=== PATIENT | male | born 1950 | race Caucasian/White ===

== ENCOUNTER 2020-08-02 11:56 | Inpatient (IN) | payer MEDICARE, OTHER ==
[2020-08-02] MEDS ORDERED: ACETAMINOPHEN TAB 500 MG TAB PO STA (11:59)
--- NOTE | 2020-08-02 12:19 | ED ---
General Adult HPI - General Chief complaint: Fever Stated complaint: Altered Mental Status Time Seen by Provider: 08/02/20 11:59 Source: patient, EMS, RN notes reviewed, old records reviewed Mode of arrival: EMS Limitations: no limitations - History of Present Illness Initial comments: 61-year-old male with multiple medical problems, currently residing at the longterm presenting with increased lethargy. Patient noted to have a fever of 103. He is unable to contribute at all to the history. He is tested twice weekly for coronavirus and there was no report of a positive test. He's had some increased work of breathing as well as hypoxia. There is a cough reported by EMS. - Related Data Home Medications Medication Instructions Recorded Confirmed Divalproex [Depakote] 500 mg PO QA 01/27/16 08/02/20 Divalproex [Depakote] 750 mg PO HS 01/27/16 08/02/20 Furosemide [Lasix] 40 mg PO DAILY@1400 01/27/16 08/02/20 Potassium Chloride [Klor-Con 10] 10 meq PO HS 01/27/16 08/02/20 Amiodarone [Cordarone] 200 mg PO DAILY 08/02/20 08/02/20 Cholecalciferol (Vitamin D3) 125 mcg PO DAILY 08/02/20 08/02/20 [Vitamin D3 (5000 Iu)] Cyanocobalamin [Vitamin B-12] 500 mcg PO DAILY 08/02/20 08/02/20 Furosemide [Lasix] 80 mg PO DAILY 08/02/20 08/02/20 Insulin Detemir (Levemir) [Levemir] 8 unit SQ DAILY 08/02/20 08/02/20 Levothyroxine Sodium [Synthroid] 100 mcg PO DAILY@0600 08/02/20 08/02/20 Liraglutide [Victoza 3-Ramírez] 1.8 mg SQ DAILY 08/02/20 08/02/20 Melatonin 5 mg PO HS 08/02/20 08/02/20 Multivitamins, Thera [Multivitamin 1 tab PO DAILY 08/02/20 08/02/20 (formulary)] Potassium Chloride [Klor-Con 20] 20 meq PO DAILY 08/02/20 08/02/20 Pravastatin Sodium [Pravachol] 40 mg PO HS 08/02/20 08/02/20 Rivaroxaban [Xarelto] 20 mg PO W/SUPPER 08/02/20 08/02/20 lisinopriL [Zestril] 2.5 mg PO DAILY 08/02/20 08/02/20 metFORMIN HCL [Glucophage] 1,000 mg PO BID 08/02/20 08/02/20 Allergies Allergy/AdvReac Type Severity Reaction Status Date / Time No Known Allergies Allergy Verified 08/02/20 13:36 Review of Systems ROS Statement: Those systems with pertinent positive or pertinent negative responses have been documented in the HPI. ROS Other: All systems not noted in ROS Statement are negative. Past Medical History Past Medical History: Atrial Fibrillation, Asthma, Diabetes Mellitus, Hyperlipidemia, Hypertension, Sleep Apnea/CPAP/BIPAP, Thyroid Disorder Additional Past Medical History / Comment(s): Diabetic oculopathy, obesity, leukopenia, gallstone, diarrhea, mentally disabled, gout, peripheral neuropothy, gait dysfunction- uses motorized scooter, degenerative joint disorder, supposed to wear cpap at home but is non compliant History of Any Multi-Drug Resistant Organisms: Unobtainable Past Surgical History: Cholecystectomy, Hernia Repair Additional Past Surgical History / Comment(s): L inguinal hernia repair, last co lonoscopy 2003 Past Anesthesia/Blood Transfusion Reactions: Unable to Obtain Past Psychological History: No Psychological Hx Reported Past Alcohol Use History: Unable to Obtain Past Drug Use History: Unable to Obtain - Past Family History Mother Family Medical History: Unable to Obtain Father Family Medical History: Diabetes Mellitus General Exam Limitations: no limitations General appearance: lethargic Head exam: Present: atraumatic, normocephalic ENT exam: Present: mucous membranes moist Neck exam: Present: normal inspection. Absent: tenderness, meningismus Respiratory exam: Present: respiratory distress, wheezes, rhonchi, decreased breath sounds Cardiovascular Exam: Present: regular rate, normal rhythm GI/Abdominal exam: Present: soft, distended. Absent: tenderness, guarding, rebound Extremities exam: Present: pedal edema (Chronic venous stasis, no warmth, no fluctuance no induration) Neurological exam: Absent: motor sensory deficit Skin exam: Present: warm, dry, intact. Absent: cyanosis, diaphoretic Course Vital Signs 08/02/20 12:00 Temperature 103.2 F H Pulse Rate 92 Respiratory 20 Rate Blood Pressure 192/95 O2 Sat by Pulse 97 Oximetry Medical Decision Making - Medical Decision Making 69-year-old male presenting with hypoxia, fever, increased lethargy. Patient unable to contribute to the history. Chest x-ray showing cardiomegaly, there is concern for CHF in addition to likely bilateral pneumonia. He has a leukocytosis of 13. His coronavirus is negative. Urinalysis negative. He has no abdominal pain or tenderness. I did discuss case with Dr. Hoffmann who will admit. Initially started on antibiotics. I did give some IV fluids for minimally elevated lactic acid although I suspect there is a component of CHF and did not want to overload this patient. Infectious disease will be placed on consult. - Lab Data Result diagrams: 08/02/20 12:42 08/02/20 13:45 Lab Results 08/02/20 08/02/20 08/02/20 Range/Units 12:42 12:42 12:42 WBC 13.0 H (3.8-10.6) k/uL RBC 5.04 (4.30-5.90) m/uL Hgb 13.9 (13.0-17.5) gm/dL Hct 45.5 (39.0-53.0) % MCV 90.3 (80.0-100.0) fL MCH 27.5 (25.0-35.0) pg MCHC 30.5 L (31.0-37.0) g/dL RDW 18.2 H (11.5-15.5) % Plt Count 233 (150-450) k/uL MPV 8.8 Neutrophils % 92 % Lymphocytes % 4 % Monocytes % 4 % Eosinophils % 0 % Basophils % 0 % Neutrophils # 11.9 H (1.3-7.7) k/uL Lymphocytes # 0.5 L (1.0-4.8) k/uL Monocytes # 0.5 (0-1.0) k/uL Eosinophils # 0.0 (0-0.7) k/uL Basophils # 0.0 (0-0.2) k/uL Hypochromasia Marked Poikilocytosis Slight Anisocytosis Slight Sodium (137-145) mmol/L Potassium (3.5-5.1) mmol/L Chloride (98-107) mmol/L Carbon Dioxide (22-30) mmol/L Anion Gap mmol/L BUN (9-20) mg/dL Creatinine (0.66-1.25) mg/dL Est GFR (CKD-EPI)AfAm (>60 ml/min/1.73 sqM) Est GFR (CKD-EPI)NonAf (>60 ml/min/1.73 sqM) Glucose (74-99) mg/dL Plasma Lactic Acid Zachariah 2.2 H* (0.7-2.0) mmol/L Calcium (8.4-10.2) mg/dL Total Bilirubin (0.2-1.3) mg/dL AST (17-59) U/L ALT (4-49) U/L Alkaline Phosphatase (38-126) U/L NT-Pro-B Natriuret Pep 1310 pg/mL Total Protein (6.3-8.2) g/dL Albumin (3.5-5.0) g/dL Urine Color Urine Appearance (Clear) Urine pH (5.0-8.0) Ur Specific Filley (1.001-1.035) Urine Protein (Negative) Urine Glucose (UA) (Negative) Urine Ketones (Negative) Urine Blood (Negative) Urine Nitrite (Negative) Urine Bilirubin (Negative) Urine Urobilinogen (<2.0) mg/dL Ur Leukocyte Esterase (Negative) Coronavirus (PCR) (Not Detectd) 08/02/20 08/02/20 08/02/20 Range/Units 12:58 13:38 13:45 WBC (3.8-10.6) k/uL RBC (4.30-5.90) m/uL Hgb (13.0-17.5) gm/dL Hct (39.0-53.0) % MCV (80.0-100.0) fL MCH (25.0-35.0) pg MCHC (31.0-37.0) g/dL RDW (11.5-15.5) % Plt Count (150-450) k/uL MPV Neutrophils % % Lymphocytes % % Monocytes % % Eosinophils % % Basophils % % Neutrophils # (1.3-7.7) k/uL Lymphocytes # (1.0-4.8) k/uL Monocytes # (0-1.0) k/uL Eosinophils # (0-0.7) k/uL Basophils # (0-0.2) k/uL Hypochromasia Poikilocytosis Anisocytosis Sodium 138 (137-145) mmol/L Potassium 5.3 H (3.5-5.1) mmol/L Chloride 94 L (98-107) mmol/L Carbon Dioxide 33 H (22-30) mmol/L Anion Gap 11 mmol/L BUN 16 (9-20) mg/dL Creatinine 0.99 (0.66-1.25) mg/dL Est GFR (CKD-EPI)AfAm >90 (>60 ml/min/1.73 sqM) Est GFR (CKD-EPI)NonAf 78 (>60 ml/min/1.73 sqM) Glucose 168 H (74-99) mg/dL Plasma Lactic Acid Zachariah (0.7-2.0) mmol/L Calcium 9.2 (8.4-10.2) mg/dL Total Bilirubin 1.7 H (0.2-1.3) mg/dL AST 75 H (17-59) U/L ALT 15 (4-49) U/L Alkaline Phosphatase 62 (38-126) U/L NT-Pro-B Natriuret Pep pg/mL Total Protein 7.8 (6.3-8.2) g/dL Albumin 4.2 (3.5-5.0) g/dL Urine Color Light Yellow Urine Appearance Clear (Clear) Urine pH 5.0 (5.0-8.0) Ur Specific Filley 1.008 (1.001-1.035) Urine Protein Negative (Negative) Urine Glucose (UA) Negative (Negative) Urine Ketones Negative (Negative) Urine Blood Negative (Negative) Urine Nitrite Negative (Negative) Urine Bilirubin Negative (Negative) Urine Urobilinogen <2.0 (<2.0) mg/dL Ur Leukocyte Esterase Negative (Negative) Coronavirus (PCR) Not Detected (Not Detectd) Disposition Clinical Impression: Pneumonia Disposition: ADMITTED IP TO THIS HOSP Condition: Stable Is patient prescribed a controlled substance at d/c from ED?: No Referrals: Gerardo Brand DO [Primary Care Provider] - 1-2 days Decision to Admit Reason: Admit from EC Decision Date: 08/02/20 Decision Time: 14:24
[2020-08-02] MEDS ORDERED: ACETAMINOPHEN IV (For NPO) 1,000 MG in EMPTY BAG 1 BAG IVPB ONE (13:00)
--- NOTE | 2020-08-02 13:15 | XR ---
EXAMINATION TYPE: XR chest 2V DATE OF EXAM: 08/02/2020 COMPARISON: Chest x-ray February 10, 2016 HISTORY: Cough. TECHNIQUE: Frontal and lateral views of the chest are obtained. FINDINGS: There is cardiomegaly with bilateral central increased opacities. No pleural effusion or p neumothorax. The osseous structures are intact. IMPRESSION: Suspected CHF exacerbation as there is cardiomegaly redemonstrated with suspected modera te central vascular congestion. Correlate clinically.
[2020-08-02 13:21] LABS: Anisocytosis Slight; Basophils % (A) 0 %; Eosinophils % (A) 0 %; HCT 45.5 % (39.0-53.0); HGB 13.9 gm/dL (13.0-17.5); Hypochromasia Marked; Lymphocytes # (A) 0.5 k/uL (1.0-4.8); Lymphocytes % (A) 4 %; MCH 27.5 pg (25.0-35.0); MCHC 30.5 g/dL (31.0-37.0); MCV 90.3 fL (80.0-100.0); Mean Platelet Volume 8.8; Monocytes # (A) 0.5 k/uL (0-1.0); Monocytes % (A) 4 %; Neutrophils # (A) 11.9 k/uL (1.3-7.7); Neutrophils % (A) 92 %; Platelet Count 233 k/uL (150-450); Poikilocytosis Slight; RBC 5.04 m/uL (4.30-5.90); RDW 18.2 % (11.5-15.5)
[2020-08-02] MEDS ORDERED: cefTRIAXone IN SWFI 1,000 MG/10 ML SYRINGE IVP STA (13:27)
[2020-08-02] MEDS ORDERED: AZITHROMYCIN 500 MG in SODIUM CHLORIDE 0.9% 250 ML IVPB STA (13:50)
[2020-08-02 13:55] LABS: Appearance,Urine Clear (Clear); Bilirubin,Urine Negative (Negative); Blood,Urine Negative (Negative); Color,Urine Light Yellow; Glucose,Urine (UA) Negative (Negative); Ketones,Urine Negative (Negative); Leukocyte Esterase,Urine Negative (Negative); Nitrite,Urine Negative (Negative); Protein,Urine Negative (Negative); Specific Gravity,Urine 1.008 (1.001-1.035); Urobilinogen,Urine <2.0 mg/dL (<2.0)
[2020-08-02 14:09] LABS: ALT 15 U/L (4-49); AST 75 U/L (17-59); African American GFR (CKD) >90 (>60 ml/min/1.73 sqM); Albumin 4.2 g/dL (3.5-5.0); Alkaline Phosphatase 62 U/L (38-126); Anion Gap 11 mmol/L; Blood Urea Nitrogen 16 mg/dL (9-20); Calcium 9.2 mg/dL (8.4-10.2); Carbon Dioxide 33 mmol/L (22-30); Chloride 94 mmol/L (98-107); Glucose 168 mg/dL (74-99); Non-African American GFR(CKD) 78 (>60 ml/min/1.73 sqM); Sodium 138 mmol/L (137-145); Total Bilirubin 1.7 mg/dL (0.2-1.3); Total Protein 7.8 g/dL (6.3-8.2)
[2020-08-02 14:11] LABS: Potassium 5.3 mmol/L (3.5-5.1)
[2020-08-02] MEDS ORDERED: NALOXONE 0.4 MG/ML 1 ML VIAL IV PRN (14:19)
[2020-08-02] MEDS ORDERED: CEFEPIME 2 GM in SODIUM CHLORIDE 0.9% 100 ML IVPB STA (14:19)
[2020-08-02] MEDS ORDERED: SODIUM CHLORIDE 0.9% 1,000 ML IV SCH (14:30)
[2020-08-02] MEDS: CEFEPIME 2 GM in SODIUM CHLORIDE 0.9% 100 ML IVPB SCH (16:13)
[2020-08-02 16:59] LABS: Glucose,Whole Blood 114 mg/dL (75-99)
--- NOTE | 2020-08-02 17:02 | P.HPIM ---
History of Present Illness H&P Date: 08/02/20 Chief Complaint: Fever History of presenting complaint: This is a 69-year-old patient was currently at resident of [facility]. Patient being followed by Dr. Brand. Staff and the ECF following the patient's sensorium to be decreased. Patient is normally alert and able to walk around. Patient had a COVID test 5 days ago on Wednesday that was negative. Patient has slightly increased respiratory rate in the conus bit of a cough. Patient denies any urinary symptoms. Some decrease in appetite. No chest pain. Chronic stable medical conditions include atrial fibrillation, asthma, diabetes, hypertension, hyperlipidemia, gallstones, peripheral neuropathy, gait, uses a motorized scooter, DJD, does not use a CPAP Review of systems: GEN.: Fever, tired EYES: None HEENT: None NECK: None RESPIRATORY: Some cough and slight shortness of breath CARDIOVASCULAR: None GASTROINTESTINAL: None GENITOURINARY: None MUSCULOSKELETAL: None LYMPHATICS: None HEMATOLOGICAL: None PSYCHIATRY: Able to answer very simple questions NEUROLOGICAL: None Past medical history to include: atrial fibrillation, asthma, diabetes, hypertension, hyperlipidemia, ulcerative sleep apnea does not use CPAP, cognitive impairment, gout, peripheral neuropathy gait dysfunction uses a motorized scooter Social history: Resident of [facility], no history of smoking or alcohol Family history: Patient cannot tell Physical examination: VITAL SIGNS: 103.2, 92, 20, 104/58, 93% on 6 L GENERAL: BMI 39.2, laying in bed, bit tired and lethargic. EYES: Pupils equal. Conjunctiva normal. HEENT: [External appearance of nose and ears normal, macroglossia, dry mucous membranes. NECK: JVD unable to assess; masses not palpable. HEART: First and second heart sounds are normal; minimal edema. LUNGS: Respiratory rate increased; decreased breath sounds. ABDOMEN: Soft, nontender, liver spleen not palpable, no masses palpable. PSYCH: [Patient 0 to answer simple questions. NEUROLOGICAL: Cranial nerves grossly intact; no facial asymmetry, power and sensation grossly intact. LYMPHATICS: No lymph nodes palpable in the axilla and neck INVESTIGATIONS, reviewed in the clinical context: WBC 13 hemoglobin 13.9 platelets 233, lactic acid 2.2 Of 5.3 BUN 16 creatinine 0.99 ProBNP 1310 UA negative Coronavirus [PCR]-not detected Chest x-ray film personally reviewed by [id number] infiltrate, some underpenetration Assessment and plan: -Patient presents to fever 103. Has some tachypnea and a cough. Check stat x- ray showing infiltrate. Has elevated white count. Suspect gram-negative organism/pneumonia. Patient be started on IV cefepime. Blood cultures are drawn Procalcitonin ordered -Acute delirium/metabolic encephalopathy from fever Follow clinically -Sepsis from pneumonia IV fluids, antibiotics -Persistent atrial fibrillation, rate controlled Continue with xarelto, amiodarone -Diabetes mellitus type 2 Follow Accu-Cheks -Essential hypertension Continue with Zestril -Hyperlipidemia Continue with Pravachol -Obesity BMI 39.2 Weight loss measures when patient was stable -Obstructive sleep apnea, patient does not use CPAP -Diabetic peripheral neuropathy -Patient has a legal guardian, we'll obtain more information Keep patient on IV fluids. IV cefepime. Home medications and resume. Follow Accu-Cheks. Hold off metformin for now. Given the complexity and severity of patient's condition expect the patient to be in the hospital at least for 2 overnights Past Medical History Past Medical History: Atrial Fibrillation, Asthma, Diabetes Mellitus, Hyperlipidemia, Hypertension, Sleep Apnea/CPAP/BIPAP, Thyroid Disorder Additional Past Medical History / Comment(s): Diabetic oculopathy, obesity, leukopenia, gallstone, diarrhea, mentally disabled, gout, peripheral neuropothy, gait dysfunction- uses motorized scooter, degenerative joint disorder, supposed to wear cpap at home but is non compliant History of Any Multi-Drug Resistant Organisms: Unobtainable Past Surgical History: Cholecystectomy, Hernia Repair Additional Past Surgical History / Comment(s): L inguinal hernia repair, last colonoscopy 2002 Past Anesthesia/Blood Transfusion Reactions: Unable to Obtain Past Psychological History: No Psychological Hx Reported Past Alcohol Use History: Unable to Obtain Past Drug Use History: Unable to Obtain - Past Family History Mother Family Medical History: Unable to Obtain Father Family Medical History: Diabetes Mellitus Medications and Allergies Home Medications Medication Instructions Recorded Confirmed Type Divalproex [Depakote] 500 mg PO QAM 01/27/16 08/02/20 History Divalproex [Depakote] 750 mg PO HS 01/27/16 08/02/20 History Furosemide [Lasix] 40 mg PO DAILY@1400 01/27/16 08/02/20 History Potassium Chloride [Klor-Con 10] 10 meq PO HS 01/27/16 08/02/20 History Amiodarone [Cordarone] 200 mg PO DAILY 08/02/20 08/02/20 History Cholecalciferol (Vitamin D3) 125 mcg PO DAILY 08/02/20 08/02/20 History [Vitamin D3 (5000 Iu)] Cyanocobalamin [Vitamin B-12] 500 mcg PO DAILY 08/02/20 08/02/20 History Furosemide [Lasix] 80 mg PO DAILY 08/02/20 08/02/20 History Insulin Detemir (Levemir) [Levemir] 8 unit SQ DAILY 08/02/20 08/02/20 History Levothyroxine Sodium [Synthroid] 100 mcg PO DAILY@0600 08/02/20 08/02/20 History Liraglutide [Victoza 3-Ramírez] 1.8 mg SQ DAILY 08/02/20 08/02/20 History Melatonin 5 mg PO HS 08/02/20 08/02/20 History Multivitamins, Thera [Multivitamin 1 tab PO DAILY 08/02/20 08/02/20 History (formulary)] Potassium Chloride [Klor-Con 20] 20 meq PO DAILY 08/02/20 08/02/20 History Pravastatin Sodium [Pravachol] 40 mg PO HS 08/02/20 08/02/20 History Rivaroxaban [Xarelto] 20 mg PO W/SUPPER 08/02/20 08/02/20 History lisinopriL [Zestril] 2.5 mg PO DAILY 08/02/20 08/02/20 History metFORMIN HCL [Glucophage] 1,000 mg PO BID 08/02/20 08/02/20 History Allergies Allergy/AdvReac Type Severity Reaction Status Date / Time No Known Allergies Allergy Verified 08/02/20 13:36 Physical Exam Vitals: Vital Signs Temp Pulse Resp BP Pulse Ox 08/02/20 14:27 101.3 F H 87 19 104/58 93 L 08/02/20 12:00 103.2 F H 92 20 192/95 97 Intake and Output 08/02/20 08/02/20 08/02/20 06:59 14:59 22:59 Other: Weight 113.398 kg Results CBC & Chem 7: 08/02/20 12:42 08/02/20 13:45 Labs: Abnormal Lab Results - Last 24 Hours (Table) 08/02/20 08/02/20 08/02/20 Range/Units 12:42 12:42 13:45 WBC 13.0 H (3.8-10.6) k/uL MCHC 30.5 L (31.0-37.0) g/dL RDW 18.2 H (11.5-15.5) % Neutrophils # 11.9 H (1.3-7.7) k/uL Lymphocytes # 0.5 L (1.0-4.8) k/uL Potassium 5.3 H (3.5-5.1) mmol/L Chloride 94 L (98-107) mmol/L Carbon Dioxide 33 H (22-30) mmol/L Glucose 168 H (74-99) mg/dL Plasma Lactic Acid Zachariah 2.2 H* (0.7-2.0) mmol/L Total Bilirubin 1.7 H (0.2-1.3) mg/dL AST 75 H (17-59) U/L
[2020-08-02] MEDS: INSULIN ASPART (NovoLOG) 100 UNIT/ML VIAL SQ SCH ×2 (17:08→21:05)
[2020-08-02] MEDS: SODIUM CHLORIDE 0.9% 1,000 ML IV SCH (17:26)
[2020-08-02] MEDS: RIVAROXABAN 20 MG TAB PO SCH (18:05)
[2020-08-02] MEDS ORDERED: VANCOMYCIN IV PER PHARMACY 1 EACH MISC MISCELLANE PRN (20:04)
[2020-08-02] MEDS ORDERED: SODIUM CHLORIDE 0.9% 1,000 ML IV ONE (20:07)
[2020-08-02 20:14] LABS: Glucose,Whole Blood 98 mg/dL (75-99)
[2020-08-02] MEDS: PRAVASTATIN SODIUM 40 MG TAB PO SCH (21:10)
[2020-08-02] MEDS: MELATONIN 5 MG TABLET PO SCH (21:10)
[2020-08-02] MEDS: DIVALPROEX 250 MG TABLET.DR PO SCH (21:10)
[2020-08-02] MEDS: VANCOMYCIN 1,750 MG in SODIUM CHLORIDE 0.9% 500 ML 500 ML IVPB SCH (21:10)
[2020-08-03] MEDS: CEFEPIME 2 GM in SODIUM CHLORIDE 0.9% 100 ML IVPB SCH ×3 (00:15→17:38)
[2020-08-03] MEDS: SODIUM CHLORIDE 0.9% 1,000 ML IV SCH ×3 (00:52→17:39)
--- NOTE | 2020-08-03 01:06 | P.EN ---
A team note Activated at 7:57 pm. Arrived on the scene shortly after. Reviewed the chart and discussed the case with RN. The patient was admitted to the hospital with sepsis secondary to pneumonia. Upon arrival to the floor, he was noted to be hypotensive with BP 62/28. Upon arrival at the scene, the patient's BP was 91/52, pulse 70, respiratory rate 19, temp 98.1, and SpO2 93% on nasal cannula 6 L. Patient reported having a cough though was slow to respond and did not relay any further complaints. General: Non-toxic, in no acute distress, appears stated age, morbidly obese HEENT: NC/AT, anicteric sclerae, moist conjunctiva, no lid-lag, PERRLA Cardiovascular: S1/S2 wnl, no murmurs, rubs, or gallops Lungs: Mild bibasilar rales, normal respiratory effort, no accessory muscle use Abdominal: Soft, non-tender, non-distended, no guarding, rebound, or rigidity Skin: Warm, dry Extremities: No bilateral lower extremity edema with chronic venous stasis changes Psychiatric: Somewhat lethargic, oriented to person and place, not oriented to time Neuro: Moving all extremities, no gross focal deficits noted Assessment/plan Severe sepsis secondary to pneumonia -Vancomycin stat dose ordered -Patient currently receiving cefepime -1 L of normal saline bolus ordered -Primary Team notified by RN -Continue to monitor lactate to resolution -Infectious disease consulted
[2020-08-03] MEDS: LEVOTHYROXINE 100 MCG TAB PO SCH (04:43)
--- NOTE | 2020-08-03 06:31 | CONS ---
CONSULTATION DATE OF SERVICE: 08/02/2020 REASON FOR CONSULTATION: Pneumonia. HISTORY OF PRESENT ILLNESS: The patient is a 69-year-old male who is a resident of a local correction. The patient was sent to [facility] ER for evaluation of increasing lethargy. The patient did have a fever of 103-104 at that facility. The patient also noticed to have a congested cough with increasing work of breathing and hypoxemia. Patient tested twice today for [place] and the patient did have a negative COVID-19 test. With these symptoms, the patient was evaluated by the ER physician. On arrival to the ER, the patient did have fever of 103 degrees Fahrenheit. The patient did not have significant tachycardia. He was hypoxic requiring supplemental oxygen. Did have an elevated white count of 13,000 with a left shift. Did have elevated lactic acid. Procalcitonin 0.66, creatinine was normal. AST was mildly elevated. Urine was negative. Noyola PCR was negative. Chest x-ray was mostly CHF pattern. The patient has been admitted to the hospital. Infectious Disease was consulted for further management of antibiotic therapy. The patient is not a very good historian so most of the information has been extracted from review of the chart, talking to the nursing staff. REVIEW OF SYSTEMS: Positive points have been mentioned in HPI. Complete review could not be obtained because of underlying mental status. PAST MEDICAL HISTORY: Atrial fibrillation, asthma, diabetes mellitus, hypertension, hyperlipidemia, sleep apnea, hypothyroidism. PAST SURGICAL HISTORY: Cholecystectomy, hernia repair. SOCIAL HISTORY: No history of smoking, drinking or drug use. He is a correction resident. FAMILY HISTORY: No pertinent findings noticed. ALLERGIES: No known drug allergies. MEDICATIONS: Currently include the patient is on Tylenol, amiodarone, cefepime, vitamin B12, Depakote, NovoLog, Synthroid, vancomycin pharmacy to dose, Theragran, Narcan Pravachol, Xarelto. PHYSICAL EXAMINATION: VITAL SIGNS: Blood pressure is 91/52, pulse of 70, temperature is 98.1, he is 93% on 6 L nasal cannula. GENERAL DESCRIPTION: Patient is an elderly male lying in bed in no distress. No tachypnea or accessory muscles of respiration use. HEENT: Examination shows slight pallor, no scleral icterus. Oral mucous membrane is dry. NECK: Trachea central, no thyromegaly. LUNGS: Unlabored breathing, decreased breath sounds at the bases. No wheeze or crackle. HEART: S1-S2, regular rate and rhythm. ABDOMEN: Soft, no tenderness. No guarding or rigidity. EXTREMITIES: No edema of the feet. SKIN: No rash or mass palpable. NEUROLOGICAL: Patient is awake, alert, oriented times one. Mood and affect normal. LABS: Hemoglobin 13.1, white count 13,000, BUN of 16, creatinine 0.99. Procalcitonin 0.66. N[place] PCR was negative. The chest x-ray report as mentioned above. DIAGNOSTIC IMPRESSION: Patient presented to the hospital with a fever, decreased level of consciousness, congested cough with evidence of pneumonia likely a nosocomial pathogen, in this patient who is a correction resident. No need to cover for resistant gram-positive or gram-negative. PLAN: 1. We will try to obtain sputum for Gram stain and culture. 2. Check urine for Legionella antigen. 3. Continue the patient on cefepime 2 g q.8h, vancomycin, Pharmacy to dose. 4. We will follow on clinical condition and culture to further adjust medication if needed. Thank you for this consultation. Will follow this patient along with you. MMODL / IJN: [id number] /
[2020-08-03 06:58] LABS: Glucose,Whole Blood 103 mg/dL (75-99)
[2020-08-03] MEDS: INSULIN ASPART (NovoLOG) 100 UNIT/ML VIAL SQ SCH ×4 (07:05→21:30)
[2020-08-03] MEDS: CYANOCOBALAMIN 500 MCG TAB PO SCH (08:18)
[2020-08-03] MEDS: DIVALPROEX 250 MG TABLET.DR PO SCH ×2 (08:18→21:30)
[2020-08-03] MEDS: MULTIVITAMINS, THERA 1 EACH TAB PO SCH (08:18)
[2020-08-03] MEDS: CHOLECALCIFEROL 25 MCG (1000 IU) TABLET PO SCH (08:18)
[2020-08-03] MEDS: AMIODARONE 200 MG TAB PO SCH (08:18)
[2020-08-03 11:31] LABS: Glucose,Whole Blood 197 mg/dL (75-99)
[2020-08-03] MEDS: VANCOMYCIN 1,750 MG in SODIUM CHLORIDE 0.9% 500 ML 500 ML IVPB SCH ×2 (12:33→21:31)
--- NOTE | 2020-08-03 15:30 | P.PN ---
Progress Note - Text Progress Note Date: 08/03/20 Chief Complaint: Fever History of presenting complaint: This is a 69-year-old patient was currently at [facility]. Patient being followed by Dr. Brand. Staff and the ECF following the patient's sensorium to be decreased. Patient is normally alert and able to walk around. Patient had a COVID test 5 days ago on Wednesday that was negative. Patient has slightly increased respiratory rate in the conus bit of a cough. Patient denies any urinary symptoms. Some decrease in appetite. No chest pain. Chronic stable medical conditions include atrial fibrillation, asthma, diabetes, hypertension, hyperlipidemia, gallstones, peripheral neuropathy, gait, uses a motorized scooter, DJD, does not use a CPAP Admitted with pneumonia, delirium, sepsis. Started on IV cefepime. Today: Sitting up in a chair. Feeling better. Currently getting better. Sensorium better. Currently getting better Review of systems: Was done for constitutional, cardiovascular, GI, pulmonary. relevant finding as above Active Medications Acetaminophen (Acetaminophen Tab 325 Mg Tab) 650 mg PO Q6HR PRN PRN Reason: Mild Pain or Fever > 100.5 Amiodarone HCl (Amiodarone 200 Mg Tab) 200 mg PO DAILY [facility] Last Admin: 08/03/20 08:18 Dose: 200 mg Documented by: Cholecalciferol (Cholecalciferol 25 Mcg (1000 Iu) Tablet) 125 mcg PO DAILY [facility] Last Admin: 08/03/20 08:18 Dose: 125 mcg Documented by: Cyanocobalamin (Cyanocobalamin 500 Mcg Tab) 500 mcg PO DAILY [facility] Last Admin: 08/03/20 08:18 Dose: 500 mcg Documented by: Divalproex Sodium (Divalproex 250 Mg Tablet.) 500 mg PO QAM [facility] Last Admin: 08/03/20 08:18 Dose: 500 mg Documented by: Divalproex Sodium (Divalproex 250 Mg Tablet.) 750 mg PO HS [facility] Last Admin: 08/02/20 21:10 Dose: 750 mg Documented by: Cefepime HCl 2 gm/ Sodium (Chloride) 100 mls @ 25 mls/hr IVPB Q8HR [facility] Last Admin: 08/03/20 08:16 Dose: 25 mls/hr Documented by: Sodium Chloride (Saline 0.9%) 1,000 mls @ 130 mls/hr IV .Q7H42M [facility] Last Admin: 08/03/20 13:18 Dose: Not Given Documented by: Vancomycin HCl 1,750 mg/ (Sodium Chloride) 500 mls @ 167 mls/hr IVPB Q12H [facility] Last Admin: 08/03/20 12:33 Dose: 167 mls/hr Documented by: Insulin Aspart (Insulin Aspart (Novolog) 100 Unit/Ml Vial) 0 unit SQ ACHS [facility]; Protocol Last Admin: 08/03/20 12:33 Dose: 3 unit Documented by: Levothyroxine Sodium (Levothyroxine 100 Mcg Tab) 100 mcg PO DAILY@0630 [facility] Last Admin: 08/03/20 04:43 Dose: 100 mcg Documented by: Melatonin (Melatonin 5 Mg Tablet) [address] [facility] Last Admin: 08/02/20 21:10 Dose: 5 mg Documented by: Multivitamins (Multivitamins, Thera 1 Each Tab) 1 each PO DAILY [facility] Last Admin: 08/03/20 08:18 Dose: 1 each Documented by: Naloxone HCl (Naloxone 0.4 Mg/Ml 1 Ml Vial) 0.2 mg IV Q2M PRN PRN Reason: Opioid Reversal Pravastatin Sodium (Pravastatin Sodium 40 Mg Tab) [address] [facility] Last Admin: 08/02/20 21:10 Dose: 40 mg Documented by: Rivaroxaban (Rivaroxaban 20 Mg Tab) 20 mg PO W/SUPPER [facility] Last Admin: 08/02/20 18:05 Dose: 20 mg Documented by: Past medical history to include: atrial fibrillation, asthma, diabetes, hypertension, hyperlipidemia, ulcerative sleep apnea does not use CPAP, cognitive impairment, gout, peripheral neuropathy gait dysfunction uses a motorized scooter Social history: Resident of [facility] on, no history of smoking or alcohol Family history: Patient cannot tell Physical examination: VITAL SIGNS: 97.7, 70, 17, 100/63, 95% on 5 L GENERAL: Sitting up in a chair, less tired, more awake EYES: Pupils equal. Conjunctiva normal. HEENT: External appearance of nose and ears normal, macroglossia, NECK: JVD unable to assess; masses not palpable. HEART: First and second heart sounds are normal; minimal edema. LUNGS: Respiratory rate increased; decreased breath sounds. ABDOMEN: Soft, nontender, liver spleen not palpable, no masses palpable. PSYCH: Patient is able to answer questions better today INVESTIGATIONS, reviewed in the clinical context: Pro-calcitonin 0.66 WBC 13 hemoglobin 13.9 platelets 233, lactic acid 2.2 Of 5.3 BUN 16 creatinine 0.99 ProBNP 1310 UA negative Coronavirus [PCR]-not detected Chest x-ray film personally reviewed by [id number] infiltrate, some und erpenetration Assessment and plan: -Patient presents to fever 103. Has some tachypnea and a cough. Chest x-ray showing infiltrate. Has elevated white count. Suspect gram-negative organism/pneumonia.-Started to improve Patient be started on IV cefepime. Blood cultures are drawn -Acute hypoxic respiratory failure from pneumonia Oxygen supplementation -Acute delirium/metabolic encephalopathy from fever-better Follow clinically -Sepsis from pneumonia-improving IV fluids, antibiotics -Persistent atrial fibrillation, rate controlled Continue with xarelto, amiodarone -Diabetes mellitus type 2 Follow Accu-Cheks -Essential hypertension Continue with Zestril -Hyperlipidemia Continue with Pravachol -Obesity BMI 39.2 Weight loss measures when patient was stable -Obstructive sleep apnea, patient does not use CPAP -Diabetic peripheral neuropathy -Patient has a legal guardian, we'll obtain more information Continue IV cefepime. Titrate down FiO2. Decrease IV fluids to 50 mL an hour. Discussed with the patient. Repeat labs.
[2020-08-03 16:28] LABS: Glucose,Whole Blood 112 mg/dL (75-99)
[2020-08-03] MEDS: RIVAROXABAN 20 MG TAB PO SCH (17:36)
[2020-08-03 21:07] LABS: Glucose,Whole Blood 172 mg/dL (75-99)
[2020-08-03] MEDS: PRAVASTATIN SODIUM 40 MG TAB PO SCH (21:30)
[2020-08-03] MEDS: MELATONIN 5 MG TABLET PO SCH (21:30)
--- NOTE | 2020-08-03 23:48 | PN ---
PROGRESS NOTE DATE OF SERVICE: 08/03/2020 REASON FOR FOLLOWUP: Pneumonia. INTERVAL HISTORY: The patient is currently afebrile. The patient is more awake and alert. He is breathing comfortably. Denies having any chest pain. Did have a cough, not bringing up sputum. No vomiting, diarrhea or any changes reported by nursing staff. PHYSICAL EXAMINATION: Blood pressure is 112/69, pulse of 67, temperature 98.3. He is 98% on 5 L nasal cannula. General description is an elderly male up in the chair in no distress. Respiratory system: Unlabored breathing, decreased breath sounds. No wheeze. Heart S1, S2. Regular rate and rhythm. ABDOMEN: Soft, no tenderness. LABS: No new labs have been obtained today. Urine for Legionella antigen she was negative blood culture so far showing group B Streptococcus . DIAGNOSTIC IMPRESSION AND PLAN: Patient admitted to the hospital with the however now with evidence of Streptococcus agalactiae bacteremia which could be due to skin and/or soft tissue infection. Did not have any evidence of cellulitis or wound infection components no almost pneumonia in this organism is sensitive. Antibiotic will be adjusted to cefazolin 2 grams q.8 hours. Discontinue vancomycin, cefepime and monitor clinical course closely. MMODL / IJN: [id number] /
[2020-08-04] MEDS: CEFEPIME 2 GM in SODIUM CHLORIDE 0.9% 100 ML IVPB SCH ×2 (01:17→07:49)
[2020-08-04] MEDS: LEVOTHYROXINE 100 MCG TAB PO SCH (04:57)
[2020-08-04 06:26] LABS: Glucose 117 mg/dL (74-99)
[2020-08-04 06:27] LABS: African American GFR (CKD) >90 (>60 ml/min/1.73 sqM); Anion Gap 6 mmol/L; Anisocytosis Slight; Basophils % (A) 0 %; Blood Urea Nitrogen 23 mg/dL (9-20); Calcium 8.5 mg/dL (8.4-10.2); Carbon Dioxide 32 mmol/L (22-30); Chloride 100 mmol/L (98-107); Eosinophils # (A) 0.1 k/uL (0-0.7); Eosinophils % (A) 0 %; HCT 42.2 % (39.0-53.0); HGB 11.7 gm/dL (13.0-17.5); Hypochromasia Marked; Lymphocytes # (A) 0.8 k/uL (1.0-4.8); Lymphocytes % (A) 5 %; MCHC 27.9 g/dL (31.0-37.0); MCV 93.4 fL (80.0-100.0); Mean Platelet Volume 8.9; Monocytes # (A) 0.9 k/uL (0-1.0); Monocytes % (A) 6 %; Neutrophils % (A) 87 %; Non-African American GFR(CKD) 82 (>60 ml/min/1.73 sqM); Platelet Count 221 k/uL (150-450); Poikilocytosis Slight; Potassium 4.7 mmol/L (3.5-5.1); RBC 4.52 m/uL (4.30-5.90); Sodium 138 mmol/L (137-145); WBC 14.8 k/uL (3.8-10.6)
[2020-08-04 07:08] LABS: Glucose,Whole Blood 131 mg/dL (75-99)
[2020-08-04] MEDS: INSULIN ASPART (NovoLOG) 100 UNIT/ML VIAL SQ SCH ×4 (07:49→21:03)
[2020-08-04] MEDS: MULTIVITAMINS, THERA 1 EACH TAB PO SCH (07:54)
[2020-08-04] MEDS: CYANOCOBALAMIN 500 MCG TAB PO SCH (07:55)
[2020-08-04] MEDS: AMIODARONE 200 MG TAB PO SCH (07:55)
[2020-08-04] MEDS: CHOLECALCIFEROL 25 MCG (1000 IU) TABLET PO SCH (07:55)
[2020-08-04] MEDS: DIVALPROEX 250 MG TABLET.DR PO SCH ×2 (07:57→21:12)
[2020-08-04] MEDS: VANCOMYCIN 1,750 MG in SODIUM CHLORIDE 0.9% 500 ML 500 ML IVPB SCH (09:34)
[2020-08-04 11:28] LABS: Glucose,Whole Blood 149 mg/dL (75-99)
[2020-08-04] MEDS: SODIUM CHLORIDE 0.9% 1,000 ML IV SCH (11:47)
--- NOTE | 2020-08-04 13:27 | XR ---
EXAMINATION TYPE: XR chest 2V DATE OF EXAM: 08/04/2020 COMPARISON: Chest x-ray 2 days ago HISTORY: Hypoxia. TECHNIQUE: Frontal and lateral views of the chest are obtained. FINDINGS: Exam suboptimal due to patient's large body habitus. Persisting cardiomegaly with increasi ng central opacities bilaterally. Small bilateral pleural effusions. The osseous structures are juan daniel neralized. Degenerative change bilateral glenohumeral joints. IMPRESSION: Suboptimal study. Correlate for worsening CHF exacerbation as there is persistent cardio megaly with increasing central alveolar and interstitial edema and new small bilateral pleural effusi ons thought present.
[2020-08-04] MEDS: FUROSEMIDE 10 MG/ML 4 ML VIAL IV SCH ×2 (13:30→17:28)
[2020-08-04 16:30] LABS: Glucose,Whole Blood 175 mg/dL (75-99)
[2020-08-04] MEDS: RIVAROXABAN 20 MG TAB PO SCH (17:28)
[2020-08-04] MEDS ORDERED: VANCOMYCIN TROUGH DUE 1 EACH MISC MISCELLANE ONE (20:00)
--- NOTE | 2020-08-04 20:10 | P.PN ---
Progress Note - Text Progress Note Date: 08/04/20 Chief Complaint: Fever History of presenting complaint: This is a 69-year-old patient was currently at [facility]. Patient being followed by Dr. Brand. Staff and the ECF following the patient's sensorium to be decreased. Patient is normally alert and able to walk around. Patient had a COVID test 5 days ago on Wednesday that was negative. Patient has slightly increased respiratory rate in the conus bit of a cough. Patient denies any urinary symptoms. Some decrease in appetite. No chest pain. Chronic stable medical conditions include atrial fibrillation, asthma, diabetes, hypertension, hyperlipidemia, gallstones, peripheral neuropathy, gait, uses a motorized scooter, DJD, does not use a CPAP Admitted with pneumonia, delirium, sepsis. Started on IV cefepime. Today: up in a chair. Requesting to go back to ECF.eating well. Review of systems: Was done for constitutional, cardiovascular, GI, pulmonary. relevant finding as above Active Medications Acetaminophen (Acetaminophen Tab 325 Mg Tab) 650 mg PO Q6HR PRN PRN Reason: Mild Pain or Fever > 100.5 Amiodarone HCl (Amiodarone 200 Mg Tab) 200 mg PO DAILY [facility] Last Admin: 08/04/20 07:55 Dose: 200 mg Documented by: Cholecalciferol (Cholecalciferol 25 Mcg (1000 Iu) Tablet) 125 mcg PO DAILY [facility] Last Admin: 08/04/20 07:55 Dose: 125 mcg Documented by: Cyanocobalamin (Cyanocobalamin 500 Mcg Tab) 500 mcg PO DAILY [facility] Last Admin: 08/04/20 07:55 Dose: 500 mcg Documented by: Divalproex Sodium (Divalproex 250 Mg Tablet.) 500 mg PO QAM [facility] Last Admin: 08/04/20 07:57 Dose: 500 mg Documented by: Divalproex Sodium (Divalproex 250 Mg Tablet.) 750 mg PO HS [facility] Last Admin: 08/03/20 21:30 Dose: 750 mg Documented by: Cefazolin Sodium 2 gm/ Sodium (Chloride) 50 mls @ 100 mls/hr IVPB Q8HR [facility] Last Admin: 08/04/20 16:04 Dose: 100 mls/hr Documented by: Insulin Aspart (Insulin Aspart (Novolog) 100 Unit/Ml Vial) 0 unit SQ [facility]; Protocol Last Admin: 08/04/20 17:28 Dose: 2 unit Documented by: Levothyroxine Sodium (Levothyroxine 100 Mcg Tab) 100 mcg PO DAILY@0630 [facility] Last Admin: 08/04/20 04:57 Dose: 100 mcg Documented by: Melatonin (Melatonin 5 Mg Tablet) 5 mg PO [facility] Last Admin: 08/03/20 21:30 Dose: 5 mg Documented by: Multivitamins (Multivitamins, Thera 1 Each Tab) 1 each PO DAILY [facility] Last Admin: 08/04/20 07:54 Dose: 1 each Documented by: Naloxone HCl (Naloxone 0.4 Mg/Ml 1 Ml Vial) 0.2 mg IV Q2M PRN PRN Reason: Opioid Reversal Pravastatin Sodium (Pravastatin Sodium 40 Mg Tab) 40 mg PO [facility] Last Admin: 08/03/20 21:30 Dose: 40 mg Documented by: Rivaroxaban (Rivaroxaban 20 Mg Tab) 20 mg PO W/SUPPER [facility] Last Admin: 08/04/20 17:28 Dose: 20 mg Documented by: Past medical history to include: atrial fibrillation, asthma, diabetes, hypertension, hyperlipidemia, ulcerative sleep apnea does not use CPAP, cognitive impairment, gout, peripheral neuropathy gait dysfunction uses a motorized scooter Social history: Resident of [facility], no history of smoking or alcohol Family history: Patient cannot tell Physical examination: VITAL SIGNS: 97.2, 77, 20, 122/74, 93% on 5 L GENERAL: Sitting up in a chair, awake EYES: Pupils equal. Conjunctiva normal. HEENT: External appearance of nose and ears normal, macroglossia, NECK: JVD unable to assess; masses not palpable. HEART: First and second heart sounds are normal; minimal edema. LUNGS: Respiratory rate increased; decreased breath sounds. basal crackles ABDOMEN: Soft, nontender, liver spleen not palpable, no masses palpable. PSYCH: Patient is able to answer questions better today INVESTIGATIONS, reviewed in the clinical context: August 04: Chest x-ray: Pulmonary edema Pro-calcitonin 0.66 WBC 13 hemoglobin 13.9 platelets 233, lactic acid 2.2 Of 5.3 BUN 16 creatinine 0.99 ProBNP 1310 UA negative Coronavirus [PCR]-not detected Chest x-ray film personally reviewed by [id number] infiltrate, some underpenetration Assessment and plan: -Patient presents to fever 103. Has some tachypnea and a cough. Chest x-ray showing infiltrate. Has elevated white count. Suspect gram-negative organism/pneumonia.-Started to improve on IV cefepime. Blood cultures are drawn -Acute hypoxic respiratory failure from pneumonia Oxygen supplementation -Acute pulmonary edema from IV fluids-new diagnosis today Check stat x-ray done today did show pulmonary edema. Stop IV fluids. IV Lasix. -Acute delirium/metabolic encephalopathy from fever-better Follow clinically -Sepsis from pneumonia-improving IV fluids, antibiotics -Persistent atrial fibrillation, rate controlled Continue with xarelto, amiodarone -Diabetes mellitus type 2 Follow Accu-Cheks -Essential hypertension Continue with Zestril -Hyperlipidemia Continue with Pravachol -Obesity BMI 39.2 Weight loss measures when patient was stable -Obstructive sleep apnea, patient does not use CPAP -Diabetic peripheral neuropathy -Patient has a legal guardian, we'll obtain more information Continue IV cefepime. DC IV fluids. IV Lasix 40 mg 2 doses. Repeat BMP in the morning.
[2020-08-04 20:58] LABS: Glucose,Whole Blood 129 mg/dL (75-99)
[2020-08-04] MEDS: MELATONIN 5 MG TABLET PO SCH (21:12)
[2020-08-04] MEDS: PRAVASTATIN SODIUM 40 MG TAB PO SCH (21:12)
[2020-08-05] MEDS: LEVOTHYROXINE 100 MCG TAB PO SCH (05:30)
--- NOTE | 2020-08-05 05:51 | PN ---
PROGRESS NOTE DATE OF SERVICE: 08/04/2020 REASON FOR FOLLOWUP: Streptococcus agalactiae bacteremia source possible pneumonia. INTERVAL HISTORY: Patient is currently afebrile. The patient is breathing comfortably. The patient denies having any chest pain, shortness of breath. Did have a cough, not bringing up any sputum. No abdominal pain or diarrhea. PHYSICAL EXAMINATION: Blood pressure 150/63 with a pulse of 77, temperature 97.8. He is 95% on 5 L nasal cannula. General description: The patient is an elderly male up in the in no distress. Respiratory system: Unlabored breathing, decreased breath sounds at bases. No wheeze. Heart S1, S2. Regular rate and rhythm. Abdomen soft, no tenderness. LABS: Hemoglobin is 11.7, white count 14.8, creatinine 0.96. Chest x-ray with concern for CHF. DIAGNOSTIC IMPRESSION AND PLAN: Patient admitted to the hospital with cough, fever, concerning for pneumonia. Blood culture with Streptococcus agalactiae. Repeat blood cultures have been ordered to document clearance of bacteremia. Continue cefazolin. Repeat CBC and CMP tomorrow. Continue supportive care. MMODL / IJN: [id number] /
[2020-08-05 06:20] LABS: African American GFR (CKD) >90 (>60 ml/min/1.73 sqM); Anion Gap 10 mmol/L; Blood Urea Nitrogen 25 mg/dL (9-20); Calcium 9.6 mg/dL (8.4-10.2); Carbon Dioxide 28 mmol/L (22-30); Chloride 98 mmol/L (98-107); Glucose 142 mg/dL (74-99); Non-African American GFR(CKD) 88 (>60 ml/min/1.73 sqM); Potassium 4.5 mmol/L (3.5-5.1); Sodium 136 mmol/L (137-145)
[2020-08-05 06:40] LABS: C Reactive Protein 24.4 mg/dL (<1.0)
[2020-08-05 06:58] LABS: Glucose,Whole Blood 145 mg/dL (75-99)
[2020-08-05] MEDS: INSULIN ASPART (NovoLOG) 100 UNIT/ML VIAL SQ SCH ×4 (07:18→21:46)
[2020-08-05] MEDS: DIVALPROEX 250 MG TABLET.DR PO SCH ×2 (07:26→21:46)
[2020-08-05] MEDS: CHOLECALCIFEROL 25 MCG (1000 IU) TABLET PO SCH (07:26)
[2020-08-05] MEDS: AMIODARONE 200 MG TAB PO SCH (07:27)
[2020-08-05] MEDS: CYANOCOBALAMIN 500 MCG TAB PO SCH (07:27)
[2020-08-05] MEDS: MULTIVITAMINS, THERA 1 EACH TAB PO SCH (07:27)
--- NOTE | 2020-08-05 07:55 | XR ---
EXAMINATION TYPE: XR chest 2V DATE OF EXAM: 08/05/2020 COMPARISON: Chest x-ray from yesterday and older studies HISTORY: Pulmonary edema, abnormal x-ray TECHNIQUE: Frontal and lateral views of the chest are obtained. FINDINGS: Exam suboptimal due to patient's large body habitus. Persistent cardiomegaly with central opacities bilaterally. Small bilateral pleural effusions. The osseous structures are demineralized. Degenerative change left glenohumeral joint. IMPRESSION: Suspect persistent CHF exacerbation as there is redemonstration of cardiomegaly with cent ral alveolar and interstitial edema and persistent small bilateral pleural effusions all thought pres ent.
[2020-08-05 11:48] LABS: Glucose,Whole Blood 133 mg/dL (75-99)
[2020-08-05] MEDS: FUROSEMIDE 10 MG/ML 4 ML VIAL IV SCH ×3 (12:21→23:25)
[2020-08-05] MEDS: RIVAROXABAN 20 MG TAB PO SCH (16:39)
[2020-08-05 17:00] LABS: Glucose,Whole Blood 134 mg/dL (75-99)
--- NOTE | 2020-08-05 17:00 | ECHOF ---
Referral Reason:bacteremia MEASUREMENTS -------- HEIGHT: 170.2 cm WEIGHT: 113.4 kg BP: 157/80 IVSd: 1.4 cm (0.6 - 1.1) LVIDd: 3.9 cm (3.9 - 5.3) LVPWd: 1.7 cm (0.6 - 1.1) EDV(Teich): 67 ml IVSs: 2.0 cm LVIDs: 2.5 cm LVPWs: 2.3 cm %IVS Thck: 46 % ESV(Teich): 22 ml EF(Teich): 67 % %FS: 37 % SV(Teich): 45 ml RVIDd: 3.6 cm (< 3.3) LALs A4C: 5.8 cm LAAs A4C: 16.6 cm LAESV A-L A4C: 41 ml LAESV MOD A4C: 38 ml LALs A2C: 6.3 cm LAAs A2C: 24.6 cm LAESV A-L A2C: 82 ml LAESV MOD A2C: 76 ml LAESV(A-L): 60 ml LAESV Index (A-L): 27.19 ml/m Ao Diam: 2.9 cm (2.0 - 3.7) LA Diam: 3.9 cm (2.7 - 3.8) AV Cusp: 2.5 cm (1.5 - 2.6) EPSS: 0.1 cm MV E Royce: 1.27 m/s MV DecT: 203 ms MV Dec [place]: 6.3 m/s MV A Royce: 1.08 m/s MV E/A Ratio: 1.18 MV PHT: 59 ms LVOT Vmax: 1.39 m/s LVOT maxP.71 mmHg AV Vmax: 1.69 m/s AV maxP.37 mmHg TR Vmax: 4.53 m/s TR maxP.19 mmHg RAP: 5.00 mmHg RVSP: 87.19 mmHg MV EF SLOPE: 44.38 mm/s (70 - 150) MV EXCURSION: 24.86 mm (> 18.000) FINDINGS -------- Sinus rhythm. This was a technically difficult study with suboptimal apical views. The left ventricular size is normal. There is moderate concentric left ventricular hypertrophy. O verall left ventricular systolic function is normal with, an EF between 55 - 60 %. The right ventricle is mildly enlarged. Normal LA size by volume 22+/-6 ml/m2. The right atrial size is normal. 5.0mg of Lumason was utilized for enhancement of images Interatrial and interventricular septum intact. There is no evidence of aortic regurgitation. There is no evidence of aortic stenosis. Mild mitral regurgitation is present. Moderate to severe tricuspid regurgitation present. There is severe pulmonary hypertension. The r ight ventricular systolic pressure, as measured by Doppler, is 87.19mmHg. There is no pulmonic regurgitation present. The aortic root size is normal. IVC Not well visulized. There is no pericardial effusion. CONCLUSIONS -------- 1. The left ventricular size is normal. 2. There is moderate concentric left ventricular hypertrophy. 3. Overall left ventricular systolic function is normal with, an EF between 55 - 60 %. 4. Mild mitral regurgitation is present. 5. Moderate to severe tricuspid regurgitation present. 6. There is severe pulmonary hypertension. 7. The right ventricular systolic pressure, as measured by Doppler, is 87.19mmHg. ANIMATION PRODUCER: Kelly Mendoza RDCS
--- NOTE | 2020-08-05 17:46 | P.PN ---
Progress Note - Text Progress Note Date: 08/05/20 Chief Complaint: Fever History of presenting complaint: This is a 69-year-old patient was currently at [facility] on. Patient being followed by Dr. Brand. Staff and the ECF following the patient's sensorium to be decreased. Patient is normally alert and able to walk around. Patient had a COVID test 5 days ago on Wednesday that was negative. Patient has slightly increased respiratory rate in the conus bit of a cough. Patient denies any urinary symptoms. Some decrease in appetite. No chest pain. Chronic stable medical conditions include atrial fibrillation, asthma, diabetes, hypertension, hyperlipidemia, gallstones, peripheral neuropathy, gait, uses a motorized scooter, DJD, does not use a CPAP Admitted with pneumonia, delirium, sepsis. Started on IV cefepime. Went into pulmonary edema. Started on IV Lasix. On hypoxic. Blood cultures positive for Streptococcus agalactiae group b Today: Up in a chair. Some shortness of breath. On nasal cannula 5 L. Edema present Review of systems: Was done for constitutional, cardiovascular, GI, pulmonary. relevant finding as above Active Medications Acetaminophen (Acetaminophen Tab 325 Mg Tab) 650 mg PO Q6HR PRN PRN Reason: Mild Pain or Fever > 100.5 Amiodarone HCl (Amiodarone 200 Mg Tab) 200 mg PO DAILY [facility] Last Admin: 08/05/20 07:27 Dose: 200 mg Documented by: Cholecalciferol (Cholecalciferol 25 Mcg (1000 Iu) Tablet) 125 mcg PO DAILY [facility] Last Admin: 08/05/20 07:26 Dose: 125 mcg Documented by: Cyanocobalamin (Cyanocobalamin 500 Mcg Tab) 500 mcg PO DAILY [facility] Last Admin: 08/05/20 07:27 Dose: 500 mcg Documented by: Divalproex Sodium (Divalproex 250 Mg Tablet.) 500 mg PO QAM [facility] Last Admin: 08/05/20 07:26 Dose: 500 mg Documented by: Divalproex Sodium (Divalproex 250 Mg Tablet.) 750 mg PO HS [facility] Last Admin: 08/04/20 21:12 Dose: 750 mg Documented by: Furosemide (Furosemide 10 Mg/Ml 4 Ml Vial) 40 mg IV Q8HR [facility] Last Admin: 08/05/20 16:38 Dose: 40 mg Documented by: Cefazolin Sodium 2 gm/ Sodium (Chloride) 50 mls @ 100 mls/hr IVPB Q8HR [facility] Last Admin: 08/05/20 16:38 Dose: 100 mls/hr Documented by: Insulin Aspart (Insulin Aspart (Novolog) 100 Unit/Ml Vial) 0 unit SQ ACHS [facility]; Protocol Last Admin: 08/05/20 17:12 Dose: Not Given Documented by: Levothyroxine Sodium (Levothyroxine 100 Mcg Tab) 100 mcg PO DAILY@0630 [facility] Last Admin: 08/05/20 05:30 Dose: 100 mcg Documented by: Melatonin (Melatonin 5 Mg Tablet) 5 mg PO [facility] Last Admin: 08/04/20 21:12 Dose: 5 mg Documented by: Multivitamins (Multivitamins, Thera 1 Each Tab) 1 each PO DAILY [facility] Last Admin: 08/05/20 07:27 Dose: 1 each Documented by: Naloxone HCl (Naloxone 0.4 Mg/Ml 1 Ml Vial) 0.2 mg IV Q2M PRN PRN Reason: Opioid Reversal Pravastatin Sodium (Pravastatin Sodium 40 Mg Tab) 40 mg PO [facility] Last Admin: 08/04/20 21:12 Dose: 40 mg Documented by: Rivaroxaban (Rivaroxaban 20 Mg Tab) 20 mg PO W/SUPPER [facility] Last Admin: 08/05/20 16:39 Dose: 20 mg Documented by: Past medical history to include: atrial fibrillation, asthma, diabetes, hypertension, hyperlipidemia, ulcerative sleep apnea does not use CPAP, cognitive impairment, gout, peripheral neuropathy gait dysfunction uses a motorized scooter Social history: Resident of [facility], no history of smoking or alcohol Family history: Patient cannot tell Physical examination: VITAL SIGNS: 98.1, 68, 18, 1 27 x 94, 90% on 5 L GENERAL: Sitting up in a chair, awake EYES: Pupils equal. Conjunctiva normal. HEENT: External appearance of nose and ears normal, macroglossia, NECK: JVD unable to assess; masses not palpable. HEART: First and second heart sounds are normal; edema present. LUNGS: Respiratory rate increased; decreased breath sounds. basal crackles ABDOMEN: Soft, nontender, liver spleen not palpable, no masses palpable. PSYCH: Patient is able to answer questions better today INVESTIGATIONS, reviewed in the clinical context: : Potassium 4.5 creatinine 0.89 procalcitonin 1.79 CRP 24.4 Blood cultures positive for Streptococcus agalactiae group B August 04: Chest x-ray: Pulmonary edema Pro-calcitonin 0.66 WBC 13 hemoglobin 13.9 platelets 233, lactic acid 2.2 Of 5.3 BUN 16 creatinine 0.99 ProBNP 1310 UA negative Coronavirus [PCR]-not detected Chest x-ray film personally reviewed by [id number] infiltrate, some underpenetration Assessment and plan: -Pneumonia. Blood cultures positive for Streptococcus agalactiae, group B on IV cefepime. Repeat blood cultures ordered today -Acute hypoxic respiratory failure from pneumonia and pulmonary edema Oxygen supplementation -Acute pulmonary edema from IV fluids-slow to respond Continue IV Lasix 40 mg every 8 -Acute delirium/metabolic encephalopathy from fever-better Follow clinically -Sepsis from and positive blood cultures IV cefepime -Persistent atrial fibrillation, rate controlled Continue with xarelto, amiodarone -Diabetes mellitus type 2 Follow Accu-Cheks -Essential hypertension Continue with Zestril -Hyperlipidemia Continue with Pravachol -Obesity BMI 39.2 Weight loss measures when patient was stable -Obstructive sleep apnea, patient does not use CPAP -Diabetic peripheral neuropathy -Patient has a legal guardian, we'll obtain more information Continue IV cefepime. DC IV fluids. Continue IV Lasix. Repeat labs. Discussed with the patient. Repeat blood cultures pending.
[2020-08-05 21:21] LABS: Glucose,Whole Blood 136 mg/dL (75-99)
[2020-08-05] MEDS: PRAVASTATIN SODIUM 40 MG TAB PO SCH (21:46)
[2020-08-05] MEDS: MELATONIN 5 MG TABLET PO SCH (21:46)
--- NOTE | 2020-08-06 04:26 | PN ---
PROGRESS NOTE DATE OF SERVICE: 08/05/2020. REASON FOR FOLLOWUP: Pneumonia and Enterococcus bacteremia. INTERVAL HISTORY: Patient is afebrile. The patient is breathing comfortably. Patient denies having any chest pain, shortness of breath. Did have a cough, not bringing up any sputum. No abdominal pain. No diarrhea. PHYSICAL EXAMINATION: Blood pressure 156/79 with a pulse of 80, temperature 98.1. He is 92% on 5 L nasal cannula. General description is an elderly male up in the chair in no distress. Respiratory system: Unlabored breathing, decreased breath sounds. No wheeze. HEART: S1, S2. Regular rate and rhythm. ABDOMEN: Soft. Extremities did have some swelling. No significant redness or open wound or drainage. LABS: BUN of 25, creatinine 0.81. 1.79. Blood culture so far negative. DIAGNOSTIC IMPRESSION AND PLAN: Patient with Streptococcus agalactiae bacteremia concerning for pneumonia. He did have an echocardiogram did not show any evidence of vegetation. Plan is to continue with cefazolin. Hopefully transition to oral antibiotic on discharge. Continue supportive care. MMODL / IJN: [id number] /
[2020-08-06] MEDS: LEVOTHYROXINE 100 MCG TAB PO SCH (05:32)
[2020-08-06 06:33] LABS: African American GFR (CKD) >90 (>60 ml/min/1.73 sqM); Anion Gap 6 mmol/L; Blood Urea Nitrogen 21 mg/dL (9-20); Calcium 9.2 mg/dL (8.4-10.2); Chloride 94 mmol/L (98-107); Glucose 102 mg/dL (74-99); Non-African American GFR(CKD) >90 (>60 ml/min/1.73 sqM); Sodium 140 mmol/L (137-145)
[2020-08-06 06:42] LABS: Potassium 4.2 mmol/L (3.5-5.1)
[2020-08-06 06:43] LABS: Carbon Dioxide 40 mmol/L (22-30)
[2020-08-06 07:05] LABS: Glucose,Whole Blood 120 mg/dL (75-99)
[2020-08-06] MEDS: INSULIN ASPART (NovoLOG) 100 UNIT/ML VIAL SQ SCH ×4 (07:25→21:57)
[2020-08-06] MEDS: MULTIVITAMINS, THERA 1 EACH TAB PO SCH (07:35)
[2020-08-06] MEDS: CHOLECALCIFEROL 25 MCG (1000 IU) TABLET PO SCH (07:35)
[2020-08-06] MEDS: AMIODARONE 200 MG TAB PO SCH (07:35)
[2020-08-06] MEDS: DIVALPROEX 250 MG TABLET.DR PO SCH ×2 (07:35→21:57)
[2020-08-06] MEDS: CYANOCOBALAMIN 500 MCG TAB PO SCH (07:36)
[2020-08-06] MEDS: FUROSEMIDE 10 MG/ML 4 ML VIAL IV SCH ×3 (07:37→23:10)
[2020-08-06 11:30] LABS: Glucose,Whole Blood 143 mg/dL (75-99)
--- NOTE | 2020-08-06 13:58 | PN ---
PROGRESS NOTE DATE OF SERVICE: 08/06/2020 REASON FOR FOLLOWUP: Pneumonia and strep bacteremia. INTERVAL HISTORY: The patient is currently afebrile. Patient is breathing comfortably. No chest pain or cough. No abdominal pain or diarrhea. PHYSICAL EXAMINATION: Blood pressure 140/60 with a pulse of 64, temperature 98.3. He is 93% on 6 L nasal cannula. General description is an elderly male up in the bed in no distress. RESPIRATORY SYSTEM: Unlabored breathing, decreased breath sounds in the bases. No wheeze. HEART: S1, S2. Regular rate and rhythm. ABDOMEN: Soft, no tenderness. LABS: Repeat blood culture so far negative. Creatinine 0.7. DIAGNOSTIC IMPRESSION AND PLAN: Patient admitted with concern for pneumonia and did have streptococcal bacteremia which usually concern for infection, however, with significant involvement was discussed further with admitting team. JORJE / JEANETH: [id number] /
[2020-08-06 16:41] LABS: Glucose,Whole Blood 198 mg/dL (75-99)
[2020-08-06] MEDS: RIVAROXABAN 20 MG TAB PO SCH (16:55)
--- NOTE | 2020-08-06 20:16 | P.PN ---
Progress Note - Text Progress Note Date: 08/06/20 Chief Complaint: Fever History of presenting complaint: This is a 69-year-old patient was currently at [facility] on. Patient being followed by Dr. Brand. Staff and the ECF following the patient's sensorium to be decreased. Patient is normally alert and able to walk around. Patient had a COVID test 5 days ago on Wednesday that was negative. Patient has slightly increased respiratory rate in the conus bit of a cough. Patient denies any urinary symptoms. Some decrease in appetite. No chest pain. Chronic stable medical conditions include atrial fibrillation, asthma, diabetes, hypertension, hyperlipidemia, gallstones, peripheral neuropathy, gait, uses a motorized scooter, DJD, does not use a CPAP Admitted with pneumonia, delirium, sepsis. Started on IV cefepime. Went into pulmonary edema. Started on IV Lasix. On hypoxic. Blood cultures positive for Streptococcus agalactiae group b Today: Oral intake good. Still requiring 5 L nasal cannula. On IV Lasix. On IV Ancef. Sitting up in a chair. Active Medications Acetaminophen (Acetaminophen Tab 325 Mg Tab) 650 mg PO Q6HR PRN PRN Reason: Mild Pain or Fever > 100.5 Amiodarone HCl (Amiodarone 200 Mg Tab) 200 mg PO DAILY [facility] Last Admin: 08/06/20 07:35 Dose: 200 mg Documented by: Cholecalciferol (Cholecalciferol 25 Mcg (1000 Iu) Tablet) 125 mcg PO DAILY [facility] Last Admin: 08/06/20 07:35 Dose: 125 mcg Documented by: Cyanocobalamin (Cyanocobalamin 500 Mcg Tab) 500 mcg PO DAILY [facility] Last Admin: 08/06/20 07:36 Dose: 500 mcg Documented by: Divalproex Sodium (Divalproex 250 Mg Tablet.) 500 mg PO QAM [facility] Last Admin: 08/06/20 07:35 Dose: 500 mg Documented by: Divalproex Sodium (Divalproex 250 Mg Tablet.) 750 mg PO HS [facility] Last Admin: 08/05/20 21:46 Dose: 750 mg Documented by: Furosemide (Furosemide 10 Mg/Ml 4 Ml Vial) 40 mg IV Q8HR [facility] Last Admin: 08/06/20 15:58 Dose: 40 mg Documented by: Cefazolin Sodium 2 gm/ Sodium (Chloride) 50 mls @ 100 mls/hr IVPB Q8HR [facility] Last Admin: 08/06/20 15:58 Dose: 100 mls/hr Documented by: Insulin Aspart (Insulin Aspart (Novolog) 100 Unit/Ml Vial) 0 unit SQ ACHS [facility]; Protocol Last Admin: 08/06/20 16:55 Dose: 3 unit Documented by: Levothyroxine Sodium (Levothyroxine 100 Mcg Tab) 100 mcg PO DAILY@0630 [facility] Last Admin: 08/06/20 05:32 Dose: 100 mcg Documented by: Melatonin (Melatonin 5 Mg Tablet) 5 mg PO [facility] Last Admin: 08/05/20 21:46 Dose: 5 mg Documented by: Multivitamins (Multivitamins, Thera 1 Each Tab) 1 each PO DAILY [facility] Last Admin: 08/06/20 07:35 Dose: 1 each Documented by: Naloxone HCl (Naloxone 0.4 Mg/Ml 1 Ml Vial) 0.2 mg IV Q2M PRN PRN Reason: Opioid Reversal Pravastatin Sodium (Pravastatin Sodium 40 Mg Tab) 40 mg PO [facility] Last Admin: 08/05/20 21:46 Dose: 40 mg Documented by: Rivaroxaban (Rivaroxaban 20 Mg Tab) 20 mg PO W/SUPPER [facility] Last Admin: 08/06/20 16:55 Dose: 20 mg Documented by: Past medical history to include: atrial fibrillation, asthma, diabetes, hypertension, hyperlipidemia, ulcerative sleep apnea does not use CPAP, cognitive impairment, gout, peripheral neuropathy gait dysfunction uses a motorized scooter Social history: Resident of [facility], no history of smoking or alcohol Family history: Patient cannot tell Physical examination: VITAL SIGNS: 98.4, 66, 18, 150/66, 92% on 6 L GENERAL: Sitting up in a chair, awake EYES: Pupils equal. Conjunctiva normal. HEENT: External appearance of nose and ears normal, macroglossia, NECK: JVD unable to assess; masses not palpable. HEART: First and second heart sounds are normal; edema present. LUNGS: Respiratory rate increased; decreased breath sounds. basal crackles ABDOMEN: Soft, nontender, liver spleen not palpable, no masses palpable. PSYCH: Patient is able to answer questions INVESTIGATIONS, reviewed in the clinical context: August 06: Potassium 4.2 creatinine 0.7 to 2-D echocardiogram: Moderate concentric LVH, EF 55-60%, moderate to severe tricuspid regurgitation, severe pulmonary hypertension : Potassium 4.5 creatinine 0.89 procalcitonin 1.79 CRP 24.4 Blood cultures positive for Streptococcus agalactiae group B August 04: Chest x-ray: Pulmonary edema Pro-calcitonin 0.66 WBC 13 hemoglobin 13.9 platelets 233, lactic acid 2.2 Of 5.3 BUN 16 creatinine 0.99 ProBNP 1310 UA negative Coronavirus [PCR]-not detected Chest x-ray film personally reviewed by [id number] infiltrate, some underpenetration Assessment and plan: -Pneumonia. Blood cultures positive for Streptococcus agalactiae, group B on IV cefepime-changed to IV Ancef. Repeat blood cultures pending. Discussed with Dr. Plummer from ID. She would like a ARABELLA to rule out endocarditis. -Acute hypoxic respiratory failure from pneumonia and pulmonary edema-slow to respond Oxygen 5-6 L nasal cannula -Acute congestive heart failure from diastolic dysfunction EF 55-60%-slow to respond Continue IV Lasix 40 mg every 8 -Moderate to severe tricuspid regurgitation Follow clinically -Severe secondary pulmonary hypertension Follow clinically -Acute delirium/metabolic encephalopathy from fever-better Follow clinically -Sepsis from and positive blood cultures IV cefepime-changed to IV Ancef -Persistent atrial fibrillation, rate controlled Continue with xarelto, amiodarone -Diabetes mellitus type 2 Follow Accu-Cheks -Essential hypertension Continue with Zestril -Hyperlipidemia Continue with Pravachol -Obesity BMI 39.2 Weight loss measures when patient was stable -Obstructive sleep apnea, patient does not use CPAP -Diabetic peripheral neuropathy -Patient has a public legal guardian, Will put in request for ARABELLA I cardiology. Discussed with the patient. Discussed with Dr. Plummer from ID.
[2020-08-06 21:01] LABS: Glucose,Whole Blood 133 mg/dL (75-99)
[2020-08-06] MEDS: PRAVASTATIN SODIUM 40 MG TAB PO SCH (21:56)
[2020-08-06] MEDS: MELATONIN 5 MG TABLET PO SCH (21:56)
[2020-08-07] MEDS: LEVOTHYROXINE 100 MCG TAB PO SCH ×2 (05:59→06:02)
[2020-08-07] MEDS: INSULIN ASPART (NovoLOG) 100 UNIT/ML VIAL SQ SCH ×4 (07:02→21:11)
[2020-08-07] MEDS: FUROSEMIDE 10 MG/ML 4 ML VIAL IV SCH ×2 (07:14→14:57)
[2020-08-07] MEDS: AMIODARONE 200 MG TAB PO SCH (07:15)
[2020-08-07] MEDS: CYANOCOBALAMIN 500 MCG TAB PO SCH (07:15)
[2020-08-07] MEDS: MULTIVITAMINS, THERA 1 EACH TAB PO SCH (07:15)
[2020-08-07] MEDS: CHOLECALCIFEROL 25 MCG (1000 IU) TABLET PO SCH (07:15)
[2020-08-07] MEDS: DIVALPROEX 250 MG TABLET.DR PO SCH ×2 (07:16→21:32)
[2020-08-07 07:19] LABS: Glucose,Whole Blood 109 mg/dL (75-99)
[2020-08-07 07:20] LABS: African American GFR (CKD) >90 (>60 ml/min/1.73 sqM); Blood Urea Nitrogen 23 mg/dL (9-20); Calcium 9.4 mg/dL (8.4-10.2); Chloride 91 mmol/L (98-107); Glucose 109 mg/dL (74-99); Non-African American GFR(CKD) >90 (>60 ml/min/1.73 sqM); Potassium 4.1 mmol/L (3.5-5.1); Sodium 140 mmol/L (137-145)
[2020-08-07 07:26] LABS: Anion Gap 6 mmol/L
[2020-08-07 07:39] LABS: Carbon Dioxide 43 mmol/L (22-30)
--- NOTE | 2020-08-07 11:18 | P.CNPUL ---
History of Present Illness Consult date: 08/07/20 Reason for consult: dyspnea, COPD, hypoxemia Chief complaint: Shortness of breath, elevated CO2 History of present illness: Patient was brought into the emergency department for evaluation of altered mental status patient is a resident of [facility], baseline status usually awake and alert moves around, covert and prison was negative, patient was brought in due to increasing shortness of breath ongoing cough and decreased appetite, prior medical history significant for atrial fibrillation asthma, diabetes mellitus, hypertension hypertensive cardiovascular disease per for neuropathy DJD uses motorized scooter, on arrival he was febrile with fever of 103 saturation was 93% on 6 L white cell count is elevated and lactic acid was 2.2, BNP was over 1300, PCR was negative, chest x-ray showed right sided infiltrate patient does have a history of sleep disorder breathing and sleep apnea cannot use his CPAP machine due to mental disability, patient has been treated with direct oral anticoagulant, amiodarone, IV cefazolin, continuation of his home medication, high-dose Lasix 40 mg subcu every 8 for lower extremity edema and heart failure, most recent labs reveal significant rise in CO2 up to 43 from baseline of 28, BUN/creatinine remains stable, other lab significant for elevated pro calcitonin 1.79 Review of Systems All systems: negative Past Medical History Past Medical History: Atrial Fibrillation, Asthma, Diabetes Mellitus, Hyperlipidemia, Hypertension, Sleep Apnea/CPAP/BIPAP, Thyroid Disorder Additional Past Medical History / Comment(s): Diabetic oculopathy, obesity, leukopenia, gallstone, diarrhea, mentally disabled, gout, peripheral neuropothy, gait dysfunction- uses motorized scooter, degenerative joint disorder, supposed to wear cpap at home but is non compliant History of Any Multi-Drug Resistant Organisms: Unobtainable Past Surgical History: Cholecystectomy, Hernia Repair Additional Past Surgical History / Comment(s): L inguinal hernia repair, last colonoscopy 2002 Past Anesthesia/Blood Transfusion Reactions: Unable to Obtain Past Psychological History: No Psychological Hx Reported Past Alcohol Use History: Unable to Obtain Past Drug Use History: Unable to Obtain - Past Family History Mother Family Medical History: Unable to Obtain Father Family Medical History: Diabetes Mellitus Medications and Allergies Home Medications Medication Instructions Recorded Confirmed Type Divalproex [Depakote] 500 mg PO QAM 01/27/16 08/02/20 History Divalproex [Depakote] 750 mg PO HS 01/27/16 08/02/20 History Furosemide [Lasix] 40 mg PO DAILY@1400 01/27/16 08/02/20 History Potassium Chloride [Klor-Con 10] 10 meq PO HS 01/27/16 08/02/20 History Amiodarone [Cordarone] 200 mg PO DAILY 08/02/20 08/02/20 History Cholecalciferol (Vitamin D3) 125 mcg PO DAILY 08/02/20 08/02/20 History [Vitamin D3 (5000 Iu)] Cyanocobalamin [Vitamin B-12] 500 mcg PO DAILY 08/02/20 08/02/20 History Furosemide [Lasix] 80 mg PO DAILY 08/02/20 08/02/20 History Insulin Detemir (Levemir) [Levemir] 8 unit SQ DAILY 08/02/20 08/02/20 History Levothyroxine Sodium [Synthroid] 100 mcg PO DAILY@0600 08/02/20 08/02/20 History Liraglutide [Victoza 3-Ramírez] 1.8 mg SQ DAILY 08/02/20 08/02/20 History Melatonin 5 mg PO HS 08/02/20 08/02/20 History Multivitamins, Thera [Multivitamin 1 tab PO DAILY 08/02/20 08/02/20 History (formulary)] Potassium Chloride [Klor-Con 20] 20 meq PO DAILY 08/02/20 08/02/20 History Pravastatin Sodium [Pravachol] 40 mg PO HS 08/02/20 08/02/20 History Rivaroxaban [Xarelto] 20 mg PO W/SUPPER 08/02/20 08/02/20 History lisinopriL [Zestril] 2.5 mg PO DAILY 08/02/20 08/02/20 History metFORMIN HCL [Glucophage] 1,000 mg PO BID 08/02/20 08/02/20 History Allergies Allergy/AdvReac Type Severity Reaction Status Date / Time No Known Allergies Allergy Verified 08/02/20 13:36 Physical Exam Vitals: Vital Signs Temp Pulse Resp BP Pulse Ox 08/07/20 07:55 98.3 F 68 18 150/73 95 08/07/20 02:00 98.4 F 65 16 147/66 92 L 08/06/20 19:19 98.5 F 67 18 150/74 97 08/06/20 14:00 98.4 F 66 18 150/66 92 L Intake and Output 08/06/20 08/07/20 08/07/20 22:59 06:59 14:59 Output Total 350 Balance -350 Output: Urine 350 Other: Voiding Method External Catheter - Constitutional General appearance: disheveled, mild distress - EENT Markedly Enlarged tongue protruding out of mouth Eyes: PERRLA Ears: bilateral: normal - Neck Neck: normal ROM Carotids: bilateral: upstroke normal - Respiratory Respiratory: bilateral: diminished - Cardiovascular Rhythm: irregularly irregular Heart sounds: normal: S1, S2 - Gastrointestinal General gastrointestinal: normal bowel sounds - Neurologic Neurologic: CNII-XII intact - Musculoskeletal Musculoskeletal: gait normal, generalized weakness, strength equal bilaterally - Psychiatric Psychiatric: A&O x's 3, appropriate affect, intact judgment & insight Results - Laboratory Findings CBC and BMP: 08/04/20 05:51 08/07/20 05:58 Abnormal lab findings: Abnormal Labs 08/02/20 08/02/20 08/02/20 12:42 12:42 13:45 WBC 13.0 H Hgb MCHC 30.5 L RDW 18.2 H Neutrophils # 11.9 H Lymphocytes # 0.5 L Sodium Potassium 5.3 H Chloride 94 L Carbon Dioxide 33 H BUN Glucose 168 H POC Glucose (mg/dL) Plasma Lactic Acid Zachariah 2.2 H* Total Bilirubin 1.7 H AST 75 H C-Reactive Protein Procalcitonin 08/02/20 08/02/20 08/02/20 13:45 16:57 18:02 WBC Hgb MCHC RDW Neutrophils # Lymphocytes # Sodium Potassium Chloride Carbon Dioxide BUN Glucose POC Glucose (mg/dL) 114 H Plasma Lactic Acid Zachariah 2.9 H* Total Bilirubin AST C-Reactive Protein Procalcitonin 0.66 H 08/03/20 08/03/20 08/03/20 06:58 11:30 16:27 WBC Hgb MCHC RDW Neutrophils # Lymphocytes # Sodium Potassium Chloride Carbon Dioxide BUN Glucose POC Glucose (mg/dL) 103 H 197 H 112 H Plasma Lactic Acid Zachariah Total Bilirubin AST C-Reactive Protein Procalcitonin 08/03/20 08/04/20 08/04/20 21:06 05:51 05:51 WBC 14.8 H Hgb 11.7 L MCHC 27.9 L RDW 18.0 H Neutrophils # 13.0 H Lymphocytes # 0.8 L Sodium Potassium Chloride Carbon Dioxide BUN Glucose POC Glucose (mg/dL) 172 H Plasma Lactic Acid Zachariah Total Bilirubin AST C-Reactive Protein Procalcitonin 2.92 H 08/04/20 08/04/20 08/04/20 05:51 07:06 11:27 WBC Hgb MCHC RDW Neutrophils # Lymphocytes # Sodium Potassium Chloride Carbon Dioxide 32 H BUN 23 H Glucose 117 H POC Glucose (mg/dL) 131 H 149 H Plasma Lactic Acid Zachariah Total Bilirubin AST C-Reactive Protein Procalcitonin 08/04/20 08/04/20 08/05/20 16:29 20:56 05:05 WBC Hgb MCHC RDW Neutrophils # Lymphocytes # Sodium 136 L Potassium Chloride Carbon Dioxide BUN 25 H Glucose 142 H POC Glucose (mg/dL) 175 H 129 H Plasma Lactic Acid Zachariah Total Bilirubin AST C-Reactive Protein 24.4 H Procalcitonin 08/05/20 08/05/20 08/05/20 05:05 06:56 11:46 WBC Hgb MCHC RDW Neutrophils # Lymphocytes # Sodium Potassium Chloride Carbon Dioxide BUN Glucose POC Glucose (mg/dL) 145 H 133 H Plasma Lactic Acid Zachariah Total Bilirubin AST C-Reactive Protein Procalcitonin 1.79 H 08/05/20 08/05/20 08/06/20 16:58 21:04 05:25 WBC Hgb MCHC RDW Neutrophils # Lymphocytes # Sodium Potassium Chloride 94 L Carbon Dioxide 40 H BUN 21 H Glucose 102 H POC Glucose (mg/dL) 134 H 136 H Plasma Lactic Acid Zachariah Total Bilirubin AST C-Reactive Protein Procalcitonin 08/06/20 08/06/20 08/06/20 06:52 11:26 16:37 WBC Hgb MCHC RDW Neutrophils # Lymphocytes # Sodium Potassium Chloride Carbon Dioxide BUN Glucose POC Glucose (mg/dL) 120 H 143 H 198 H Plasma Lactic Acid Zachariah Total Bilirubin AST C-Reactive Protein Procalcitonin 08/06/20 08/07/20 08/07/20 21:00 05:58 06:57 WBC Hgb MCHC RDW Neutrophils # Lymphocytes # Sodium Potassium Chloride 91 L Carbon Dioxide 43 H* BUN 23 H Glucose 109 H POC Glucose (mg/dL) 133 H 109 H Plasma Lactic Acid Zachariah Total Bilirubin AST C-Reactive Protein Procalcitonin - Diagnostic Findings Chest x-ray: report reviewed, image reviewed (Last chest x-ray suggestive of CHF-like finding along with interstitial edema and small bilateral pleural effusion and cardiomegaly performed on of this month) Additional studies: Blood culture positive for group B strep, 2 out of 2 bottles drawn on August 02 however repeat cultures on August 05 have been negative Assessment and Plan Assessment: Elevated CO2 due to metabolic alkalosis with diuretics some component of respiratory acidosis due to sleep disorder breathing and sleep apnea cannot be excluded, would recommend to lower down the Lasix every every 12 Gram-positive bacteremia source not clear repeat cultures are negative patient is being treated with IV was generation cephalosporin is status post echocardiogram, ID service has been following Sleep disorder breathing and sleep apnea, patient cannot use the CPAP machine Chronic atrial fibrillation Advanced mental disability Enlarged tongue Plan: Plan as above, will follow clinical course closely Time with Patient: Greater than 30
[2020-08-07 11:28] LABS: Glucose,Whole Blood 124 mg/dL (75-99)
--- NOTE | 2020-08-07 13:57 | P.CRDCN ---
History of Present Illness History of present illness: HISTORY OF PRESENTING ILLNESS This is a pleasant 69-year-old male past medical history significant for chronic persistent atrial fibrillation (on Xarelto), asthma, type 2 diabetes, hypertensi on, hyperlipidemia, shortness sleep apnea, hypothyroidism, mental disability. He does not follow in the office with one of the server security administrator. We have been asked to see in consultation for ARABELLA. Patient is from [facility]. He was brought to the emergency department on 08/02/2020 due to evaluation of increased lethargy, fevers, cough, increased shortness of breath, hypoxemia. Patient was studied previously test of her COVID-19 which was negative. Chest x- ray on admission revealed bilateral central increased opacities, right sided infiltrate and cardiomegaly. Patient was diagnosed with congestive heart failure and pneumonia. Patient was started on IV Lasix and IV cefepime. Blood cultures were taken which were positive for Streptococcus agalactiae, group B. Patient was started on IV Antibiotics. Currently on IV Ancef. Infectious disease and Pulmonary are following. Patient seen and examined at bedside, up in chair, eating lunch, no acute distress. Continues to have shortness of breath. Laboratory data reviewed on admission Pro BNP 1310, lactic 2.2, Covid-19 negative, K 5.3, procalcitonin elevated 0.66, UA negative. sodium 140, potassium 4.1, chloride 91, carbon dioxide 43, serum creatinine 0.82. Current home cardiac medications include Xarelto 20mg nightly, pravastatin 40 mg nightly, lisinopril 2.5 mg daily, potassium chloride 20 mEq daily, amiodarone 200 mg daily, Lasix 80 mg daily, Lasix 40 mg daily in the afternoon. Patient is currently rate controlled. Echocardiogram performed 08/05/20 left ventricular systolic function is normal with an EF between 55-60%, mild mitral regurgitation, moderate to severe tricuspid regurgitation, severe pulmonary hypertension, RVSP 87 mmHg REVIEW OF SYSTEMS At the time of my exam: CONSTITUTIONAL: + fever+ chills. CARDIOVASCULAR: +shortness of breath Denies chest pain orthopnea, PND or palpitations. RESPIRATORY: + cough. GASTROINTESTINAL: Denies abdominal pain, diarrhea, constipation, nausea or vomiting. MUSCULOSKELETAL: Denies myalgias. NEUROLOGIC: Denies numbness, tingling, headacbe or weakness. ENDOCRINE: Denies fatigue, weight change, polydipsia or polyurina. GENITOURINARY: Denies burning, hematuria or urgency with micturation. HEMATOLOGIC: Denies history of anemia or bleeding. PHYSICAL EXAMINATION Blood pressure 150/73heart rate 68 afebrile and maintaining oxygen saturation 95% on 6L nasal cannula CONSTITUTIONAL: No apparent distress. HEENT: Head is normocephalic. Pupils are equal, round. Sclerae anicteric. Mucous membranes of the mouth are moist. No JVD. No carotid bruit. CHEST EXAMINATION: Lungs are Diminished bilaterally . No chest wall tenderness is noted on palpation or with deep breathing. HEART EXAMINATION: Irregular rate and rhythm. S1, S2 heard. No gallops or rub. ABDOMEN: Soft, nontender. Positive bowel sounds. EXTREMITIES: 2+ peripheral pulses, no lower extremity edema and no calf tenderness. NEUROLOGIC EXAMINATION: Patient is awake, alert and oriented x3. ASSESSMENT Altered Mental Status Fever, Cough, Shortness of Breath Gram Positive Bacteremia - Streptococcus agalactiae, group B Pulmonary Hypertension Moderate to severe tricuspid regurgitation Chronic persistent atrial fibrillation (on Xarelto) Asthma Type 2 diabetes Hypertension Hyperlipidemia Obstructivesleep apnea Hypothyroidism PLAN We will perform ARABELLA tomorrow to rule out endocarditis with Dr. Ingram NPO after midnight Nurse Practitioner note has been reviewed, I agree with a documented findings and plan of care. Patient was seen and examined. Past Medical History Past Medical History: Atrial Fibrillation, Asthma, Diabetes Mellitus, Hyperlipidemia, Hypertension, Sleep Apnea/CPAP/BIPAP, Thyroid Disorder Additional Past Medical History / Comment(s): Diabetic oculopathy, obesity, leukopenia, gallstone, diarrhea, mentally disabled, gout, peripheral neuropothy, gait dysfunction- uses motorized scooter, degenerative joint disorder, supposed to wear cpap at home but is non compliant History of Any Multi-Drug Resistant Organisms: Unobtainable Past Surgical History: Cholecystectomy, Hernia Repair Additional Past Surgical History / Comment(s): L inguinal hernia repair, last colonoscopy 2002 Past Anesthesia/Blood Transfusion Reactions: Unable to Obtain Past Psychological History: No Psychological Hx Reported Past Alcohol Use History: Unable to Obtain Past Drug Use History: Unable to Obtain - Past Family History Mother Family Medical History: Unable to Obtain Father Family Medical History: Diabetes Mellitus Medications and Allergies Home Medications Medication Instructions Recorded Confirmed Type Divalproex [Depakote] 500 mg PO QAM 01/27/16 08/02/20 History Divalproex [Depakote] 750 mg PO HS 01/27/16 08/02/20 History Furosemide [Lasix] 40 mg PO DAILY@1400 01/27/16 08/02/20 History Potassium Chloride [Klor-Con 10] 10 meq PO HS 01/27/16 08/02/20 History Amiodarone [Cordarone] 200 mg PO DAILY 08/02/20 08/02/20 History Cholecalciferol (Vitamin D3) 125 mcg PO DAILY 08/02/20 08/02/20 History [Vitamin D3 (5000 Iu)] Cyanocobalamin [Vitamin B-12] 500 mcg PO DAILY 08/02/20 08/02/20 History Furosemide [Lasix] 80 mg PO DAILY 08/02/20 08/02/20 History Insulin Detemir (Levemir) [Levemir] 8 unit SQ DAILY 08/02/20 08/02/20 History Levothyroxine Sodium [Synthroid] 100 mcg PO DAILY@0600 08/02/20 08/02/20 History Liraglutide [Victoza 3-Ramírez] 1.8 mg SQ DAILY 08/02/20 08/02/20 History Melatonin 5 mg PO HS 08/02/20 08/02/20 History Multivitamins, Thera [Multivitamin 1 tab PO DAILY 08/02/20 08/02/20 History (formulary)] Potassium Chloride [Klor-Con 20] 20 meq PO DAILY 08/02/20 08/02/20 History Pravastatin Sodium [Pravachol] 40 mg PO HS 08/02/20 08/02/20 History Rivaroxaban [Xarelto] 20 mg PO W/SUPPER 08/02/20 08/02/20 History lisinopriL [Zestril] 2.5 mg PO DAILY 08/02/20 08/02/20 History metFORMIN HCL [Glucophage] 1,000 mg PO BID 08/02/20 08/02/20 History Allergies Allergy/AdvReac Type Severity Reaction Status Date / Time No Known Allergies Allergy Verified 08/02/20 13:36 Physical Exam Vitals: Vital Signs Temp Pulse Resp BP Pulse Ox 08/07/20 07:55 98.3 F 68 18 150/73 95 08/07/20 02:00 98.4 F 65 16 147/66 92 L 08/06/20 19:19 98.5 F 67 18 150/74 97 08/06/20 14:00 98.4 F 66 18 150/66 92 L Intake and Output 08/06/20 08/07/20 08/07/20 22:59 06:59 14:59 Output Total 350 Balance -350 Output: Urine 350 Other: Voiding Method External Catheter Results 08/04/20 05:51 08/07/20 05:58 Comprehensive Metabolic Panel 08/07/20 Range/Units 05:58 Sodium 140 (137-145) mmol/L Potassium 4.1 (3.5-5.1) mmol/L Chloride 91 L (98-107) mmol/L Carbon Dioxide 43 H* (22-30) mmol/L BUN 23 H (9-20) mg/dL Creatinine 0.82 (0.66-1.25) mg/dL Glucose 109 H (74-99) mg/dL Calcium 9.4 (8.4-10.2) mg/dL Current Medications Generic Name Dose Route Start Last Admin Trade Name Freq PRN Reason Stop Dose Admin Acetaminophen 650 mg 08/02/20 14:19 Acetaminophen Tab 325 Mg Tab PO Q6HR PRN Mild Pain or Fever > 100.5 Amiodarone HCl 200 mg 08/03/20 09:00 08/07/20 07:15 Amiodarone 200 Mg Tab PO 200 mg DAILY WALTER Administration Cholecalciferol 125 mcg 08/03/20 09:00 08/07/20 07:15 Cholecalciferol 25 Mcg (1000 Iu) Tablet PO 125 mcg DAILY WALTER Administration Cyanocobalamin 500 mcg 08/03/20 09:00 08/07/20 07:15 Cyanocobalamin 500 Mcg Tab PO 500 mcg DAILY WALTER Administration Divalproex Sodium 500 mg 08/03/20 09:00 08/07/20 07:16 Divalproex 250 Mg Tablet. PO 500 mg QAM WALTER Administration Divalproex Sodium 750 mg 08/02/20 21:00 08/06/20 21:57 Divalproex 250 Mg Tablet. PO 750 mg HS WALTER Administration Furosemide 40 mg 08/05/20 11:45 08/07/20 07:14 Furosemide 10 Mg/Ml 4 Ml Vial IV 40 mg Q8HR WALTER Administration Cefazolin Sodium 2 gm/ Sodium 50 mls @ 100 mls/hr 08/04/20 16:00 08/07/20 07:14 Chloride IVPB 100 mls/hr Q8HR WALTER Administration Insulin Aspart 0 unit 08/02/20 17:30 08/07/20 11:30 Insulin Aspart (Novolog) 100 Unit/Ml Vial SQ Not Given ACHS [facility] Protocol Levothyroxine Sodium 100 mcg 08/03/20 06:30 08/07/20 06:02 Levothyroxine 100 Mcg Tab PO Not Given DAILY@0630 WALTER Melatonin 5 mg 08/02/20 21:00 08/06/20 21:56 Melatonin 5 Mg Tablet PO 5 mg HS WALTER Administration Multivitamins 1 each 08/03/20 09:00 08/07/20 07:15 Multivitamins, Thera 1 Each Tab PO 1 each DAILY WALTER Administration Naloxone HCl 0.2 mg 08/02/20 14:19 Naloxone 0.4 Mg/Ml 1 Ml Vial IV Q2M PRN Opioid Reversal Pravastatin Sodium 40 mg 08/02/20 21:00 08/06/20 21:56 Pravastatin Sodium 40 Mg Tab PO 40 mg HS WALTER Administration Rivaroxaban 20 mg 08/02/20 17:30 08/06/20 16:55 Rivaroxaban 20 Mg Tab PO 20 mg W/SUPPER WALTER Administration Intake and Output 08/06/20 08/07/20 08/07/20 22:59 06:59 14:59 Output Total 350 Balance -350 Output: Urine 350 Other: Voiding Method External Catheter 08/04/20 05:51 08/07/20 05:58
[2020-08-07 16:50] LABS: Glucose,Whole Blood 201 mg/dL (75-99)
[2020-08-07] MEDS: RIVAROXABAN 20 MG TAB PO SCH (17:00)
--- NOTE | 2020-08-07 17:11 | PN ---
PROGRESS NOTE DATE OF SERVICE: 08/07/2020 REASON FOR FOLLOWUP: Streptococci agalactiae bacteremia. INTERVAL HISTORY: The patient is currently afebrile. Patient is breathing comfortably. Denies any chest pain. Did have a cough. Not bringing up any sputum. Has swelling in the leg, but no significant redness or drainage. PHYSICAL EXAMINATION: Blood pressure 111/57, pulse of 69, temperature 98.2. He is 95% on 5 L nasal cannula. General description: The patient is an elderly male up in the chair in no distress. Respiratory system: Unlabored breathing, decreased breath sounds in the base, with no wheeze. Heart S1, S2. Regular rate and rhythm. Abdomen soft, no tenderness. Legs are currently wrapped up. No obvious drainage on the dressing. LABS: BUN of 23, creatinine 0.82. Blood culture repeat has been negative so far. DIAGNOSTIC IMPRESSION AND PLAN: Patient with Streptococcus agalactiae bacteremia in this patient admitted to the hospital with concern for possible pneumonia, though Streptococcus agalactiae not a very for pneumonia. He did have swelling in the lower extremity. This did have a tricuspid regurgitation, but no evidence of any cellulitis. Waiting for the ARABELLA. Continue with cefazolin. If the ARABELLA negative, antibiotic will be transitioned to oral Keflex to finish course of therapy and continue supportive care. Discussed with Correspondence Section Supervisor. JORJE / STEPHANIEN: [id number] /
[2020-08-07 21:04] LABS: Glucose,Whole Blood 137 mg/dL (75-99)
[2020-08-07] MEDS: MELATONIN 5 MG TABLET PO SCH (21:31)
[2020-08-07] MEDS: PRAVASTATIN SODIUM 40 MG TAB PO SCH (21:31)
[2020-08-07] MEDS: ACETAMINOPHEN TAB 325 MG TAB PO PRN (21:32)
--- NOTE | 2020-08-07 22:28 | P.PN ---
Progress Note - Text Progress Note Date: 08/07/20 Chief Complaint: Fever History of presenting complaint: This is a 69-year-old patient was currently at [facility] on. Patient being followed by Dr. Brand. Staff and the [facility] following the patient's sensorium to be decreased. Patient is normally alert and able to walk around. Patient had a COVID test 5 days ago on Wednesday that was negative. Patient has slightly increased respiratory rate in the conus bit of a cough. Patient denies any urinary symptoms. Some decrease in appetite. No chest pain. Chronic stable medical conditions include atrial fibrillation, asthma, diabetes, hypertension, hyperlipidemia, gallstones, peripheral neuropathy, gait, uses a motorized scooter, DJD, does not use a CPAP Admitted with pneumonia, delirium, sepsis. Started on IV cefepime. Went into pulmonary edema. Started on IV Lasix. On hypoxic. Blood cultures positive for Streptococcus agalactiae group b Today: Continue sign IV Lasix. Some shortness of breath. Eating. Some cough. Edema present. Up in a chair Review of systems: Was done for constitutional, cardiovascular, GI, pulmonary. relevant finding as above Active Medications Acetaminophen (Acetaminophen Tab 325 Mg Tab) 650 mg PO Q6HR PRN PRN Reason: Mild Pain or Fever > 100.5 Last Admin: 08/07/20 21:32 Dose: 650 mg Documented by: Amiodarone HCl (Amiodarone 200 Mg Tab) 200 mg PO DAILY [facility] Last Admin: 08/07/20 07:15 Dose: 200 mg Documented by: Cholecalciferol (Cholecalciferol 25 Mcg (1000 Iu) Tablet) 125 mcg PO DAILY [facility] Last Admin: 08/07/20 07:15 Dose: 125 mcg Documented by: Cyanocobalamin (Cyanocobalamin 500 Mcg Tab) 500 mcg PO DAILY [facility] Last Admin: 08/07/20 07:15 Dose: 500 mcg Documented by: Divalproex Sodium (Divalproex 250 Mg Tablet.) 500 mg PO QAM [facility] Last Admin: 08/07/20 07:16 Dose: 500 mg Documented by: Divalproex Sodium (Divalproex 250 Mg Tablet.) 750 mg PO HS [facility] Last Admin: 08/07/20 21:32 Dose: 750 mg Documented by: Furosemide (Furosemide 10 Mg/Ml 4 Ml Vial) 40 mg IV Q8HR [facility] Last Admin: 08/07/20 14:57 Dose: 40 mg Documented by: Cefazolin Sodium 2 gm/ Sodium (Chloride) 50 mls @ 100 mls/hr IVPB Q8HR [facility] Last Admin: 08/07/20 15:05 Dose: 100 mls/hr Documented by: Insulin Aspart (Insulin Aspart (Novolog) 100 Unit/Ml Vial) 0 unit SQ ACHS [facility]; Protocol Last Admin: 08/07/20 21:11 Dose: Not Given Documented by: Levothyroxine Sodium (Levothyroxine 100 Mcg Tab) 100 mcg PO DAILY@0630 [facility] Last Admin: 08/07/20 06:02 Dose: Not Given Documented by: Melatonin (Melatonin 5 Mg Tablet) 5 mg PO [facility] Last Admin: 08/07/20 21:31 Dose: 5 mg Documented by: Multivitamins (Multivitamins, Thera 1 Each Tab) 1 each PO DAILY [facility] Last Admin: 08/07/20 07:15 Dose: 1 each Documented by: Naloxone HCl (Naloxone 0.4 Mg/Ml 1 Ml Vial) 0.2 mg IV Q2M PRN PRN Reason: Opioid Reversal Pravastatin Sodium (Pravastatin Sodium 40 Mg Tab) 40 mg PO [facility] Last Admin: 08/07/20 21:31 Dose: 40 mg Documented by: Rivaroxaban (Rivaroxaban 20 Mg Tab) 20 mg PO W/SUPPER [facility] Last Admin: 08/07/20 17:00 Dose: 20 mg Documented by: Past medical history to include: atrial fibrillation, asthma, diabetes, hypertension, hyperlipidemia, ulcerative sleep apnea does not use CPAP, cognitive impairment, gout, peripheral neuropathy gait dysfunction uses a motorized scooter Social history: Resident of [facility] on, no history of smoking or alcohol Family history: Patient cannot tell Physical examination: VITAL SIGNS: 98.2, 69, 17, 111/57, 95% on 5 L GENERAL: Sitting up in a chair, awake EYES: Pupils equal. Conjunctiva normal. HEENT: External appearance of nose and ears normal, macroglossia, NECK: JVD unable to assess; masses not palpable. HEART: First and second heart sounds are normal; edema present. LUNGS: Respiratory rate increased; decreased breath sounds. basal crackles ABDOMEN: Soft, nontender, liver spleen not palpable, no masses palpable. PSYCH: Patient is able to answer questions INVESTIGATIONS, reviewed in the clinical context: August 07: Potassium 4.1 creatinine 0.82 August 06: Potassium 4.2 creatinine 0.7 to 2-D echocardiogram: Moderate concentric LVH, EF 55-60%, moderate to severe tricuspid regurgitation, severe pulmonary hypertension : Potassium 4.5 creatinine 0.89 procalcitonin 1.79 CRP 24.4 Blood cultures positive for Streptococcus agalactiae group B August 04: Chest x-ray: Pulmonary edema Pro-calcitonin 0.66 WBC 13 hemoglobin 13.9 platelets 233, lactic acid 2.2 Of 5.3 BUN 16 creatinine 0.99 ProBNP 1310 UA negative Coronavirus [PCR]-not detected Chest x-ray film personally reviewed by [id number] infiltrate, some underpenetration Assessment and plan: -Pneumonia. Blood cultures positive for Streptococcus agalactiae, group B on IV cefepime-changed to IV Ancef. Repeat blood cultures pending. Discussed with Dr. Plummer from ID. pending ARABELLA -Acute hypoxic respiratory failure from pneumonia and pulmonary edema-slow to respond Oxygen 5- L nasal cannula -Acute congestive heart failure from diastolic dysfunction EF 55-60%-slow to respond Continue IV Lasix 40 mg every 8 -Moderate to severe tricuspid regurgitation Follow clinically -Severe secondary pulmonary hypertension Follow clinically -Acute delirium/metabolic encephalopathy from sepsis improved Follow clinically -Sepsis from and positive blood cultures IV cefepime-changed to IV Ancef -Persistent atrial fibrillation, rate controlled Continue with xarelto, amiodarone -Diabetes mellitus type 2 Follow Accu-Cheks -Essential hypertension Continue with Zestril -Hyperlipidemia Continue with Pravachol -Obesity BMI 39.2 Weight loss measures when patient was stable -Obstructive sleep apnea, patient does not use CPAP -Diabetic peripheral neuropathy -Patient has a public legal guardian, Continue current medication. Pending ARABELLA. Continue antibiotics. Repeat proBNP and procalcitonin the morning. Repeat checks x-ray
[2020-08-08] MEDS: FUROSEMIDE 10 MG/ML 4 ML VIAL IV SCH ×3 (00:28→20:13)
[2020-08-08] MEDS: LEVOTHYROXINE 100 MCG TAB PO SCH (05:19)
[2020-08-08 06:49] LABS: Glucose,Whole Blood 130 mg/dL (75-99)
[2020-08-08] MEDS: INSULIN ASPART (NovoLOG) 100 UNIT/ML VIAL SQ SCH ×4 (06:54→21:38)
--- NOTE | 2020-08-08 08:16 | XR ---
EXAMINATION TYPE: XR chest 2V DATE OF EXAM: 08/08/2020 COMPARISON: Chest x-ray 3 days ago and older studies. HISTORY: CHF and pneumonia. TECHNIQUE: Frontal and lateral views of the chest are obtained. FINDINGS: Exam remains suboptimal due to patient's large body habitus. Persistent cardiomegaly with central opacities bilaterally. Small bilateral pleural effusions redemonstrated seen best on lateral view. Degenerative change bilateral glenohumeral joints. IMPRESSION: Suspect persistent CHF exacerbation as there is redemonstration of cardiomegaly with cent ral alveolar edema and persistent small bilateral pleural effusions all thought present. Areas of und erlying acute infiltrate cannot be excluded. No significant change from most recent x-ray.
[2020-08-08] MEDS: CHOLECALCIFEROL 25 MCG (1000 IU) TABLET PO SCH (08:43)
[2020-08-08] MEDS: CYANOCOBALAMIN 500 MCG TAB PO SCH (08:43)
[2020-08-08] MEDS: MULTIVITAMINS, THERA 1 EACH TAB PO SCH (08:43)
[2020-08-08] MEDS: AMIODARONE 200 MG TAB PO SCH (08:44)
[2020-08-08] MEDS: DIVALPROEX 250 MG TABLET.DR PO SCH ×2 (08:44→20:13)
[2020-08-08 11:45] LABS: Glucose,Whole Blood 106 mg/dL (75-99)
[2020-08-08] MEDS ORDERED: fentaNYL (PF) 50 MCG/ML 2 ML AMP ONE (12:24)
[2020-08-08] MEDS ORDERED: BENZOCAINE SPRAY 1 CAN TOPICAL ONE (12:52)
[2020-08-08] MEDS ORDERED: fentaNYL (PF) 50 MCG/ML 2 ML AMP IV ONE (13:03)
[2020-08-08] MEDS ORDERED: MIDAZOLAM 2 MG/2 ML VIAL IV ONE (13:03)
[2020-08-08] MEDS ORDERED: NALOXONE 0.4 MG/ML 1 ML VIAL IV ONE (13:18)
--- NOTE | 2020-08-08 15:12 | P.PN ---
Subjective Progress Note Date: 08/08/20 Principal diagnosis: Altered mental status Acute on chronic hypoxic respiratory failure Elevated CO2 due to metabolic alkalosis with diuretics some component of respiratory acidosis due to sleep disorder breathing and sleep apnea cannot be excluded, would recommend to lower down the Lasix every every 12 Gram-positive bacteremia source not clear repeat cultures are negative patient is being treated with IV was generation cephalosporin is status post echocardiogram, ID service has been following Sleep disorder breathing and sleep apnea, patient cannot use the CPAP machine Chronic atrial fibrillation Advanced mental disability Enlarged tongue 08/08/2020, patient seen eval examined during the rounds labs reviewed medications reviewed care plan discussed, patient is more awake, ongoing cough is present denies any chest pain, sitting upright on the chair breathing K more comfortably has been on 6.5 L oxygen, labs are not done today, would recommend to reduce Lasix to 40 mg IV every 12 and repeat labs tomorrow, continue IV antibiotics with deep breathing exercise incentive spirometry repeat chest x-ray earlier today reviewed and compared with the prior x-ray continued to show CHF- like changes with cardiomegaly interstitial edema small pleural effusion bilateral infiltrate Patient was brought into the emergency department for evaluation of altered mental status patient is a resident of [facility], baseline status usually awake and alert moves around, covert and fdc was negative, patient was brought in due to increasing shortness of breath ongoing cough and decreased appetite, prior medical history significant for atrial fibrillation asthma, diabetes mellitus, hypertension hypertensive cardiovascular disease per for neuropathy DJD uses motorized scooter, on arrival he was febrile with fever of 103 saturation was 93% on 6 L white cell count is elevated and lactic acid was 2.2, BNP was over 1300, PCR was negative, chest x-ray showed right sided infiltrate patient does have a history of sleep disorder breathing and sleep apnea cannot use his CPAP machine due to mental disability, patient has been treated with direct oral anticoagulant, amiodarone, IV cefazolin, continuation of his home medication, high-dose Lasix 40 mg subcu every 8 for lower extremity edema and heart failure, most recent labs reveal significant rise in CO2 up to 43 from baseline of 28, BUN/creatinine remains stable, other lab significant for elevated pro calcitonin 1.79 Objective - Vital Signs Vital signs: Vital Signs Temp 97.8 F 08/08/20 14:37 Pulse 68 08/08/20 14:37 Resp 18 08/08/20 14:37 BP 130/74 08/08/20 14:37 Pulse Ox 93 L 08/08/20 14:37 Intake & Output 08/07/20 08/08/20 08/08/20 18:59 06:59 18:59 Intake Total 220 Output Total 1200 700 Balance -980 -700 Intake: Oral 220 Output: Urine 1200 700 Other: Voiding Method External Catheter External Catheter - Exam - Constitutional General appearance: disheveled, mild distress - EENT Markedly Enlarged tongue protruding out of mouth Eyes: PERRLA Ears: bilateral: normal - Neck Neck: normal ROM Carotids: bilateral: upstroke normal - Respiratory Respiratory: bilateral: diminished - Cardiovascular Rhythm: irregularly irregular Heart sounds: normal: S1, S2 - Gastrointestinal General gastrointestinal: normal bowel sounds - Neurologic Neurologic: CNII-XII intact - Musculoskeletal Musculoskeletal: gait normal, generalized weakness, strength equal bilaterally - Psychiatric Psychiatric: A&O x's 3, appropriate affect, intact judgment & insight - Labs CBC & Chem 7: 08/04/20 05:51 08/07/20 05:58 Labs: Abnormal Lab Results - Last 24 Hours (Table) 08/07/20 08/07/20 08/08/20 Range/Units 16:47 21:03 06:48 POC Glucose (mg/dL) 201 H 137 H 130 H (75-99) mg/dL 08/08/20 Range/Units 11:44 POC Glucose (mg/dL) 106 H (75-99) mg/dL Microbiology - Last 24 Hours (Table) 08/05/20 05:05 Blood Culture - Preliminary Blood No Growth after 72 hours Assessment and Plan Assessment: Altered mental status Acute on chronic hypoxic hypercapnic history failure Bilateral basal pneumonia Elevated CO2 due to metabolic alkalosis with diuretics some component of respiratory acidosis due to sleep disorder breathing and sleep apnea cannot be excluded, would recommend to lower down the Lasix every every 12 Gram-positive bacteremia source not clear repeat cultures are negative patient is being treated with IV was generation cephalosporin is status post echocardiogram, ID service has been following Sleep disorder breathing and sleep apnea, patient cannot use the CPAP machine Chronic atrial fibrillation Advanced mental disability Enlarged tongue Plan: Plan as above, will follow clinical course closely decrease Lasix to 40 mg every 12, monitor renal functions closely patient will benefit from more broad-spect rum gram-negative coverage like Zosyn or meropenem will discuss with ID and primary service Time with Patient: Greater than 30
[2020-08-08 15:20] VITALS: BMI 39.1
--- NOTE | 2020-08-08 16:20 | PN ---
PROGRESS NOTE DATE OF SERVICE: 08/08/2020 REASON FOR FOLLOWUP: Streptococcal bacteremia. INTERVAL HISTORY: The patient is currently afebrile. The patient is breathing comfortably, waiting for his ARABELLA. The patient denies having any chest pain. He did have a cough. No abdominal pain or diarrhea. He was asking when he can eat. PHYSICAL EXAMINATION: Blood pressure 130/74 with a pulse of 68. Temperature 97.8. He is 93% on 6 L nasal cannula. General description is an elderly male up in the chair in no distress. RESPIRATORY SYSTEM: Unlabored breathing with decreased breath sounds at the base. No wheeze. HEART: S1, S2. Regular rate and rhythm. ABDOMEN: Soft. No tenderness. Extremities are currently wrapped up. No obvious drainage on the dressing. LABS: Blood cultures so far negative. DIAGNOSTIC IMPRESSION AND PLAN: Patient with Streptococcus agalactiae bacteremia skin and soft tissue source. The patient does not have cellulitis or any open wound. Features of CHF and tricuspid valve. Awaiting a ARABELLA. Continue cefazolin and monitor clinical course closely. MMODL / IJN: [id number] /
--- NOTE | 2020-08-08 16:21 | P.PN ---
Progress Note - Text Progress Note Date: 08/08/20 Chief Complaint: Fever History of presenting complaint: This is a 69-year-old patient was currently at [facility] on. Patient being followed by Dr. Brand. Staff and the ECF following the patient's sensorium to be decreased. Patient is normally alert and able to walk around. Patient had a COVID test 5 days ago on Wednesday that was negative. Patient has slightly increased respiratory rate in the conus bit of a cough. Patient denies any urinary symptoms. Some decrease in appetite. No chest pain. Chronic stable medical conditions include atrial fibrillation, asthma, diabetes, hypertension, hyperlipidemia, gallstones, peripheral neuropathy, gait, uses a motorized scooter, DJD, does not use a CPAP Admitted with pneumonia, delirium, sepsis. Started on IV cefepime. Went into pulmonary edema. Started on IV Lasix. On hypoxic. Blood cultures positive for Streptococcus agalactiae group b. Also being treated for pneumonia. Today: Saw the patient this morning. Reclining in bed. Some shortness of breath. On IV Lasix. Scheduled this afternoon for ARABELLA. Nothing by mouth. Review of systems: Was done for constitutional, cardiovascular, GI, pulmonary. relevant finding as above Active Medications Acetaminophen (Acetaminophen Tab 325 Mg Tab) 650 mg PO Q6HR PRN PRN Reason: Mild Pain or Fever > 100.5 Last Admin: 08/07/20 21:32 Dose: 650 mg Documented by: Amiodarone HCl (Amiodarone 200 Mg Tab) 200 mg PO DAILY [facility] Last Admin: 08/08/20 08:44 Dose: 200 mg Documented by: Cholecalciferol (Cholecalciferol 25 Mcg (1000 Iu) Tablet) 125 mcg PO DAILY [facility] Last Admin: 08/08/20 08:43 Dose: Not Given Documented by: Cyanocobalamin (Cyanocobalamin 500 Mcg Tab) 500 mcg PO DAILY [facility] Last Admin: 08/08/20 08:43 Dose: Not Given Documented by: Divalproex Sodium (Divalproex 250 Mg Tablet.) 500 mg PO [facility] Last Admin: 08/08/20 08:44 Dose: 500 mg Documented by: Divalproex Sodium (Divalproex 250 Mg Tablet.) 750 mg PO [facility] Last Admin: 08/07/20 21:32 Dose: 750 mg Documented by: Furosemide (Furosemide 10 Mg/Ml 4 Ml Vial) 40 mg IV Q12HR [facility] Cefazolin Sodium 2 gm/ Sodium (Chloride) 50 mls @ 100 mls/hr IVPB Q8HR [facility] Last Admin: 08/08/20 08:44 Dose: 100 mls/hr Documented by: Insulin Aspart (Insulin Aspart (Novolog) 100 Unit/Ml Vial) 0 unit SQ ACHS [facility]; Protocol Last Admin: 08/08/20 11:49 Dose: Not Given Documented by: Levothyroxine Sodium (Levothyroxine 100 Mcg Tab) 100 mcg PO DAILY@0630 [facility] Last Admin: 08/08/20 05:19 Dose: 100 mcg Documented by: Melatonin (Melatonin 5 Mg Tablet) 5 mg PO [facility] Last Admin: 08/07/20 21:31 Dose: 5 mg Documented by: Multivitamins (Multivitamins, Thera 1 Each Tab) 1 each PO DAILY [facility] Last Admin: 08/08/20 08:43 Dose: Not Given Documented by: Naloxone HCl (Naloxone 0.4 Mg/Ml 1 Ml Vial) 0.2 mg IV Q2M PRN PRN Reason: Opioid Reversal Pravastatin Sodium (Pravastatin Sodium 40 Mg Tab) 40 mg PO [facility] Last Admin: 08/07/20 21:31 Dose: 40 mg Documented by: Rivaroxaban (Rivaroxaban 20 Mg Tab) 20 mg PO W/SUPPER [facility] Last Admin: 08/07/20 17:00 Dose: 20 mg Documented by: Past medical history to include: atrial fibrillation, asthma, diabetes, hypertension, hyperlipidemia, ulcerative sleep apnea does not use CPAP, cognitive impairment, gout, peripheral neuropathy gait dysfunction uses a motorized scooter Social history: Resident of [facility], no history of smoking or alcohol Family history: Patient cannot tell Physical examination: VITAL SIGNS: 97.9, 63, 17, 146/72, 99% on 5 L GENERAL: Reclining in bed, awake EYES: Pupils equal. Conjunctiva normal. HEENT: External appearance of nose and ears normal, macroglossia, NECK: JVD unable to assess; masses not palpable. HEART: First and second heart sounds are normal; edema present. LUNGS: Respiratory rate increased; decreased breath sounds. ABDOMEN: Soft, nontender, liver spleen not palpable, no masses palpable. PSYCH: Patient is able to answer questions INVESTIGATIONS, reviewed in the clinical context: Chest x-ray film personally reviewed by me-[August 08]: Showing infiltrates, decreased pulmonary edema August 07: Potassium 4.1 creatinine 0.82 August 06: Potassium 4.2 creatinine 0.7 to 2-D echocardiogram: Moderate concentric LVH, EF 55-60%, moderate to severe tricuspid regurgitation, severe pulmonary hypertension : Potassium 4.5 creatinine 0.89 procalcitonin 1.79 CRP 24.4 Blood cultures positive for Streptococcus agalactiae group B August 04: Chest x-ray: Pulmonary edema Pro-calcitonin 0.66 WBC 13 hemoglobin 13.9 platelets 233, lactic acid 2.2 Of 5.3 BUN 16 creatinine 0.99 ProBNP 1310 UA negative Coronavirus [PCR]-not detected Chest x-ray film personally reviewed by [id number] infiltrate, some underpenetration Assessment and plan: -Pneumonia. Blood cultures positive for Streptococcus agalactiae, group B from August 02 on IV cefepime-changed to IV Ancef. Repeat blood cultures negative. Pending ARABELLA today. -Acute hypoxic respiratory failure from pneumonia and pulmonary edema-slow to respond Oxygen 5- L nasal cannula-attempt to titrate down -Acute congestive heart failure from diastolic dysfunction EF 55-60%-slow to respond Continue IV Lasix 40 mg every 8 -Moderate to severe tricuspid regurgitation Follow clinically -Severe secondary pulmonary hypertension Follow clinically -Acute delirium/metabolic encephalopathy from sepsis improved Follow clinically -Sepsis from and positive blood cultures IV cefepime-changed to IV Ancef -Persistent atrial fibrillation, rate controlled Continue with xarelto, amiodarone -Diabetes mellitus type 2 Follow Accu-Cheks -Essential hypertension Continue with Zestril -Hyperlipidemia Continue with Pravachol -Obesity BMI 39.2 Weight loss measures when patient was stable -Obstructive sleep apnea, patient does not use CPAP -Diabetic peripheral neuropathy -Patient has a public legal guardian, Continue current antibiotics. Awaiting ARABELLA today. Other medications to continue. Follow closely
[2020-08-08 16:46] LABS: Glucose,Whole Blood 177 mg/dL (75-99)
[2020-08-08] MEDS: RIVAROXABAN 20 MG TAB PO SCH (17:23)
[2020-08-08] MEDS: PRAVASTATIN SODIUM 40 MG TAB PO SCH (20:13)
[2020-08-08] MEDS: MELATONIN 5 MG TABLET PO SCH (20:13)
[2020-08-08] MEDS: ACETAMINOPHEN TAB 325 MG TAB PO PRN (20:13)
[2020-08-08 21:18] LABS: Glucose,Whole Blood 169 mg/dL (75-99)
[2020-08-09] MEDS: LEVOTHYROXINE 100 MCG TAB PO SCH (04:48)
[2020-08-09 06:42] LABS: Glucose,Whole Blood 109 mg/dL (75-99)
[2020-08-09] MEDS: INSULIN ASPART (NovoLOG) 100 UNIT/ML VIAL SQ SCH ×4 (07:29→20:57)
--- NOTE | 2020-08-09 08:11 | P.TEE ---
Date of Procedure: 08/08/20 Description of Procedure(s): Date of procedure: 08/08/2020 Procedure performed: Transesophageal Echocardiogram with color flow doppler Moderate conscious sedation: Moderate conscious sedation was supplied with versed and fentanyl Complications: none Indications: Strep bacteremia History: Patient is a pleasant 69-year-old male with history of atrial fibrillation, asthma, type 2 diabetes mellitus, hypertension, hyperlipidemia, sleep apnea, hypothyroidism, mental disability and recent group B strep ba cteremia. Cardiology was consulted for ARABELLA to rule out endocarditis. Patient had transthoracic echo 08/05/2020 which showed normal ejection fraction 55-60%, mild mitral regurgitation, moderate to severe tricuspid regurgitation with severe pulmonary hypertension and RVSP of 87. PROCEDURE: After the risks, benefits and alternatives of the above mentioned procedure was explained in detail with the patient, informed consent was obtained. Patient was brought to the lab in a fasting state. Patient was sedated with Versed and Fentanyl. The throat was sprayed with Hurricane to anesthetize the throat. A lubricated Omni probe was then introduced into the esophagus and stomach and multiple views were obtained. 2D echo with color flow doppler was utilized. Patient did have desaturations and therefore only limited views were obtained however no evidence of endocarditis was seen with adequate views of the mitral and aortic valves. The tricuspid valve had limited views however no signs of vegetation. The pulmonic valve was not visualized secondary to limited images. Patient's saturations improved with bag mask and Narcan was given. The probe was then removed. Patient was transferred to the post procedure area in stable and satisfactory condition. FINDINGS: 1. The aortic valve is tricuspid and function normally. There is no aortic stenosis and trace aortic insufficiency. 2. The mitral valve appears be normal with mild mitral regurgitation. 3. Tricuspid valve appears to be normal without any vegetation. 4. Limited views of the intratrial septum however is aneurysmal. 5. Left ventricular size and function appear to be normal with LV EF 55%
[2020-08-09] MEDS: MULTIVITAMINS, THERA 1 EACH TAB PO SCH (09:35)
[2020-08-09] MEDS: AMIODARONE 200 MG TAB PO SCH (09:35)
[2020-08-09] MEDS: DIVALPROEX 250 MG TABLET.DR PO SCH ×2 (09:35→21:18)
[2020-08-09] MEDS: FUROSEMIDE 10 MG/ML 4 ML VIAL IV SCH ×2 (09:35→21:18)
[2020-08-09] MEDS: CHOLECALCIFEROL 25 MCG (1000 IU) TABLET PO SCH (09:35)
[2020-08-09] MEDS: CYANOCOBALAMIN 500 MCG TAB PO SCH (09:35)
--- NOTE | 2020-08-09 11:13 | P.PN ---
Subjective Progress Note Date: 08/09/20 Principal diagnosis: Altered mental status Acute on chronic hypoxic respiratory failure Elevated CO2 due to metabolic alkalosis with diuretics some component of respiratory acidosis due to sleep disorder breathing and sleep apnea cannot be excluded, would recommend to lower down the Lasix every every 12 Gram-positive bacteremia source not clear repeat cultures are negative patient is being treated with IV was generation cephalosporin is status post echocardiogram, ID service has been following Sleep disorder breathing and sleep apnea, patient cannot use the CPAP machine Chronic atrial fibrillation Advanced mental disability Enlarged tongue 08/09/2020, patient seen eval examined during the rounds labs reviewed medications reviewed care plan discussed, respiratory status remains stable denies any chest pain, patient remains on 7 L oxygen however, patient is status post ARABELLA this morning no endocarditis has been noted, last chest x-ray performed yesterday interstitial edema bilateral pleural effusion likely combination of pneumonia and CHF-like changes would recommend to broaden spectrum antibiotic to Zosyn keep patient on even are negative side, noted that patient is already on furosemide every 12 , labs pending 08/08/2020, patient seen eval examined during the rounds labs reviewed medications reviewed care plan discussed, patient is more awake, ongoing cough is present denies any chest pain, sitting upright on the chair breathing K more comfortably has been on 6.5 L oxygen, labs are not done today, would recommend to reduce Lasix to 40 mg IV every 12 and repeat labs tomorrow, continue IV antibiotics with deep breathing exercise incentive spirometry repeat chest x-ray earlier today reviewed and compared with the prior x-ray continued to show CHF- like changes with cardiomegaly interstitial edema small pleural effusion bilateral infiltrate Patient was brought into the emergency department for evaluation of altered mental status patient is a resident of [facility], baseline status usually awake and alert moves around, covert and mcfp was negative, patient was brought in due to increasing shortness of breath ongoing cough and decreased appetite, prior medical history significant for atrial fibrillation asthma, diabetes mellitus, hypertension hypertensive cardiovascular disease per for neuropathy DJD uses motorized scooter, on arrival he was febrile with fever of 103 saturation was 93% on 6 L white cell count is elevated and lactic acid was 2.2, BNP was over 1300, PCR was negative, chest x-ray showed right sided inf iltrate patient does have a history of sleep disorder breathing and sleep apnea cannot use his CPAP machine due to mental disability, patient has been treated with direct oral anticoagulant, amiodarone, IV cefazolin, continuation of his home medication, high-dose Lasix 40 mg subcu every 8 for lower extremity edema and heart failure, most recent labs reveal significant rise in CO2 up to 43 from baseline of 28, BUN/creatinine remains stable, other lab significant for elevated pro calcitonin 1.79 Objective - Vital Signs Vital signs: Vital Signs Temp 97.6 F 08/09/20 07:28 Pulse 60 08/09/20 07:50 Resp 18 08/09/20 07:50 BP 133/69 08/09/20 07:28 Pulse Ox 96 08/09/20 07:28 Intake & Output 08/08/20 08/09/20 08/09/20 18:59 06:59 18:59 Intake Total 440 Output Total 700 Balance -700 440 Weight 113.398 kg Intake: Oral 440 Output: Urine 700 Other: Voiding Method External Catheter External Catheter External Catheter - Exam - Constitutional General appearance: disheveled, mild distress - EENT Markedly Enlarged tongue protruding out of mouth Eyes: PERRLA Ears: bilateral: normal - Neck Neck: normal ROM Carotids: bilateral: upstroke normal - Respiratory Respiratory: bilateral: diminished - Cardiovascular Rhythm: irregularly irregular Heart sounds: normal: S1, S2 - Gastrointestinal General gastrointestinal: normal bowel sounds - Neurologic Neurologic: CNII-XII intact - Musculoskeletal Musculoskeletal: gait normal, generalized weakness, strength equal bilaterally - Psychiatric Psychiatric: A&O x's 3, appropriate affect, intact judgment & insight - Labs CBC & Chem 7: 08/04/20 05:51 08/07/20 05:58 Labs: Abnormal Lab Results - Last 24 Hours (Table) 08/08/20 08/08/20 08/08/20 Range/Units 11:44 16:44 21:17 POC Glucose (mg/dL) 106 H 177 H 169 H (75-99) mg/dL 08/09/20 Range/Units 06:41 POC Glucose (mg/dL) 109 H (75-99) mg/dL Microbiology - Last 24 Hours (Table) 08/05/20 05:05 Blood Culture - Preliminary Blood No Growth after 96 hours Assessment and Plan Assessment: Altered mental status Acute on chronic hypoxic hypercapnic history failure Bilateral basal pneumonia Elevated CO2 due to metabolic alkalosis with diuretics some component of respiratory acidosis due to sleep disorder breathing and sleep apnea cannot be excluded, would recommend to lower down the Lasix every every 12 Gram-positive bacteremia source not clear repeat cultures are negative patient is being treated with IV was generation cephalosporin is status post echocardiogram, ID service has been following Sleep disorder breathing and sleep apnea, patient cannot use the CPAP machine Chronic atrial fibrillation Advanced mental disability Enlarged tongue Plan: Plan as above, will follow clinical course closely decrease Lasix to 40 mg every 12, monitor renal functions closely patient will benefit from more broad- spectrum gram-negative coverage like Zosyn or meropenem will discuss with ID and primary service Time with Patient: Greater than 30
[2020-08-09 11:42] LABS: Glucose,Whole Blood 183 mg/dL (75-99)
[2020-08-09] MEDS: PIPERACILLIN-TAZOBACTAM 3.375 GM in SODIUM CHLORIDE 0.9% 100 ML IVPB SCH ×2 (12:13→21:18)
[2020-08-09 13:02] LABS: Anisocytosis Slight; HCT 42.6 % (39.0-53.0); HGB 12.3 gm/dL (13.0-17.5); Hypochromasia Marked; MCH 26.9 pg (25.0-35.0); MCHC 28.8 g/dL (31.0-37.0); MCV 93.2 fL (80.0-100.0); Mean Platelet Volume 7.8; Platelet Count 202 k/uL (150-450); RBC 4.57 m/uL (4.30-5.90); WBC 4.9 k/uL (3.8-10.6)
[2020-08-09 13:16] LABS: African American GFR (CKD) >90 (>60 ml/min/1.73 sqM); Blood Urea Nitrogen 28 mg/dL (9-20); Calcium 9.4 mg/dL (8.4-10.2); Chloride 83 mmol/L (98-107); Glucose 149 mg/dL (74-99); Non-African American GFR(CKD) >90 (>60 ml/min/1.73 sqM); Potassium 3.5 mmol/L (3.5-5.1); Sodium 140 mmol/L (137-145)
[2020-08-09 13:23] LABS: Anion Gap 3 mmol/L
[2020-08-09 13:37] LABS: Carbon Dioxide 54 mmol/L (22-30)
--- NOTE | 2020-08-09 15:43 | P.PN ---
Progress Note - Text Progress Note Date: 08/09/20 Chief Complaint: Fever History of presenting complaint: This is a 69-year-old patient was currently at [facility] on. Patient being followed by Dr. Brand. Staff and the ECF following the patient's sensorium to be decreased. Patient is normally alert and able to walk around. Patient had a COVID test 5 days ago on Wednesday that was negative. Patient has slightly increased respiratory rate in the conus bit of a cough. Patient denies any urinary symptoms. Some decrease in appetite. No chest pain. Chronic stable medical conditions include atrial fibrillation, asthma, diabetes, hypertension, hyperlipidemia, gallstones, peripheral neuropathy, gait, uses a motorized scooter, DJD, does not use a CPAP Admitted with pneumonia, delirium, sepsis. Started on IV cefepime. Went into pulmonary edema. Started on IV Lasix. On hypoxic. Blood cultures positive for Streptococcus agalactiae group b. Also being treated for pneumonia. ARABELLA-no obvious evidence of any vegetation. Today: Sitting up in a chair. Making good urine. On IV Lasix. Oral intake is fair. On 6 L nasal cannula. Mouth breathing Review of systems: Was done for constitutional, cardiovascular, GI, pulmonary. relevant finding as above Active Medications Acetaminophen (Acetaminophen Tab 325 Mg Tab) 650 mg PO Q6HR PRN PRN Reason: Mild Pain or Fever > 100.5 Last Admin: 08/08/20 20:13 Dose: 650 mg Documented by: Acetazolamide (Acetazolamide 250 Mg Tab) 250 mg PO BID [facility] Amiodarone HCl (Amiodarone 200 Mg Tab) 200 mg PO DAILY [facility] Last Admin: 08/09/20 09:35 Dose: 200 mg Documented by: Cholecalciferol (Cholecalciferol 25 Mcg (1000 Iu) Tablet) 125 mcg PO DAILY [facility] Last Admin: 08/09/20 09:35 Dose: 125 mcg Documented by: Cyanocobalamin (Cyanocobalamin 500 Mcg Tab) 500 mcg PO DAILY [facility] Last Admin: 08/09/20 09:35 Dose: 500 mcg Documented by: Divalproex Sodium (Divalproex 250 Mg Tablet.) 500 mg PO QAM [facility] Last Admin: 08/09/20 09:35 Dose: 500 mg Documented by: Divalproex Sodium (Divalproex 250 Mg Tablet.) 750 mg PO [facility] Last Admin: 08/08/20 20:13 Dose: 750 mg Documented by: Furosemide (Furosemide 10 Mg/Ml 4 Ml Vial) 40 mg IV Q12HR [facility] Last Admin: 08/09/20 09:35 Dose: 40 mg Documented by: Piperacillin Sod/Tazobactam (Sod 3.375 gm/ Sodium Chloride) 100 mls @ 25 mls/hr IVPB Q8H [facility] Last Admin: 08/09/20 12:13 Dose: 25 mls/hr Documented by: Insulin Aspart (Insulin Aspart (Novolog) 100 Unit/Ml Vial) 0 unit SQ [facility]; Protocol Last Admin: 08/09/20 12:13 Dose: 3 unit Documented by: Levothyroxine Sodium (Levothyroxine 100 Mcg Tab) 100 mcg PO DAILY@0630 [facility] Last Admin: 08/09/20 04:48 Dose: 100 mcg Documented by: Melatonin (Melatonin 5 Mg Tablet) 5 mg PO [facility] Last Admin: 08/08/20 20:13 Dose: 5 mg Documented by: Multivitamins (Multivitamins, Thera 1 Each Tab) 1 each PO DAILY [facility] Last Admin: 08/09/20 09:35 Dose: 1 each Documented by: Naloxone HCl (Naloxone 0.4 Mg/Ml 1 Ml Vial) 0.2 mg IV Q2M PRN PRN Reason: Opioid Reversal Pravastatin Sodium (Pravastatin Sodium 40 Mg Tab) 40 mg PO [facility] Last Admin: 08/08/20 20:13 Dose: 40 mg Documented by: Rivaroxaban (Rivaroxaban 20 Mg Tab) 20 mg PO W/SUPPER [facility] Last Admin: 08/08/20 17:23 Dose: 20 mg Documented by: Past medical history to include: atrial fibrillation, asthma, diabetes, hypertension, hyperlipidemia, ulcerative sleep apnea does not use CPAP, cognitive impairment, gout, peripheral neuropathy gait dysfunction uses a motorized scooter Social history: Resident of [facility] on, no history of smoking or alcohol Family history: Patient cannot tell Physical examination: VITAL SIGNS: 97.6, 60, 18, 133/69, 96% on 6 L GENERAL: Sitting up in a chair, awake EYES: Pupils equal. Conjunctiva normal. HEENT: External appearance of nose and ears normal, macroglossia, NECK: JVD unable to assess; masses not palpable. HEART: First and second heart sounds are normal; edema present. LUNGS: Respiratory rate increased; decreased breath sounds. Some basal crackles ABDOMEN: Soft, nontender, liver spleen not palpable, no masses palpable. PSYCH: Answering questions mood and affect normal INVESTIGATIONS, reviewed in the clinical context: August 09: WBC 4.9 hemoglobin 12.3 potassium 3.5, 54 creatinine 0.82 Chest x-ray film personally reviewed by me-[August 08]: Showing infiltrates, decreased pulmonary edema August 07: Potassium 4.1 creatinine 0.82 August 06: Potassium 4.2 creatinine 0.7 to 2-D echocardiogram: Moderate concentric LVH, EF 55-60%, moderate to severe tricuspid regurgitation, severe pulmonary hypertension : Potassium 4.5 creatinine 0.89 procalcitonin 1.79 CRP 24.4 Blood cultures positive for Streptococcus agalactiae group B August 04: Chest x-ray: Pulmonary edema Pro-calcitonin 0.66 WBC 13 hemoglobin 13.9 platelets 233, lactic acid 2.2 Of 5.3 BUN 16 creatinine 0.99 ProBNP 1310 UA negative Coronavirus [PCR]-not detected Chest x-ray film personally reviewed by [id number] infiltrate, some underpenetration Assessment and plan: -Pneumonia. Blood cultures positive for Streptococcus agalactiae, group B from August 02 on IV cefepime-changed to IV Ancef. Repeat blood cultures negative. ARABELLA-do not show any vegetation -Acute hypoxic respiratory failure from pneumonia and pulmonary edema-slow to respond Decrease FiO2 to 4 L -Acute congestive heart failure from diastolic dysfunction EF 55-60%-slow to respond Continue IV Lasix 40 mg every 12 hours -Acute metabolic alkalosis from diuresis Add Diamox 250 mg twice daily -Moderate to severe tricuspid regurgitation Follow clinically -Severe secondary pulmonary hypertension Follow clinically -Acute delirium/metabolic encephalopathy from sepsis improved Follow clinically -Sepsis from and positive blood cultures IV cefepime-changed to IV Ancef -Persistent atrial fibrillation, rate controlled Continue with xarelto, amiodarone -Diabetes mellitus type 2 Follow Accu-Cheks -Essential hypertension Continue with Zestril -Hyperlipidemia Continue with Pravachol -Obesity BMI 39.2 Weight loss measures when patient stable -Obstructive sleep apnea, patient does not use CPAP -Diabetic peripheral neuropathy -Patient has a public legal guardian, Continue IV Lasix. Chest x-rays in the morning. Diamox added. Repeat labs. Discussed with patient.
[2020-08-09 16:42] LABS: Glucose,Whole Blood 138 mg/dL (75-99)
[2020-08-09] MEDS: RIVAROXABAN 20 MG TAB PO SCH (17:30)
[2020-08-09] MEDS: acetaZOLAMIDE 250 MG TAB PO SCH ×2 (17:30→21:17)
--- NOTE | 2020-08-09 19:18 | PN ---
PROGRESS NOTE DATE OF SERVICE: 08/09/2020 REASON FOR FOLLOWUP: Bacteremia and concern for pneumonia. INTERVAL HISTORY: The patient is currently afebrile. The patient is breathing comfortably. The patient denies having any chest pain. He did have some cough. No abdominal pain or diarrhea. PHYSICAL EXAMINATION: Blood pressure 143/77, pulse of 54, temperature 99.2. He is 96% on 6 L nasal cannula. General description is an elderly male up in the bed in no distress. RESPIRATORY SYSTEM: Unlabored breathing with decreased intensity of breath sounds. No wheeze. HEART: S1, S2. Regular rate and rhythm. ABDOMEN: Soft. No tenderness. LABS: Chest x-ray shows bilateral effusion. CT was negative for endocarditis. DIAGNOSTIC IMPRESSION AND PLAN: Patient with Streptococcus agalactiae bacteremia. Source is possible cellulitis, question of pneumonia. Endocarditis has been ruled out. He was on adequate antibiotic therapy with cefazolin, switched over to Zosyn by Pulmonary. Clinically not behaving as pneumonia or any worsening pneumonia, with no evidence of any significant consolidation or effusion. Will discuss further with Pulmonary. Continue with supportive care. MMODL / IJN: [id number] /
[2020-08-09 20:42] LABS: Glucose,Whole Blood 97 mg/dL (75-99)
[2020-08-09] MEDS: MELATONIN 5 MG TABLET PO SCH (21:17)
[2020-08-09] MEDS: PRAVASTATIN SODIUM 40 MG TAB PO SCH (21:17)
[2020-08-10] MEDS: PIPERACILLIN-TAZOBACTAM 3.375 GM in SODIUM CHLORIDE 0.9% 100 ML IVPB SCH ×3 (04:15→19:26)
[2020-08-10] MEDS: LEVOTHYROXINE 100 MCG TAB PO SCH (05:38)
[2020-08-10 06:15] LABS: Potassium 3.7 mmol/L (3.5-5.1)
[2020-08-10 06:16] LABS: African American GFR (CKD) 75 (>60 ml/min/1.73 sqM); Blood Urea Nitrogen 22 mg/dL (9-20); Calcium 9.6 mg/dL (8.4-10.2); Chloride 84 mmol/L (98-107); Glucose 118 mg/dL (74-99); Non-African American GFR(CKD) 65 (>60 ml/min/1.73 sqM); Sodium 136 mmol/L (137-145)
[2020-08-10 06:22] LABS: Anion Gap 3 mmol/L
[2020-08-10 06:32] LABS: Carbon Dioxide 49 mmol/L (22-30)
[2020-08-10 07:39] LABS: Glucose,Whole Blood 115 mg/dL (75-99)
--- NOTE | 2020-08-10 08:05 | XR ---
EXAMINATION TYPE: XR chest 2V DATE OF EXAM: 08/10/2020 COMPARISON: Chest x-ray 08/08/2020 HISTORY: Congestive heart failure, pneumonia TECHNIQUE: Frontal and lateral views of the chest are obtained. FINDINGS: Findings are similar to prior exam. This prominence interstitium, central vascularity. No evident pneumothorax. Blunting the costophrenic angle suggests small effusions. Heart is enlarged. IMPRESSION: Findings suggest congestive heart failure.
[2020-08-10] MEDS: INSULIN ASPART (NovoLOG) 100 UNIT/ML VIAL SQ SCH ×4 (08:13→20:55)
[2020-08-10] MEDS: CHOLECALCIFEROL 25 MCG (1000 IU) TABLET PO SCH (09:06)
[2020-08-10] MEDS: FUROSEMIDE 10 MG/ML 4 ML VIAL IV SCH ×2 (09:06→20:55)
[2020-08-10] MEDS: acetaZOLAMIDE 250 MG TAB PO SCH ×2 (09:06→20:55)
[2020-08-10] MEDS: AMIODARONE 200 MG TAB PO SCH (09:06)
[2020-08-10] MEDS: CYANOCOBALAMIN 500 MCG TAB PO SCH (09:06)
[2020-08-10] MEDS: MULTIVITAMINS, THERA 1 EACH TAB PO SCH (09:06)
[2020-08-10] MEDS: DIVALPROEX 250 MG TABLET.DR PO SCH ×2 (09:07→20:55)
[2020-08-10 11:47] LABS: Glucose,Whole Blood 212 mg/dL (75-99)
[2020-08-10 16:44] LABS: Glucose,Whole Blood 113 mg/dL (75-99)
[2020-08-10] MEDS: RIVAROXABAN 20 MG TAB PO SCH (16:54)
--- NOTE | 2020-08-10 18:06 | PN ---
PROGRESS NOTE DATE OF SERVICE: 08/10/2020 REASON FOR FOLLOWUP: Staphylococcus agalactiae bacteremia and pneumonia. INTERVAL HISTORY: The patient is afebrile. The patient is currently breathing comfortably. He is hemodynamically stable. No vomiting or diarrhea. No change reported by the nursing staff. Patient is unable to provide a reliable history. PHYSICAL EXAMINATION: Blood pressure 131/67, pulse of 53, temperature 97.6. He is 95% on 4 L nasal cannula. General description is an elderly male lying in in no distress. Respiratory system: Unlabored breathing, decreased breath sounds at the bases. No wheeze. Heart: S1, S2. Regular rate and rhythm. Abdomen soft, no tenderness. LABS: BUN of 22, creatinine 1.16. DIAGNOSTIC IMPRESSION AND PLAN: Patient with Streptococcus agalactiae bacteremia concerning for pneumonia. CT was negative for any vegetation. The patient is currently covered with Zosyn, to continue. Will monitor clinical course closely. Continue supportive care. MMODL / IJN: [id number] /
[2020-08-10] MEDS: ACETAMINOPHEN TAB 325 MG TAB PO PRN (18:17)
[2020-08-10 20:33] LABS: Glucose,Whole Blood 122 mg/dL (75-99)
[2020-08-10] MEDS: PRAVASTATIN SODIUM 40 MG TAB PO SCH (20:55)
[2020-08-10] MEDS: MELATONIN 5 MG TABLET PO SCH (20:55)
[2020-08-11] MEDS: PIPERACILLIN-TAZOBACTAM 3.375 GM in SODIUM CHLORIDE 0.9% 100 ML IVPB SCH ×3 (03:00→19:10)
[2020-08-11] MEDS: LEVOTHYROXINE 100 MCG TAB PO SCH (05:31)
[2020-08-11] MEDS: INSULIN ASPART (NovoLOG) 100 UNIT/ML VIAL SQ SCH ×4 (07:20→20:50)
[2020-08-11 07:42] LABS: Glucose,Whole Blood 110 mg/dL (75-99)
[2020-08-11] MEDS: MULTIVITAMINS, THERA 1 EACH TAB PO SCH (08:13)
[2020-08-11] MEDS: FUROSEMIDE 10 MG/ML 4 ML VIAL IV SCH (08:13)
[2020-08-11] MEDS: CYANOCOBALAMIN 500 MCG TAB PO SCH (08:13)
[2020-08-11] MEDS: DIVALPROEX 250 MG TABLET.DR PO SCH ×2 (08:13→20:50)
[2020-08-11] MEDS: CHOLECALCIFEROL 25 MCG (1000 IU) TABLET PO SCH (08:13)
[2020-08-11] MEDS: AMIODARONE 200 MG TAB PO SCH (08:13)
[2020-08-11] MEDS: acetaZOLAMIDE 250 MG TAB PO SCH ×2 (08:17→20:50)
--- NOTE | 2020-08-11 09:35 | P.PN ---
Subjective Progress Note Date: 08/10/20 Principal diagnosis: Acute hypoxic respiratory failure/pneumonia Acute diastolic congestive heart failure Acute metabolic alkalosis from diuresis Sepsis/bacteremia 69-year-old patient was currently at [facility] on. Patient being followed by Dr. Brand. Staff and the ECF following the patient's sensorium to be decreased. Patient is normally alert and able to walk around. Patient had a COVID test 5 days ago on Wednesday that was negative. Patient has slightly increased respiratory rate and cough. Patient denies any urinary symptoms. Some decrease in appetite. No chest pain. Chronic stable medical conditions include atrial fibrillation, asthma, diabetes, hypertension, hyperlipidemia, gallstones, peripheral neuropathy, gait, uses a motorized scooter, DJD, does not use a CPAP Admitted with pneumonia, delirium, sepsis. Started on IV cefepime. Went into pulmonary edema. Started on IV Lasix. On hypoxic. Blood cultures positive for Streptococcus agalactiae group b. Also being treated for pneumonia. ARABELLA-no obv ious evidence of any vegetation. 08/10/2020 Patient is seen and evaluated in room at bedside; no complaints of chest pain, vomiting or diarrhea Vital signs are reviewed and reveal temperature of 97.6, pulse 53, blood pressure 131/67 and O2 saturation of 95% on 4 L Labs are reviewed, sodium 136, potassium 3.7, CO2 of 49, which is improved from 54 yesterday, BUN/creatinine slightly trended up at 22/1.26; pro-calcitonin of 0.38 Patient with Streptococcus agalactiae bacteremia possibly from pneumonia; echocardiogram is negative for any vegetations; patient remains on IV Zosyn; ID on board and recommending to continue with current antibiotics and continue to monitor clinically Objective - Vital Signs Vital signs: Vital Signs Temp 98.4 F 08/10/20 08:10 Pulse 59 L 08/10/20 08:10 Resp 18 08/10/20 08:10 BP 145/70 08/10/20 08:10 Pulse Ox 94 L 08/10/20 08:10 Intake & Output 08/09/20 08/10/20 08/10/20 18:59 06:59 18:59 Intake Total 220 Output Total 420 800 Balance -420 220 -800 Intake: Oral 220 Output: Urine 420 800 Other: Voiding Method External Catheter - Exam General appearance: Present: average body habitus, cooperative, no acute distress Neck: Present: normal ROM. Absent: lymphadenopathy, rigidity, thyromegaly Carotids: negative: bruit present Respiratory: bilateral: CTA, negative: rales, rhonchi, wheezing Rhythm: regular; Heart sounds: normal: S1, S2 General gastrointestinal: Present: normal bowel sounds, soft. Absent: distended, organomegaly, tenderness Genitourinary Comment(s): deferred Neurologic: Present: CNII-XII intact. Absent: focal deficits Musculoskeletal: Present: gait normal, strength equal bilaterally - Labs CBC & Chem 7: 08/09/20 12:29 08/10/20 05:27 Labs: Abnormal Lab Results - Last 24 Hours (Table) 08/09/20 08/09/20 08/10/20 Range/Units 12: 16:41 05:27 Sodium (137-145) mmol/L Chloride 83 L (98-107) mmol/L Carbon Dioxide 54 H* (22-30) mmol/L BUN 28 H (9-20) mg/dL Glucose 149 H (74-99) mg/dL POC Glucose (mg/dL) 138 H (75-99) mg/dL Procalcitonin 0.38 H (0.02-0.09) ng/mL 08/10/20 08/10/20 08/10/20 Range/Units 05:27 07:19 11:38 Sodium 136 L (137-145) mmol/L Chloride 84 L (98-107) mmol/L Carbon Dioxide 49 H* (22-30) mmol/L BUN 22 H (9-20) mg/dL Glucose 118 H (74-99) mg/dL POC Glucose (mg/dL) 115 H 212 H (75-99) mg/dL Procalcitonin (0.02-0.09) ng/mL Microbiology - Last 24 Hours (Table) 08/05/20 05:05 Blood Culture - Preliminary Blood No Growth after 120 hours Assessment and Plan Assessment: 1. Pneumonia with Streptococcus agalactiae bacteremia; IDs following and patient remains on IV Zosyn at 3.375 g every 8 hours; repeat blood cultures are negative to date; ARABELLA is negative for any vegetations 2. Acute hypoxic respiratory failure; multifactorial pneumonia and pulmonary edema - We will continue with O2 at 4 L per nasal cannula keeping SpO2 greater than 88-90% 3. Acute diastolic congestive heart failure; EF 55-60% Patient remains on IV Lasix 40 mg every 12 hours; we will continue to monitor strict NARENDRA's, daily weights, continue with low-salt and fluid restricted diet 4. Acute metabolic alkalosis from diuresis; patient remains on Diamox 250 mg twice daily 5. Acute delirium/metabolic encephalopathy from sepsis; resolved 6. Sepsis/bacteremia; repeat blood cultures are negative; patient remains on IV Zosyn per ID recommendations 7. Persistent atrial fibrillation, rate controlled and anticoagulated with xarelto, amiodarone 8. Diabetes mellitus type 2; monitor Accu-Cheks every before meals and at bedtime with sliding scale 9. Essential hypertension; stable on Zestril 10. Hyperlipidemia; continue with home statin therapy Pravachol DVT prophylaxis; SCDs/systemic anticoagulation CODE STATUS; full code
--- NOTE | 2020-08-11 10:06 | P.PN ---
Subjective Progress Note Date: 08/11/20 Principal diagnosis: Altered mental status Acute on chronic hypoxic respiratory failure Elevated CO2 due to metabolic alkalosis with diuretics some component of respiratory acidosis due to sleep disorder breathing and sleep apnea cannot be excluded, would recommend to lower down the Lasix every every 12 Gram-positive bacteremia source not clear repeat cultures are negative patient is being treated with IV was generation cephalosporin is status post echocardiogram, ID service has been following Sleep disorder breathing and sleep apnea, patient cannot use the CPAP machine Chronic atrial fibrillation Advanced mental disability Enlarged tongue 08/11/2020, patient seen eval examined during the rounds breathing comfortably on 4 L high flow oxygen, patient has been titrated down, cough congestion shortness breath, last chest x-ray performed yesterday revealed CHF-like changes, BUN/creatinine went up to 22 and 1.16, CO2 went up to 54 for now coming down to 49 08/09/2020, patient seen eval examined during the rounds labs reviewed medications reviewed care plan discussed, respiratory status remains stable denies any chest pain, patient remains on 7 L oxygen however, patient is status post ARABELLA this morning no endocarditis has been noted, last chest x-ray performed yesterday interstitial edema bilateral pleural effusion likely combination of pneumonia and CHF-like changes would recommend to broaden spectrum antibiotic to Zosyn keep patient on even are negative side, noted that patient is already on furosemide every 12 , labs pending 08/08/2020, patient seen eval examined during the rounds labs reviewed medications reviewed care plan discussed, patient is more awake, ongoing cough is present denies any chest pain, sitting upright on the chair breathing K more comfortably has been on 6.5 L oxygen, labs are not done today, would recommend to reduce Lasix to 40 mg IV every 12 and repeat labs tomorrow, continue IV antibiotics with deep breathing exercise incentive spirometry repeat chest x-ray earlier today reviewed and compared with the prior x-ray continued to show CHF- like changes with cardiomegaly interstitial edema small pleural effusion bilateral infiltrate Patient was brought into the emergency department for evaluation of altered mental status patient is a resident of [facility], baseline status usually awake and alert moves around, covert and usp was negative, patient was brought in due to increasing shortness of breath ongoing cough and decreased appetite, prior medical history significant for atrial fibrillation asthma, diabetes mellitus, hypertension hypertensive cardiovascular disease per for neuropathy DJD uses motorized scooter, on arrival he was febrile with fever of 103 saturation was 93% on 6 L white cell count is elevated and lactic acid was 2.2, BNP was over 1300, PCR was negative, chest x-ray showed right sided infiltrate patient does have a history of sleep disorder breathing and sleep apnea cannot use his CPAP machine due to mental disability, patient has been treated with direct oral anticoagulant, amiodarone, IV cefazolin, continuation of his home medication, high-dose Lasix 40 mg subcu every 8 for lower extremity edema and heart failure, most recent labs reveal significant rise in CO2 up to 43 from baseline of 28, BUN/creatinine remains stable, other lab significant for elevated pro calcitonin 1.79 Objective - Vital Signs Vital signs: Vital Signs Temp 98.2 F 08/11/20 07:38 Pulse 64 08/11/20 07:38 Resp 16 08/11/20 07:38 BP 130/66 08/11/20 07:38 Pulse Ox 92 L 08/11/20 07:38 Intake & Output 08/10/20 08/11/20 08/11/20 18:59 06:59 18:59 Intake Total 450 Output Total 1999 1250 Balance -1999 - Intake: Oral 450 Output: Urine 1999 1250 Other: Voiding Method External Catheter - Exam - Constitutional General appearance: disheveled, mild distress - EENT Markedly Enlarged tongue protruding out of mouth Eyes: PERRLA Ears: bilateral: normal - Neck Neck: normal ROM Carotids: bilateral: upstroke normal - Respiratory Respiratory: bilateral: diminished - Cardiovascular Rhythm: irregularly irregular Heart sounds: normal: S1, S2 - Gastrointestinal General gastrointestinal: normal bowel sounds - Neurologic Neurologic: CNII-XII intact - Musculoskeletal Musculoskeletal: gait normal, generalized weakness, strength equal bilaterally - Psychiatric Psychiatric: A&O x's 3, appropriate affect, intact judgment & insight - Labs CBC & Chem 7: 08/09/20 12:29 08/10/20 05:27 Labs: Abnormal Lab Results - Last 24 Hours (Table) 08/10/20 08/10/20 08/10/20 Range/Units 05:27 11:38 16:35 POC Glucose (mg/dL) 212 H 113 H (75-99) mg/dL Procalcitonin 0.38 H (0.02-0.09) ng/mL 08/10/20 08/11/20 Range/Units 20:32 07:39 POC Glucose (mg/dL) 122 H 110 H (75-99) mg/dL Procalcitonin (0.02-0.09) ng/mL Microbiology - Last 24 Hours (Table) 08/05/20 05:05 Blood Culture - Final Blood No Growth after 144 hours Assessment and Plan Assessment: Altered mental status Acute on chronic hypoxic hypercapnic history failure Bilateral basal pneumonia Elevated CO2 due to metabolic alkalosis with diuretics some component of respi ratory acidosis due to sleep disorder breathing and sleep apnea cannot be excluded, would recommend to lower down the Lasix every every 12 Gram-positive bacteremia source not clear repeat cultures are negative patient is being treated with IV was generation cephalosporin is status post echocardiogram, ID service has been following Sleep disorder breathing and sleep apnea, patient cannot use the CPAP machine Chronic atrial fibrillation Advanced mental disability Enlarged tongue Plan: Plan as above, will follow clinical course closely decrease Lasix to 40 mg every 12, continue Diamox,as his renal function continued to go up would recommend decreasing the Lasix to once dailymonitor renal functions closely patient will benefit from more broad-spectrum gram-negative coverage like Zosyn or meropenem will discuss with ID and primary service Time with Patient: Greater than 30
[2020-08-11 11:06] LABS: Glucose,Whole Blood 146 mg/dL (75-99)
[2020-08-11] MEDS: RIVAROXABAN 20 MG TAB PO SCH (17:05)
[2020-08-11 17:17] LABS: Glucose,Whole Blood 116 mg/dL (75-99)
--- NOTE | 2020-08-11 18:44 | PN ---
PROGRESS NOTE DATE OF SERVICE: 08/11/2020 REASON FOR FOLLOWUP: Bacteremia pneumonia. INTERVAL HISTORY: The patient is currently afebrile. The patient is breathing comfortably. The patient denies any chest pain. Occasional cough. No abdominal pain or diarrhea. PHYSICAL EXAMINATION: Blood pressure 120/60 with a pulse of 50. Temperature 97.7. He is 90% on 4 L nasal cannula. General description is an elderly male up in the bed in no distress. Respiratory system: Unlabored breathing, decreased breath sounds in the base, with no wheeze. Heart S1, S2. Regular rate. ABDOMEN: Soft. No tenderness. LABS: No new labs been obtained today. Blood culture repeat has been negative. DIAGNOSTIC IMPRESSION AND PLAN: Patient with Streptococcus enterococcus agalactiae bacteremia, the patient admitted to the hospital with possible pneumonia repeat blood culture has been negative. White count normalized on Zosyn. Transition to oral Augmentin on discharge. Continue supportive care. MMODL / IJN: [id number] /
[2020-08-11 20:18] LABS: Glucose,Whole Blood 168 mg/dL (75-99)
--- NOTE | 2020-08-11 20:34 | P.PN ---
Subjective Progress Note Date: 08/11/20 Principal diagnosis: Acute hypoxic respiratory failure/pneumonia Acute diastolic congestive heart failure Acute metabolic alkalosis from diuresis Sepsis/bacteremia 69-year-old patient was currently at [facility] on. Patient being followed by Dr. Brand. Staff and the ECF following the patient's sensorium to be decreased. Patient is normally alert and able to walk around. Patient had a COVID test 5 days ago on Wednesday that was negative. Patient has slightly increased respiratory rate and cough. Patient denies any urinary symptoms. Some decrease in appetite. No chest pain. Chronic stable medical conditions include atrial fibrillation, asthma, diabetes, hypertension, hyperlipidemia, gallstones, peripheral neuropathy, gait, uses a motorized scooter, DJD, does not use a CPAP Admitted with pneumonia, delirium, sepsis. Started on IV cefepime. Went into pulmonary edema. Started on IV Lasix. On hypoxic. Blood cultures positive for Streptococcus agalactiae group b. Also being treated for pneumonia. ARABELLA-no obv ious evidence of any vegetation. 08/10/2020 Patient is seen and evaluated in room at bedside; no complaints of chest pain, vomiting or diarrhea Vital signs are reviewed and reveal temperature of 97.6, pulse 53, blood pressure 131/67 and O2 saturation of 95% on 4 L Labs are reviewed, sodium 136, potassium 3.7, CO2 of 49, which is improved from 54 yesterday, BUN/creatinine slightly trended up at 22/1.26; pro-calcitonin of 0.38 Patient with Streptococcus agalactiae bacteremia possibly from pneumonia; echocardiogram is negative for any vegetations; patient remains on IV Zosyn; ID on board and recommending to continue with current antibiotics and continue to monitor clinically 08/11/2020 Patient is seen and evaluated in room at bedside; breathing comfortably on 4 L high flow oxygen, patient has been titrated down, cough congestion shortness breath Patient with Streptococcus agalactiae bacteremia and possible pneumonia; repeat blood cultures have been negative last chest x-ray performed yesterday revealed CHF-like changes, BUN/creatinine went up to 22 and 1.16, CO2 went up to 54 for now coming down to 49 Pulmonary on board and recommending to decrease Lasix to 40 mg daily due to worsening renal function and continue with current dose of Diamox IV antibiotics have been switched to IV Zosyn for broader coverage ID on board and recommending to switch to oral Augmentin once clinically stable and ready for discharge Objective - Vital Signs Vital signs: Vital Signs Temp 97.7 F 08/11/20 19:13 Pulse 59 L 08/11/20 19:13 Resp 18 08/11/20 19:13 BP 124/56 08/11/20 19:13 Pulse Ox 96 08/11/20 19:13 Intake & Output 08/11/20 08/11/20 08/12/20 06:59 18:59 06:59 Intake Total 450 460 Output Total 1250 1200 Balance -800 -740 Intake: Oral 450 460 Output: Urine 1250 1200 Other: Voiding Method External Catheter - Exam General appearance: Present: average body habitus, cooperative, no acute distress Neck: Present: normal ROM. Absent: lymphadenopathy, rigidity, thyromegaly Carotids: negative: bruit present Respiratory: bilateral: CTA, negative: rales, rhonchi, wheezing Rhythm: regular; Heart sounds: normal: S1, S2 General gastrointestinal: Present: normal bowel sounds, soft. Absent: distended, organomegaly, tenderness Genitourinary Comment(s): deferred Neurologic: Present: CNII-XII intact. Absent: focal deficits Musculoskeletal: Present: gait normal, strength equal bilaterally - Labs CBC & Chem 7: 08/09/20 12:29 08/10/20 05:27 Labs: Abnormal Lab Results - Last 24 Hours (Table) 08/10/20 08/11/20 08/11/20 Range/Units 20:32 07:39 11:03 POC Glucose (mg/dL) 122 H 110 H 146 H (75-99) mg/dL 08/11/20 08/11/20 Range/Units 16:59 20:17 POC Glucose (mg/dL) 116 H 168 H (75-99) mg/dL Microbiology - Last 24 Hours (Table) 08/05/20 05:05 Blood Culture - Final Blood No Growth after 144 hours Assessment and Plan Assessment: 1. Pneumonia with Streptococcus agalactiae bacteremia; IDs following and patient remains on IV Zosyn at 3.375 g every 8 hours; repeat blood cultures are negative to date; ARABELLA is negative for any vegetations 2. Acute hypoxic respiratory failure; multifactorial pneumonia and pulmonary edema - We will continue with O2 at 4 L per nasal cannula keeping SpO2 greater than 88-90% 3. Acute diastolic congestive heart failure; EF 55-60% Patient remains on IV Lasix 40 mg every 12 hours; we will continue to monitor strict NARENDRA's, daily weights, continue with low-salt and fluid restricted diet 4. Acute metabolic alkalosis from diuresis; patient remains on Diamox 250 mg twice daily 5. Acute delirium/metabolic encephalopathy from sepsis; resolved 6. Sepsis/bacteremia; repeat blood cultures are negative; patient remains on IV Zosyn per ID recommendations 7. Persistent atrial fibrillation, rate controlled and anticoagulated with xarelto, amiodarone 8. Diabetes mellitus type 2; monitor Accu-Cheks every before meals and at bedtime with sliding scale 9. Essential hypertension; stable on Zestril 10. Hyperlipidemia; continue with home statin therapy Pravachol DVT prophylaxis; SCDs/systemic anticoagulation CODE STATUS; full code
[2020-08-11] MEDS: MELATONIN 5 MG TABLET PO SCH (20:50)
[2020-08-11] MEDS: PRAVASTATIN SODIUM 40 MG TAB PO SCH (20:50)
[2020-08-12] MEDS: PIPERACILLIN-TAZOBACTAM 3.375 GM in SODIUM CHLORIDE 0.9% 100 ML IVPB SCH ×3 (03:00→21:01)
[2020-08-12] MEDS: LEVOTHYROXINE 100 MCG TAB PO SCH (05:49)
[2020-08-12 07:12] LABS: Glucose,Whole Blood 108 mg/dL (75-99)
[2020-08-12] MEDS: INSULIN ASPART (NovoLOG) 100 UNIT/ML VIAL SQ SCH ×4 (07:26→21:08)
[2020-08-12 09:22] LABS: Basophils # (A) 0.03 X 10*3/uL (0.00-0.10); Basophils % (A) 0.7 %; Eosinophils # (A) 0.18 X 10*3/uL (0.04-0.35); Eosinophils % (A) 4.1 %; HCT 38.2 % (39.6-50.0); HGB 10.9 g/dL (13.0-17.0); Lymphocytes # (A) 0.94 X 10*3/uL (0.90-5.00); Lymphocytes % (A) 21.3 %; MCH 27.4 pg (27.0-32.0); MCHC 28.5 g/dL (32.0-37.0); Mean Platelet Volume 10.7 fL (9.5-12.2); Monocytes # (A) 0.47 X 10*3/uL (0.20-1.00); Monocytes % (A) 10.6 %; Neutrophils # (A) 2.77 X 10*3/uL (1.80-7.70); Neutrophils % (A) 62.6 %; Platelet Count 188 X 10*3/uL (140-440); RBC 3.98 X 10*6/uL (4.40-5.60); RDW 18.8 % (11.5-14.5); WBC 4.42 X 10*3/uL (4.50-10.00)
[2020-08-12] MEDS: CYANOCOBALAMIN 500 MCG TAB PO SCH (09:32)
[2020-08-12] MEDS: MULTIVITAMINS, THERA 1 EACH TAB PO SCH (09:32)
[2020-08-12] MEDS: CHOLECALCIFEROL 25 MCG (1000 IU) TABLET PO SCH (09:32)
[2020-08-12] MEDS: AMIODARONE 200 MG TAB PO SCH (09:32)
[2020-08-12] MEDS: DIVALPROEX 250 MG TABLET.DR PO SCH ×2 (09:32→21:09)
[2020-08-12] MEDS: acetaZOLAMIDE 250 MG TAB PO SCH ×2 (09:33→21:09)
[2020-08-12] MEDS: FUROSEMIDE 10 MG/ML 2 ML VIAL IV SCH (09:33)
[2020-08-12] MEDS: ACETAMINOPHEN TAB 325 MG TAB PO PRN (09:44)
--- NOTE | 2020-08-12 09:52 | P.PN ---
Subjective Progress Note Date: 08/12/20 Principal diagnosis: Altered mental status Acute on chronic hypoxic respiratory failure Elevated CO2 due to metabolic alkalosis with diuretics some component of respiratory acidosis due to sleep disorder breathing and sleep apnea cannot be excluded, would recommend to lower down the Lasix every every 12 Gram-positive bacteremia source not clear repeat cultures are negative patient is being treated with IV was generation cephalosporin is status post echocardiogram, ID service has been following Sleep disorder breathing and sleep apnea, patient cannot use the CPAP machine Chronic atrial fibrillation Advanced mental disability Enlarged tongue 08/12/2020, patient seen eval examined during the rounds, labs reviewed medications reviewed, patient is afebrile, FiO2 is down to 4 L nasal cannula oxygen saturation 95%, hemodynamic status stable, denies any chest pain, shor tness of breath cough slightly better, 08/11/2020, patient seen eval examined during the rounds breathing comfortably on 4 L high flow oxygen, patient has been titrated down, cough congestion shortness breath, last chest x-ray performed yesterday revealed CHF-like changes, BUN/creatinine went up to 22 and 1.16, CO2 went up to 54 for now coming down to 49 08/09/2020, patient seen eval examined during the rounds labs reviewed medications reviewed care plan discussed, respiratory status remains stable denies any chest pain, patient remains on 7 L oxygen however, patient is status post ARABELLA this morning no endocarditis has been noted, last chest x-ray performed yesterday interstitial edema bilateral pleural effusion likely combination of pneumonia and CHF-like changes would recommend to broaden spectrum antibiotic to Zosyn keep patient on even are negative side, noted that patient is already on furosemide every 12 , labs pending 08/08/2020, patient seen eval examined during the rounds labs reviewed medications reviewed care plan discussed, patient is more awake, ongoing cough is present denies any chest pain, sitting upright on the chair breathing K more comfortably has been on 6.5 L oxygen, labs are not done today, would recommend to reduce Lasix to 40 mg IV every 12 and repeat labs tomorrow, continue IV antibiotics with deep breathing exercise incentive spirometry repeat chest x-ray earlier today reviewed and compared with the prior x-ray continued to show CHF- like changes with cardiomegaly interstitial edema small pleural effusion bilateral infiltrate Patient was brought into the emergency department for evaluation of altered mental status patient is a resident of [facility], baseline status usually awake and alert moves around, covert and mcfp was negative, patient was brought in due to increasing shortness of breath ongoing cough and decreased appetite, prior medical history significant for atrial fibrillation asthma, diabetes mellitus, hypertension hypertensive cardiovascular disease per for neuropathy DJD uses motorized scooter, on arrival he was febrile with fever of 103 saturation was 93% on 6 L white cell count is elevated and lactic acid was 2.2, BNP was over 1300, PCR was negative, chest x-ray showed right sided infiltrate patient does have a history of sleep disorder breathing and sleep apnea cannot use his CPAP machine due to mental disability, patient has been treated with direct oral anticoagulant, amiodarone, IV cefazolin, continuation of his home medication, high-dose Lasix 40 mg subcu every 8 for lower extremity edema and heart failure, most recent labs reveal significant rise in CO2 up to 43 from baseline of 28, BUN/creatinine remains stable, other lab significant for elevated pro calcitonin 1.79 Objective - Vital Signs Vital signs: Vital Signs Temp 98.5 F 08/12/20 07:36 Pulse 59 L 08/12/20 07:36 Resp 18 08/12/20 07:36 BP 124/55 08/12/20 07:36 Pulse Ox 95 08/12/20 07:36 Intake & Output 08/11/20 08/12/20 08/12/20 18:59 06:59 18:59 Intake Total 460 Output Total 1200 400 Balance -740 -400 Intake: Oral 460 Output: Urine 1200 400 Other: Voiding Method External Catheter - Exam - Constitutional General appearance: disheveled, mild distress - EENT Markedly Enlarged tongue protruding out of mouth Eyes: PERRLA Ears: bilateral: normal - Neck Neck: normal ROM Carotids: bilateral: upstroke normal - Respiratory Respiratory: bilateral: diminished - Cardiovascular Rhythm: irregularly irregular Heart sounds: normal: S1, S2 - Gastrointestinal General gastrointestinal: normal bowel sounds - Neurologic Neurologic: CNII-XII intact - Musculoskeletal Musculoskeletal: gait normal, generalized weakness, strength equal bilaterally - Psychiatric Psychiatric: A&O x's 3, appropriate affect, intact judgment & insight - Labs CBC & Chem 7: 08/12/20 05:56 08/10/20 05:27 Labs: Abnormal Lab Results - Last 24 Hours (Table) 08/11/20 08/11/20 08/11/20 Range/Units 11:03 16:59 20:17 WBC (4.50-10.00) X 10*3/uL RBC (4.40-5.60) X 10*6/uL Hgb (13.0-17.0) g/dL Hct (39.6-50.0) % MCHC (32.0-37.0) g/dL RDW (11.5-14.5) % POC Glucose (mg/dL) 146 H 116 H 168 H (75-99) mg/dL 08/12/20 08/12/20 Range/Units 05:56 06:57 WBC 4.42 L (4.50-10.00) X 10*3/uL RBC 3.98 L (4.40-5.60) X 10*6/uL Hgb 10.9 L (13.0-17.0) g/dL Hct 38.2 L (39.6-50.0) % MCHC 28.5 L (32.0-37.0) g/dL RDW 18.8 H (11.5-14.5) % POC Glucose (mg/dL) 108 H (75-99) mg/dL Microbiology - Last 24 Hours (Table) 08/05/20 05:05 Blood Culture - Final Blood No Growth after 144 hours Assessment and Plan Assessment: Altered mental status Acute on chronic hypoxic hypercapnic history failure Bilateral basal pneumonia Elevated CO2 due to metabolic alkalosis with diuretics some component of respiratory acidosis due to sleep disorder breathing and sleep apnea cannot be excluded, would recommend to lower down the Lasix every every 12 Gram-positive bacteremia source not clear repeat cultures are negative patient is being treated with IV was generation cephalosporin is status post echocardiogram, ID service has been following Sleep disorder breathing and sleep apnea, patient cannot use the CPAP machine Chronic atrial fibrillation Advanced mental disability Enlarged tongue Plan: Plan as above, will follow clinical course closely decrease Lasix to 40 mg every 12, continue Diamox,as his renal function continued to go up would recommend decreasing the Lasix to once dailymonitor renal functions closely patient will benefit from more broad-spectrum gram-negative coverage like Zosyn or meropenem will discuss with ID and primary service Time with Patient: Greater than 30
[2020-08-12 10:22] LABS: African American GFR (CKD) 106.4 (60.0-200.0); BUN/Creat Ratio 26.25 Ratio (12.00-20.00); C Reactive Protein 1.5 mg/dL (0.0-0.8); Calcium 9.7 mg/dL (8.7-10.3); Carbon Dioxide >40.0 mmol/L (21.6-31.8); Chloride 92 mmol/L (96-109); Glucose 103 mg/dL (70-110); Non-African American GFR(CKD) 91.8 (60.0-200.0); Potassium 3.7 mmol/L (3.5-5.5); Sodium 140 mmol/L (135-145)
[2020-08-12 11:34] LABS: Glucose,Whole Blood 124 mg/dL (75-99)
--- NOTE | 2020-08-12 13:27 | P.PN ---
Subjective Acute hypoxic respiratory failure/pneumonia Acute diastolic congestive heart failure Acute metabolic alkalosis from diuresis Sepsis/bacteremia 69-year-old patient was currently at [facility] on. P atient being followed by Dr. Brand. Staff and the ECF following the patient's sensorium to be decreased. Patient is normally alert and able to walk around. Patient had a COVID test 5 days ago on Wednesday that was negative. Patient has slightly increased respiratory rate and cough. Patient denies any urinary symptoms. Some decrease in appetite. No chest pain. Chronic stable medical conditions include atrial fibrillation, asthma, diabetes, hypertension, hyperlipidemia, gallstones, peripheral neuropathy, gait, uses a motorized scooter, DJD, does not use a CPAP Admitted with pneumonia, delirium, sepsis. Started on IV cefepime. Went into pulmonary edema. Started on IV Lasix. On hypoxic. Blood cultures positive for Streptococcus agalactiae group b. Also being treated for pneumonia. ARABELLA-no obvious evidence of any vegetation. 08/10/2020 Patient is seen and evaluated in room at bedside; no complaints of chest pain, vomiting or diarrhea Vital signs are reviewed and reveal temperature of 97.6, pulse 53, blood pressure 131/67 and O2 saturation of 95% on 4 L Labs are reviewed, sodium 136, potassium 3.7, CO2 of 49, which is improved from 54 yesterday, BUN/creatinine slightly trended up at 22/1.26; pro-calcitonin of 0.38 Patient with Streptococcus agalactiae bacteremia possibly from pneumonia; echocardiogram is negative for any vegetations; patient remains on IV Zosyn; ID on board and recommending to continue with current antibiotics and continue to m onitor clinically 08/11/2020 Patient is seen and evaluated in room at bedside; breathing comfortably on 4 L high flow oxygen, patient has been titrated down, cough congestion shortness breath Patient with Streptococcus agalactiae bacteremia and possible pneumonia; repeat blood cultures have been negative last chest x-ray performed yesterday revealed CHF-like changes, BUN/creatinine went up to 22 and 1.16, CO2 went up to 54 for now coming down to 49 Pulmonary on board and recommending to decrease Lasix to 40 mg daily due to worsening renal function and continue with current dose of Diamox IV antibiotics have been switched to IV Zosyn for broader coverage ID on board and recommending to switch to oral Augmentin once clinically stable and ready for discharge 08/12/2020 This is a pleasant 69 years old male Patient originally came with [facility] for lethargy and fever on 08/02. Chest x-ray showing congestive heart failure. It was improved somewhat since admission on 08/02. Distal on 4 L oxygen via nasal cannula and somewhat tachypneic. Ejection fraction: 55-60%, moderate to severe tricuspid regurgitation with severe pulmonary hypertension Patient has positive blood culture for strep agalactae covered with Zosyn to switch to oral Augmentin upon discharge he is hemodynamically stable labs reviewed. Glucose controlled OT/PT recommended subacute rehab. Add restriction 1000 milliliters per day Objective - Vital Signs Vital signs: Vital Signs Temp 98.5 F 08/12/20 07:36 Pulse 59 L 08/12/20 07:36 Resp 18 08/12/20 08:30 BP 124/55 08/12/20 07:36 Pulse Ox 95 08/12/20 07:36 Intake & Output 08/11/20 08/12/20 08/12/20 18:59 06:59 18:59 Intake Total 460 Output Total 1200 400 Balance -740 -400 Intake: Oral 460 Output: Urine 1200 400 Other: Voiding Method External Catheter External Catheter # Bowel Movements 1 - Exam GENERAL: The patient is alert and oriented x3, not in any acute distress. Well developed, well nourished. HEENT: Pupils are round and equally reacting to light. EOMI. No scleral icterus. No conjunctival pallor. Normocephalic, atraumatic. No pharyngeal erythema. No thyromegaly. CARDIOVASCULAR: S1 and S2 present. No murmurs, rubs, or gallops. PULMONARY: Chest is clear to auscultation, no wheezing or crackles. ABDOMEN: Soft, nontender, nondistended, normoactive bowel sounds. No palpable organomegaly. MUSCULOSKELETAL: No joint swelling or deformity. EXTREMITIES: No cyanosis, clubbing, or pedal edema. NEUROLOGICAL: Gross neurological examination did not reveal any focal deficits. SKIN: No rashes. no petechiae. - Labs CBC & Chem 7: 08/12/20 05:56 08/12/20 05:56 Labs: Abnormal Lab Results - Last 24 Hours (Table) 08/11/20 08/11/20 08/12/20 Range/Units 16:59 20:17 05:56 WBC 4.42 L (4.50-10.00) X 10*3/uL RBC 3.98 L (4.40-5.60) X 10*6/uL Hgb 10.9 L (13.0-17.0) g/dL Hct 38.2 L (39.6-50.0) % MCHC 28.5 L (32.0-37.0) g/dL RDW 18.8 H (11.5-14.5) % Chloride (96-109) mmol/L Carbon Dioxide (21.6-31.8) mmol/L BUN/Creatinine Ratio (12.00-20.00) Ratio POC Glucose (mg/dL) 116 H 168 H (75-99) mg/dL C-Reactive Protein (0.0-0.8) mg/dL 08/12/20 08/12/20 08/12/20 Range/Units 05:56 06:57 11:29 WBC (4.50-10.00) X 10*3/uL RBC (4.40-5.60) X 10*6/uL Hgb (13.0-17.0) g/dL Hct (39.6-50.0) % MCHC (32.0-37.0) g/dL RDW (11.5-14.5) % Chloride 92 L (96-109) mmol/L Carbon Dioxide >40.0 H* (21.6-31.8) mmol/L BUN/Creatinine Ratio 26.25 H (12.00-20.00) Ratio POC Glucose (mg/dL) 108 H 124 H (75-99) mg/dL C-Reactive Protein 1.5 H (0.0-0.8) mg/dL Assessment and Plan Assessment: 1. Pneumonia with Streptococcus agalactiae bacteremia; IDs following and patient remains on IV Zosyn at 3.375 g every 8 hours; repeat blood cultures are negative to date; ARABELLA is negative for any vegetations 2. Acute hypoxic respiratory failure; multifactorial pneumonia and pulmonary edema - We will continue with O2 at 4 L per nasal cannula keeping SpO2 greater than 88-90% 3. Acute diastolic congestive heart failure; EF 55-60% Patient remains on IV Lasix 40 mg daily; we will continue to monitor strict NARENDRA's, daily weights, continue with low-salt and fluid restricted diet 4. Acute metabolic alkalosis from diuresis; patient remains on Diamox 250 mg twice daily 5. Acute delirium/metabolic encephalopathy from sepsis; resolved 6. Sepsis/bacteremia; repeat blood cultures are negative; patient remains on IV Zosyn per ID recommendations 7. Persistent atrial fibrillation, rate controlled and anticoagulated with xarelto, amiodarone 8. Diabetes mellitus type 2; monitor Accu-Cheks every before meals and at bedtime with sliding scale 9. Essential hypertension; stable on Zestril 10. Hyperlipidemia; continue with home statin therapy Pravachol DVT prophylaxis; SCDs/systemic anticoagulation CODE STATUS; full code
[2020-08-12 16:59] LABS: Glucose,Whole Blood 120 mg/dL (75-99)
[2020-08-12] MEDS: RIVAROXABAN 20 MG TAB PO SCH (17:23)
[2020-08-12 21:02] LABS: Glucose,Whole Blood 143 mg/dL (75-99)
[2020-08-12] MEDS: PRAVASTATIN SODIUM 40 MG TAB PO SCH (21:09)
[2020-08-12] MEDS: MELATONIN 5 MG TABLET PO SCH (21:09)
--- NOTE | 2020-08-13 00:12 | PN ---
PROGRESS NOTE DATE OF SERVICE: DATE OF SERVICE: 08/12/2020. REASON FOR FOLLOW UP: Streptococcal bacteremia pneumonia. INTERVAL HISTORY: Patient is afebrile. The patient is breathing more comfortably. Patient denies having any chest pain. Did have a cough, not bringing up sputum. No nausea, vomiting. No abdominal pain or diarrhea. PHYSICAL EXAMINATION: Blood pressure 121/63 with a pulse of 53, temperature 97.9. He is 96% on 4 L nasal cannula. General description: The patient is an elderly male lying in in no distress. Respiratory system: Unlabored breathing, clear to auscultation anteriorly. Heart S1, S2. Regular rate and rhythm. Abdomen: Soft, no tenderness. Extremities are currently wrapped up. LABS: Hemoglobin is 10.3, white count 4.4, BUN of 21, creatinine 0.8. Blood culture repeat has been negative so far. DIAGNOSTIC IMPRESSION AND PLAN: Patient with Streptococcal agalactiae bacteremia with symptoms of pneumonia, responded to cefazolin that will be switched over to Zosyn. Antibiotic can switched to oral Augmentin on discharge for another week and continue supportive care. MMODL / IJN: [id number] /
[2020-08-13] MEDS ORDERED: PIPERACILLIN-TAZOBACTAM 3.375 GM in SODIUM CHLORIDE 0.9% 100 ML IVPB SCH (04:00)
[2020-08-13] MEDS: PIPERACILLIN-TAZOBACTAM 3.375 GM in SODIUM CHLORIDE 0.9% 100 ML IVPB SCH ×3 (05:15→21:01)
[2020-08-13] MEDS: LEVOTHYROXINE 100 MCG TAB PO SCH (06:02)
[2020-08-13 06:56] LABS: Glucose,Whole Blood 93 mg/dL (75-99)
[2020-08-13] MEDS: INSULIN ASPART (NovoLOG) 100 UNIT/ML VIAL SQ SCH ×4 (06:58→22:07)
[2020-08-13] MEDS: CHOLECALCIFEROL 25 MCG (1000 IU) TABLET PO SCH (06:58)
[2020-08-13] MEDS: acetaZOLAMIDE 250 MG TAB PO SCH ×2 (06:59→22:07)
[2020-08-13] MEDS: CYANOCOBALAMIN 500 MCG TAB PO SCH (06:59)
[2020-08-13] MEDS: AMIODARONE 200 MG TAB PO SCH (06:59)
[2020-08-13] MEDS: MULTIVITAMINS, THERA 1 EACH TAB PO SCH (07:00)
[2020-08-13] MEDS: FUROSEMIDE 10 MG/ML 2 ML VIAL IV SCH (07:00)
[2020-08-13] MEDS: DIVALPROEX 250 MG TABLET.DR PO SCH ×2 (07:00→22:06)
[2020-08-13 08:14] LABS: African American GFR (CKD) 81 (>60 ml/min/1.73 sqM); Blood Urea Nitrogen 22 mg/dL (9-20); Calcium 9.8 mg/dL (8.4-10.2); Chloride 92 mmol/L (98-107); Glucose 106 mg/dL (74-99); Non-African American GFR(CKD) 70 (>60 ml/min/1.73 sqM); Sodium 139 mmol/L (137-145)
[2020-08-13 08:22] LABS: Anion Gap 5 mmol/L
[2020-08-13 08:28] LABS: Carbon Dioxide 42 mmol/L (22-30)
[2020-08-13 08:48] LABS: Anisocytosis Slight; Basophils % (A) 0 %; Eosinophils # (A) 0.1 k/uL (0-0.7); Eosinophils % (A) 3 %; HCT 38.7 % (39.0-53.0); HGB 11.6 gm/dL (13.0-17.5); Hypochromasia Marked; Lymphocytes # (A) 0.7 k/uL (1.0-4.8); Lymphocytes % (A) 16 %; MCH 28.4 pg (25.0-35.0); MCHC 30.1 g/dL (31.0-37.0); MCV 94.5 fL (80.0-100.0); Mean Platelet Volume 8.5; Monocytes # (A) 0.4 k/uL (0-1.0); Monocytes % (A) 9 %; Neutrophils % (A) 69 %; Platelet Count 167 k/uL (150-450); RBC 4.09 m/uL (4.30-5.90); RDW 17.9 % (11.5-15.5); WBC 4.3 k/uL (3.8-10.6)
--- NOTE | 2020-08-13 11:00 | P.PN ---
Subjective Progress Note Date: 08/13/20 Principal diagnosis: Altered mental status Acute on chronic hypoxic respiratory failure Elevated CO2 due to metabolic alkalosis with diuretics some component of respiratory acidosis due to sleep disorder breathing and sleep apnea cannot be excluded, would recommend to lower down the Lasix every every 12 Gram-positive bacteremia source not clear repeat cultures are negative patient is being treated with IV was generation cephalosporin is status post echocardiogram, ID service has been following Sleep disorder breathing and sleep apnea, patient cannot use the CPAP machine Chronic atrial fibrillation Advanced mental disability Enlarged tongue 08/13/2020, patient seen eval examined remains on 2 L oxygen, oxygen saturation stable hemodynamics stable, patient remains on broad-spectrum antibiotics, gentle diuresis, remains on direct oral anticoagulants, labs from today reviewed, CO2 remains stable 42, we'll observe it for now on current therapy 08/12/2020, patient seen eval examined during the rounds, labs reviewed medications reviewed, patient is afebrile, FiO2 is down to 4 L nasal cannula oxygen saturation 95%, hemodynamic status stable, denies any chest pain, shortness of breath cough slightly better, 08/11/2020, patient seen eval examined during the rounds breathing comfortably on 4 L high flow oxygen, patient has been titrated down, cough congestion sh ortness breath, last chest x-ray performed yesterday revealed CHF-like changes, BUN/creatinine went up to 22 and 1.16, CO2 went up to 54 for now coming down to 49 08/09/2020, patient seen eval examined during the rounds labs reviewed medications reviewed care plan discussed, respiratory status remains stable denies any chest pain, patient remains on 7 L oxygen however, patient is status post ARABELLA this morning no endocarditis has been noted, last chest x-ray performed yesterday interstitial edema bilateral pleural effusion likely combination of pneumonia and CHF-like changes would recommend to broaden spectrum antibiotic to Zosyn keep patient on even are negative side, noted that patient is already on furosemide every 12 , labs pending 08/08/2020, patient seen eval examined during the rounds labs reviewed medications reviewed care plan discussed, patient is more awake, ongoing cough is present denies any chest pain, sitting upright on the chair breathing K more comfortably has been on 6.5 L oxygen, labs are not done today, would recommend to reduce Lasix to 40 mg IV every 12 and repeat labs tomorrow, continue IV antibiotics with deep breathing exercise incentive spirometry repeat chest x-ray earlier today reviewed and compared with the prior x-ray continued to show CHF- like changes with cardiomegaly interstitial edema small pleural effusion bilateral infiltrate Patient was brought into the emergency department for evaluation of altered mental status patient is a resident of [facility], baseline status usually awake and alert moves around, covert and mcfp was negative, patient was brought in due to increasing shortness of breath ongoing cough and decreased appetite, prior medical history significant for atrial fibrillation asthma, diabetes mellitus, hypertension hypertensive cardiovascular disease per for neuropathy DJD uses motorized scooter, on arrival he was febrile with fever of 103 saturation was 93% on 6 L white cell count is elevated and lactic acid was 2.2, BNP was over 1300, PCR was negative, chest x-ray showed right sided infiltrate patient does have a history of sleep disorder breathing and sleep apnea cannot use his CPAP machine due to mental disability, patient has been treated with direct oral anticoagulant, amiodarone, IV cefazolin, continuation of his home medication, high-dose Lasix 40 mg subcu every 8 for lower extremity edema and heart failure, most recent labs reveal significant rise in CO2 up to 43 from baseline of 28, BUN/creatinine remains stable, other lab significant for elevated pro calcitonin 1.79 Objective - Vital Signs Vital signs: Vital Signs Temp 98.0 F 08/13/20 07:58 Pulse 58 L 08/13/20 07:58 Resp 18 08/13/20 08:00 BP 117/69 08/13/20 07:58 Pulse Ox 90 L 08/13/20 07:58 Intake & Output 08/12/20 08/13/20 08/13/20 18:59 06:59 18:59 Intake Total 50 Output Total 600 Balance -600 50 Intake: Oral 50 Output: Urine 600 Other: Voiding Method External Catheter Diaper Diaper Incontinent Incontinent External Catheter External Catheter # Voids 1 # Bowel Movements 1 - Exam - Constitutional General appearance: disheveled, mild distress - EENT Markedly Enlarged tongue protruding out of mouth Eyes: PERRLA Ears: bilateral: normal - Neck Neck: normal ROM Carotids: bilateral: upstroke normal - Respiratory Respiratory: bilateral: diminished - Cardiovascular Rhythm: irregularly irregular Heart sounds: normal: S1, S2 - Gastrointestinal General gastrointestinal: normal bowel sounds - Neurologic Neurologic: CNII-XII intact - Musculoskeletal Musculoskeletal: gait normal, generalized weakness, strength equal bilaterally - Psychiatric Psychiatric: A&O x's 3, appropriate affect, intact judgment & insight - Labs CBC & Chem 7: 08/13/20 07:30 08/13/20 07:30 Labs: Abnormal Lab Results - Last 24 Hours (Table) 08/12/20 08/12/20 08/12/20 Range/Units 05:56 11:29 16:52 RBC (4.30-5.90) m/uL Hgb (13.0-17.5) gm/dL Hct (39.0-53.0) % MCHC (31.0-37.0) g/dL RDW (11.5-15.5) % Lymphocytes # (1.0-4.8) k/uL Chloride (98-107) mmol/L Carbon Dioxide (22-30) mmol/L BUN (9-20) mg/dL Glucose (74-99) mg/dL POC Glucose (mg/dL) 124 H 120 H (75-99) mg/dL Procalcitonin 0.23 H (0.02-0.09) ng/mL 08/12/20 08/13/20 08/13/20 Range/Units 20:42 07:30 07:30 RBC 4.09 L (4.30-5.90) m/uL Hgb 11.6 L (13.0-17.5) gm/dL Hct 38.7 L (39.0-53.0) % MCHC 30.1 L (31.0-37.0) g/dL RDW 17.9 H (11.5-15.5) % Lymphocytes # 0.7 L (1.0-4.8) k/uL Chloride 92 L (98-107) mmol/L Carbon Dioxide 42 H* (22-30) mmol/L BUN 22 H (9-20) mg/dL Glucose 106 H (74-99) mg/dL POC Glucose (mg/dL) 143 H (75-99) mg/dL Procalcitonin (0.02-0.09) ng/mL Assessment and Plan Assessment: Altered mental status Acute on chronic hypoxic hypercapnic history failure Bilateral basal pneumonia Elevated CO2 due to metabolic alkalosis with diuretics some component of respiratory acidosis due to sleep disorder breathing and sleep apnea cannot be excluded, would recommend to lower down the Lasix every every 12 Gram-positive bacteremia source not clear repeat cultures are negative patient is being treated with IV was generation cephalosporin is status post echocardiogram, ID service has been following Sleep disorder breathing and sleep apnea, patient cannot use the CPAP machine Chronic atrial fibrillation Advanced mental disability Enlarged tongue Plan: Plan as above, will follow clinical course closely decrease Lasix to 40 mg every 12, continue Diamox,as his renal function continued to go up would recommend decreasing the Lasix to once dailymonitor renal functions closely patient will benefit from more broad-spectrum gram-negative coverage like Zosyn or meropenem will discuss with ID and primary service Time with Patient: Greater than 30
[2020-08-13 11:11] LABS: Glucose,Whole Blood 93 mg/dL (75-99)
[2020-08-13] MEDS ORDERED: guaiFENesin-DM 100-10MG/5ML 10 ML CUP PO PRN (11:26)
[2020-08-13 11:42] LABS: ABG Base Excess 17.6 mmol/L; ABG Oxygen Saturation 91.4 % (94-97); ABG PH 7.31 (7.35-7.45); ABG PO2 66 mmHg (83-108); ABG TCO2 47 mmol/L (19-24)
[2020-08-13 11:43] LABS: ABG HCO3 44 mmol/L (21-25); ABG PCO2 87 mmHg (35-45)
[2020-08-13] MEDS ORDERED: FUROSEMIDE 10 MG/ML 4 ML VIAL IV STA (12:20)
--- NOTE | 2020-08-13 12:23 | P.PN ---
Subjective Acute hypoxic respiratory failure/pneumonia Acute diastolic congestive heart failure Acute metabolic alkalosis from diuresis Sepsis/bacteremia 69-year-old patient was currently at [facility] on. P atient being followed by Dr. Brand. Staff and the ECF following the patient's sensorium to be decreased. Patient is normally alert and able to walk around. Patient had a COVID test 5 days ago on Wednesday that was negative. Patient has slightly increased respiratory rate and cough. Patient denies any urinary symptoms. Some decrease in appetite. No chest pain. Chronic stable medical conditions include atrial fibrillation, asthma, diabetes, hypertension, hyperlipidemia, gallstones, peripheral neuropathy, gait, uses a motorized scooter, DJD, does not use a CPAP Admitted with pneumonia, delirium, sepsis. Started on IV cefepime. Went into pulmonary edema. Started on IV Lasix. On hypoxic. Blood cultures positive for Streptococcus agalactiae group b. Also being treated for pneumonia. ARABELLA-no obvious evidence of any vegetation. 08/10/2020 Patient is seen and evaluated in room at bedside; no complaints of chest pain, vomiting or diarrhea Vital signs are reviewed and reveal temperature of 97.6, pulse 53, blood pressure 131/67 and O2 saturation of 95% on 4 L Labs are reviewed, sodium 136, potassium 3.7, CO2 of 49, which is improved from 54 yesterday, BUN/creatinine slightly trended up at 22/1.26; pro-calcitonin of 0.38 Patient with Streptococcus agalactiae bacteremia possibly from pneumonia; echocardiogram is negative for any vegetations; patient remains on IV Zosyn; ID on board and recommending to continue with current antibiotics and continue to m onitor clinically 08/11/2020 Patient is seen and evaluated in room at bedside; breathing comfortably on 4 L high flow oxygen, patient has been titrated down, cough congestion shortness breath Patient with Streptococcus agalactiae bacteremia and possible pneumonia; repeat blood cultures have been negative last chest x-ray performed yesterday revealed CHF-like changes, BUN/creatinine went up to 22 and 1.16, CO2 went up to 54 for now coming down to 49 Pulmonary on board and recommending to decrease Lasix to 40 mg daily due to worsening renal function and continue with current dose of Diamox IV antibiotics have been switched to IV Zosyn for broader coverage ID on board and recommending to switch to oral Augmentin once clinically stable and ready for discharge 08/12/2020 This is a pleasant 69 years old male Patient originally came with [facility] for lethargy and fever on 08/02. Chest x-ray showing congestive heart failure. It was improved somewhat since admission on 08/02. Distal on 4 L oxygen via nasal cannula and somewhat tachypneic. Ejection fraction: 55-60%, moderate to severe tricuspid regurgitation with severe pulmonary hypertension Patient has positive blood culture for strep agalactae covered with Zosyn to switch to oral Augmentin upon discharge he is hemodynamically stable labs reviewed. Glucose controlled OT/PT recommended subacute rehab. Add restriction 1000 milliliters per day 08/13/2020 Patient remains to drowsy this morning, ABG showing CO2 retention with pH of 7.3, pCO2 of 87 and pO2 of 66. We are going to place patient on BiPAP, His saturation is 90% on 4 L oxygen via nasal cannula. CBC is unremarkable. BMP showing carbon dioxide to 42, creatinine 1.0 Patient has positive blood culture with strep, currently discovered with Zosyn pulmonary input is appreciated and they followed the patient closely Patient also remains on Xarelto and Lasix IV 20 mg. If one dose of Lasix 40 mg IV once Monitor creatinine, electrolytes, carbon dioxide and bladder scan On reviewing the chart also patient has moderate to severe tricuspid reg urgitation with severe pulmonary hypertension Patient will been switched from ECF for rehab upon discharge Objective - Vital Signs Vital signs: Vital Signs Temp 98.0 F 08/13/20 07:58 Pulse 58 L 08/13/20 07:58 Resp 18 08/13/20 08:00 BP 117/69 08/13/20 07:58 Pulse Ox 90 L 08/13/20 07:58 Intake & Output 08/12/20 08/13/20 08/13/20 18:59 06:59 18:59 Intake Total 50 Output Total 600 Balance -600 50 Intake: Oral 50 Output: Urine 600 Other: Voiding Method External Catheter Diaper Diaper Incontinent Incontinent External Catheter External Catheter # Voids 1 # Bowel Movements 1 - Exam -GENERAL: The patient is alert and oriented x3, drowsy, not in any acute distress. Well developed, well nourished. HEENT: Pupils are round and equally reacting to light. EOMI. No scleral icterus. No conjunctival pallor. Normocephalic, atraumatic. No pharyngeal erythema. No thyromegaly. CARDIOVASCULAR: S1 and S2 present. No murmurs, rubs, or gallops. -PULMONARY: Chest is clear to auscultation, bilateral scattered wheezing and crepitation. Decreased air entry on both sides ABDOMEN: Soft, nontender, nondistended, normoactive bowel sounds. No palpable organomegaly. MUSCULOSKELETAL: No joint swelling or deformity. EXTREMITIES: No cyanosis, clubbing, or pedal edema. NEUROLOGICAL: Gross neurological examination did not reveal any focal deficits. SKIN: No rashes. no petechiae. - Labs CBC & Chem 7: 08/13/20 07:30 08/13/20 07:30 Labs: Abnormal Lab Results - Last 24 Hours (Table) 08/12/20 08/12/20 08/12/20 Range/Units 05:56 16:52 20:42 RBC (4.30-5.90) m/uL Hgb (13.0-17.5) gm/dL Hct (39.0-53.0) % MCHC (31.0-37.0) g/dL RDW (11.5-15.5) % Lymphocytes # (1.0-4.8) k/uL ABG pH (7.35-7.45) ABG pCO2 (35-45) mmHg ABG pO2 (83-108) mmHg ABG HCO3 (21-25) mmol/L ABG Total CO2 (19-24) mmol/L ABG O2 Saturation (94-97) % Chloride (98-107) mmol/L Carbon Dioxide (22-30) mmol/L BUN (9-20) mg/dL Glucose (74-99) mg/dL POC Glucose (mg/dL) 120 H 143 H (75-99) mg/dL Procalcitonin 0.23 H (0.02-0.09) ng/mL 08/13/20 08/13/20 08/13/20 Range/Units 07:30 07:30 11:37 RBC 4.09 L (4.30-5.90) m/uL Hgb 11.6 L (13.0-17.5) gm/dL Hct 38.7 L (39.0-53.0) % MCHC 30.1 L (31.0-37.0) g/dL RDW 17.9 H (11.5-15.5) % Lymphocytes # 0.7 L (1.0-4.8) k/uL ABG pH 7.31 L (7.35-7.45) ABG pCO2 87 H* (35-45) mmHg ABG pO2 66 L (83-108) mmHg ABG HCO3 44 H* (21-25) mmol/L ABG Total CO2 47 H (19-24) mmol/L ABG O2 Saturation 91.4 L (94-97) % Chloride 92 L (98-107) mmol/L Carbon Dioxide 42 H* (22-30) mmol/L BUN 22 H (9-20) mg/dL Glucose 106 H (74-99) mg/dL POC Glucose (mg/dL) (75-99) mg/dL Procalcitonin (0.02-0.09) ng/mL Assessment and Plan Assessment: 1. Pneumonia with Streptococcus agalactiae bacteremia; IDs following and patient remains on IV Zosyn at 3.375 g every 8 hours; repeat blood cultures are negative to date; ARABELLA is negative for any vegetations 2. Acute hypoxic hypercapnic respiratory failure; multifactorial pneumonia and pulmonary edema - We will continue with O2 at 4 L per nasal cannula keeping SpO2 greater than 88-90% - Started on BiPAP for pulmonary team recommendation 3. Acute diastolic congestive heart failure; EF 55-60% Patient remains on IV Lasix 40 mg daily; we will continue to monitor strict NARENDRA's, daily weights, continue with low-salt and fluid restricted diet 4. Acute metabolic alkalosis from diuresis; patient remains on Diamox 250 mg twice daily 5. Acute delirium/metabolic encephalopathy from sepsis; resolved 6. Sepsis/bacteremia; repeat blood cultures are negative; patient remains on IV Zosyn per ID recommendations 7. Persistent atrial fibrillation, rate controlled and anticoagulated with xarelto, amiodarone 8. Diabetes mellitus type 2; monitor Accu-Cheks every before meals and at bedtime with sliding scale 9. Essential hypertension; stable on Zestril 10. Hyperlipidemia; continue with home statin therapy Pravachol 11. moderate to severe tricuspid regurgitation with severe pulmonary hypertension 12. Acute COPD exacerbation - Started on stomach steroids DVT prophylaxis; SCDs/systemic anticoagulation CODE STATUS; full code
[2020-08-13] MEDS: methylPREDNISolone SOD SUCCI 40 MG/ML 1 ML VIAL IV SCH ×2 (13:33→22:06)
[2020-08-13] MEDS: FAMOTIDINE 20 MG/2 ML VIAL IV SCH ×2 (13:48→22:06)
[2020-08-13 16:47] LABS: Glucose,Whole Blood 125 mg/dL (75-99)
[2020-08-13] MEDS: RIVAROXABAN 20 MG TAB PO SCH (18:01)
[2020-08-13 21:36] LABS: Glucose,Whole Blood 191 mg/dL (75-99)
[2020-08-13] MEDS: PRAVASTATIN SODIUM 40 MG TAB PO SCH (22:07)
[2020-08-13] MEDS: MELATONIN 5 MG TABLET PO SCH (22:07)
--- NOTE | 2020-08-14 02:44 | PN ---
PROGRESS NOTE DATE OF SERVICE: 08/13/2020 REASON FOR FOLLOWUP: Streptococcal bacteremia pneumonia. INTERVAL HISTORY: The patient is currently afebrile. The patient is breathing comfortably. He denies having any chest pain. Did have a cough. No abdominal pain, no diarrhea. EXAMINATION: His blood pressure is 137/68 with a pulse of 54, temperature 98. He is 94% on 5 L nasal cannula. General description is an elderly male lying in in no distress. Respiratory system: Unlabored breathing, decreased breath sounds at the bases, no wheeze. Heart S1, S2. Regular rate and rhythm. Abdomen soft, no tenderness. Extremities: Currently wrapped up. LABS: Hemoglobin is 11.6, white count 4.3, BUN of 22, creatinine 1.08. DIAGNOSTIC IMPRESSION AND PLAN: Patient with Streptococcus agalactiae bacteremia concerning for a pneumonia. Endocarditis was ruled out. The patient on Zosyn. Transition to oral Augmentin at discharge to finish a course of therapy. Continue supportive care. MMODL / IJN: [id number] /
[2020-08-14] MEDS: PIPERACILLIN-TAZOBACTAM 3.375 GM in SODIUM CHLORIDE 0.9% 100 ML IVPB SCH ×3 (04:48→20:56)
[2020-08-14] MEDS: methylPREDNISolone SOD SUCCI 40 MG/ML 1 ML VIAL IV SCH (04:49)
[2020-08-14] MEDS: LEVOTHYROXINE 100 MCG TAB PO SCH (06:00)
[2020-08-14 06:57] LABS: Glucose,Whole Blood 165 mg/dL (75-99)
[2020-08-14] MEDS: INSULIN ASPART (NovoLOG) 100 UNIT/ML VIAL SQ SCH ×4 (07:19→22:37)
[2020-08-14] MEDS: FUROSEMIDE 10 MG/ML 2 ML VIAL IV SCH (07:20)
[2020-08-14] MEDS: MULTIVITAMINS, THERA 1 EACH TAB PO SCH (07:20)
[2020-08-14] MEDS: CHOLECALCIFEROL 25 MCG (1000 IU) TABLET PO SCH (07:20)
[2020-08-14] MEDS: CYANOCOBALAMIN 500 MCG TAB PO SCH (07:21)
[2020-08-14] MEDS: acetaZOLAMIDE 250 MG TAB PO SCH ×2 (07:21→22:36)
[2020-08-14] MEDS: DIVALPROEX 250 MG TABLET.DR PO SCH ×2 (07:21→22:36)
[2020-08-14] MEDS: AMIODARONE 200 MG TAB PO SCH (07:21)
[2020-08-14] MEDS: FAMOTIDINE 20 MG/2 ML VIAL IV SCH (07:22)
[2020-08-14 09:07] LABS: African American GFR (CKD) 83 (>60 ml/min/1.73 sqM); Blood Urea Nitrogen 31 mg/dL (9-20); Calcium 9.8 mg/dL (8.4-10.2); Chloride 92 mmol/L (98-107); Glucose 199 mg/dL (74-99); Magnesium 1.6 mg/dL (1.6-2.3); Non-African American GFR(CKD) 72 (>60 ml/min/1.73 sqM); Potassium 3.8 mmol/L (3.5-5.1); Sodium 139 mmol/L (137-145)
[2020-08-14 09:14] LABS: Anion Gap 8 mmol/L; Carbon Dioxide 39 mmol/L (22-30)
[2020-08-14] MEDS ORDERED: SODIUM CHLORIDE 0.9% 1,000 ML IV SCH (10:30)
--- NOTE | 2020-08-14 10:44 | P.PN ---
Subjective Progress Note Date: 08/14/20 Principal diagnosis: Altered mental status Acute on chronic hypoxic respiratory failure Elevated CO2 due to metabolic alkalosis with diuretics some component of respiratory acidosis due to sleep disorder breathing and sleep apnea cannot be excluded, would recommend to lower down the Lasix every every 12 Gram-positive bacteremia source not clear repeat cultures are negative patient is being treated with IV was generation cephalosporin is status post echocardiogram, ID service has been following Sleep disorder breathing and sleep apnea, patient cannot use the CPAP machine Chronic atrial fibrillation Advanced mental disability Enlarged tongue August 14 2020, patient seen eval examined during the rounds currently patient is on 5 L nasal cannula oxygen saturation marginal 89-90%, patient has a respiratory distress episode last night, attempts to utilize BiPAP has been u nsuccessful as patient refused to via the BiPAP however remains on 6 L is down to 5 L now, patient is catching up on his sleep, patient has been swallowing pills fairly well as per discussion with staff, will monitor observe clinical course closely, CO2 level continue to improve now in the high 30s will continue current therapy 08/13/2020, patient seen eval examined remains on 2 L oxygen, oxygen saturation stable hemodynamics stable, patient remains on broad-spectrum antibiotics, gentle diuresis, remains on direct oral anticoagulants, labs from today reviewed, CO2 remains stable 42, we'll observe it for now on current therapy 08/12/2020, patient seen eval examined during the rounds, labs reviewed medications reviewed, patient is afebrile, FiO2 is down to 4 L nasal cannula oxygen saturation 95%, hemodynamic status stable, denies any chest pain, shortness of breath cough slightly better, 08/11/2020, patient seen eval examined during the rounds breathing comfortably on 4 L high flow oxygen, patient has been titrated down, cough congestion shortness breath, last chest x-ray performed yesterday revealed CHF-like changes, BUN/creatinine went up to 22 and 1.16, CO2 went up to 54 for now coming down to 49 08/09/2020, patient seen eval examined during the rounds labs reviewed medicati ons reviewed care plan discussed, respiratory status remains stable denies any chest pain, patient remains on 7 L oxygen however, patient is status post ARABELLA this morning no endocarditis has been noted, last chest x-ray performed yesterday interstitial edema bilateral pleural effusion likely combination of pneumonia and CHF-like changes would recommend to broaden spectrum antibiotic to Zosyn keep patient on even are negative side, noted that patient is already on furosemide every 12 , labs pending 08/08/2020, patient seen eval examined during the rounds labs reviewed medications reviewed care plan discussed, patient is more awake, ongoing cough is present denies any chest pain, sitting upright on the chair breathing K more comfortably has been on 6.5 L oxygen, labs are not done today, would recommend to reduce Lasix to 40 mg IV every 12 and repeat labs tomorrow, continue IV antibiotics with deep breathing exercise incentive spirometry repeat chest x-ray earlier today reviewed and compared with the prior x-ray continued to show CHF- like changes with cardiomegaly interstitial edema small pleural effusion bilateral infiltrate Patient was brought into the emergency department for evaluation of altered mental status patient is a resident of [facility], baseline status usually awake and alert moves around, covert and care home was negative, patient was brought in due to increasing shortness of breath ongoing cough and decreased appetite, prior medical history significant for atrial fibrillation asthma, diabetes mellitus, hypertension hypertensive cardiovascular disease per for neuropathy DJD uses motorized scooter, on arrival he was febrile with fever of 103 saturation was 93% on 6 L white cell count is elevated and lactic acid was 2.2, BNP was over 1300, PCR was negative, chest x-ray showed right sided infiltrate patient does have a history of sleep disorder breathing and sleep apnea cannot use his CPAP machine due to mental disability, patient has been tr eated with direct oral anticoagulant, amiodarone, IV cefazolin, continuation of his home medication, high-dose Lasix 40 mg subcu every 8 for lower extremity edema and heart failure, most recent labs reveal significant rise in CO2 up to 43 from baseline of 28, BUN/creatinine remains stable, other lab significant for elevated pro calcitonin 1.79 Objective - Vital Signs Vital signs: Vital Signs Temp 97.8 F 08/14/20 07:38 Pulse 53 L 08/14/20 07:38 Resp 16 08/14/20 07:38 BP 146/56 08/14/20 07:38 Pulse Ox 95 08/14/20 07:38 Intake & Output 08/13/20 08/14/20 08/14/20 18:59 06:59 18:59 Other: Voiding Method Diaper Diaper Diaper Incontinent Incontinent Incontinent External Catheter # Voids 3 - Exam - Constitutional General appearance: disheveled, mild distress - EENT Markedly Enlarged tongue protruding out of mouth Eyes: PERRLA Ears: bilateral: normal - Neck Neck: normal ROM Carotids: bilateral: upstroke normal - Respiratory Respiratory: bilateral: diminished - Cardiovascular Rhythm: irregularly irregular Heart sounds: normal: S1, S2 - Gastrointestinal General gastrointestinal: normal bowel sounds - Neurologic Neurologic: CNII-XII intact - Musculoskeletal Musculoskeletal: gait normal, generalized weakness, strength equal bilaterally - Psychiatric Psychiatric: A&O x's 3, appropriate affect, intact judgment & insight - Labs CBC & Chem 7: 08/13/20 07:30 08/14/20 08:02 Labs: Abnormal Lab Results - Last 24 Hours (Table) 08/13/20 08/13/20 08/13/20 Range/Units 11:37 16:45 21:35 ABG pH 7.31 L (7.35-7.45) ABG pCO2 87 H* (35-45) mmHg ABG pO2 66 L (83-108) mmHg ABG HCO3 44 H* (21-25) mmol/L ABG Total CO2 47 H (19-24) mmol/L ABG O2 Saturation 91.4 L (94-97) % Chloride (98-107) mmol/L Carbon Dioxide (22-30) mmol/L BUN (9-20) mg/dL Glucose (74-99) mg/dL POC Glucose (mg/dL) 125 H 191 H (75-99) mg/dL 08/14/20 08/14/20 Range/Units 06:48 08:02 ABG pH (7.35-7.45) ABG pCO2 (35-45) mmHg ABG pO2 (83-108) mmHg ABG HCO3 (21-25) mmol/L ABG Total CO2 (19-24) mmol/L ABG O2 Saturation (94-97) % Chloride 92 L (98-107) mmol/L Carbon Dioxide 39 H (22-30) mmol/L BUN 31 H (9-20) mg/dL Glucose 199 H (74-99) mg/dL POC Glucose (mg/dL) 165 H (75-99) mg/dL Assessment and Plan Assessment: Altered mental status Acute on chronic hypoxic hypercapnic history failure Bilateral basal pneumonia Elevated CO2 due to metabolic alkalosis with diuretics some component of respiratory acidosis due to sleep disorder breathing and sleep apnea cannot be excluded, would recommend to lower down the Lasix continued Diamox Gram-positive bacteremia source not clear repeat cultures are negative patient is being treated with IV was generation cephalosporin is status post echo cardiogram, ID service has been following Sleep disorder breathing and sleep apnea, patient cannot use the CPAP/BiPAP machine Chronic atrial fibrillation Advanced mental disability Enlarged tongue Plan: Plan as above, will follow clinical course closely decrease Lasix to 40 mg every 12, continue Diamox,as his renal function continued to go up would recommend decreasing the Lasix to once dailymonitor renal functions closely patient will benefit from more broad-spectrum gram-negative coverage like Zosyn or meropenem will discuss with ID and primary service Time with Patient: Greater than 30
[2020-08-14] MEDS: predniSONE 20 MG TAB PO SCH (11:11)
[2020-08-14 11:33] LABS: Glucose,Whole Blood 216 mg/dL (75-99)
--- NOTE | 2020-08-14 12:55 | PN ---
PROGRESS NOTE DATE OF SERVICE: 08/14/2020 REASON FOR FOLLOWUP: Bacteremia pneumonia. INTERVAL HISTORY: The patient is currently afebrile. The patient is breathing comfortably. Patient denies having any chest pain. Did have a cough not bringing up any sputum. No abdominal pain. No diarrhea. PHYSICAL EXAMINATION: Blood pressure 146/66, pulse of 62, temperature 96.8, he is 95% on 5 liters nasal cannula. GENERAL DESCRIPTION: An elderly male lying in bed in no distress. RESPIRATORY SYSTEM: Unlabored breathing, clear to auscultation anteriorly. HEART: S1, S2. Regular rate and rhythm. ABDOMEN: Soft, no tenderness. EXTREMITIES: Lower legs are currently wrapped up. LABS: BUN of 21, creatinine 1.07. DIAGNOSTIC IMPRESSION AND PLAN: Patient with streptococcal bacteremia concerning for pneumonia. Patient at this time is on Zosyn. Finish therapy with oral Augmentin and continue supportive care. MMODL / IJN: [id number] /
[2020-08-14 16:36] LABS: Glucose,Whole Blood 416 mg/dL (75-99)
[2020-08-14] MEDS ORDERED: INSULIN ASPART (NovoLOG) 100 UNIT/ML VIAL SQ ONE (17:13)
[2020-08-14] MEDS: RIVAROXABAN 20 MG TAB PO SCH (17:22)
--- NOTE | 2020-08-14 19:35 | P.PN ---
Progress Note - Text Progress Note Date: 08/14/20 Chief Complaint: Fever History of presenting complaint: This is a 69-year-old patient was currently at [facility] on. Patient being followed by Dr. Brand. Staff and the [facility] following the patient's sensorium to be decreased. Patient is normally alert and able to walk around. Patient had a COVID test 5 days ago on Wednesday that was negative. Patient has slightly increased respiratory rate in the conus bit of a cough. Patient denies any urinary symptoms. Some decrease in appetite. No chest pain. Chronic stable medical conditions include atrial fibrillation, asthma, diabetes, hypertension, hyperlipidemia, gallstones, peripheral neuropathy, gait, uses a motorized scooter, DJD, does not use a CPAP Admitted with pneumonia, delirium, sepsis. Started on IV cefepime. Went into pulmonary edema. Started on IV Lasix. On hypoxic. Blood cultures positive for Streptococcus agalactiae group b. Also being treated for pneumonia. ARABELLA-no obvious evidence of any vegetation. Today: On 6 L of nasal cannula. While breathing. A bit tired and lethargic. Arousable. Review of systems: Unable to obtain patient tired Active Medications Acetaminophen (Acetaminophen Tab 325 Mg Tab) 650 mg PO Q6HR PRN PRN Reason: Mild Pain or Fever > 100.5 Last Admin: 08/12/20 09:44 Dose: 650 mg Documented by: Acetazolamide (Acetazolamide 250 Mg Tab) 250 mg PO BID [facility] Last Admin: 08/14/20 07:21 Dose: 250 mg Documented by: Amiodarone HCl (Amiodarone 200 Mg Tab) 200 mg PO DAILY [facility] Last Admin: 08/14/20 07:21 Dose: 200 mg Documented by: Cholecalciferol (Cholecalciferol 25 Mcg (1000 Iu) Tablet) 125 mcg PO DAILY [facility] Last Admin: 08/14/20 07:20 Dose: 125 mcg Documented by: Cyanocobalamin (Cyanocobalamin 500 Mcg Tab) 500 mcg PO DAILY [facility] Last Admin: 08/14/20 07:21 Dose: 500 mcg Documented by: Divalproex Sodium (Divalproex 250 Mg Tablet.) 500 mg PO QAM [facility] Last Admin: 08/14/20 07:21 Dose: 500 mg Documented by: Divalproex Sodium (Divalproex 250 Mg Tablet.) [address] [facility] Last Admin: 08/13/20 22:06 Dose: 750 mg Documented by: Famotidine (Famotidine 20 Mg Tab) 20 mg PO BID [facility] Furosemide (Furosemide 40 Mg Tab) 40 mg PO DAILY [facility] Guaifenesin/Dextromethorphan (Guaifenesin-Dm 100-10mg/5ml 10 Ml Cup) 10 ml PO Q6H PRN PRN Reason: Cough Piperacillin Sod/Tazobactam (Sod 3.375 gm/ Sodium Chloride) 100 mls @ 25 mls/hr IVPB Q8H [facility] Last Admin: 08/14/20 12:21 Dose: 25 mls/hr Documented by: Sodium Chloride (Saline 0.9%) 1,000 mls @ 50 mls/hr IV .Q20H [facility] Stop: 08/15/20 06:29 Last Admin: 08/14/20 11:11 Dose: 50 mls/hr Documented by: Insulin Aspart (Insulin Aspart (Novolog) 100 Unit/Ml Vial) 0 unit SQ [facility]; Protocol Last Admin: 08/14/20 17:22 Dose: 12 unit Documented by: Levothyroxine Sodium (Levothyroxine 100 Mcg Tab) 100 mcg PO DAILY@0630 [facility] Last Admin: 08/14/20 06:00 Dose: 100 mcg Documented by: Melatonin (Melatonin 5 Mg Tablet) [address] [facility] Last Admin: 08/13/20 22:07 Dose: 5 mg Documented by: Multivitamins (Multivitamins, Thera 1 Each Tab) 1 each PO DAILY [facility] Last Admin: 08/14/20 07:20 Dose: 1 each Documented by: Naloxone HCl (Naloxone 0.4 Mg/Ml 1 Ml Vial) 0.2 mg IV Q2M PRN PRN Reason: Opioid Reversal Pravastatin Sodium (Pravastatin Sodium 40 Mg Tab) [address] [facility] Last Admin: 08/13/20 22:07 Dose: 40 mg Documented by: Prednisone (Prednisone 20 Mg Tab) 60 mg PO DAILY [facility] Last Admin: 08/14/20 11:11 Dose: 60 mg Documented by: Rivaroxaban (Rivaroxaban 20 Mg Tab) 20 mg PO W/SUPPER [facility] Last Admin: 08/14/20 17:22 Dose: 20 mg Documented by: Past medical history to include: atrial fibrillation, asthma, diabetes, hypertension, hyperlipidemia, ulcerative sleep apnea does not use CPAP, cognitive impairment, gout, peripheral neuropathy gait dysfunction uses a motorized scooter Social history: Resident of [facility] on, no history of smoking or alcohol Family history: Patient cannot tell Physical examination: VITAL SIGNS: 97.8, 53, 16, 1 46 x 56, 95% on 5 L GENERAL: He planning bed, tired a bit lethargic but arousable EYES: Pupils equal. Conjunctiva normal. HEENT: External appearance of nose and ears normal, macroglossia, NECK: JVD unable to assess; masses not palpable. HEART: First and second heart sounds are normal; edema present. LUNGS: Respiratory rate increased; decreased breath sounds. ABDOMEN: Soft, nontender, liver spleen not palpable, no masses palpable. PSYCH: Unable to assess INVESTIGATIONS, reviewed in the clinical context: August 14: Potassium 3.8 bun 31 and creatinine 1.07 bicarbonate 39. Serum osmolality 305 August 09: WBC 4.9 hemoglobin 12.3 potassium 3.5, 54 creatinine 0.82 Chest x-ray film personally reviewed by me-[August 08]: Showing infiltrates, decreased pulmonary edema August 07: Potassium 4.1 creatinine 0.82 August 06: Potassium 4.2 creatinine 0.7 to 2-D echocardiogram: Moderate concentric LVH, EF 55-60%, moderate to severe tricuspid regurgitation, severe pulmonary hypertension : Potassium 4.5 creatinine 0.89 procalcitonin 1.79 CRP 24.4 Blood cultures positive for Streptococcus agalactiae group B August 04: Chest x-ray: Pulmonary edema Pro-calcitonin 0.66 WBC 13 hemoglobin 13.9 platelets 233, lactic acid 2.2 Of 5.3 BUN 16 creatinine 0.99 ProBNP 1310 UA negative Coronavirus [PCR]-not detected Chest x-ray film personally reviewed by [id number] infiltrate, some underpenetration Assessment and plan: -Pneumonia. Blood cultures positive for Streptococcus agalactiae, group B from August 02. on IV cefepime-changed to IV Ancef-discontinued. Repeat blood cultures negative. ARABELLA-do not show any vegetation -Acute hypoxic respiratory failure from pneumonia and pulmonary edema. FiO2 6 L. Note that the patient is a mouth breather. -Acute congestive heart failure from diastolic dysfunction EF 55-60%- Received IV Lasix. Patient now seems to be hypovolemic. Patient is alkalotic with increased serum osmolality. -Increased serum osmolality from volume contraction We will do gentle hydration overnight and hold Lasix temporarily -Acute metabolic alkalosis from diuresis Continue Diamox 250 mg twice daily. Limited hydration -Moderate to severe tricuspid regurgitation Follow clinically -Severe secondary pulmonary hypertension Follow clinically -Suspect acute on chronic cor pulmonale -Acute delirium/metabolic encephalopathy from sepsis-worsening Follow clinically -Sepsis from and positive blood cultures IV cefepime-changed to IV Ancef-completed course -Persistent atrial fibrillation, rate controlled Continue with xarelto, amiodarone -Diabetes mellitus type 2, uncontrolled with hyperglycemia Follow Accu-Cheks -Essential hypertension Continue with Zestril -Hyperlipidemia Continue with Pravachol -Obesity BMI 39.2 Weight loss measures when patient stable -Obstructive sleep apnea, patient does not use CPAP -Diabetic peripheral neuropathy -Patient has a public legal guardian, Hold IV Lasix temporarily. Gentle hydration. Repeat proBNP, procalcitonin chest s x-ray, in the morning. Prognosis guarded
[2020-08-14 20:49] LABS: Glucose,Whole Blood 184 mg/dL (75-99)
[2020-08-14] MEDS: PRAVASTATIN SODIUM 40 MG TAB PO SCH (22:36)
[2020-08-14] MEDS: MELATONIN 5 MG TABLET PO SCH (22:36)
[2020-08-14] MEDS: FAMOTIDINE 20 MG TAB PO SCH (22:36)
[2020-08-15] MEDS: PIPERACILLIN-TAZOBACTAM 3.375 GM in SODIUM CHLORIDE 0.9% 100 ML IVPB SCH ×3 (04:47→20:05)
[2020-08-15] MEDS: LEVOTHYROXINE 100 MCG TAB PO SCH (05:42)
[2020-08-15 07:05] LABS: Glucose,Whole Blood 174 mg/dL (75-99)
[2020-08-15] MEDS: AMIODARONE 200 MG TAB PO SCH (07:23)
[2020-08-15] MEDS: FAMOTIDINE 20 MG TAB PO SCH ×2 (07:23→20:50)
[2020-08-15] MEDS: acetaZOLAMIDE 250 MG TAB PO SCH ×2 (07:23→20:50)
[2020-08-15] MEDS: predniSONE 20 MG TAB PO SCH (07:24)
[2020-08-15] MEDS: FUROSEMIDE 40 MG TAB PO SCH (07:25)
[2020-08-15] MEDS: CHOLECALCIFEROL 25 MCG (1000 IU) TABLET PO SCH (07:25)
[2020-08-15] MEDS: DIVALPROEX 250 MG TABLET.DR PO SCH ×2 (07:25→20:50)
[2020-08-15] MEDS: MULTIVITAMINS, THERA 1 EACH TAB PO SCH (07:25)
[2020-08-15] MEDS: INSULIN ASPART (NovoLOG) 100 UNIT/ML VIAL SQ SCH ×4 (07:26→20:47)
[2020-08-15] MEDS: CYANOCOBALAMIN 500 MCG TAB PO SCH (07:26)
--- NOTE | 2020-08-15 08:30 | XR ---
EXAMINATION TYPE: XR chest 1V portable DATE OF EXAM: 08/15/2020 COMPARISON: 08/10/2020 INDICATION: Follow-up pneumonia TECHNIQUE: Single frontal view of the chest is obtained. Patient is rotated towards the left FINDINGS: The heart size is upper limits for normal. The pulmonary vasculature is normal. Mild infiltrates at the left base. Minimal right infrahilar changes may be present. IMPRESSION: 1. Mild left lower lobe infiltrate similar or slightly worsened from comparison. Minimal effusion may be present. Continued follow-up is recommended.
--- NOTE | 2020-08-15 10:50 | P.PN ---
Subjective Progress Note Date: 08/15/20 Principal diagnosis: Altered mental status Acute on chronic hypoxic respiratory failure Elevated CO2 due to metabolic alkalosis with diuretics some component of respiratory acidosis due to sleep disorder breathing and sleep apnea cannot be excluded, would recommend to lower down the Lasix every every 12 Gram-positive bacteremia source not clear repeat cultures are negative patient is being treated with IV was generation cephalosporin is status post echocardiogram, ID service has been following Sleep disorder breathing and sleep apnea, patient cannot use the CPAP machine Chronic atrial fibrillation Advanced mental disability Enlarged tongue 08/15/2020, patient seen eval examined, patient remains on 4 L oxygen, denies any chest pain, respiratory status stable, patient is on fluid restriction August 14 2020, patient seen eval examined during the rounds currently patient is on 5 L nasal cannula oxygen saturation marginal 89-90%, patient has a respiratory distress episode last night, attempts to utilize BiPAP has been unsuccessful as patient refused to via the BiPAP however remains on 6 L is down to 5 L now, patient is catching up on his sleep, patient has been swallowing pills fairly well as per discussion with staff, will monitor observe clinical course closely, CO2 level continue to improve now in the high 30s will continue current therapy 08/13/2020, patient seen eval examined remains on 2 L oxygen, oxygen saturation stable hemodynamics stable, patient remains on broad-spectrum antibiotics, gentle diuresis, remains on direct oral anticoagulants, labs from today reviewed, CO2 remains stable 42, we'll observe it for now on current therapy 08/12/2020, patient seen eval examined during the rounds, labs reviewed medications reviewed, patient is afebrile, FiO2 is down to 4 L nasal cannula oxygen saturation 95%, hemodynamic status stable, denies any chest pain, shortness of breath cough slightly better, 08/11/2020, patient seen eval examined during the rounds breathing comfortably on 4 L high flow oxygen, patient has been titrated down, cough congestion shortness breath, last chest x-ray performed yesterday revealed CHF-like changes, BUN/creatinine went up to 22 and 1.16, CO2 went up to 54 for now coming down to 49 08/09/2020, patient seen eval examined during the rounds labs reviewed medications reviewed care plan discussed, respiratory status remains stable denies any chest pain, patient remains on 7 L oxygen however, patient is status post ARABELLA this morning no endocarditis has been noted, last chest x-ray performed yesterday interstitial edema bilateral pleural effusion likely combination of pneumonia and CHF-like changes would recommend to broaden spectrum antibiotic to Zosyn keep patient on even are negative side, noted that patient is already on furosemide every 12 , labs pending 08/08/2020, patient seen eval examined during the rounds labs reviewed medications reviewed care plan discussed, patient is more awake, ongoing cough is present denies any chest pain, sitting upright on the chair breathing K more comfortably has been on 6.5 L oxygen, labs are not done today, would recommend to reduce Lasix to 40 mg IV every 12 and repeat labs tomorrow, continue IV antibiotics with deep breathing exercise incentive spirometry repeat chest x-ray earlier today reviewed and compared with the prior x-ray continued to show CHF- like changes with cardiomegaly interstitial edema small pleural effusion bilateral infiltrate Patient was brought into the emergency department for evaluation of altered mental status patient is a resident of [facility], baseline status usually awake and alert moves around, covert and jail was negative, patient was brought in due to increasing shortness of breath ongoing cough and decreased appetite, prior medical history significant for atrial fibrillation asthma, diabetes mellitus, hypertension hypertensive cardiovascular disease per for neuropathy DJD uses motorized scooter, on arrival he was febrile with fever of 103 saturation was 93% on 6 L white cell count is elevated and lactic acid was 2.2, BNP was over 1300, PCR was negative, chest x-ray showed right sided in filtrate patient does have a history of sleep disorder breathing and sleep apnea cannot use his CPAP machine due to mental disability, patient has been treated with direct oral anticoagulant, amiodarone, IV cefazolin, continuation of his home medication, high-dose Lasix 40 mg subcu every 8 for lower extremity edema and heart failure, most recent labs reveal significant rise in CO2 up to 43 from baseline of 28, BUN/creatinine remains stable, other lab significant for elevated pro calcitonin 1.79 Objective - Vital Signs Vital signs: Vital Signs Temp 98.6 F 08/15/20 07:38 Pulse 50 L 08/15/20 07:38 Resp 16 08/15/20 07:38 BP 104/42 08/15/20 07:38 Pulse Ox 92 L 08/15/20 07:38 Intake & Output 08/14/20 08/15/20 08/15/20 18:59 06:59 18:59 Output Total 650 Balance -650 Output: Urine 650 Other: Voiding Method Diaper Diaper Diaper Incontinent Incontinent Incontinent External Catheter External Catheter - Exam - Constitutional General appearance: disheveled, mild distress - EENT Markedly Enlarged tongue protruding out of mouth Eyes: PERRLA Ears: bilateral: normal - Neck Neck: normal ROM Carotids: bilateral: upstroke normal - Respiratory Respiratory: bilateral: diminished - Cardiovascular Rhythm: irregularly irregular Heart sounds: normal: S1, S2 - Gastrointestinal General gastrointestinal: normal bowel sounds - Neurologic Neurologic: CNII-XII intact - Musculoskeletal Musculoskeletal: gait normal, generalized weakness, strength equal bilaterally - Psychiatric Psychiatric: A&O x's 3, appropriate affect, intact judgment & insight - Labs CBC & Chem 7: 08/13/20 07:30 08/14/20 08:02 Labs: Abnormal Lab Results - Last 24 Hours (Table) 08/14/20 08/14/20 08/14/20 Range/Units 08:02 11:30 16:32 POC Glucose (mg/dL) 216 H 416 H (75-99) mg/dL Osmolality 305 H (280-301) mosm/kg 08/14/20 08/15/20 Range/Units 20:48 06:51 POC Glucose (mg/dL) 184 H 174 H (75-99) mg/dL Osmolality (280-301) mosm/kg Assessment and Plan Assessment: Altered mental status Acute on chronic hypoxic hypercapnic history failure Bilateral basal pneumonia Elevated CO2 due to metabolic alkalosis with diuretics some component of respiratory acidosis due to sleep disorder breathing and sleep apnea cannot be excluded, would recommend to lower down the Lasix continued Diamox Gram-positive bacteremia source not clear repeat cultures are negative patient is being treated with IV was generation cephalosporin is status post echocardiogram, ID service has been following Sleep disorder breathing and sleep apnea, patient cannot use the CPAP/BiPAP machine Chronic atrial fibrillation Advanced mental disability Enlarged tongue Plan: Plan as above, will follow clinical course closely decrease Lasix to 40 mg daily, continue Diamox,as his renal function continued to go up would recommend decreasing the Lasix to once dailymonitor renal functions closely patient will benefit from more broad-spectrum gram-negative coverage like Zosyn , repeat blood culture however are negative for obtain on 08/05 Time with Patient: Greater than 30
[2020-08-15 11:43] LABS: Glucose,Whole Blood 201 mg/dL (75-99)
--- NOTE | 2020-08-15 13:58 | PN ---
PROGRESS NOTE DATE OF SERVICE: 08/15/2020 REASON FOR FOLLOWUP: Pneumonia and streptococcal bacteremia. INTERVAL HISTORY: The patient is afebrile. The patient is breathing comfortably. The patient denies having any chest pain. No shortness of breath. Occasional cough. No abdominal pain. No diarrhea. PHYSICAL EXAMINATION: VITAL SIGNS: Blood pressure 104/42, pulse of 50, temperature 98.6, he is 92% on 4 liters nasal cannula. GENERAL DESCRIPTION: An elderly male lying in bed in no distress. RESPIRATORY SYSTEM: Unlabored breathing, decreased breath sounds in the bases, no wheeze. HEART: S1, S2. Regular rate and rhythm. ABDOMEN: Soft, no tenderness. LABS: Repeat blood culture has been negative. DIAGNOSTIC IMPRESSION AND PLAN: Patient has staphylococcal agalactiae bacteremia concern for pneumonia and also endocarditis. On Zosyn and transition to oral Augmentin for about a week on discharge. Continue supportive care. MMODL / IJN: [id number] /
[2020-08-15 14:38] LABS: African American GFR (CKD) 76 (>60 ml/min/1.73 sqM); Anion Gap 6 mmol/L; Blood Urea Nitrogen 39 mg/dL (9-20); Calcium 10.1 mg/dL (8.4-10.2); Carbon Dioxide 38 mmol/L (22-30); Chloride 94 mmol/L (98-107); Glucose 202 mg/dL (74-99); Non-African American GFR(CKD) 66 (>60 ml/min/1.73 sqM); Potassium 3.7 mmol/L (3.5-5.1); Sodium 138 mmol/L (137-145)
[2020-08-15 16:16] LABS: Glucose,Whole Blood 240 mg/dL (75-99)
--- NOTE | 2020-08-15 17:03 | P.PN ---
Progress Note - Text Progress Note Date: 08/15/20 Chief Complaint: Fever History of presenting complaint: This is a 69-year-old patient was currently at [facility] on. Patient being followed by Dr. Brand. Staff and the [facility] following the patient's sensorium to be decreased. Patient is normally alert and able to walk around. Patient had a COVID test 5 days ago on Wednesday that was negative. Patient has slightly increased respiratory rate in the conus bit of a cough. Patient denies any urinary symptoms. Some decrease in appetite. No chest pain. Chronic stable medical conditions include atrial fibrillation, asthma, diabetes, hypertension, hyperlipidemia, gallstones, peripheral neuropathy, gait, uses a motorized scooter, DJD, does not use a CPAP Admitted with pneumonia, delirium, sepsis. Started on IV cefepime. Went into pulmonary edema. Started on IV Lasix. On hypoxic. Blood cultures positive for Streptococcus agalactiae group b. Also being treated for pneumonia. ARABELLA-no obvious evidence of any vegetation. Patient became metabolic alkalosis. Given gentle hydration. Diamox added. Lasix cutback. Today: Doing better today. A bit more awake. Oral intake about 50%. Review of systems: Was done for constitutional, cardiovascular, GI, pulmonary. relevant finding as above Active Medications Acetaminophen (Acetaminophen Tab 325 Mg Tab) 650 mg PO Q6HR PRN PRN Reason: Mild Pain or Fever > 100.5 Last Admin: 08/12/20 09:44 Dose: 650 mg Documented by: Acetazolamide (Acetazolamide 250 Mg Tab) 250 mg PO BID [facility] Last Admin: 08/15/20 07:23 Dose: 250 mg Documented by: Amiodarone HCl (Amiodarone 200 Mg Tab) 200 mg PO DAILY [facility] Last Admin: 08/15/20 07:23 Dose: 200 mg Documented by: Cholecalciferol (Cholecalciferol 25 Mcg (1000 Iu) Tablet) 125 mcg PO DAILY [facility] Last Admin: 08/15/20 07:25 Dose: 125 mcg Documented by: Cyanocobalamin (Cyanocobalamin 500 Mcg Tab) 500 mcg PO DAILY [facility] Last Admin: 08/15/20 07:26 Dose: 500 mcg Documented by: Divalproex Sodium (Divalproex 250 Mg Tablet.) 500 mg PO QAM [facility] Last Admin: 08/15/20 07:25 Dose: 500 mg Documented by: Divalproex Sodium (Divalproex 250 Mg Tablet.Dr) 750 mg PO [facility] Last Admin: 08/14/20 22:36 Dose: 750 mg Documented by: Famotidine (Famotidine 20 Mg Tab) 20 mg PO BID [facility] Last Admin: 08/15/20 07:23 Dose: 20 mg Documented by: Furosemide (Furosemide 40 Mg Tab) 40 mg PO DAILY [facility] Last Admin: 08/15/20 07:25 Dose: 40 mg Documented by: Guaifenesin/Dextromethorphan (Guaifenesin-Dm 100-10mg/5ml 10 Ml Cup) 10 ml PO Q6H PRN PRN Reason: Cough Piperacillin Sod/Tazobactam (Sod 3.375 gm/ Sodium Chloride) 100 mls @ 25 mls/hr IVPB Q8H [facility] Last Admin: 08/15/20 12:30 Dose: 25 mls/hr Documented by: Insulin Aspart (Insulin Aspart (Novolog) 100 Unit/Ml Vial) 0 unit SQ [facility]; Protocol Last Admin: 08/15/20 12:29 Dose: 4 unit Documented by: Levothyroxine Sodium (Levothyroxine 100 Mcg Tab) 100 mcg PO DAILY@0630 [facility] Last Admin: 08/15/20 05:42 Dose: 100 mcg Documented by: Melatonin (Melatonin 5 Mg Tablet) 5 mg PO [facility] Last Admin: 08/14/20 22:36 Dose: 5 mg Documented by: Multivitamins (Multivitamins, Thera 1 Each Tab) 1 each PO DAILY [facility] Last Admin: 08/15/20 07:25 Dose: 1 each Documented by: Naloxone HCl (Naloxone 0.4 Mg/Ml 1 Ml Vial) 0.2 mg IV Q2M PRN PRN Reason: Opioid Reversal Pravastatin Sodium (Pravastatin Sodium 40 Mg Tab) 40 mg PO [facility] Last Admin: 08/14/20 22:36 Dose: 40 mg Documented by: Prednisone (Prednisone 20 Mg Tab) 60 mg PO DAILY [facility] Last Admin: 08/15/20 07:24 Dose: 60 mg Documented by: Rivaroxaban (Rivaroxaban 20 Mg Tab) 20 mg PO W/SUPPER [facility] Last Admin: 08/14/20 17:22 Dose: 20 mg Documented by: Past medical history to include: atrial fibrillation, asthma, diabetes, hypertension, hyperlipidemia, ulcerative sleep apnea does not use CPAP, cognitive impairment, gout, peripheral neuropathy gait dysfunction uses a motorized scooter Social history: Resident of [facility] on, no history of smoking or alcohol Family history: Patient cannot tell Physical examination: VITAL SIGNS: 98.6, 50, 16, 1 22 x 54, 91% on 4 L GENERAL: Laying in bed, more awake today EYES: Pupils equal. Conjunctiva normal. HEENT: External appearance of nose and ears normal, macroglossia, NECK: JVD unable to assess; masses not palpable. HEART: First and second heart sounds are normal; edema present. LUNGS: Respiratory rate increased; decreased breath sounds. ABDOMEN: Soft, nontender, liver spleen not palpable, no masses palpable. PSYCH: Answering simple questions INVESTIGATIONS, reviewed in the clinical context: August 15: Potassium 3.7 creatinine 1.14 bicarb 28 proBNP 713 August 14: Potassium 3.8 bun 31 and creatinine 1.07 bicarbonate 39. Serum osmolality 305 August 09: WBC 4.9 hemoglobin 12.3 potassium 3.5, 54 creatinine 0.82 Chest x-ray film personally reviewed by me-[August 08]: Showing infiltrates, decreased pulmonary edema August 07: Potassium 4.1 creatinine 0.82 August 06: Potassium 4.2 creatinine 0.7 to 2-D echocardiogram: Moderate concentric LVH, EF 55-60%, moderate to severe tricuspid regurgitation, severe pulmonary hypertension : Potassium 4.5 creatinine 0.89 procalcitonin 1.79 CRP 24.4 Blood cultures positive for Streptococcus agalactiae group B August 04: Chest x-ray: Pulmonary edema Pro-calcitonin 0.66 WBC 13 hemoglobin 13.9 platelets 233, lactic acid 2.2 Of 5.3 BUN 16 creatinine 0.99 ProBNP 1310 UA negative Coronavirus [PCR]-not detected Chest x-ray film personally reviewed by [id number] infiltrate, some underpenetration Assessment and plan: -Pneumonia. Blood cultures positive for Streptococcus agalactiae, group B from August 02. on IV cefepime-changed to IV Ancef-discontinued. Repeat blood cultures negative. ARABELLA-do not show any vegetation -Acute hypoxic respiratory failure from pneumonia and pulmonary edema. FiO2 4 L. Note that the patient is a mouth breather. -Acute congestive heart failure from diastolic dysfunction EF 55-60%-improved Received IV Lasix. Patient now seems to be hypovolemic. Patient is alkalotic with increased serum osmolality. On by mouth Lasix -Increased serum osmolality from volume contraction We will do gentle hydration overnight and hold Lasix temporarily -Acute metabolic alkalosis from diuresis Continue Diamox 250 mg twice daily. Limited hydration -Moderate to severe tricuspid regurgitation Follow clinically -Severe secondary pulmonary hypertension Follow clinically -Suspect acute on chronic cor pulmonale -Acute delirium/metabolic encephalopathy from slowly improving Follow clinically -Sepsis from and positive blood cultures IV cefepime-changed to IV Ancef-completed course -Persistent atrial fibrillation, rate controlled Continue with xarelto, amiodarone -Diabetes mellitus type 2, uncontrolled with hyperglycemia Follow Accu-Cheks -Essential hypertension Continue with Zestril -Hyperlipidemia Continue with Pravachol -Obesity BMI 39.2 Weight loss measures when patient stable -Obstructive sleep apnea, patient does not use CPAP -Diabetic peripheral neuropathy -Patient has a public legal guardian, Patient doing a bit better. Oral intake improving. On by mouth Lasix 40 mg. Alkalosis improving. We'll gently hydrate for 500 mL. Repeat labs in the morning with serum osmolality.
[2020-08-15] MEDS ORDERED: SODIUM CHLORIDE 0.9% 1,000 ML IV SCH (17:15)
[2020-08-15] MEDS: RIVAROXABAN 20 MG TAB PO SCH (17:21)
[2020-08-15 20:20] LABS: Glucose,Whole Blood 216 mg/dL (75-99)
[2020-08-15] MEDS: PRAVASTATIN SODIUM 40 MG TAB PO SCH (20:50)
[2020-08-15] MEDS: MELATONIN 5 MG TABLET PO SCH (20:50)
[2020-08-16] MEDS: PIPERACILLIN-TAZOBACTAM 3.375 GM in SODIUM CHLORIDE 0.9% 100 ML IVPB SCH ×2 (04:29→12:23)
[2020-08-16] MEDS: LEVOTHYROXINE 100 MCG TAB PO SCH (05:48)
[2020-08-16 07:16] LABS: Glucose,Whole Blood 157 mg/dL (75-99)
[2020-08-16] MEDS: INSULIN ASPART (NovoLOG) 100 UNIT/ML VIAL SQ SCH ×4 (07:55→21:34)
[2020-08-16 09:21] LABS: African American GFR (CKD) 74 (>60 ml/min/1.73 sqM); Blood Urea Nitrogen 39 mg/dL (9-20); Calcium 9.8 mg/dL (8.4-10.2); Chloride 96 mmol/L (98-107); Glucose 127 mg/dL (74-99); Non-African American GFR(CKD) 64 (>60 ml/min/1.73 sqM); Potassium 3.4 mmol/L (3.5-5.1); Sodium 141 mmol/L (137-145)
[2020-08-16 09:29] LABS: Anion Gap 4 mmol/L
[2020-08-16 09:54] LABS: Carbon Dioxide 41 mmol/L (22-30)
--- NOTE | 2020-08-16 10:35 | P.PN ---
Subjective Progress Note Date: 08/16/20 Principal diagnosis: Altered mental status Acute on chronic hypoxic respiratory failure Elevated CO2 due to metabolic alkalosis with diuretics some component of respiratory acidosis due to sleep disorder breathing and sleep apnea cannot be excluded, would recommend to lower down the Lasix every every 12 Gram-positive bacteremia source not clear repeat cultures are negative patient is being treated with IV was generation cephalosporin is status post echocardiogram, ID service has been following Sleep disorder breathing and sleep apnea, patient cannot use the CPAP machine Chronic atrial fibrillation Advanced mental disability Enlarged tongue 08/16/2020, patient seen eval reexamined during the rounds labs reviewed medications reviewed, patient is on 4 L oxygen denies any chest pain or sputum production breathing slightly better, FiO2 is slowly being tapered down, patient is on fluid restriction 08/15/2020, patient seen eval examined, patient remains on 4 L oxygen, denies any chest pain, respiratory status stable, patient is on fluid restriction August 14 2020, patient seen eval examined during the rounds currently patient is on 5 L nasal cannula oxygen saturation marginal 89-90%, patient has a respiratory distress episode last night, attempts to utilize BiPAP has been unsuccessful as patient refused to via the BiPAP however remains on 6 L is down to 5 L now, patient is catching up on his sleep, patient has been swallowing pills fairly well as per discussion with staff, will monitor observe clinical course closely, CO2 level continue to improve now in the high 30s will continue current therapy 08/13/2020, patient seen eval examined remains on 2 L oxygen, oxygen saturation stable hemodynamics stable, patient remains on broad-spectrum antibiotics, gentle diuresis, remains on direct oral anticoagulants, labs from today reviewed, CO2 remains stable 42, we'll observe it for now on current therapy 08/12/2020, patient seen eval examined during the rounds, labs reviewed medications reviewed, patient is afebrile, FiO2 is down to 4 L nasal cannula o xygen saturation 95%, hemodynamic status stable, denies any chest pain, shortness of breath cough slightly better, 08/11/2020, patient seen eval examined during the rounds breathing comfortably on 4 L high flow oxygen, patient has been titrated down, cough congestion shortness breath, last chest x-ray performed yesterday revealed CHF-like changes, BUN/creatinine went up to 22 and 1.16, CO2 went up to 54 for now coming down to 49 08/09/2020, patient seen eval examined during the rounds labs reviewed medications reviewed care plan discussed, respiratory status remains stable denies any chest pain, patient remains on 7 L oxygen however, patient is status post ARABELLA this morning no endocarditis has been noted, last chest x-ray performed yesterday interstitial edema bilateral pleural effusion likely combination of pneumonia and CHF-like changes would recommend to broaden spectrum antibiotic to Zosyn keep patient on even are negative side, noted that patient is already on furosemide every 12 , labs pending 08/08/2020, patient seen eval examined during the rounds labs reviewed medications reviewed care plan discussed, patient is more awake, ongoing cough is present denies any chest pain, sitting upright on the chair breathing K more comfortably has been on 6.5 L oxygen, labs are not done today, would recommend to reduce Lasix to 40 mg IV every 12 and repeat labs tomorrow, continue IV antibiotics with deep breathing exercise incentive spirometry repeat chest x-ray earlier today reviewed and compared with the prior x-ray continued to show CHF- like changes with cardiomegaly interstitial edema small pleural effusion bilateral infiltrate Patient was brought into the emergency department for evaluation of altered mental status patient is a resident of [facility], baseline status usually awake and alert moves around, covert and alf was negative, patient was brought in due to increasing shortness of breath ongoing cough and decreased appetite, prior medical history significant for atrial fibrillation asthma, diabetes mellitus, hypertension hypertensive cardiovascular disease per for neuropathy DJD uses motorized scooter, on arrival he was febrile with fever of 103 saturation was 93% on 6 L white cell count is elevated and lactic acid was 2.2, BNP was over 1300, PCR was negative, chest x-ray showed right sided infiltrate patient does have a history of sleep disorder breathing and sleep apnea cannot use his CPAP machine due to mental disability, patient has been treated with direct oral anticoagulant, amiodarone, IV cefazolin, continuation of his home medication, high-dose Lasix 40 mg subcu every 8 for lower extremity edema and heart failure, most recent labs reveal significant rise in CO2 up to 43 from baseline of 28, BUN/creatinine remains stable, other lab significant for elevated pro calcitonin 1.79 Objective - Vital Signs Vital signs: Vital Signs Temp 97.7 F 08/16/20 08:00 Pulse 55 L 08/16/20 08:00 Resp 16 08/16/20 08:00 BP 146/70 08/16/20 08:00 Pulse Ox 93 L 08/16/20 08:00 Intake & Output 08/15/20 08/16/20 08/16/20 18:59 06:59 18:59 Intake Total 340 Output Total 800 Balance -460 Intake: Oral 340 Output: Urine 800 Other: Voiding Method Diaper Incontinent Incontinent External Catheter External Catheter - Exam - Constitutional General appearance: disheveled, mild distress - EENT Markedly Enlarged tongue protruding out of mouth Eyes: PERRLA Ears: bilateral: normal - Neck Neck: normal ROM Carotids: bilateral: upstroke normal - Respiratory Respiratory: bilateral: diminished - Cardiovascular Rhythm: irregularly irregular Heart sounds: normal: S1, S2 - Gastrointestinal General gastrointestinal: normal bowel sounds - Neurologic Neurologic: CNII-XII intact - Musculoskeletal Musculoskeletal: gait normal, generalized weakness, strength equal bilaterally - Psychiatric Psychiatric: A&O x's 3, appropriate affect, intact judgment & insight - Labs CBC & Chem 7: 08/13/20 07:30 08/16/20 06:53 Labs: Abnormal Lab Results - Last 24 Hours (Table) 08/15/20 08/15/20 08/15/20 Range/Units 11:37 12:53 16:13 Potassium (3.5-5.1) mmol/L Chloride 94 L (98-107) mmol/L Carbon Dioxide 38 H (22-30) mmol/L BUN 39 H (9-20) mg/dL Glucose 202 H (74-99) mg/dL POC Glucose (mg/dL) 201 H 240 H (75-99) mg/dL 08/15/20 08/16/20 08/16/20 Range/Units 20:12 06:53 07:15 Potassium 3.4 L (3.5-5.1) mmol/L Chloride 96 L (98-107) mmol/L Carbon Dioxide 41 H* (22-30) mmol/L BUN 39 H (9-20) mg/dL Glucose 127 H (74-99) mg/dL POC Glucose (mg/dL) 216 H 157 H (75-99) mg/dL Assessment and Plan Assessment: Altered mental status Acute on chronic hypoxic hypercapnic history failure Bilateral basal pneumonia Elevated CO2 due to metabolic alkalosis with diuretics some component of respiratory acidosis due to sleep disorder breathing and sleep apnea cannot be excluded, would recommend to lower down the Lasix continued Diamox Gram-positive bacteremia source not clear repeat cultures are negative patient is being treated with IV was generation cephalosporin is status post echocardiogram, ID service has been following Sleep disorder breathing and sleep apnea, patient cannot use the CPAP/BiPAP machine Chronic atrial fibrillation Advanced mental disability Enlarged tongue Plan: Plan as above, will follow clinical course closely decrease Lasix to 40 mg daily, continue Diamox,as his renal function continued to go up would recommend decreasing the Lasix to once dailymonitor renal functions closely patient will benefit from more broad-spectrum gram-negative coverage like Zosyn , repeat blood culture however are negative for obtain on 08/05
[2020-08-16] MEDS: CYANOCOBALAMIN 500 MCG TAB PO SCH (10:49)
[2020-08-16] MEDS: predniSONE 20 MG TAB PO SCH (10:49)
[2020-08-16] MEDS: FUROSEMIDE 40 MG TAB PO SCH (10:49)
[2020-08-16] MEDS: CHOLECALCIFEROL 25 MCG (1000 IU) TABLET PO SCH (10:49)
[2020-08-16] MEDS: AMIODARONE 200 MG TAB PO SCH (10:49)
[2020-08-16] MEDS: MULTIVITAMINS, THERA 1 EACH TAB PO SCH (10:49)
[2020-08-16] MEDS: acetaZOLAMIDE 250 MG TAB PO SCH ×2 (10:50→21:35)
[2020-08-16] MEDS: DIVALPROEX 250 MG TABLET.DR PO SCH ×2 (10:50→21:35)
[2020-08-16] MEDS: FAMOTIDINE 20 MG TAB PO SCH ×2 (10:50→21:35)
[2020-08-16 11:39] LABS: Glucose,Whole Blood 158 mg/dL (75-99)
--- NOTE | 2020-08-16 15:40 | P.PN ---
Progress Note - Text Progress Note Date: 08/16/20 Chief Complaint: Fever History of presenting complaint: This is a 69-year-old patient was currently at [facility] on. Patient being followed by Dr. Brand. Staff and the [facility] following the patient's sensorium to be decreased. Patient is normally alert and able to walk around. Patient had a COVID test 5 days ago on Wednesday that was negative. Patient has slightly increased respiratory rate in the conus bit of a cough. Patient denies any urinary symptoms. Some decrease in appetite. No chest pain. Chronic stable medical conditions include atrial fibrillation, asthma, diabetes, hypertension, hyperlipidemia, gallstones, peripheral neuropathy, gait, uses a motorized scooter, DJD, does not use a CPAP Admitted with pneumonia, delirium, sepsis. Started on IV cefepime. Went into pulmonary edema. Started on IV Lasix. On hypoxic. Blood cultures positive for Streptococcus agalactiae group b. Also being treated for pneumonia. ARABELLA-no obvious evidence of any vegetation. Patient became metabolic alkalosis. Given gentle hydration. Diamox added. Lasix cutback. Today: Lethargic today. Not wanting to eat. Tired. Alkalotic. Strong colored urine. Review of systems: Attempted for constitutional, cardiovascular, GI, pulmonary. relevant finding as above Active Medications Acetaminophen (Acetaminophen Tab 325 Mg Tab) 650 mg PO Q6HR PRN PRN Reason: Mild Pain or Fever > 100.5 Last Admin: 08/12/20 09:44 Dose: 650 mg Documented by: Acetazolamide (Acetazolamide 250 Mg Tab) 250 mg PO BID [facility] Last Admin: 08/16/20 10:50 Dose: 250 mg Documented by: Amiodarone HCl (Amiodarone 200 Mg Tab) 200 mg PO DAILY [facility] Last Admin: 08/16/20 10:49 Dose: 200 mg Documented by: Cholecalciferol (Cholecalciferol 25 Mcg (1000 Iu) Tablet) 125 mcg PO DAILY [facility] Last Admin: 08/16/20 10:49 Dose: 125 mcg Documented by: Cyanocobalamin (Cyanocobalamin 500 Mcg Tab) 500 mcg PO DAILY [facility] Last Admin: 08/16/20 10:49 Dose: 500 mcg Documented by: Divalproex Sodium (Divalproex 250 Mg Tablet.) 500 mg PO QAM [facility] Last Admin: 08/16/20 10:50 Dose: 500 mg Documented by: Divalproex Sodium (Divalproex 250 Mg Tablet.) 750 mg PO [facility] Last Admin: 08/15/20 20:50 Dose: 750 mg Documented by: Famotidine (Famotidine 20 Mg Tab) 20 mg PO BID [facility] Last Admin: 08/16/20 10:50 Dose: 20 mg Documented by: Guaifenesin/Dextromethorphan (Guaifenesin-Dm 100-10mg/5ml 10 Ml Cup) 10 ml PO Q6H PRN PRN Reason: Cough Piperacillin Sod/Tazobactam (Sod 3.375 gm/ Sodium Chloride) 100 mls @ 25 mls/hr IVPB Q8H [facility] Last Admin: 08/16/20 12:23 Dose: 25 mls/hr Documented by: Sodium Chloride (Saline 0.9%) 1,000 mls @ 50 mls/hr IV .Q20H [facility] Insulin Aspart (Insulin Aspart (Novolog) 100 Unit/Ml Vial) 0 unit SQ ACHS [facility]; Protocol Last Admin: 08/16/20 12:24 Dose: 2 unit Documented by: Levothyroxine Sodium (Levothyroxine 100 Mcg Tab) 100 mcg PO DAILY@0630 [facility] Last Admin: 08/16/20 05:48 Dose: 100 mcg Documented by: Melatonin (Melatonin 5 Mg Tablet) 5 mg PO [facility] Last Admin: 08/15/20 20:50 Dose: 5 mg Documented by: Multivitamins (Multivitamins, Thera 1 Each Tab) 1 each PO DAILY [facility] Last Admin: 08/16/20 10:49 Dose: 1 each Documented by: Naloxone HCl (Naloxone 0.4 Mg/Ml 1 Ml Vial) 0.2 mg IV Q2M PRN PRN Reason: Opioid Reversal Pravastatin Sodium (Pravastatin Sodium 40 Mg Tab) 40 mg PO [facility] Last Admin: 08/15/20 20:50 Dose: 40 mg Documented by: Prednisone (Prednisone 20 Mg Tab) 60 mg PO DAILY [facility] Last Admin: 08/16/20 10:49 Dose: 60 mg Documented by: Rivaroxaban (Rivaroxaban 20 Mg Tab) 20 mg PO W/SUPPER [facility] Last Admin: 08/15/20 17:21 Dose: 20 mg Documented by: Past medical history to include: atrial fibrillation, asthma, diabetes, hypertension, hyperlipidemia, ulcerative sleep apnea does not use CPAP, cognitive impairment, gout, peripheral neuropathy gait dysfunction uses a motorized scooter Social history: Resident of [facility] on, no history of smoking or alcohol Family history: Patient cannot tell Physical examination: VITAL SIGNS: 97.7, 55, 16, 146/70, 3% on 4 L GENERAL: Reclining in bed, lethargic EYES: Pupils equal. Conjunctiva normal. HEENT: External appearance of nose and ears normal, macroglossia, NECK: JVD unable to assess; masses not palpable. HEART: First and second heart sounds are normal; edema present. LUNGS: Respiratory rate increased; decreased breath sounds. ABDOMEN: Soft, nontender, liver spleen not palpable, no masses palpable. PSYCH: Answering occasional questions INVESTIGATIONS, reviewed in the clinical context: August 16: Potassium 3.4 creatinine 1.17 bicarb 41 serum osmolality 310 pro- calcitonin 0.12 August 15: Potassium 3.7 creatinine 1.14 bicarb 28 proBNP 713 August 14: Potassium 3.8 bun 31 and creatinine 1.07 bicarbonate 39. Serum osmolality 305 August 09: WBC 4.9 hemoglobin 12.3 potassium 3.5, 54 creatinine 0.82 Chest x-ray film personally reviewed by me-[August 08]: Showing infiltrates, decreased pulmonary edema August 07: Potassium 4.1 creatinine 0.82 August 06: Potassium 4.2 creatinine 0.7 to 2-D echocardiogram: Moderate concentric LVH, EF 55-60%, moderate to severe tricuspid regurgitation, severe pulmonary hypertension : Potassium 4.5 creatinine 0.89 procalcitonin 1.79 CRP 24.4 Blood cultures positive for Streptococcus agalactiae group B August 04: Chest x-ray: Pulmonary edema Pro-calcitonin 0.66 WBC 13 hemoglobin 13.9 platelets 233, lactic acid 2.2 Of 5.3 BUN 16 creatinine 0.99 ProBNP 1310 UA negative Coronavirus [PCR]-not detected Chest x-ray film personally reviewed by [id number] infiltrate, some underpenetration Assessment and plan: -Pneumonia. Blood cultures positive for Streptococcus agalactiae, group B from August 02. on IV cefepime-changed to IV Ancef-discontinued. Repeat blood cultures negative. ARABELLA-do not show any vegetation -Acute hypoxic respiratory failure from pneumonia and pulmonary edema. FiO2 4 L. Note that the patient is a mouth breather. -Acute congestive heart failure from diastolic dysfunction EF 55-60%-improved Received IV Lasix. Patient now seems to be hypovolemic. Patient is alkalotic with increased serum osmolality. On by mouth Lasix -Increased serum osmolality from volume contraction Continue with 50 mL an hour, gentle hydration overnight and hold Lasix temporarily -Acute metabolic alkalosis from diuresis Continue Diamox 250 mg twice daily. Gentle hydration -Moderate to severe tricuspid regurgitation Follow clinically -Severe secondary pulmonary hypertension Follow clinically -Suspect acute on chronic cor pulmonale -Acute delirium/metabolic encephalopathy -slight worsening from volume contraction Follow clinically -Sepsis from and positive blood cultures-improved IV cefepime-changed to IV Ancef-completed course -Persistent atrial fibrillation, rate controlled Continue with xarelto, amiodarone -Diabetes mellitus type 2, uncontrolled with hyperglycemia Follow Accu-Cheks -Essential hypertension Continue with Zestril -Hyperlipidemia Continue with Pravachol -Obesity BMI 39.2 Weight loss measures when patient stable -Obstructive sleep apnea, patient does not use CPAP -Diabetic peripheral neuropathy -Patient has a public legal guardian, We will temporally hold off Lasix. Patient's other volume contracted with alkalosis and increased serum osmolality. Put the patient on 50 mL an hour of IV fluids. Repeat labs in the morning. Replace potassium. Discussed with Dr. gutierrez. Change IV Zosyn to Augmentin.
[2020-08-16 16:57] LABS: Glucose,Whole Blood 212 mg/dL (75-99)
[2020-08-16] MEDS: SODIUM CHLORIDE 0.9% 1,000 ML IV SCH (17:27)
--- NOTE | 2020-08-16 19:02 | PN ---
PROGRESS NOTE DATE OF SERVICE: 08/16/2020 REASON FOR FOLLOWUP: Pneumonia and bacteremia. INTERVAL HISTORY: The patient is currently afebrile. The patient is breathing comfortably. The patient denies any chest pain, cough, abdominal pain or diarrhea. PHYSICAL EXAMINATION: Blood pressure 122/66, pulse of 54, temperature 98. He is 92% on room air. General description: The patient is an elderly male lying in bed in no distress. Respiratory system: Unlabored breathing, decreased breath sounds in the base, with no wheeze. Heart S1, S2. Regular rate and rhythm. ABDOMEN: Soft, no tenderness. Legs are currently wrapped up. No obvious drainage on the dressing. LABS: BUN of 39, creatinine 1.17. DIAGNOSTIC IMPRESSION AND PLAN: Patient with streptococcal bacteremia concerning for pneumonia. Endocarditis was ruled out. No evidence of significant cellulitis. Patient overall improvement. Antibiotic adjusted to finish a short course of oral Augmentin as per discussion with the primary. Continue supportive care. MMODL / IJN: [id number] /
[2020-08-16 21:01] LABS: Glucose,Whole Blood 215 mg/dL (75-99)
[2020-08-16] MEDS: PRAVASTATIN SODIUM 40 MG TAB PO SCH (21:35)
[2020-08-16] MEDS: MELATONIN 5 MG TABLET PO SCH (21:35)
[2020-08-16] MEDS: RIVAROXABAN 20 MG TAB PO SCH (21:35)
[2020-08-17] MEDS: AMOXIC-POT CLAV 875-125MG 1 EACH TAB PO SCH ×2 (00:26→07:16)
[2020-08-17 01:51] VITALS: PULSE 44
[2020-08-17] MEDS: LEVOTHYROXINE 100 MCG TAB PO SCH (05:13)
[2020-08-17 06:53] LABS: Glucose,Whole Blood 141 mg/dL (75-99)
[2020-08-17] MEDS: CHOLECALCIFEROL 25 MCG (1000 IU) TABLET PO SCH (07:13)
[2020-08-17] MEDS: predniSONE 20 MG TAB PO SCH (07:14)
[2020-08-17] MEDS: acetaZOLAMIDE 250 MG TAB PO SCH (07:14)
[2020-08-17] MEDS: MULTIVITAMINS, THERA 1 EACH TAB PO SCH (07:16)
[2020-08-17] MEDS: FAMOTIDINE 20 MG TAB PO SCH (07:16)
[2020-08-17] MEDS: DIVALPROEX 250 MG TABLET.DR PO SCH (07:16)
[2020-08-17] MEDS: INSULIN ASPART (NovoLOG) 100 UNIT/ML VIAL SQ SCH ×2 (07:16→12:04)
[2020-08-17] MEDS: CYANOCOBALAMIN 500 MCG TAB PO SCH (07:16)
[2020-08-17] MEDS: SODIUM CHLORIDE 0.9% 1,000 ML IV SCH (07:22)
[2020-08-17] MEDS: AMIODARONE 200 MG TAB PO SCH (07:22)
[2020-08-17 08:24] VITALS: BP 130/67; RESP 17; TEMP 97.4
[2020-08-17 09:05] LABS: African American GFR (CKD) >90 (>60 ml/min/1.73 sqM); Blood Urea Nitrogen 38 mg/dL (9-20); Calcium 9.6 mg/dL (8.4-10.2); Chloride 98 mmol/L (98-107); Glucose 156 mg/dL (74-99); Non-African American GFR(CKD) 87 (>60 ml/min/1.73 sqM); Potassium 3.7 mmol/L (3.5-5.1); Sodium 140 mmol/L (137-145)
[2020-08-17 09:12] LABS: Anion Gap 3 mmol/L
[2020-08-17 09:21] LABS: Carbon Dioxide 39 mmol/L (22-30)
--- NOTE | 2020-08-17 10:09 | P.PN ---
Subjective Progress Note Date: 08/17/20 Principal diagnosis: Altered mental status Acute on chronic hypoxic respiratory failure Elevated CO2 due to metabolic alkalosis with diuretics some component of respiratory acidosis due to sleep disorder breathing and sleep apnea cannot be excluded, would recommend to lower down the Lasix every every 12 Gram-positive bacteremia source not clear repeat cultures are negative patient is being treated with IV was generation cephalosporin is status post echocardiogram, ID service has been following Sleep disorder breathing and sleep apnea, patient cannot use the CPAP machine Chronic atrial fibrillation Advanced mental disability Enlarged tongue 08/17/2020, patient seen eval examined during the rounds labs reviewed medications reviewed, respiratory status slightly better patient is on now on 3 L oxygen, saturation is 96%, denies any chest pain breathing is stable, Patient switched to oral antibiotics and steroids and on bronchodilator 08/16/2020, patient seen eval reexamined during the rounds labs reviewed medications reviewed, patient is on 4 L oxygen denies any chest pain or sputum production breathing slightly better, FiO2 is slowly being tapered down, patient is on fluid restriction 08/15/2020, patient seen eval examined, patient remains on 4 L oxygen, denies any chest pain, respiratory status stable, patient is on fluid restriction August 14 2020, patient seen eval examined during the rounds currently patient is on 5 L nasal cannula oxygen saturation marginal 89-90%, patient has a respiratory distress episode last night, attempts to utilize BiPAP has been unsuccessful as patient refused to via the BiPAP however remains on 6 L is down to 5 L now, patient is catching up on his sleep, patient has been swallowing pills fairly well as per discussion with staff, will monitor observe clinical course closely, CO2 level continue to improve now in the high 30s will continue current therapy 08/13/2020, patient seen eval examined remains on 2 L oxygen, oxygen saturation stable hemodynamics stable, patient remains on broad-spectrum antibiotics, gentl e diuresis, remains on direct oral anticoagulants, labs from today reviewed, CO2 remains stable 42, we'll observe it for now on current therapy 08/12/2020, patient seen eval examined during the rounds, labs reviewed medications reviewed, patient is afebrile, FiO2 is down to 4 L nasal cannula oxygen saturation 95%, hemodynamic status stable, denies any chest pain, shortness of breath cough slightly better, 08/11/2020, patient seen eval examined during the rounds breathing comfortably on 4 L high flow oxygen, patient has been titrated down, cough congestion shortness breath, last chest x-ray performed yesterday revealed CHF-like changes, BUN/creatinine went up to 22 and 1.16, CO2 went up to 54 for now coming down to 49 08/09/2020, patient seen eval examined during the rounds labs reviewed medications reviewed care plan discussed, respiratory status remains stable denies any chest pain, patient remains on 7 L oxygen however, patient is status post ARABELLA this morning no endocarditis has been noted, last chest x-ray performed yesterday interstitial edema bilateral pleural effusion likely combination of pneumonia and CHF-like changes would recommend to broaden spectrum antibiotic to Zosyn keep patient on even are negative side, noted that patient is already on furosemide every 12 , labs pending 08/08/2020, patient seen eval examined during the rounds labs reviewed medications reviewed care plan discussed, patient is more awake, ongoing cough is present denies any chest pain, sitting upright on the chair breathing K more comfortably has been on 6.5 L oxygen, labs are not done today, would recommend to reduce Lasix to 40 mg IV every 12 and repeat labs tomorrow, continue IV anti biotics with deep breathing exercise incentive spirometry repeat chest x-ray earlier today reviewed and compared with the prior x-ray continued to show CHF- like changes with cardiomegaly interstitial edema small pleural effusion bilateral infiltrate Patient was brought into the emergency department for evaluation of altered mental status patient is a resident of [facility], baseline status usually awake and alert moves around, covert and assisted was negative, patient was brought in due to increasing shortness of breath ongoing cough and decreased appetite, prior medical history significant for atrial fibrillation asthma, diabetes mellitus, hypertension hypertensive cardiovascular disease per for neuropathy DJD uses motorized scooter, on arrival he was febrile with fever of 103 saturation was 93% on 6 L white cell count is elevated and lactic acid was 2.2, BNP was over 1300, PCR was negative, chest x-ray showed right sided infiltrate patient does have a history of sleep disorder breathing and sleep apnea cannot use his CPAP machine due to mental disability, patient has been treated with direct oral anticoagulant, amiodarone, IV cefazolin, continuation of his home medication, high-dose Lasix 40 mg subcu every 8 for lower extremity edema and heart failure, most recent labs reveal significant rise in CO2 up to 43 from baseline of 28, BUN/creatinine remains stable, other lab significant for elevated pro calcitonin 1.79 Objective - Vital Signs Vital signs: Vital Signs Temp 97.4 F L 08/17/20 08:00 Pulse 44 L 08/17/20 08:00 Resp 17 08/17/20 08:00 BP 130/67 08/17/20 08:00 Pulse Ox 96 08/17/20 08:00 Intake & Output 08/16/20 08/17/20 08/17/20 18:59 06:59 18:59 Intake Total 354 755 Output Total 200 800 Balance 154 -45 Intake: Oral 354 755 Output: Urine 200 800 Other: Voiding Method Incontinent Incontinent Incontinent External Catheter External Catheter External Catheter # Voids 3 # Bowel Movements 1 - Exam - Constitutional General appearance: disheveled, mild distress - EENT Markedly Enlarged tongue protruding out of mouth Eyes: PERRLA Ears: bilateral: normal - Neck Neck: normal ROM Carotids: bilateral: upstroke normal - Respiratory Respiratory: bilateral: diminished - Cardiovascular Rhythm: irregularly irregular Heart sounds: normal: S1, S2 - Gastrointestinal General gastrointestinal: normal bowel sounds - Neurologic Neurologic: CNII-XII intact - Musculoskeletal Musculoskeletal: gait normal, generalized weakness, strength equal bilaterally - Psychiatric Psychiatric: A&O x's 3, appropriate affect, intact judgment & insight - Labs CBC & Chem 7: 08/13/20 07:30 08/17/20 08:30 Labs: Abnormal Lab Results - Last 24 Hours (Table) 08/16/20 08/16/20 08/16/20 Range/Units 06:53 06:53 11:39 Carbon Dioxide (22-30) mmol/L BUN (9-20) mg/dL Glucose (74-99) mg/dL POC Glucose (mg/dL) 158 H (75-99) mg/dL Osmolality 310 H (280-301) mosm/kg Procalcitonin 0.12 H (0.02-0.09) ng/mL 08/16/20 08/16/20 08/17/20 Range/Units 16:56 21:00 06:52 Carbon Dioxide (22-30) mmol/L BUN (9-20) mg/dL Glucose (74-99) mg/dL POC Glucose (mg/dL) 212 H 215 H 141 H (75-99) mg/dL Osmolality (280-301) mosm/kg Procalcitonin (0.02-0.09) ng/mL 08/17/20 Range/Units 08:30 Carbon Dioxide 39 H (22-30) mmol/L BUN 38 H (9-20) mg/dL Glucose 156 H (74-99) mg/dL POC Glucose (mg/dL) (75-99) mg/dL Osmolality 307 H (280-301) mosm/kg Procalcitonin (0.02-0.09) ng/mL Assessment and Plan Assessment: Altered mental status Acute on chronic hypoxic hypercapnic history failure Bilateral basal pneumonia Elevated CO2 due to metabolic alkalosis with diuretics some component of respiratory acidosis due to sleep disorder breathing and sleep apnea cannot be excluded, would recommend to lower down the Lasix continued Diamox gram-positive bacteremia ID following Sleep disorder breathing and sleep apnea, patient cannot use the CPAP/BiPAP machine Chronic atrial fibrillation Advanced mental disability Enlarged tongue Plan: Plan as above, will follow clinical course closely decrease Lasix to 40 mg daily, continue Diamox,as his renal function continued to go up would recommend decreasing the Lasix to once dailymonitor renal functions closely patient appears to benefit from more broad-spectrum gram-negative coverage like Augmentin , repeat blood culture however are negative for obtain on omas is CO2 is coming down today is 39 Time with Patient: Greater than 30
[2020-08-17 11:47] LABS: Glucose,Whole Blood 173 mg/dL (75-99)
--- NOTE | 2020-08-17 13:59 | P.DS ---
Providers Date of admission: 08/02/20 14:21 Expected date of discharge: 08/17/20 Attending physician: Suraj Hoffmann Consults: 08/02/20 14:21 Consult Physician Routine Consulting Provider: Gadiel Plummer Consult Reason/Comments: Fever, PNA Do you want consulting provider notified?: Yes 08/06/20 20:16 Consult Physician Routine Consulting Provider: Tobi Fitch Consult Reason/Comments: ARABELLA-positive blood cultures Do you want consulting provider notified?: Yes 08/07/20 12:20 Consult Physician Routine Consulting Provider: Rj Byrne Consult Reason/Comments: sob Do you want consulting provider notified?: Yes Primary care physician: [facility] Course: Chief Complaint: Fever History of presenting complaint: This is a 69-year-old patient was currently at resident [facility] . Patient being followed by Dr. Brand. Staff and the ECF following the patient's sensorium to be decreased. Patient is normally alert and able to walk around. Patient had a COVID test 5 days ago on Wednesday that was negative. Patient has slightly increased respiratory rate in the conus bit of a cough. Patient denies any urinary symptoms. Some decrease in appetite. No chest pain. Chronic stable medical conditions include atrial fibrillation, asthma, diabetes, hypertension, hyperlipidemia, gallstones, peripheral neuropathy, gait, uses a motorized scooter, DJD, does not use a CPAP Admitted with pneumonia, delirium, sepsis. Started on IV cefepime. Went into pulmonary edema. Started on IV Lasix. On hypoxic. Blood cultures positive for Streptococcus agalactiae group b. Also being treated for pneumonia. ARABELLA-no obvious evidence of any vegetation. Patient became metabolic alkalosis. Given gentle hydration. Diamox added. Lasix cutback. Today: As done better. Oral intake better. IV hydration was given. Patient be discharged to ECF. Discussed with the nurse. Discussed with the patient Discussion and discharge planning more than 35 minutes Consultation: Dr. Byrne from pulmonary Dr. Plummer from ID Dr. Ingram from cardiology Past medical history to include: atrial fibrillation, asthma, diabetes, hypertension, hyperlipidemia, ulcerative sleep apnea does not use CPAP, cognitive impairment, gout, peripheral neuropathy gait dysfunction uses a motorized scooter Social history: Resident of [facility] [place] on, no history of smoking or alcohol Family history: Patient cannot tell Physical examination: VITAL SIGNS: 97.4, 54, 17, 130/67, 94% on room air GENERAL: Reclining in bed, tired but arousable EYES: Pupils equal. Conjunctiva normal. HEENT: External appearance of nose and ears normal, macroglossia, NECK: JVD unable to assess; masses not palpable. HEART: First and second heart sounds are normal; edema present. LUNGS: Respiratory rate increased; decreased breath sounds. ABDOMEN: Soft, nontender, liver spleen not palpable, no masses palpable. PSYCH: Answering questions INVESTIGATIONS, reviewed in the clinical context: August 17: Potassium 3.7 bicarb 38 creatinine 0.9 serum osmolality 307 August 16: Potassium 3.4 creatinine 1.17 bicarb 41 serum osmolality 310 pro- calcitonin 0.12 August 15: Potassium 3.7 creatinine 1.14 bicarb 28 proBNP 713 August 14: Potassium 3.8 bun 31 and creatinine 1.07 bicarbonate 39. Serum osmolality 305 August 09: WBC 4.9 hemoglobin 12.3 potassium 3.5, 54 creatinine 0.82 Chest x-ray film personally reviewed by me-[August 08]: Showing infiltrates, decreased pulmonary edema August 07: Potassium 4.1 creatinine 0.82 August 06: Potassium 4.2 creatinine 0.7 to 2-D echocardiogram: Moderate concentric LVH, EF 55-60%, moderate to severe tricuspid regurgitation, severe pulmonary hypertension : Potassium 4.5 creatinine 0.89 procalcitonin 1.79 CRP 24.4 Blood cultures positive for Streptococcus agalactiae group B August 04: Chest x-ray: Pulmonary edema Pro-calcitonin 0.66 WBC 13 hemoglobin 13.9 platelets 233, lactic acid 2.2 Of 5.3 BUN 16 creatinine 0.99 ProBNP 1310 UA negative Coronavirus [PCR]-not detected Chest x-ray film personally reviewed by [id number] infiltrate, some underpenetration Assessment and plan: -Pneumonia. Blood cultures positive for Streptococcus agalactiae, group B from August 02. on IV cefepime-changed to IV Ancef-discontinued. Repeat blood cultures negative. ARABELLA-do not show any vegetation -Acute hypoxic respiratory failure from pneumonia and pulmonary edema.-Improved FiO2 4 L. Note that the patient is a mouth breather. -Acute congestive heart failure from diastolic dysfunction EF 55-60%-improved Received IV Lasix. Patient now seems to be hypovolemic. Patient is alkalotic with increased serum osmolality. On by mouth Lasix. 5 more days of Diamox -Increased serum osmolality from volume contraction Patient was hydrated -Acute metabolic alkalosis from diuresis Continue Diamox 250 mg twice daily. -5 days -Moderate to severe tricuspid regurgitation Follow clinically -Severe secondary pulmonary hypertension Follow clinically -Suspect acute on chronic cor pulmonale Diuresis. -Acute delirium/metabolic encephalopathy -improved Follow clinically -Sepsis from and positive blood cultures-improved IV cefepime-changed to IV Ancef-completed course -Persistent atrial fibrillation, rate controlled Continue with xarelto, amiodarone -Diabetes mellitus type 2, uncontrolled with hyperglycemia Follow Accu-Cheks -Essential hypertension Continue with Zestril -Hyperlipidemia Continue with Pravachol -Obesity BMI 39.2 Weight loss measures when patient stable -Obstructive sleep apnea, patient does not use CPAP -Diabetic peripheral neuropathy -Patient has a public legal guardian, Disposition: ECF/[facility] Labs: BMP: 3 days Patient Condition at Discharge: Stable Plan - Discharge Summary Discharge Rx Participant: No New Discharge Prescriptions: New Famotidine [Pepcid] 20 mg PO BID tab acetaZOLAMIDE [Diamox] 250 mg PO BID #10 tab predniSONE 10 mg PO DAILY #30 tab Acetaminophen Tab [Tylenol] 650 mg PO Q6HR PRN tab PRN Reason: Mild Pain Or Fever > 100.5 Amoxic-Pot Clav 875-125Mg [Augmentin 875-125] 1 each PO Q12HR #4 tab Continue Divalproex [Depakote] 500 mg PO QAM Divalproex [Depakote] 750 mg PO HS Liraglutide [Victoza 3-Ramírez] 1.8 mg SQ DAILY Cyanocobalamin [Vitamin B-12] 500 mcg PO DAILY Potassium Chloride [Klor-Con 20] 20 meq PO DAILY Multivitamins, Thera [Multivitamin (formulary)] 1 tab PO DAILY Melatonin 5 mg PO HS Levothyroxine Sodium [Synthroid] 100 mcg PO DAILY@0600 Insulin Detemir (Levemir) [Levemir] 8 unit SQ DAILY Cholecalciferol (Vitamin D3) [Vitamin D3 (5000 Iu)] 125 mcg PO DAILY metFORMIN HCL [Glucophage] 1,000 mg PO BID Rivaroxaban [Xarelto] 20 mg PO W/SUPPER Pravastatin Sodium [Pravachol] 40 mg PO HS Amiodarone [Cordarone] 200 mg PO DAILY Changed Furosemide [Lasix] 40 mg PO BID #0 Discontinued Potassium Chloride [Klor-Con 10] 10 meq PO HS Furosemide [Lasix] 80 mg PO DAILY lisinopriL [Zestril] 2.5 mg PO DAILY Discharge Medication List Divalproex [Depakote] 500 mg PO QAM 01/27/16 [History] Divalproex [Depakote] 750 mg PO HS 01/27/16 [History] Amiodarone [Cordarone] 200 mg PO DAILY 08/02/20 [History] Cholecalciferol (Vitamin D3) [Vitamin D3 (5000 Iu)] 125 mcg PO DAILY 08/02/20 [History] Cyanocobalamin [Vitamin B-12] 500 mcg PO DAILY 08/02/20 [History] Insulin Detemir (Levemir) [Levemir] 8 unit SQ DAILY 08/02/20 [History] Levothyroxine Sodium [Synthroid] 100 mcg PO DAILY@0600 08/02/20 [History] Liraglutide [Victoza 3-Ramírez] 1.8 mg SQ DAILY 08/02/20 [History] Melatonin 5 mg PO HS 08/02/20 [History] Multivitamins, Thera [Multivitamin (formulary)] 1 tab PO DAILY 08/02/20 [History] Potassium Chloride [Klor-Con 20] 20 meq PO DAILY 08/02/20 [History] Pravastatin Sodium [Pravachol] 40 mg PO HS 08/02/20 [History] Rivaroxaban [Xarelto] 20 mg PO W/SUPPER 08/02/20 [History] metFORMIN HCL [Glucophage] 1,000 mg PO BID 08/02/20 [History] Acetaminophen Tab [Tylenol] 650 mg PO Q6HR PRN tab 08/17/20 [Rx] Amoxic-Pot Clav 875-125Mg [Augmentin 875-125] 1 each PO Q12HR #4 tab 08/17/20 [Rx] Famotidine [Pepcid] 20 mg PO BID tab 08/17/20 [Rx] Furosemide [Lasix] 40 mg PO BID #0 08/17/20 [Rx] acetaZOLAMIDE [Diamox] 250 mg PO BID #10 tab 08/17/20 [Rx] predniSONE 10 mg PO DAILY #30 tab 08/17/20 [Rx] Follow up Appointment(s)/Referral(s): Gerardo Brand DO [Primary Care Provider] - 1-2 days Rj Byrne MD [STAFF PHYSICIAN] - 1 Week
== END 2020-08-17 14:17 | DRG 871 ==
LOC: EC 11:56 → 4SSUR 14:21
PROVIDERS: ADMIT Hospitalist; ATTEND Hospitalist
PROC: B246ZZ4 Ultrasonography of Right and Left Heart, Transesophageal (ICD-10-PCS; principal; 2020-08-08 10:30)
DX: A40.1 Sepsis due to streptococcus, group B (principal); J81.0 Acute pulmonary edema; G93.41 Metabolic encephalopathy; J18.9 Pneumonia, unspecified organism; J96.21 Acute and chronic respiratory failure with hypoxia; I50.31 Acute diastolic (congestive) heart failure; J96.22 Acute and chronic respiratory failure with hypercapnia; I48.19 Other persistent atrial fibrillation; J44.0 Chronic obstructive pulmonary disease with (acute) lower respiratory infection; Z20.822 Contact with and (suspected) exposure to COVID-19; E87.4 Mixed disorder of acid-base balance; J44.1 Chronic obstructive pulmonary disease with (acute) exacerbation; Z79.4 Long term (current) use of insulin; Z79.890 Hormone replacement therapy; E03.9 Hypothyroidism, unspecified; E78.5 Hyperlipidemia, unspecified; E11.42 Type 2 diabetes mellitus with diabetic polyneuropathy; E66.9 Obesity, unspecified; Z68.39 Body mass index [BMI] 39.0-39.9, adult; G47.33 Obstructive sleep apnea (adult) (pediatric); I11.0 Hypertensive heart disease with heart failure; I27.29 Other secondary pulmonary hypertension; I07.1 Rheumatic tricuspid insufficiency; R65.20 Severe sepsis without septic shock; M19.90 Unspecified osteoarthritis, unspecified site; Z83.3 Family history of diabetes mellitus; Z91.19 Patient's noncompliance with other medical treatment and regimen; Z79.01 Long term (current) use of anticoagulants; F79 Unspecified intellectual disabilities; K80.20 Calculus of gallbladder without cholecystitis without obstruction; E86.1 Hypovolemia; E11.65 Type 2 diabetes mellitus with hyperglycemia; E11.39 Type 2 diabetes mellitus with other diabetic ophthalmic complication; Z79.899 Other long term (current) drug therapy
CPT/HCPCS: 36415; 36600; 71045; 71046; 80048; 80053; 81003; 82805; 83605; 83735; 83880; 83930; 84145; 85025; 85027; 86140; 87040; 87077; 87186; 87449; 87635; 93306; 93312; 93325; 94660; 94760; 96365; 96368; 96375; 99285

== ENCOUNTER 2022-07-26 21:06 | Emergency (ER) | payer MEDICARE, OTHER ==
[2022-07-26 21:20] VITALS: RESP 18; TEMP 98
[2022-07-26] MEDS ORDERED: SODIUM CHLORIDE 0.9% 1,000 ML IV ONE (21:44)
[2022-07-26 22:08] LABS: Glucose,Whole Blood 97 mg/dL (70-110)
[2022-07-26 22:27] LABS: Basophils % (A) 0 %; Eosinophils # (A) 0.2 k/uL (0-0.7); Eosinophils % (A) 3 %; HCT 38.9 % (39.0-53.0); HGB 12.5 gm/dL (13.0-17.5); Lymphocytes # (A) 1.1 k/uL (1.0-4.8); Lymphocytes % (A) 16 %; MCH 33.2 pg (25.0-35.0); MCHC 32.1 g/dL (31.0-37.0); MCV 103.5 fL (80.0-100.0); Macrocytosis Moderate; Monocytes # (A) 0.6 k/uL (0-1.0); Monocytes % (A) 8 %; Neutrophils # (A) 4.9 k/uL (1.3-7.7); Neutrophils % (A) 70 %; Platelet Count 207 k/uL (150-450); RBC 3.76 m/uL (4.30-5.90)
--- NOTE | 2022-07-26 22:33 | ED ---
General Adult HPI - General Chief complaint: Fall Stated complaint: Fall Time Seen by Provider: 07/26/22 21:17 Source: patient, EMS, Caregiver Mode of arrival: EMS Limitations: no limitations - History of Present Illness Initial comments: This is a 71-year-old male with a past medical history including atrial fibrillation, hypertension, diabetes, presents emergency department via EMS from his nursing facility for multiple falls. Is reported by EMS that the patient is had multiple falls at his nursing facility but when I evaluated the patient, he stated that he was "lightheaded all the time." The patient did state that he fell down today and only had some minor soreness on the right posterior buttock as well as his bilateral lower extremities. The patient had full range of motion in bed while evaluating him and he did not complain of hitting his head or losing consciousness. The patient remained stable and neck pain of any further distress. - Related Data Home Medications Medication Instructions Recorded Confirmed Amiodarone [Cordarone] 200 mg PO DAILY@0800 08/02/20 07/26/22 Cyanocobalamin [Vitamin B-12] 500 mcg PO HS 08/02/20 07/26/22 Levothyroxine Sodium [Synthroid] 100 mcg PO DAILY 08/02/20 07/26/22 Liraglutide [Victoza 3-Ramírez] 1.8 mg SQ DAILY 08/02/20 07/26/22 Melatonin 5 mg PO HS 08/02/20 07/26/22 Multivitamins, Thera [Multivitamin 1 tab PO DAILY 08/02/20 07/26/22 (formulary)] Rivaroxaban [Xarelto] 20 mg PO HS 08/02/20 07/26/22 Atorvastatin [Lipitor] 10 mg PO HS 07/26/22 07/26/22 Cholecalciferol [Vitamin D3 (25 75 mcg PO DAILY 07/26/22 07/26/22 Mcg = 1000 Iu)] Divalproex [Depakote] 250 mg PO BID@0800,1600 07/26/22 07/26/22 Furosemide [Lasix] 40 mg PO BID@0800,199907/26/22 07/26/22 Potassium Chloride ER [K-Dur 10] 20 meq PO BID@0800,199907/26/22 07/26/22 metFORMIN HCL 1,000 mg PO HS 07/26/22 07/26/22 metFORMIN HCL 500 mg PO DAILY 07/26/22 07/26/22 Previous Rx's Medication Instructions Recorded Acetaminophen Tab [Tylenol] 650 mg PO Q6HR PRN tab 08/17/20 Famotidine [Pepcid] 20 mg PO BID tab 08/17/20 acetaZOLAMIDE [Diamox] 250 mg PO BID #10 tab 08/17/20 Allergies Allergy/AdvReac Type Severity Reaction Status Date / Time No Known Allergies Allergy Verified 07/26/22 21:38 Review of Systems ROS Statement: Those systems with pertinent positive or pertinent negative responses have been documented in the HPI. ROS Other: All systems not noted in ROS Statement are negative. Past Medical History Past Medical History: Atrial Fibrillation, Asthma, Diabetes Mellitus, Hyperlipidemia, Hypertension, Sleep Apnea/CPAP/BIPAP, Thyroid Disorder Additional Past Medical History / Comment(s): Diabetic oculopathy, obesity, leukopenia, gallstone, diarrhea, mentally disabled, gout, peripheral neuropothy, gait dysfunction- uses motorized scooter, degenerative joint disorder, supposed to wear cpap at home but is non compliant History of Any Multi-Drug Resistant Organisms: Unobtainable Past Surgical History: Cholecystectomy, Hernia Repair Additional Past Surgical History / Comment(s): L inguinal hernia repair, last colonoscopy 2002 Past Anesthesia/Blood Transfusion Reactions: Unable to Obtain Past Psychological History: No Psychological Hx Reported Smoking Status: Unknown if ever smoked Past Alcohol Use History: Unable to Obtain Past Drug Use History: Unable to Obtain - Past Family History Mother Family Medical History: Unable to Obtain Father Family Medical History: Diabetes Mellitus General Exam Limitations: no limitations General appearance: alert, in no apparent distress, obese Head exam: Present: atraumatic, normocephalic, normal inspection Eye exam: Present: normal appearance, PERRL Pupils: Present: normal accommodation ENT exam: Present: normal exam, normal oropharynx, mucous membranes moist Neck exam: Present: normal inspection, full ROM Respiratory exam: Present: normal lung sounds bilaterally Cardiovascular Exam: Present: regular rate, normal rhythm, normal heart sounds GI/Abdominal exam: Present: soft, normal bowel sounds Extremities exam: Present: normal inspection, full ROM Back exam: Present: normal inspection, full ROM Neurological exam: Present: alert, oriented X3, CN II-XII intact Psychiatric exam: Present: normal affect, normal mood Skin exam: Present: warm, dry Course Vital Signs 07/26/22 21:12 Temperature 98.0 F Pulse Rate 62 Respiratory 18 Rate Blood Pressure 114/86 O2 Sat by Pulse 95 Oximetry EKG Findings - EKG Comments: EKG Findings:: In EKG was obtained and was interpreted by myself showing a rate of 62, QRS duration of 114, QTC of 442. This EKG showed a normal sinus rhythm however there was significant artifact noted secondary to patient movement. There was no apparent ST segment elevation or depression noted. Medical Decision Making - Medical Decision Making Was pt. sent in by a medical professional or institution (, PA, TRANSMISSION REPAIRER, urgent care, hospital, or [place] facility...) When possible be specific @ -Yes, sent in by the nursing facility for multiple falls. Did you speak to anyone other than the patient for history (EMS, parent, family, police, friend...)? What history was obtained from this source @ -No Did you review nursing and triage notes (agree or disagree)? Why? @ -I reviewed and agree with nursing and triage notes Were old charts reviewed (outside hosp., previous admission, EMS record, old EKG, old radiological studies, urgent care reports/EKG's, [place] records)? Report findings @ -No old charts were reviewed Differential Diagnosis (chest pain, altered mental status, abdominal pain women, abdominal pain men, vaginal bleeding, weakness, fever, dyspnea, syncope, headache, dizziness, GI bleed, back pain, seizure, CVA, palpatations, mental health)? @ -Lightheadedness, dizziness, intracranial hemorrhage, hip fracture EKG interpreted by me (3pts min.). @ -As above X-rays interpreted by me (1pt min.). @ -Pelvis x-ray and chest x-ray were obtained and were interpreted by myself showing no acute fractures or processes. CT interpreted by me (1pt min.). @ -CT head and CT C-spine were obtained and were interpreted by myself showing large bilateral cerebral convexity subdural hematomas. There were no acute findings in the cervical spine. U/S interpreted by me (1pt. min.). @ -None done What testing was considered but not performed or refused? (CT, X-rays, U/S, labs)? Why? @ -None What meds were considered but not given or refused? Why? @ -None Did you discuss the management of the patient with other professionals (professionals i.e. DrDarlene, PA, TRANSMISSION REPAIRER, lab, RT, psych nurse, addiction social worker, pattern maker programer, teacher, weapons electrical engineering officer, piano case and bench assembler)? Give summary @ -Yes, was contacted at [facility] for transfer. He was told of the patient and did agree to accept the patient for transfer for his bilateral acute on chronic subdural hematomas. Was smoking cessation discussed for >3mins.? @ -No Was critical care preformed (if so, how long)? @ -Yes, see above Were there social determinants of health that impacted care today? How? (Homelessness, low income, unemployed, alcoholism, drug addiction, transportation, low edu. Level, literacy, decrease access to med. care, [place] [facility] [place], rehab)? @ -No Was there de-escalation of care discussed even if they declined (Discuss DNR or withdrawal of care, Hospice)? DNR status @ -No What co-morbidities impacted this encounter? (DM, HTN, Smoking, COPD, CAD, Cancer, CVA, ARF, Chemo, Hep., AIDS, mental health diagnosis, sleep apnea, morbid obesity)? @ -Hypertension, atrial fibrillation on Xarelto, diabetes Was patient admitted / discharged? Hospital course, mention meds given and route, prescriptions, significant lab abnormalities, going to OR and other pertinent info. @ -The patient was seen and evaluated emergency department. On physical exam, the patient was resting in bed, ANO 4 and able to answer questions appropriately. Vital signs admission were stable. Due to the nature the patient's multiple falls, imaging was obtained and was positive for bilateral subdural hematomas that the radiologist did recommend were possibly acute on chronic. The remainder of the laboratory workup was within normal limits. Due to the nature the patient's bilateral subdural hematomas while on Xarelto and a history of multiple falls, the patient will require to be transferred to a higher level of care for neurosurgery evaluation. Dr. Gray was contacted and did accept the patient for admission for transfer to [facility] emergency department. The patient was told of this plan and was agreeable. The patient was transferred in stable condition. Undiagnosed new problem with uncertain prognosis? @ -No Drug Therapy requiring intensive monitoring for toxicity (Heparin, Nitro, Insulin, Cardizem)? @ -No Were any procedures done? @ -No Diagnosis/symptom? @ -Acute on chronic bilateral subdural hematomas, on Xarelto, multiple falls Acute, or Chronic, or Acute on Chronic? @ -Acute on chronic Uncomplicated (without systemic symptoms) or Complicated (systemic symptoms)? @ -Complicated Side effects of treatment? @ -No Exacerbation, Progression, or Severe Exacerbation? @ -No Poses a threat to life or bodily function? How? (Chest pain, USA, CO, pneumonia, PE, COPD, DKA, ARF, appy, cholecystitis, CVA, Diverticulitis, Homicidal, Suicidal, threat to staff... and all critical care pts) @ -Yes, worsening bleeding on Xarelto and worsening subdural hematomas can lead to permanent damage and possible . There was a significant delay in transfer secondary to a different patient requiring extensive laceration repair for active arterial head bleed, that arrived during the work-up of this patient. The CT scans also were delayed in reading due to [employer] causing further delay in the transfer process. The patie nt did not have any known time of falling but have a history of multiple falls over last several weeks therefore this was not a leveled trauma at this time secondary to unknown history of when the patient actually fell. - Lab Data Result diagrams: 07/26/22 22:10 07/26/22 22:10 Lab Results 07/26/22 07/26/22 07/26/22 Range/Units 22:07 22:10 22:10 WBC 7.0 (3.8-10.6) k/uL RBC 3.76 L (4.30-5.90) m/uL Hgb 12.5 L (13.0-17.5) gm/dL Hct 38.9 L (39.0-53.0) % MCV 103.5 H (80.0-100.0) fL MCH 33.2 (25.0-35.0) pg MCHC 32.1 (31.0-37.0) g/dL RDW 15.0 (11.5-15.5) % Plt Count 207 (150-450) k/uL MPV 8.0 Neutrophils % 70 % Lymphocytes % 16 % Monocytes % 8 % Eosinophils % 3 % Basophils % 0 % Neutrophils # 4.9 (1.3-7.7) k/uL Lymphocytes # 1.1 (1.0-4.8) k/uL Monocytes # 0.6 (0-1.0) k/uL Eosinophils # 0.2 (0-0.7) k/uL Basophils # 0.0 (0-0.2) k/uL Macrocytosis Moderate Sodium 143 (137-145) mmol/L Potassium 4.4 (3.5-5.1) mmol/L Chloride 104 (98-107) mmol/L Carbon Dioxide 27 (22-30) mmol/L Anion Gap 12 mmol/L BUN 24 H (9-20) mg/dL Creatinine 1.63 H (0.66-1.25) mg/dL Est GFR (CKD-EPI)AfAm 49 (>60 ml/min/1.73 sqM) Est GFR (CKD-EPI)NonAf 42 (>60 ml/min/1.73 sqM) Glucose 101 H (74-99) mg/dL POC Glucose (mg/dL) 97 (70-110) mg/dL POC Glu Community Liaison ID Blu Ch Calcium 9.8 (8.4-10.2) mg/dL Magnesium 2.0 (1.6-2.3) mg/dL Total Bilirubin 0.8 (0.2-1.3) mg/dL AST 28 (17-59) U/L ALT 27 (4-49) U/L Alkaline Phosphatase 79 (38-126) U/L Troponin I (0.000-0.034) ng/mL Total Protein 7.4 (6.3-8.2) g/dL Albumin 4.1 (3.5-5.0) g/dL Lipase 255 (23-300) U/L 07/26/22 Range/Units 22:10 WBC (3.8-10.6) k/uL RBC (4.30-5.90) m/uL Hgb (13.0-17.5) gm/dL Hct (39.0-53.0) % MCV (80.0-100.0) fL MCH (25.0-35.0) pg MCHC (31.0-37.0) g/dL RDW (11.5-15.5) % Plt Count (150-450) k/uL MPV Neutrophils % % Lymphocytes % % Monocytes % % Eosinophils % % Basophils % % Neutrophils # (1.3-7.7) k/uL Lymphocytes # (1.0-4.8) k/uL Monocytes # (0-1.0) k/uL Eosinophils # (0-0.7) k/uL Basophils # (0-0.2) k/uL Macrocytosis Sodium (137-145) mmol/L Potassium (3.5-5.1) mmol/L Chloride (98-107) mmol/L Carbon Dioxide (22-30) mmol/L Anion Gap mmol/L BUN (9-20) mg/dL Creatinine (0.66-1.25) mg/dL Est GFR (CKD-EPI)AfAm (>60 ml/min/1.73 sqM) Est GFR (CKD-EPI)NonAf (>60 ml/min/1.73 sqM) Glucose (74-99) mg/dL POC Glucose (mg/dL) (70-110) mg/dL POC Glu Community Liaison ID Calcium (8.4-10.2) mg/dL Magnesium (1.6-2.3) mg/dL Total Bilirubin (0.2-1.3) mg/dL AST (17-59) U/L ALT (4-49) U/L Alkaline Phosphatase (38-126) U/L Troponin I <0.012 (0.000-0.034) ng/mL Total Protein (6.3-8.2) g/dL Albumin (3.5-5.0) g/dL Lipase (23-300) U/L Critical Care Time Critical Care Time: Yes Total Critical Care Time: 32 Disposition Clinical Impression: Falls, Bilateral subdural hematomas Disposition: OTHER INSTITUTION NOT DEFINED Condition: Stable Is patient prescribed a controlled substance at d/c from ED?: No Referrals: Gerardo Brand DO [Primary Care Provider] - 1-2 days Time of Disposition: 00:30 - Out of Hospital Transfer - Req. Specs Out of Hospital Transfer - Requested Specifics: Other Emergency Center ([facility])
--- NOTE | 2022-07-26 23:33 | CT ---
EXAM: CT Head Without Intravenous Contrast CLINICAL HISTORY: ITS.REASON CT Reason: Trauma TECHNIQUE: Axial computed tomography images of the head/brain without intravenous contrast. CTDI is 45.2 mGy and DLP is 1108 mGy-cm. This CT exam was performed using one or more of the following dose reduction techniques: automated exposure control, adjustment of the mA and/or kV according to patient size, and/or use of iterative reconstruction technique. COMPARISON: 01/27/2016 FINDINGS: Brain: Bilateral cerebral convexity subdural hematomas. Maximum thickness measures 1.8 cm. Hematomas containing hyperdense and hypodense blood products. There is mass effect on the bilateral cerebrum. Mild low attenuation periventricular cerebral white matter. Ventricles: No acute findings. No ventriculomegaly. Bones/joints: Unremarkable. No acute fracture. Soft tissues: Unremarkable. Sinuses: Unremarkable as visualized. No acute sinusitis. Mastoid air cells: Unremarkable as visualized. No mastoid effusion. IMPRESSION: Large bilateral cerebral convexity subdural hematomas. EXAM: CT Cervical Spine Without Intravenous Contrast CLINICAL HISTORY: ITS.REASON CT Reason: Trauma TECHNIQUE: Axial computed tomography images of the cervical spine without intravenous contrast. CTDI is 16.9 mGy and DLP is 527.2 mGy-cm. This CT exam was performed using one or more of the following dose reduction techniques: automated exposure control, adjustment of the mA and/or kV according to patient size, and/or use of iterative reconstruction technique. COMPARISON: No relevant prior studies available. FINDINGS: Vertebrae: Multilevel degenerative disc disease and facet arthropathy. Straightening of the cervical spine. No acute fracture. Discs/spinal canal/neural foramina: See above. No high-grade stenosis. Soft tissues: No acute findings. IMPRESSION: No acute findings in the cervical spine. <MYCVCSECTION> Communications: 07/26/22 23:34 Call Doctor Regarding Intracranial Hemorrhage, called Dr. Machado on 07/26 23:34 (-04:00)
[2022-07-26 23:43] LABS: Albumin 4.1 g/dL (3.5-5.0); Calcium 9.8 mg/dL (8.4-10.2); Potassium 4.4 mmol/L (3.5-5.1); Total Bilirubin 0.8 mg/dL (0.2-1.3); Total Protein 7.4 g/dL (6.3-8.2)
--- NOTE | 2022-07-27 00:23 | XR ---
EXAM: XR Chest, 1 View CLINICAL HISTORY: ITS.REASON XR Reason: Falls TECHNIQUE: Frontal view of the chest. COMPARISON: No relevant prior studies available. FINDINGS: Lungs: Enlarged cardiac silhouette and pulmonary vascular congestion. No consolidation. Pleural space: No acute findings. No pneumothorax. Heart: Enlarged. Bones/joints: No acute osseous abnormality. IMPRESSION: Enlarged cardiac silhouette and pulmonary vascular congestion.
--- NOTE | 2022-07-27 00:24 | XR ---
EXAM: XR Pelvis, 1 or 2 Views CLINICAL HISTORY: ITS.REASON XR Reason: Trauma TECHNIQUE: Frontal view of the pelvis. COMPARISON: No relevant prior studies available. FINDINGS: Bones/joints: Unremarkable. No acute fracture. No dislocation. Soft tissues: Unremarkable. IMPRESSION: No acute osseous abnormality.
[2022-07-27 01:56] VITALS: BP 115/73; PULSE 68
== END 2022-07-27 01:55 | disposition other institution (70) ==
LOC: EC 21:06
DX: S06.5XAA Traumatic subdural hemorrhage with loss of consciousness status unknown, initial encounter (principal); R29.6 Repeated falls; E11.40 Type 2 diabetes mellitus with diabetic neuropathy, unspecified; I10 Essential (primary) hypertension; I48.91 Unspecified atrial fibrillation; J45.909 Unspecified asthma, uncomplicated; E78.5 Hyperlipidemia, unspecified; E07.9 Disorder of thyroid, unspecified; E66.9 Obesity, unspecified; Z79.84 Long term (current) use of oral hypoglycemic drugs; Z79.01 Long term (current) use of anticoagulants; Z79.890 Hormone replacement therapy; Z79.899 Other long term (current) drug therapy; Z68.28 Body mass index [BMI] 28.0-28.9, adult; W18.30XA Fall on same level, unspecified, initial encounter; Y92.129 Unspecified place in nursing home as the place of occurrence of the external cause
CPT/HCPCS: 36415; 70450; 71045; 72125; 72170; 80053; 83690; 83735; 84484; 85025; 93005; 96360; 99291

== ENCOUNTER → 2022-09-10 | Outpatient (CLI) | payer MEDICARE, OTHER ==
--- NOTE | 2022-09-10 10:22 | CT ---
EXAMINATION TYPE: CT brain wo con CT DLP: 1183 mGycm, Automated exposure control for dose reduction was used. DATE OF EXAM: 09/10/2022 9:52 AM COMPARISON: 07/26/2022. CLINICAL INDICATION:Male, 71 years old with history of Z98.890, Follow up for brain surgery. Patient poor historian. TECHNIQUE: Brain: Axial CT images of the brain were obtained with coronal and sagittal reformats created and rev iewed. Contrast used: None. Oral contrast used: None. FINDINGS: Brain: Extra-axial spaces: Metallic artifact limits evaluation slightly. Decrease in right extra-axial fluid collection on today's exam when comparing to prior. Now measuring up to 9 mm in thickness on the rig ht, previously 19 mm and on the left measuring up to 7 mm, previously 16 mm. Higher density areas are seen in both fluid collections compared to prior. Ventricular system: Dilatation in proportion to cerebral atrophy. Cerebral parenchyma: Cerebral atrophy. No acute intraparenchymal hemorrhage or mass effect. The azul -white junction is well differentiated. Cerebellum: Unremarkable. Mass effect: No evidence of midline shift. Intracranial vasculature: unremarkable Soft tissues: Calvarium/osseous structures: No depressed skull fracture. Postsurgical changes to the calvarium juan david holes present bilaterally. Paranasal sinuses and mastoid air cells: Mild scattered paranasal sinus disease. Visualized orbits: Orbital contents are intact. IMPRESSION: 1. Interval decrease in bilateral subdural hemorrhages. There is suspected acute on chronic componen t bilaterally with some higher density areas present in both fluid collections. 2. No evidence for midline shift.
== END | disposition home or self-care (01) ==
LOC: RADCTMAIN 09:26 → EEVIPCON 09:45
PROVIDERS: ATTEND Physician Assistant
DX: I62.00 Nontraumatic subdural hemorrhage, unspecified (principal); Z98.890 Other specified postprocedural states
CPT/HCPCS: 70450

== ENCOUNTER 2022-09-22 00:15 | Inpatient (IN) | payer MEDICARE, OTHER ==
[2022-09-22] MEDS ORDERED: FUROSEMIDE 10 MG/ML 4 ML VIAL IV STA (01:06)
[2022-09-22 01:12] LABS: ALT 14 U/L (4-49); AST 23 U/L (17-59); African American GFR (CKD) 59 (>60 ml/min/1.73 sqM); Albumin 4.1 g/dL (3.5-5.0); Alkaline Phosphatase 84 U/L (38-126); Anion Gap 11 mmol/L; Blood Urea Nitrogen 28 mg/dL (9-20); Calcium 9.1 mg/dL (8.4-10.2); Carbon Dioxide 28 mmol/L (22-30); Chloride 99 mmol/L (98-107); Glucose 178 mg/dL (74-99); Magnesium 1.9 mg/dL (1.6-2.3); Non-African American GFR(CKD) 51 (>60 ml/min/1.73 sqM); Potassium 4.8 mmol/L (3.5-5.1); Sodium 138 mmol/L (137-145); Total Protein 7.8 g/dL (6.3-8.2)
[2022-09-22 01:14] LABS: Anisocytosis Slight; Basophils % (A) 0 %; Eosinophils % (A) 0 %; HCT 37.3 % (39.0-53.0); HGB 11.5 gm/dL (13.0-17.5); Hypochromasia Moderate; Lymphocytes # (A) 0.7 k/uL (1.0-4.8); Lymphocytes % (A) 8 %; MCH 32.3 pg (25.0-35.0); MCHC 30.8 g/dL (31.0-37.0); MCV 104.8 fL (80.0-100.0); Macrocytosis Moderate; Mean Platelet Volume 7.8; Monocytes # (A) 0.5 k/uL (0-1.0); Monocytes % (A) 6 %; Neutrophils # (A) 7.1 k/uL (1.3-7.7); Neutrophils % (A) 83 %; Partial Thromboplastin Time 23.9 sec (22.0-30.0); Platelet Count 232 k/uL (150-450); Prothrombin Time 10.3 sec (9.0-12.0); RBC 3.56 m/uL (4.30-5.90); RDW 16.5 % (11.5-15.5); WBC 8.6 k/uL (3.8-10.6)
--- NOTE | 2022-09-22 02:32 | XR ---
EXAM: XR Chest, 1 View CLINICAL HISTORY: ITS.REASON XR Reason: dyspnea TECHNIQUE: Frontal view of the chest. COMPARISON: No relevant prior studies available. IMPRESSION: Cardiomegaly. Mild to moderate vascular congestion. Possible trace right effusion
[2022-09-22] MEDS ORDERED: NALOXONE 0.4 MG/ML 1 ML VIAL IV PRN (02:49)
--- NOTE | 2022-09-22 02:54 | ED ---
General Adult HPI - General Chief complaint: Shortness of Breath Stated complaint: Difficulty breathing Time Seen by Provider: 09/22/22 00:35 Source: patient, EMS, RN notes reviewed, old records reviewed Mode of arrival: EMS Limitations: no limitations - History of Present Illness Initial comments: Patient is a 71-year-old male with past medical history remarkable for suspected CHF, A. fib, diabetes, chronic hypoxic respiratory failure on 2 L nasal cannula at home presents to the emergency Department complaining of shortness of breath. Patient was found with low oxygen at his nursing facility. Is supposed. Nausea was not using it. States he has been having increased shortness of breath for the last few days to weeks. Also notes increased worsening lower extremity edema as well as orthopnea. States he is compliant with medications. Denies chest pain or abdominal pain. Denies nausea or vomiting. Endorses a nonproductive cough. His no other acute complaints at this time. Presents over concern for shortness of breath. - Related Data Home Medications Medication Instructions Recorded Confirmed Amiodarone [Cordarone] 200 mg PO DAILY@0800 08/02/20 07/26/22 Cyanocobalamin [Vitamin B-12] 500 mcg PO HS 08/02/20 07/26/22 Levothyroxine Sodium [Synthroid] 100 mcg PO DAILY 08/02/20 07/26/22 Liraglutide [Victoza 3-Ramírez] 1.8 mg SQ DAILY 08/02/20 07/26/22 Melatonin 5 mg PO HS 08/02/20 07/26/22 Multivitamins, Thera [Multivitamin 1 tab PO DAILY 08/02/20 07/26/22 (formulary)] Rivaroxaban [Xarelto] 20 mg PO HS 08/02/20 07/26/22 Atorvastatin [Lipitor] 10 mg PO HS 07/26/22 07/26/22 Cholecalciferol [Vitamin D3 (25 75 mcg PO DAILY 07/26/22 07/26/22 Mcg = 1000 Iu)] Divalproex [Depakote] 250 mg PO BID@0800,1600 07/26/22 07/26/22 Furosemide [Lasix] 40 mg PO BID@0800,199907/26/22 07/26/22 Potassium Chloride ER [K-Dur 10] 20 meq PO BID@0800,199907/26/22 07/26/22 metFORMIN HCL 1,000 mg PO HS 07/26/22 07/26/22 metFORMIN HCL 500 mg PO DAILY 07/26/22 07/26/22 Previous Rx's Medication Instructions Recorded Acetaminophen Tab [Tylenol] 650 mg PO Q6HR PRN tab 08/17/20 Famotidine [Pepcid] 20 mg PO BID tab 08/17/20 acetaZOLAMIDE [Diamox] 250 mg PO BID #10 tab 08/17/20 Allergies Allergy/AdvReac Type Severity Reaction Status Date / Time No Known Allergies Allergy Verified 07/26/22 21:38 Review of Systems ROS Statement: Those systems with pertinent positive or pertinent negative responses have been documented in the HPI. Review of Systems: CONST: Denies fever EYES: Denies blurry vision ENT: Denies nasal congestion C/V: Denies Chest pain RESP: Endorses Shortness of breath GI: Denies abdominal pain : Denies dysuria SKIN: Denies rash. MSK: Denies joint pain. NEURO: Denies headache ROS Other: All systems not noted in ROS Statement are negative. Past Medical History Past Medical History: Atrial Fibrillation, Asthma, Diabetes Mellitus, Hyperlipidemia, Hypertension, Sleep Apnea/CPAP/BIPAP, Thyroid Disorder Additional Past Medical History / Comment(s): Diabetic oculopathy, obesity, leukopenia, gallstone, diarrhea, mentally disabled, gout, peripheral neuropothy, gait dysfunction- uses motorized scooter, degenerative joint disorder, supposed to wear cpap at home but is non compliant History of Any Multi-Drug Resistant Organisms: Unobtainable Past Surgical History: Cholecystectomy, Hernia Repair Additional Past Surgical History / Comment(s): L inguinal hernia repair, last colonoscopy 2002 Past Anesthesia/Blood Transfusion Reactions: Unable to Obtain Past Psychological History: No Psychological Hx Reported Smoking Status: Unknown if ever smoked Past Alcohol Use History: Unable to Obtain Past Drug Use History: Unable to Obtain - Past Family History Mother Family Medical History: Unable to Obtain Father Family Medical History: Diabetes Mellitus General Exam - General Exam Comments Initial Comments: General: He is in mild respiratory distress. HEAD: Normal with no signs of head trauma. EYES: PERRLA, EOMI, conjunctiva normal, no discharge. ENT: Hearing grossly intact, normal oropharynx. RESPIRATORY: Course, crackly breath sounds bilaterally. Increased work of breathing. Hypoxic on 6 L nasal cannula to 90%. C/V: Irregular rate and rhythm. S1 and S2 auscultated, neck and bilateral lower extremity edema, peripheral pulses 2+ and intact throughout ABD: Abd is soft, nontender, nondistended EXT: Normal range of motion, no obvious deformity SKIN: No rashes or lesions observed on exposed skin. NEURO: Oriented 4. Limitations: no limitations Course Vital Signs 09/22/22 09/22/22 09/22/22 00:28 00:32 00:59 Temperature 97.8 F Pulse Rate 79 Respiratory 24 24 Rate Blood Pressure 170/82 O2 Sat by Pulse 91 L Oximetry Fraction of 35 Inspired Oxygen (FIO2) 09/22/22 09/22/22 09/22/22 01:32 03:00 04:00 Temperature Pulse Rate 75 61 Respiratory 24 20 Rate Blood Pressure 173/93 147/73 O2 Sat by Pulse 90 L 93 L Oximetry Fraction of 35 Inspired Oxygen (FIO2) Medical Decision Making - Medical Decision Making Was pt. sent in by a medical professional or institution (, PA, ELECTRIC METER TESTER HELPER, urgent care, hospital, or intermediate...) When possible be specific @ -No Did you speak to anyone other than the patient for history (EMS, parent, family, police, friend...)? What history was obtained from this source @ -No Did you review nursing and triage notes (agree or disagree)? Why? @ -I reviewed and agree with nursing and triage notes Were old charts reviewed (outside hosp., previous admission, EMS record, old EKG , old radiological studies, urgent care reports/EKG's, intermediate records)? Report findings @ -Old charts reviewed from 2020 Differential Diagnosis (chest pain, altered mental status, abdominal pain women, abdominal pain men, vaginal bleeding, weakness, fever, dyspnea, syncope, headache, dizziness, GI bleed, back pain, seizure, CVA, palpatations, mental hea lth, musculoskeletal)? @ -Differential Dyspnea: Coronary syndrome, arrhythmia, tamponade, asthma, COPD, pulmonary embolism, pneumonia, pneumothorax, pulmonary effusion, anaphylaxis, diabetic ketoacidosis, flailed chest, pulmonary contusion, diaphragmatic rupture, anemia, neuromu scular, this is not meant to be an all-inclusive list. EKG interpreted by me (3pts min.). @ -As above X-rays interpreted by me (1pt min.). @ -X-ray shows significant bilateral pulmonary vascular congestion as well as pleural effusion CT interpreted by me (1pt min.). @ -None done U/S interpreted by me (1pt. min.). @ -None done What testing was considered but not performed or refused? (CT, X-rays, U/S, labs)? Why? @ -None What meds were considered but not given or refused? Why? @ -None Did you discuss the management of the patient with other professionals (professionals i.e. , PA, ELECTRIC METER TESTER HELPER, lab, RT, psych nurse, neonatal social worker, coldfusion, teacher, security officer, manager of case management)? Give summary @ -Discussed case with the admitting physician Dr. Hoffmann who accepted the patient. Was smoking cessation discussed for >3mins.? @ -No Was critical care preformed (if so, how long)? @ -Yes, 36 minutes Were there social determinants of health that impacted care today? How? (Homelessness, low income, unemployed, alcoholism, drug addiction, transp ortation, low edu. Level, literacy, decrease access to med. care, shelter, rehab)? @ -No Was there de-escalation of care discussed even if they declined (Discuss DNR or withdrawal of care, Hospice)? DNR status @ -No What co-morbidities impacted this encounter? (DM, HTN, Smoking, COPD, CAD, Cancer, CVA, ARF, Chemo, Hep., AIDS, mental health diagnosis, sleep apnea, morbid obesity)? @ -CHF, A. fib Was patient admitted / discharged? Hospital course, mention meds given and route, prescriptions, significant lab abnormalities, going to OR and other pertinent info. @ -Based on the patient's presentation and physical exam, presents in hypoxic respiratory failure. His chronic hypoxic respiratory failure but appears to be having worsening symptoms. His requiring 6 L nasal cannula to maintain saturations of 90% but we will increase action supplementation with BiPAP at this time. He was in agreement with this plan. It appears he has pulmonary vascular congestion on x-ray. Patient clinically presents as a CHF exacerbation however BNP is within acceptable limits for his age. Troponin is undetectable. Slightly increased creatinine which appears to be chronic. Patient has chronic anemia as well. No other findings. Patient did improve on BiPAP. I would like to admit him to the hospital at this time. He was in agreement this plan. He was started on IV Lasix. Cardiology and pulmonology will both be consulted. Despite the BNP being low, I do believe this is a CHF exacerbation with his history as well as presentation. Low suspicion for infection this time as there is no white count, no fever, no productive cough. Atypical presentation for pneumonia. Vital signs are negative. He was in agreement this plan. I spoke with the admitting team, Dr. Hoffmann accepted the patient. Echo was ordered. Undiagnosed new problem with uncertain prognosis? @ -No Drug Therapy requiring intensive monitoring for toxicity (Heparin, Nitro, Insulin, Cardizem)? @ -No Were any procedures done? @ -No Diagnosis/symptom? @ -Acute on chronic hypoxic respiratory failure requiring BiPAP, CHF exacerbation Acute, or Chronic, or Acute on Chronic? @ -Acute Uncomplicated (without systemic symptoms) or Complicated (systemic symptoms)? @ -Complicated Side effects of treatment? @ -No Exacerbation, Progression, or Severe Exacerbation? @ -Exacerbation Poses a threat to life or bodily function? How? (Chest pain, [place], [place], pneumonia, PE, COPD, DKA, ARF, appy, cholecystitis, CVA, Diverticulitis, Homicidal, Suicidal, threat to staff... and all critical care pts) @ -Yes - Lab Data Result diagrams: 09/22/22 00:43 09/22/22 00:43 Lab Results 09/22/22 09/22/22 09/22/22 Range/Units 00:43 00:43 00:43 WBC 8.6 (3.8-10.6) k/uL RBC 3.56 L (4.30-5.90) m/uL Hgb 11.5 L (13.0-17.5) gm/dL Hct 37.3 L (39.0-53.0) % MCV 104.8 H (80.0-100.0) fL MCH 32.3 (25.0-35.0) pg MCHC 30.8 L (31.0-37.0) g/dL RDW 16.5 H (11.5-15.5) % Plt Count 232 (150-450) k/uL MPV 7.8 Neutrophils % 83 % Lymphocytes % 8 % Monocytes % 6 % Eosinophils % 0 % Basophils % 0 % Neutrophils # 7.1 (1.3-7.7) k/uL Lymphocytes # 0.7 L (1.0-4.8) k/uL Monocytes # 0.5 (0-1.0) k/uL Eosinophils # 0.0 (0-0.7) k/uL Basophils # 0.0 (0-0.2) k/uL Hypochromasia Moderate Anisocytosis Slight Macrocytosis Moderate PT 10.3 (9.0-12.0) sec INR 1.0 (<1.2) APTT 23.9 (22.0-30.0) sec Sodium 138 (137-145) mmol/L Potassium 4.8 (3.5-5.1) mmol/L Chloride 99 (98-107) mmol/L Carbon Dioxide 28 (22-30) mmol/L Anion Gap 11 mmol/L BUN 28 H (9-20) mg/dL Creatinine 1.40 H (0.66-1.25) mg/dL Est GFR (CKD-EPI)AfAm 59 (>60 ml/min/1.73 sqM) Est GFR (CKD-EPI)NonAf 51 (>60 ml/min/1.73 sqM) Glucose 178 H (74-99) mg/dL Calcium 9.1 (8.4-10.2) mg/dL Magnesium 1.9 (1.6-2.3) mg/dL Total Bilirubin 1.0 (0.2-1.3) mg/dL AST 23 (17-59) U/L ALT 14 (4-49) U/L Alkaline Phosphatase 84 (38-126) U/L Troponin I (0.000-0.034) ng/mL NT-Pro-B Natriuret Pep pg/mL Total Protein 7.8 (6.3-8.2) g/dL Albumin 4.1 (3.5-5.0) g/dL Influenza Type A (PCR) (Not Detectd) Influenza Type B (PCR) (Not Detectd) RSV (PCR) (Not Detectd) SARS-CoV-2 (PCR) (Not Detectd) 09/22/22 09/22/22 09/22/22 Range/Units 00:43 00:43 00:43 WBC (3.8-10.6) k/uL RBC (4.30-5.90) m/uL Hgb (13.0-17.5) gm/dL Hct (39.0-53.0) % MCV (80.0-100.0) fL MCH (25.0-35.0) pg MCHC (31.0-37.0) g/dL RDW (11.5-15.5) % Plt Count (150-450) k/uL MPV Neutrophils % % Lymphocytes % % Monocytes % % Eosinophils % % Basophils % % Neutrophils # (1.3-7.7) k/uL Lymphocytes # (1.0-4.8) k/uL Monocytes # (0-1.0) k/uL Eosinophils # (0-0.7) k/uL Basophils # (0-0.2) k/uL Hypochromasia Anisocytosis Macrocytosis PT (9.0-12.0) sec INR (<1.2) APTT (22.0-30.0) sec Sodium (137-145) mmol/L Potassium (3.5-5.1) mmol/L Chloride (98-107) mmol/L Carbon Dioxide (22-30) mmol/L Anion Gap mmol/L BUN (9-20) mg/dL Creatinine (0.66-1.25) mg/dL Est GFR (CKD-EPI)AfAm (>60 ml/min/1.73 sqM) Est GFR (CKD-EPI)NonAf (>60 ml/min/1.73 sqM) Glucose (74-99) mg/dL Calcium (8.4-10.2) mg/dL Magnesium (1.6-2.3) mg/dL Total Bilirubin (0.2-1.3) mg/dL AST (17-59) U/L ALT (4-49) U/L Alkaline Phosphatase (38-126) U/L Troponin I <0.012 (0.000-0.034) ng/mL NT-Pro-B Natriuret Pep 611 pg/mL Total Protein (6.3-8.2) g/dL Albumin (3.5-5.0) g/dL Influenza Type A (PCR) Not Detected (Not Detectd) Influenza Type B (PCR) Not Detected (Not Detectd) RSV (PCR) Not Detected (Not Detectd) SARS-CoV-2 (PCR) Not Detected (Not Detectd) - EKG Data -: EKG Interpreted by Me EKG Comments: 12-lead Electrocardiogram Interpretation Note EKG was reviewed and interpreted by myself. 12-lead ECG performed at 0048 is interpreted by me as revealing atrial fibrillation at a rate of 80 beats per minute. An indeterminate axis with incomplete right bundle branch block. QRS duration 119 ms, QTc is 450 ms. There were no ST or T wave abnormalities to suggest myocardial ischemia or injury. R wave progression across the precordium was satisfactory. By my interpretation this EKG is non-diagnostic for acute ischemia. Critical Care Time Critical Care Time: Yes Total Critical Care Time: 36 Disposition Clinical Impression: CHF exacerbation, Acute respiratory failure with hypoxia, Chronic respiratory failure with hypoxia Disposition: ADMITTED IP TO THIS HOSP Condition: Serious Time of Disposition: 02:32
[2022-09-22 03:57] LABS: Appearance,Urine Clear (Clear); Bilirubin,Urine Negative (Negative); Blood,Urine Negative (Negative); Color,Urine Light Yellow; Glucose,Urine (UA) Negative (Negative); Ketones,Urine Negative (Negative); Leukocyte Esterase,Urine Moderate (Negative); Mucus,Urine Rare /hpf; Nitrite,Urine Negative (Negative); Protein,Urine Negative (Negative); RBC,Urine 1 /hpf (0-5); Specific Gravity,Urine 1.009 (1.001-1.035); Urobilinogen,Urine <2.0 mg/dL (<2.0); WBC,Urine 1 /hpf (0-5)
[2022-09-22] MEDS ORDERED: DEXTROSE 50% SYRINGE 50 ML IVP PRN ×2 (07:22)
[2022-09-22 07:34] LABS: Glucose,Whole Blood 103 mg/dL (70-110)
[2022-09-22] MEDS: INSULIN ASPART (NovoLOG) 100 UNIT/ML VIAL SQ SCH ×4 (07:37→20:53)
--- NOTE | 2022-09-22 07:49 | P.CNPUL ---
History of Present Illness Consult date: 09/22/22 Requesting physician: Keyshawn Parada Reason for consult: other (Acute hypoxemic respiratory failure on BiPAP) Chief complaint: Was found to be hypoxic at long-term History of present illness: I am seeing this patient in new consultation today 09/22/2022 for possible CHF exacerbation. Patient is a 71-year-old white male with past medical history significant for paroxysmal atrial fibrillation (on Xarelto), diabetes mellitus type 2, hypertension, hyperlipidemia, hypothyroidism, and mental disability. Patient presented to emergency room earlier this morning after being found to be short of breath and hypoxic at long-term. Patient resides at [facility]. Patient denies any fevers, chills, cough, chest pain. He does report orthopnea and increased lower extremity swelling. He normally sleeps with 2 pillows. Patient is currently sitting up in bed, on BiPAP with settings 12/6 and FiO2 of 35%, in no acute distress. He seems to be tolerating the BiPAP quite well. His respiratory rate is 22 and tidal volumes are around 500. Chest x-ray on arrival showed mild to moderate vascular congestion and possible right pleural effusion. NT proBNP was only 611. Patient was started on Lasix 40 mg twice a day. CBC on arrival was unremarkable. BMP shows sodium 138, potassium 4.8, chloride 99, serum bicarbonate 28, BUN 28, creatinine 1.4, glucose 178. Urinalysis shows moderate leukocyte esterase, patient denies any urinary symptoms. Troponins less than 0.012 2. ECG shows no obvious ischemic changes. Negative for influenza, RSV, COVID-19. Patient will be admitted to cardiac stepdown unit once bed available. Review of Systems REVIEW OF SYSTEMS: CONSTITUTIONAL: Denies any recent significant weight loss or weight gain. EYES: Denies change in vision. EARS, NOSE, MOUTH, THROAT: Denies headaches, denies sore throat. CARDIOVASCULAR: Denies chest pain, palpitations or syncopal episodes. Admits increased lower extremity swelling. RESPIRATORY: See HPI. GASTROINTESTINAL: Denies change in appetite, abdominal pain, nausea and vomiting, or diarrhea GENITOURINARY: Denies hematuria, denies infections. MUSKULOSKELETAL: Denies pain, denies swelling. INTEGUMENTARY: Denies rash, denies eczema. NEUROLOGICAL: Denies recent memory loss, no recent seizure activity. PSYCHIATRIC: Denies anxiety, denies depression. HEMATOLOGIC/LYMPHATIC: Denies anemia, denies enlarged lymph node Past Medical History Past Medical History: Atrial Fibrillation, Asthma, Diabetes Mellitus, Hyperli pidemia, Hypertension, Sleep Apnea/CPAP/BIPAP, Thyroid Disorder Additional Past Medical History / Comment(s): Diabetic oculopathy, obesity, leukopenia, gallstone, diarrhea, mentally disabled, gout, peripheral neuropothy, gait dysfunction- uses motorized scooter, degenerative joint disorder, supposed to wear cpap at home but is non compliant History of Any Multi-Drug Resistant Organisms: Unobtainable Past Surgical History: Cholecystectomy, Hernia Repair Additional Past Surgical History / Comment(s): L inguinal hernia repair, last colonoscopy 2002 Past Anesthesia/Blood Transfusion Reactions: Unable to Obtain Past Psychological History: No Psychological Hx Reported Smoking Status: Unknown if ever smoked Past Alcohol Use History: Unable to Obtain Past Drug Use History: Unable to Obtain - Past Family History Mother Family Medical History: Unable to Obtain Father Family Medical History: Diabetes Mellitus Medications and Allergies Home Medications Medication Instructions Recorded Confirmed Type Amiodarone [Cordarone] 200 mg PO DAILY 08/02/20 09/22/22 History Cyanocobalamin [Vitamin B-12] 500 mcg PO PC-LUNCH 08/02/20 09/22/22 History Levothyroxine Sodium [Synthroid] 100 mcg PO DAILY 08/02/20 09/22/22 History Liraglutide [Victoza 3-Ramírez] 1.8 mg SQ DAILY 08/02/20 09/22/22 History Melatonin 5 mg PO HS PRN 08/02/20 09/22/22 History Acetaminophen Tab [Tylenol] 650 mg PO Q6HR PRN tab 08/17/20 09/22/22 Rx Atorvastatin [Lipitor] 10 mg PO HS 07/26/22 09/22/22 History Divalproex [Depakote] 250 mg PO BID@0800,1600 07/26/22 09/22/22 History metFORMIN HCL 1,000 mg PO HS 07/26/22 09/22/22 History metFORMIN HCL 500 mg PO DAILY 07/26/22 09/22/22 History Furosemide [Lasix] 40 mg PO DAILY 09/22/22 09/22/22 History Meclizine [Antivert] 12.5 mg PO Q8HR PRN 09/22/22 09/22/22 History Potassium Chloride [Klor-Con M20] 20 meq PO DAILY 09/22/22 09/22/22 History Sodium Chloride [Saline Mist] 1 spray EA NOSTRIL Q2H PRN 09/22/22 09/22/22 History amLODIPine [Norvasc] 5 mg PO DAILY 09/22/22 09/22/22 History Allergies Allergy/AdvReac Type Severity Reaction Status Date / Time No Known Allergies Allergy Verified 09/22/22 06:55 Physical Exam Vitals: Vital Signs Temp Pulse Resp BP Pulse Ox FiO2 09/22/22 04:00 35 09/22/22 03:00 61 20 147/73 93 L 09/22/22 01:32 75 24 173/93 90 L 09/22/22 00:59 35 09/22/22 00:32 24 09/22/22 00:28 97.8 F 79 24 170/82 91 L Intake and Output 09/21/22 09/21/22 09/22/22 14:59 22:59 06:59 Other: Weight 104.326 kg GENERAL EXAM: Alert, 71-year-old white male on the BiPAP, fairly comfortable in no apparent distress. HEAD: Normocephalic and atraumatic EYES: Normal reaction of pupils, equal size. NOSE: Clear with pink turbinates. THROAT: No erythema or exudates. Enlarged tongue NECK: No masses, no JVD. CHEST: No chest wall deformity. LUNGS: Equal air entry with bibasilar inspiratory crackles. No wheeze, rhonchi or dullness. On BiPAP settings 12/6 and FiO2 of 35%. No conversational dyspnea or accessory muscle use.. CVS: S1 and S2 normal with no audible murmur, regular rhythm. No extra heart sounds ABDOMEN: Obese abdomen, no hepatosplenomegaly, active bowel sounds, no guarding or rigidity. SPINE: No scoliosis or deformity SKIN: No rashes CENTRAL NERVOUS SYSTEM: No focal deficits, tone is normal in all 4 extremities. EXTREMITIES: There is bilateral 1+ pitting edema of the bilateral lower extremities. There are chronic venous stasis changes of the lower extremities. No clubbing, or cyanosis. Peripheral pulses are intact. Results - Laboratory Findings CBC and BMP: 09/22/22 00:43 09/22/22 00:43 PT/INR, D-dimer PT 10.3 sec (9.0-12.0) 09/22/22 00:43 INR 1.0 (<1.2) 09/22/22 00:43 Abnormal lab findings: Abnormal Labs 09/22/22 09/22/22 09/22/22 00:43 00:43 03:25 RBC 3.56 L Hgb 11.5 L Hct 37.3 L MCV 104.8 H MCHC 30.8 L RDW 16.5 H Lymphocytes # 0.7 L BUN 28 H Creatinine 1.40 H Glucose 178 H Ur Leukocyte Esterase Moderate H Urine Mucus Rare H - Diagnostic Findings Chest x-ray: image reviewed Assessment and Plan Assessment: Acute hypoxemic respiratory failure, currently on BiPAP, possibly secondary to CHF exacerbation. Chest x-ray shows mild to moderate vascular congestion with possible right trace pleural effusion. NT proBNP only 611. Acute kidney injury, creatinine 1.4 History of paroxysmal atrial fibrillation, normally anticoagulated on Xarelto. Currently in normal sinus rhythm History of moderate to severe pulmonary hypertension and moderate to severe tricuspid regurgitation Previous history of massive pulmonary emboli based on the CAT scan of the chest was done January 2016 along with evidence of pulmonary arterial hypertension based on CAT scan criteria. Also, the patient had previous history of ventilatory dependent respiratory failure and back then he required thrombolytics. This was back in 2015. He also DVT of the lower extremity on the right right. Diabetes mellitus type 2, [id number] Benign essential hypertension Hyperlipidemia Morbid obesity, LA 37 Mental disability Plan: Patient's medications, labs, chest x-ray reviewed Continue BiPAP therapy for now Patient is being diuresed with 40 mg every 12 Echocardiogram is pending Start NovoLog sliding scale insulin We will continue to follow I have personally seen and examined the patient, performed the documentation and the assessment and plan as written. Number of minutes spent on the visit:20 There is a joint evaluation that was done along with the nurse practitioner. This evaluation was done in more than 30 minutes. The patient was seen and examined. The patient chest x-rays consistent with CHF. The patient is currently on Lasix 40 mg IV every 12 hours. The patient is on room air oxygen and seems to be quite comfortable at this point in time. He is also on long- term anticoagulation as the patient has paroxysmal A. fib. He had an echocardiogram that showed an ejection fraction at this 55-60%. No significant valvular abnormalities have been noted. This is contrary to previous evaluation has shown significant pulmonary hypertension is patient with a PA pressure of 87 along with concentric LVH moderate in severity. I suspect the patient has a component of diastolic heart failure. On his chest x-ray, has chronic right- sided pleural effusion thickening. We'll repeat a chest x-ray within next 24-48 hours. We'll obtain a CAT scan of the chest if no improvement chest x-ray findings. This evaluation was done in joint evaluation with the nurse practitioner. Time with Patient: Greater than 30
[2022-09-22 08:20] LABS: VBG PH 7.59 (7.31-7.41)
[2022-09-22] MEDS ORDERED: MELATONIN 5 MG TABLET PO PRN (09:09)
--- NOTE | 2022-09-22 10:16 | CA ---
Transthoracic Echo Report Name: Moi Alatorre Age: 71 Gender: M : 1950 Exam Date: 09/22/2022 08:15 Exam Location: [facility] Ht (in): 66 Wt (lb): 230 Ordering Physician: Keyshawn Parada MD Attending/Referring Phys: Paper Handler Eliel Rahman Procedure CPT: Indications: chf Cardiac Hx: Technical Quality: Fair Contrast 1: Total Dose (mL): Contrast 2: Total Dose (mL): MEASUREMENTS (Male / Female) Normal Values 2D ECHO LV Diastolic Diameter PLAX 4.9 cm 4.2 - 5.9 / 3.9 - 5.3 cm LV Systolic Diameter PLAX 2.6 cm IVS Diastolic Thickness 1.3 cm 0.6 - 1.0 / 0.6 - 0.9 cm LVPW Diastolic Thickness 1.1 cm 0.6 - 1.0 / 0.6 - 0.9 cm LV Relative Wall Thickness 0.5 RV Internal Dim ED PLAX 3.0 cm LVOT Diameter 2.0 cm Aortic Root Diameter 2.8 cm LA Systolic Diameter LX 3.2 cm 3.0 - 4.0 / 2.7 - 3.8 cm LV Diastolic Volume MOD BP 58.8 cm??? 67 - 155 / 56 - 104 cm??? LV Systolic Volume MOD BP 22.4 cm??? 22 - 58 / 19 - 49 cm??? LV Ejection Fraction MOD BP 61.9 % >= 55 % LV Diastolic Volume MOD 4C 68.0 cm??? LV Systolic Volume MOD 4C 23.0 cm??? LV Ejection Fraction MOD 4C 66.2 % LV Diastolic Length 4C 7.5 cm LV Systolic Length 4C 6.6 cm LV Diastolic Volume MOD 2C 48.8 cm??? LV Systolic Volume MOD 2C 21.1 cm??? LV Ejection Fraction MOD 2C 56.8 % LV Diastolic Length 2C 7.1 cm LV Systolic Length 2C 6.1 cm LA Volume 51.4 cm??? 18 - 58 / 22 - 52 cm??? Ascending Aorta Diameter 2.9 cm DOPPLER AV Peak Velocity 147.4 cm/s AV Peak Gradient 8.7 mmHg LVOT Peak Velocity 120.7 cm/s LVOT Peak Gradient 5.8 mmHg AV Area Cont Eq pk 2.5 cm??? MV Peak Velocity 145.1 cm/s MV Peak Gradient 8.4 mmHg MV Mean Velocity 74.8 cm/s MV Mean Gradient 2.9 mmHg MV Velocity Time Integral 45.2 cm Mitral E Point Velocity 112.0 cm/s Mitral A Point Velocity 115.4 cm/s Mitral E to A Ratio 1.0 MV Deceleration Time 264.3 ms TR Peak Velocity 180.2 cm/s TR Peak Gradient 13.0 mmHg Right Ventricular Systolic Press 18.1 mmHg PV Peak Velocity 132.7 cm/s PV Peak Gradient 7.0 mmHg FINDINGS Left Ventricle Normal LV size. Left ventricular ejection fraction is estimated at 55-60 %. Right Ventricle Normal right ventricular size. Right Atrium Normal right atrial size. Left Atrium Normal left atrial size. Mitral Valve Mild thickening/calcification of the anterior mitral valve leaflet. Aortic Valve Trileaflet aortic valve. No aortic valve stenosis or regurgitation. Tricuspid Valve Structurally normal tricuspid valve. Trace TR. Pulmonic Valve Pulmonic valve not well visualized. No pulmonic regurgitation. Pericardium Normal pericardium. Aorta Normal size aortic root and proximal ascending aorta. CONCLUSIONS Normal LV systolic function Previewed by: Dr. Elias Hanna MD (Electronically Signed) Final Date: 22 September 2022 10:15
[2022-09-22] MEDS: AMIODARONE 200 MG TAB PO SCH (10:52)
[2022-09-22] MEDS: metFORMIN 500 MG TAB PO SCH ×2 (10:53→20:53)
[2022-09-22] MEDS: DIVALPROEX 250 MG TABLET.DR PO SCH ×2 (10:53→16:46)
[2022-09-22] MEDS: POTASSIUM CHLORIDE ER 20 MEQ TAB.ER PO SCH (10:53)
[2022-09-22] MEDS: LEVOTHYROXINE 100 MCG TAB PO SCH (10:54)
[2022-09-22] MEDS: amLODIPine 5 MG TAB PO SCH (10:54)
[2022-09-22] MEDS: FUROSEMIDE 10 MG/ML 4 ML VIAL IV SCH ×2 (10:54→20:53)
[2022-09-22] MEDS: Liraglutide [Victoza 3-Pak] 0.6 MG/0.1 ML Pen.Injctr SQ SCH (11:05)
[2022-09-22 12:08] LABS: Glucose,Whole Blood 123 mg/dL (70-110)
--- NOTE | 2022-09-22 12:11 | P.CRDCN ---
History of Present Illness History of present illness: HISTORY OF PRESENT ILLNESS: This is a 71-year-old male with a past medical history significant for paroxysmal atrial fibrillation, asthma, diabetes, hypertension, hyperlipidemia, and hypothyroidism. 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 We have been asked to see the patient in consultation for congestive heart failure. Patient examined at the bedside in the emergency room. Patient states he presented to the hospital from [facility] with a chief complaint of shortness of breath. He states that his shortness of breath suddenly started yesterday. He reports having some mild chest pain yesterday but denies any chest pain at the time of examination. Patient denies any history of CAD or CHF. He denies dizziness or lightheadedness. The patient is currently on BiPAP at the time of examination. He has been started on IV Lasix. * EKG reveals sinus mechanism with no signs of acute ischemia * Chest xray mild to moderate vascular congestion. Possible trace right pleural effusion. * Laboratory data: WBC 8.6. Hemoglobin 11.5. Platelet count 232. Sodium 138. Sodium 4.8. BUN 28. Creatinine 1.40. Troponin negative 3. ProBNP 611. TSH 4.310. * Current home cardiac medications include amiodarone 200 mg daily, amlodipine 5 mg daily, Lipitor 10 mg at night, Lasix 40 mg daily * Echocardiogram completed reveals ejection fraction 55-60% with trace tricuspid regurgitation * Patient underwent ARABELLA in July 2020 revealing aortic valve is tricuspid and functioning normally. No aortic stenosis. Trace aortic insufficiency. Mitral valve appears to be normal with mild mitral regurgitation. Tricuspid valves appears to be normal without any vegetation. Limited views of the intra-atrial septum however is aneurysmal. LV function normal 55%. REVIEW OF SYSTEMS: At the time of my exam: CONSTITUTIONAL: Denies fever or chills. HEENT: Denies blurred vision, vision changes, or eye pain. Denies hemoptysis CARDIOVASCULAR: Denies chest pain. Denies orthopnea. Denies PND. Denies palpitations RESPIRATORY: + shortness of breath. GASTROINTESTINAL: Denies abdominal pain. Denies nausea or vomiting. HEMATOLOGIC: Denies bleeding disorders. GENITOURINARY: Denies any blood in urine. SKIN: Denies pruitis. Denies rash. PHYSICAL EXAM: VITAL SIGNS: Reviewed. GENERAL: Well-developed in no acute distress. HEENT: Head is normocephalic. Pupils are equal, round. Sclerae anicteric. Mucous membranes of the mouth are moist. Neck supple. No JVD or thyromegaly LUNGS: Respirations even and unlabored. Lungs essentially clear to auscultation bilaterally, diminished. HEART: Regular rate and rhythm. S1 and S2 heard. ABDOMEN: Soft. Nondistended. Nontender. EXTREMITIES: Normal range of motion. No clubbing or cyanosis. Peripheral pulses intact. 3+ bilateral lower extremity edema NEUROLOGIC: Awake and alert. Oriented x 3. ASSESSMENT: Shortness of breath Acute hypoxic respiratory failure requiring bipap Lower extremity edema, likely chronic, normal BNP at 611 with normal LV function History of pulmonary hypertension and moderate to severe tricuspid regurgitation, not evident on repeat echo this admission Acute kidney injury Paroxysmal atrial fibrillation Hypertension Hyperlipidemia Diabetes PLAN: 2D echo obtained and reviewed Resume home cardiac medications Resume Xarelto 20mg at HS Continue IV lasix for lower extremity edema TSH checked due to amio use and WNL Further recommendations pending patient course Nurse practitioner note has been reviewed by physician. Signing provider agrees with the documented findings, assessment, and plan of care. Past Medical History Past Medical History: Atrial Fibrillation, Asthma, Diabetes Mellitus, Hyperlipidemia, Hypertension, Sleep Apnea/CPAP/BIPAP, Thyroid Disorder Additional Past Medical History / Comment(s): Diabetic oculopathy, obesity, leukopenia, gallstone, diarrhea, mentally disabled, gout, peripheral neuropothy, gait dysfunction- uses motorized scooter, degenerative joint disorder, supposed to wear cpap at home but is non compliant History of Any Multi-Drug Resistant Organisms: Unobtainable Past Surgical History: Cholecystectomy, Hernia Repair Additional Past Surgical History / Comment(s): L inguinal hernia repair, last colonoscopy 2002 Past Anesthesia/Blood Transfusion Reactions: Unable to Obtain Past Psychological History: No Psychological Hx Reported Smoking Status: Unknown if ever smoked Past Alcohol Use History: Unable to Obtain Past Drug Use History: Unable to Obtain - Past Family History Mother Family Medical History: Unable to Obtain Father Family Medical History: Diabetes Mellitus Medications and Allergies Home Medications Medication Instructions Recorded Confirmed Type Amiodarone [Cordarone] 200 mg PO DAILY 08/02/20 09/22/22 History Cyanocobalamin [Vitamin B-12] 500 mcg PO PC-LUNCH 08/02/20 09/22/22 History Levothyroxine Sodium [Synthroid] 100 mcg PO DAILY 08/02/20 09/22/22 History Liraglutide [Victoza 3-Ramírez] 1.8 mg SQ DAILY 08/02/20 09/22/22 History Melatonin 5 mg PO HS PRN 08/02/20 09/22/22 History Acetaminophen Tab [Tylenol] 650 mg PO Q6HR PRN tab 08/17/20 09/22/22 Rx Atorvastatin [Lipitor] 10 mg PO HS 07/26/22 09/22/22 History Divalproex [Depakote] 250 mg PO BID@0800,1600 07/26/22 09/22/22 History metFORMIN HCL 1,000 mg PO HS 07/26/22 09/22/22 History metFORMIN HCL 500 mg PO DAILY 07/26/22 09/22/22 History Furosemide [Lasix] 40 mg PO DAILY 09/22/22 09/22/22 History Meclizine [Antivert] 12.5 mg PO Q8HR PRN 09/22/22 09/22/22 History Potassium Chloride [Klor-Con M20] 20 meq PO DAILY 09/22/22 09/22/22 History Sodium Chloride [Saline Mist] 1 spray EA NOSTRIL Q2H PRN 09/22/22 09/22/22 History amLODIPine [Norvasc] 5 mg PO DAILY 09/22/22 09/22/22 History Allergies Allergy/AdvReac Type Severity Reaction Status Date / Time No Known Allergies Allergy Verified 09/22/22 06:55 Physical Exam Vitals: Vital Signs Temp Pulse Resp BP Pulse Ox FiO2 09/22/22 08:12 35 09/22/22 07:34 72 20 158/84 92 L 09/22/22 04:00 35 09/22/22 03:00 61 20 147/73 93 L 09/22/22 01:32 75 24 173/93 90 L 09/22/22 00:59 35 09/22/22 00:32 24 09/22/22 00:28 97.8 F 79 24 170/82 91 L Intake and Output 09/21/22 09/22/22 09/22/22 22:59 06:59 14:59 Other: Weight 104.326 kg Results 09/22/22 00:43 09/22/22 00:43 Cardiac Enzymes 09/22/22 09/22/22 09/22/22 Range/Units 00:43 00:43 04:36 AST 23 (17-59) U/L Troponin I <0.012 <0.012 (0.000-0.034) ng/mL Coagulation 09/22/22 Range/Units 00:43 PT 10.3 (9.0-12.0) sec APTT 23.9 (22.0-30.0) sec CBC 09/22/22 Range/Units 00:43 WBC 8.6 (3.8-10.6) k/uL RBC 3.56 L (4.30-5.90) m/uL Hgb 11.5 L (13.0-17.5) gm/dL Hct 37.3 L (39.0-53.0) % Plt Count 232 (150-450) k/uL Comprehensive Metabolic Panel 09/22/22 Range/Units 00:43 Sodium 138 (137-145) mmol/L Potassium 4.8 (3.5-5.1) mmol/L Chloride 99 (98-107) mmol/L Carbon Dioxide 28 (22-30) mmol/L BUN 28 H (9-20) mg/dL Creatinine 1.40 H (0.66-1.25) mg/dL Glucose 178 H (74-99) mg/dL Calcium 9.1 (8.4-10.2) mg/dL AST 23 (17-59) U/L ALT 14 (4-49) U/L Alkaline Phosphatase 84 (38-126) U/L Total Protein 7.8 (6.3-8.2) g/dL Albumin 4.1 (3.5-5.0) g/dL Current Medications Generic Name Dose Route Start Last Admin Trade Name Freq PRN Reason Stop Dose Admin Dextrose/Water 25 ml 09/22/22 07:22 Dextrose 50% Syringe 50 Ml IVP PER PROTOCOL PRN Hypoglycemia Protocol Dextrose/Water 50 ml 09/22/22 07:22 Dextrose 50% Syringe 50 Ml IVP PER PROTOCOL PRN Hypoglycemia Protocol Furosemide 40 mg 09/22/22 09:00 Furosemide 10 Mg/Ml 4 Ml Vial IV Q12HR [facility]–1983 Insulin Aspart 0 unit 09/22/22 07:30 09/22/22 07:37 Insulin Aspart (Novolog) 100 Unit/Ml Vial SQ Not Given ACHS [facility], 1928–1983 Protocol Naloxone HCl 0.2 mg 09/22/22 02:49 Naloxone 0.4 Mg/Ml 1 Ml Vial IV Q2M PRN Opioid Reversal Intake and Output 09/21/22 09/22/22 09/22/22 22:59 06:59 14:59 Other: Weight 104.326 kg 09/22/22 00:43 09/22/22 00:43
[2022-09-22] MEDS: CYANOCOBALAMIN 500 MCG TAB PO SCH (16:46)
[2022-09-22 16:58] LABS: Glucose,Whole Blood 91 mg/dL (70-110)
[2022-09-22] MEDS: RIVAROXABAN 20 MG TAB PO SCH (17:55)
[2022-09-22 19:58] LABS: Glucose,Whole Blood 170 mg/dL (70-110)
--- NOTE | 2022-09-22 20:19 | P.HPIM ---
History of Present Illness H&P Date: 09/22/22 Chief Complaint: Short of breath 71-year-old patient, resident of [facility], being followed by Dr. Brand.. By the EMS staff at the [facility] on the pulse ox to be 50% on room air. Patient normally wears 2 L of oxygen. Had removed it. They 0.6 L on and pulse ox is 93%. Patient is breathing more heavily. EKG at the site showed patient to be in sinus rhythm. And brought to the ER. Patient has a dry cough. No fever no chills. Appetite is fair. He can walk a few steps with a walker. Review of systems: GEN.: Tired EYES: None HEENT: None NECK: None RESPIRATORY: As above CARDIOVASCULAR: No chest pain GASTROINTESTINAL: None GENITOURINARY: None MUSCULOSKELETAL: Joint pains LYMPHATICS: None HEMATOLOGICAL: None PSYCHIATRY: None NEUROLOGICAL: None Past medical history to include: Atrial fibrillation, asthma, diabetes, hypertension, hyperlipidemia obstructive sleep apnea, diabetic neuropathy, leukemia, gallstones, medically disabled, gout, peripheral neuropathy, as use a motorized scooter. DJD. Noncompliant with CPAP. Social history: Unable to get a history about smoking alcohol. Has a guardian. Does use a motor scooter Physical examination: VITAL SIGNS: 97.8, 79, 24, 170/82, 91% on 6 L upon presentation GENERAL: BMI 37.1, reclining bed with a Ventimask short of breath. EYES: Pupils equal. Conjunctiva normal. HEENT: External appearance of nose and ears normal, oral cavity grossly normal. NECK: JVD unable to assess; masses not palpable. HEART: First and second heart sounds are normal; some edema present. LUNGS: Respiratory rate increased; decreased breath sound. ABDOMEN: Soft, nontender, liver spleen not palpable, no masses palpable. PSYCH: Able tonsil simple questionsl. MUSCULOSKELETAL:No Clubbing/cyanosis;muscles-grossly intact DERMATOLOGICAL: Dry skin and lower extremity with the knee down to the ankle. With scaling. NEUROLOGICAL: Cranial nerves grossly intact; no facial asymmetry, power and sensation grossly intact. LYMPHATICS: No lymph nodes palpable in the axilla and neck INVESTIGATIONS, reviewed in the clinical context: 2-D echocardiogram: EF 55-60% White count 8.6 hemoglobin 11.5 platelets 232 sodium 138 potassium 4.8 BUN 28 creatinine 1.40 Troponin I less than 0.012 ProBNP 611 TSH 4.3 Influenza type A, B, RSV, COVID-19: Not detected EKG tracing personally reviewed by me-normal sinus rhythm. Incomplete right bundle dagoberto block. Nonspecific T-wave changes. Chest x-ray film personally reviewed by me-effusion versus infiltrate Assessment plan: -Probable acute congestive heart exacerbation with pulmonary edema and x-ray. Diastolic dysfunction EF 55-60% ProBNP only 611. IV Lasix 40 mg every 12 -Acute hypoxic respiratory failure secondary to CHF On BiPAP -Chronic insomnia Melatonin -Hyperlipidemia Lipitor 10 mg daily at bedtime -Diabetes mellitus type 2 Victoza. Metformin. Follow Accu-Cheks -Paroxysmal atrial fibrillation, currently sinus rhythm Amiodarone. IV Lasix. Home medications resumed. Follow Accu-Cheks. Discussed with patient. -Hypothyroid Synthroid 100 g a day -Obstructive sleep apnea patient does not use CPAP -Diabetic peripheral neuropathy -Essential hypertension Amlodipine 5 mg a day -Obesity BMI 37.1 Weight loss measures -Chronic medical debility uses a motorized wheelchair at baseline -Public legal guardian Past Medical History Past Medical History: Atrial Fibrillation, Asthma, Diabetes Mellitus, Hype rlipidemia, Hypertension, Sleep Apnea/CPAP/BIPAP, Thyroid Disorder Additional Past Medical History / Comment(s): Diabetic oculopathy, obesity, leukopenia, gallstone, diarrhea, mentally disabled, gout, peripheral neuropothy, gait dysfunction- uses motorized scooter, degenerative joint disorder, supposed to wear cpap at home but is non compliant History of Any Multi-Drug Resistant Organisms: Unobtainable Past Surgical History: Cholecystectomy, Hernia Repair Additional Past Surgical History / Comment(s): L inguinal hernia repair, last colonoscopy 2002 Past Anesthesia/Blood Transfusion Reactions: Unable to Obtain Past Psychological History: No Psychological Hx Reported Smoking Status: Unknown if ever smoked Past Alcohol Use History: Unable to Obtain Past Drug Use History: Unable to Obtain - Past Family History Mother Family Medical History: Unable to Obtain Father Family Medical History: Diabetes Mellitus Medications and Allergies Home Medications Medication Instructions Recorded Confirmed Type Amiodarone [Cordarone] 200 mg PO DAILY 08/02/20 09/22/22 History Cyanocobalamin [Vitamin B-12] 500 mcg PO PC-LUNCH 08/02/20 09/22/22 History Levothyroxine Sodium [Synthroid] 100 mcg PO DAILY 08/02/20 09/22/22 History Liraglutide [Victoza 3-Ramírez] 1.8 mg SQ DAILY 08/02/20 09/22/22 History Melatonin 5 mg PO HS PRN 08/02/20 09/22/22 History Acetaminophen Tab [Tylenol] 650 mg PO Q6HR PRN tab 08/17/20 09/22/22 Rx Atorvastatin [Lipitor] 10 mg PO HS 07/26/22 09/22/22 History Divalproex [Depakote] 250 mg PO BID@0800,1600 07/26/22 09/22/22 History metFORMIN HCL 1,000 mg PO HS 07/26/22 09/22/22 History metFORMIN HCL 500 mg PO DAILY 07/26/22 09/22/22 History Furosemide [Lasix] 40 mg PO DAILY 09/22/22 09/22/22 History Meclizine [Antivert] 12.5 mg PO Q8HR PRN 09/22/22 09/22/22 History Potassium Chloride [Klor-Con M20] 20 meq PO DAILY 09/22/22 09/22/22 History Sodium Chloride [Saline Mist] 1 spray EA NOSTRIL Q2H PRN 09/22/22 09/22/22 History amLODIPine [Norvasc] 5 mg PO DAILY 09/22/22 09/22/22 History Allergies Allergy/AdvReac Type Severity Reaction Status Date / Time No Known Allergies Allergy Verified 09/22/22 06:55 Physical Exam Vitals: Vital Signs Temp Pulse Resp BP Pulse Ox FiO2 09/22/22 08:12 35 09/22/22 07:34 72 20 158/84 92 L 09/22/22 04:00 35 09/22/22 03:00 61 20 147/73 93 L 09/22/22 01:32 75 24 173/93 90 L 09/22/22 00:59 35 09/22/22 00:32 24 09/22/22 00:28 97.8 F 79 24 170/82 91 L Intake and Output 09/21/22 09/22/22 09/22/22 22:59 06:59 14:59 Other: Weight 104.326 kg Results CBC & Chem 7: 09/22/22 00:43 09/22/22 00:43 Labs: Abnormal Lab Results - Last 24 Hours (Table) 09/22/22 09/22/22 09/22/22 Range/Units 00:43 00:43 03:25 RBC 3.56 L (4.30-5.90) m/uL Hgb 11.5 L (13.0-17.5) gm/dL Hct 37.3 L (39.0-53.0) % MCV 104.8 H (80.0-100.0) fL MCHC 30.8 L (31.0-37.0) g/dL RDW 16.5 H (11.5-15.5) % Lymphocytes # 0.7 L (1.0-4.8) k/uL VBG pH (7.31-7.41) VBG pCO2 (37-51) mmHg BUN 28 H (9-20) mg/dL Creatinine 1.40 H (0.66-1.25) mg/dL Glucose 178 H (74-99) mg/dL Ur Leukocyte Esterase Moderate H (Negative) Urine Mucus Rare H (None) /hpf 09/22/22 Range/Units 07:42 RBC (4.30-5.90) m/uL Hgb (13.0-17.5) gm/dL Hct (39.0-53.0) % MCV (80.0-100.0) fL MCHC (31.0-37.0) g/dL RDW (11.5-15.5) % Lymphocytes # (1.0-4.8) k/uL VBG pH 7.59 H (7.31-7.41) VBG pCO2 27 L (37-51) mmHg BUN (9-20) mg/dL Creatinine (0.66-1.25) mg/dL Glucose (74-99) mg/dL Ur Leukocyte Esterase (Negative) Urine Mucus (None) /hpf
[2022-09-22] MEDS: ATORVASTATIN 10 MG TAB PO SCH (20:53)
[2022-09-23 05:56] LABS: Glucose,Whole Blood 106 mg/dL (70-110)
[2022-09-23] MEDS: INSULIN ASPART (NovoLOG) 100 UNIT/ML VIAL SQ SCH ×4 (06:32→20:22)
[2022-09-23] MEDS: LEVOTHYROXINE 100 MCG TAB PO SCH (06:39)
[2022-09-23 07:48] LABS: African American GFR (CKD) 52 (>60 ml/min/1.73 sqM); Anion Gap 6 mmol/L; Blood Urea Nitrogen 24 mg/dL (9-20); Carbon Dioxide 37 mmol/L (22-30); Chloride 97 mmol/L (98-107); Glucose 100 mg/dL (74-99); Non-African American GFR(CKD) 45 (>60 ml/min/1.73 sqM); Potassium 4.4 mmol/L (3.5-5.1); Sodium 140 mmol/L (137-145)
[2022-09-23 07:50] LABS: Anisocytosis Slight; Basophils % (A) 0 %; Eosinophils # (A) 0.1 k/uL (0-0.7); Eosinophils % (A) 1 %; HCT 33.3 % (39.0-53.0); HGB 10.4 gm/dL (13.0-17.5); Hypochromasia Moderate; Lymphocytes # (A) 0.9 k/uL (1.0-4.8); Lymphocytes % (A) 14 %; MCH 32.8 pg (25.0-35.0); MCHC 31.4 g/dL (31.0-37.0); MCV 104.3 fL (80.0-100.0); Macrocytosis Moderate; Mean Platelet Volume 8.2; Monocytes # (A) 0.5 k/uL (0-1.0); Monocytes % (A) 8 %; Neutrophils # (A) 4.4 k/uL (1.3-7.7); Neutrophils % (A) 73 %; Platelet Count 229 k/uL (150-450); RBC 3.19 m/uL (4.30-5.90); RDW 16.9 % (11.5-15.5)
[2022-09-23] MEDS: FUROSEMIDE 10 MG/ML 4 ML VIAL IV SCH ×2 (08:34→20:22)
[2022-09-23] MEDS: AMIODARONE 200 MG TAB PO SCH (08:36)
[2022-09-23] MEDS: DIVALPROEX 250 MG TABLET.DR PO SCH ×2 (08:36→17:15)
[2022-09-23] MEDS: metFORMIN 500 MG TAB PO SCH ×2 (08:36→20:22)
[2022-09-23] MEDS: POTASSIUM CHLORIDE ER 20 MEQ TAB.ER PO SCH (08:36)
[2022-09-23] MEDS: amLODIPine 5 MG TAB PO SCH (08:36)
[2022-09-23] MEDS: Liraglutide [Victoza 3-Pak] 0.6 MG/0.1 ML Pen.Injctr SQ SCH (08:37)
--- NOTE | 2022-09-23 11:08 | P.PN ---
Subjective Progress Note Date: 09/23/22 I am seeing this patient in new consultation today 09/22/2022 for possible CHF exacerbation. Patient is a 71-year-old white male with past medical history significant for paroxysmal atrial fibrillation (on Xarelto), diabetes mellitus type 2, hypertension, hyperlipidemia, hypothyroidism, and mental disability. Patient presented to emergency room earlier this morning after being found to be short of breath and hypoxic at senior living. Patient resides at [facility]. Patient denies any fevers, chills, cough, chest pain. He does report orthopnea and increased lower extremity swelling. He normally sleeps with 2 pillows. Patient is currently sitting up in bed, on BiPAP with settings 12/6 and FiO2 of 35%, in no acute distress. He seems to be tolerating the BiPAP quite well. His respiratory rate is 22 and tidal volumes are around 500. Chest x-ray on arrival showed mild to moderate vascular congestion and possible right pleural effusion. NT proBNP was only 611. Patient was started on Lasix 40 mg twice a day. CBC on arrival was unremarkable. BMP shows sodium 138, potassium 4.8, chloride 99, serum bicarbonate 28, BUN 28, creatinine 1.4, glucose 178. Urinalysis shows moderate leukocyte esterase, patient denies any urinary symptoms. Troponins less than 0.012 2. ECG shows no obvious ischemic changes. Negative for influenza, RSV, COVID-19. Patient will be admitted to cardiac stepdown unit once bed available. Today's evaluation of 09/23/2022, the patient seems to be more comfortable compared to yesterday. He was taken off the BiPAP and he was placed on high flow oxygen at 13 L his pulse ox is around 95%. The patient has diuresed significantly and the patient responded nicely to Lasix 40 mg IV every 12 hours..Labs from today shows a white cell count of 6 with a hemoglobin of 10.4, BUN is at 24 with a creatinine of 1.5 and a sodium level is at 140. Denies having any specific complaints. Continues to have edema in his lower extremities bilaterally. The fluid balance over the past 24 hours has been at least 1.1 L negative. Objective - Vital Signs Vital signs: Vital Signs Temp 98.6 F 09/23/22 04:00 Pulse 68 09/23/22 04:00 Resp 24 09/23/22 04:00 BP 121/59 09/23/22 04:00 Pulse Ox 95 09/23/22 08:28 FiO2 50 09/23/22 04:29 Intake & Output 09/22/22 09/23/22 09/23/22 18:59 06:59 18:59 Intake Total 118 Output Total 1100 Balance -1100 118 Weight 81 kg Intake: Oral 118 Output: Urine 1100 Other: Voiding Method External Catheter External Catheter - Exam GENERAL EXAM: Alert, 71-year-old white male on 15 L of oxygen nasal cannula fairly comfortable in no apparent distress. HEAD: Normocephalic and atraumatic EYES: Normal reaction of pupils, equal size. NOSE: Clear with pink turbinates. THROAT: No erythema or exudates. Enlarged tongue NECK: No masses, no JVD. CHEST: No chest wall deformity. LUNGS: Equal air entry with bibasilar inspiratory crackles. No wheeze, rhonchi or dullness. On 15 L of oxygen nasal cannula. No conversational dyspnea or accessory muscle use.. CVS: S1 and S2 normal with no audible murmur, regular rhythm. No extra heart sounds ABDOMEN: Obese abdomen, no hepatosplenomegaly, active bowel sounds, no guarding or rigidity. SPINE: No scoliosis or deformity SKIN: No rashes CENTRAL NERVOUS SYSTEM: No focal deficits, tone is normal in all 4 extremities. EXTREMITIES: There is bilateral 1+ pitting edema of the bilateral lower extremities. There are chronic venous stasis changes of the lower extremities. No clubbing, or cyanosis. Peripheral pulses are intact. - Labs CBC & Chem 7: 09/23/22 06:45 09/23/22 06:45 Labs: Abnormal Lab Results - Last 24 Hours (Table) 09/22/22 09/22/22 09/23/22 Range/Units 12:06 19:56 06:45 RBC 3.19 L (4.30-5.90) m/uL Hgb 10.4 L (13.0-17.5) gm/dL Hct 33.3 L (39.0-53.0) % MCV 104.3 H (80.0-100.0) fL RDW 16.9 H (11.5-15.5) % Lymphocytes # 0.9 L (1.0-4.8) k/uL Chloride (98-107) mmol/L Carbon Dioxide (22-30) mmol/L BUN (9-20) mg/dL Creatinine (0.66-1.25) mg/dL Glucose (74-99) mg/dL POC Glucose (mg/dL) 123 H 170 H (70-110) mg/dL 09/23/22 Range/Units 06:45 RBC (4.30-5.90) m/uL Hgb (13.0-17.5) gm/dL Hct (39.0-53.0) % MCV (80.0-100.0) fL RDW (11.5-15.5) % Lymphocytes # (1.0-4.8) k/uL Chloride 97 L (98-107) mmol/L Carbon Dioxide 37 H (22-30) mmol/L BUN 24 H (9-20) mg/dL Creatinine 1.54 H (0.66-1.25) mg/dL Glucose 100 H (74-99) mg/dL POC Glucose (mg/dL) (70-110) mg/dL Assessment and Plan Assessment: Acute hypoxemic respiratory failure, currently on BiPAP, possibly secondary to CHF exacerbation. Chest x-ray shows mild to moderate vascular congestion with possible right trace pleural effusion. NT proBNP only 611., The patient has been diuresing well and the patient is currently off the BiPAP and he was placed on high flow oxygen. Negative fluid balance for now. Acute kidney injury, creatinine is stable at 1.5 History of paroxysmal atrial fibrillation, normally anticoagulated on Xarelto. Currently in normal sinus rhythm History of moderate to severe pulmonary hypertension and moderate to severe tricuspid regurgitation Previous history of massive pulmonary emboli based on the CAT scan of the chest was done January 2016 along with evidence of pulmonary arterial hypertension based on CAT scan criteria. Also, the patient had previous history of ventilatory dependent respiratory failure and back then he required thromboly tics. This was back in 2016. He also DVT of the lower extremity on the right right. Diabetes mellitus type 2, [id number] Benign essential hypertension Hyperlipidemia Morbid obesity, AL 37 Mental disability Plan: Take the patient off the BiPAP Continue Lasix 40 mg IV every 12 hours Echocardiogram is pending for now He had an echocardiogram that showed an ejection fraction at this 55-60%. No significant valvular abnormalities have been noted. This is contrary to previous evaluation has shown significant pulmonary hypertension is patient with a PA pressure of 87 along with concentric LVH moderate in severity. I suspect the patient has a component of diastolic heart failure. On his chest x-ray, has chronic right-sided pleural effusion thickening. We'll repeat a chest x-ray within next 24-48 hours We will continue to follow
[2022-09-23 11:24] LABS: Glucose,Whole Blood 143 mg/dL (70-110)
--- NOTE | 2022-09-23 13:45 | P.PN ---
Subjective HISTORY OF PRESENT ILLNESS: This is a 71-year-old male with a past medical history significant for paroxysmal atrial fibrillation, asthma, diabetes, hypertension, hyperlipidemia, and hypothyroidism. 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 We have been asked to see the patient in consultation for congestive heart failure. Patient examined at the bedside in the emergency room. Patient states he presented to the hospital from [facility] with a chief complaint of shortness of breath. He states that his shortness of breath suddenly started yesterday. He reports having some mild chest pain yesterday but denies any chest pain at the time of examination. Patient denies any history of CAD or CHF. He denies dizziness or lightheadedness. The patient is currently on BiPAP at the time of examination. He has been started on IV Lasix. * EKG reveals sinus mechanism with no signs of acute ischemia * Chest xray mild to moderate vascular congestion. Possible trace right pleural effusion. * Laboratory data: WBC 8.6. Hemoglobin 11.5. Platelet count 232. Sodium 138. Sodium 4.8. BUN 28. Creatinine 1.40. Troponin negative 3. ProBNP 611. TSH 4.310. * Current home cardiac medications include amiodarone 200 mg daily, amlodipine 5 mg daily, Lipitor 10 mg at night, Lasix 40 mg daily * Echocardiogram completed reveals ejection fraction 55-60% with trace tricuspid regurgitation * Patient underwent ARABELLA in July 2020 revealing aortic valve is tricuspid and functioning normally. No aortic stenosis. Trace aortic insufficiency. Mitral valve appears to be normal with mild mitral regurgitation. Tricuspid valves appears to be normal without any vegetation. Limited views of the intra-atrial septum however is aneurysmal. LV function normal 55%. 09/23/2022 Patient examined this morning at the bedside. Patient denies chest pain or pressure. Patient states his shortness of breath is improving from yesterday. He remains on IV Lasix 40 mg every 12 hours. Creatinine today 1.54, up from 1.40 yesterday. Patient remains on 2 L nasal cannula. PHYSICAL EXAM: VITAL SIGNS: Reviewed. GENERAL: Well-developed in no acute distress. HEENT: Head is normocephalic. Pupils are equal, round. Sclerae anicteric. Mucous membranes of the mouth are moist. Neck supple. No JVD or thyromegaly LUNGS: Respirations even and unlabored. Lungs essentially clear to auscultation bilaterally, diminished. HEART: Regular rate and rhythm. S1 and S2 heard. ABDOMEN: Soft. Nondistended. Nontender. EXTREMITIES: Normal range of motion. No clubbing or cyanosis. Peripheral pulses intact. 3+ bilateral lower extremity edema NEUROLOGIC: Awake and alert. Oriented x 3. ASSESSMENT: Shortness of breath Acute hypoxic respiratory failure requiring bipap Lower extremity edema, likely chronic, normal BNP at 611 with normal LV function History of pulmonary hypertension and moderate to severe tricuspid regurgitation, not evident on repeat echo this admission Acute kidney injury Paroxysmal atrial fibrillation Hypertension Hyperlipidemia Diabetes PLAN: Continue current cardiac medications Continue IV Lasix. Possible transition to oral dosing tomorrow Wean oxygen as tolerated Further recommendations pending patient course Nurse practitioner note has been reviewed by physician. Signing provider agrees with the documented findings, assessment, and plan of care. Objective - Vital Signs Vital signs: Vital Signs Temp 98.0 F 09/23/22 08:25 Pulse 77 09/23/22 08:25 Resp 20 09/23/22 08:25 BP 118/56 09/23/22 08:25 Pulse Ox 95 09/23/22 08:28 FiO2 50 09/23/22 04:29 Intake & Output 09/22/22 09/23/22 09/23/22 18:59 06:59 18:59 Intake Total 118 Output Total 1100 800 Balance -1100 -682 Weight 81 kg Intake: Oral 118 Output: Urine 1100 800 Other: Voiding Method External Catheter External Catheter External Catheter - Labs CBC & Chem 7: 09/23/22 06:45 09/23/22 06:45 Labs: Abnormal Lab Results - Last 24 Hours (Table) 09/22/22 09/22/22 09/23/22 Range/Units 12:06 19:56 06:45 RBC (4.30-5.90) m/uL Hgb (13.0-17.5) gm/dL Hct (39.0-53.0) % MCV (80.0-100.0) fL RDW (11.5-15.5) % Lymphocytes # (1.0-4.8) k/uL Chloride (98-107) mmol/L Carbon Dioxide (22-30) mmol/L BUN (9-20) mg/dL Creatinine (0.66-1.25) mg/dL Glucose (74-99) mg/dL POC Glucose (mg/dL) 123 H 170 H (70-110) mg/dL Hemoglobin A1c 6.2 H (<=6.0) % 09/23/22 09/23/22 09/23/22 Range/Units 06:45 06:45 11:23 RBC 3.19 L (4.30-5.90) m/uL Hgb 10.4 L (13.0-17.5) gm/dL Hct 33.3 L (39.0-53.0) % MCV 104.3 H (80.0-100.0) fL RDW 16.9 H (11.5-15.5) % Lymphocytes # 0.9 L (1.0-4.8) k/uL Chloride 97 L (98-107) mmol/L Carbon Dioxide 37 H (22-30) mmol/L BUN 24 H (9-20) mg/dL Creatinine 1.54 H (0.66-1.25) mg/dL Glucose 100 H (74-99) mg/dL POC Glucose (mg/dL) 143 H (70-110) mg/dL Hemoglobin A1c (<=6.0) %
[2022-09-23 16:11] LABS: Glucose,Whole Blood 88 mg/dL (70-110)
[2022-09-23] MEDS: CYANOCOBALAMIN 500 MCG TAB PO SCH (17:15)
[2022-09-23] MEDS: RIVAROXABAN 20 MG TAB PO SCH (17:15)
[2022-09-23 19:59] LABS: Glucose,Whole Blood 189 mg/dL (70-110)
[2022-09-23] MEDS: ATORVASTATIN 10 MG TAB PO SCH (20:21)
--- NOTE | 2022-09-23 20:56 | P.PN ---
Progress Note - Text Progress Note Date: 09/23/22 Chief Complaint: Short of breath 71-year-old patient, resident of [facility], being followed by Dr. Brand.. By the EMS staff at the [facility] on the pulse ox to be 50% on room air. Patient normally wears 2 L of oxygen. Had removed it. They 0.6 L on and pulse ox is 93%. Patient is breathing more heavily. EKG at the site showed patient to be in sinus rhythm. And brought to the ER. Patient has a dry cough. No fever no chills. Appetite is fair. He can walk a few steps with a walker. Admitted with CHF exacerbation. IV Lasix. September 23: On IV Lasix. Breathing a bit better. Oral intake good. Shortness of breath. Tired. Active Medications Acetaminophen (Acetaminophen Tab 325 Mg Tab) 650 mg PO Q6HR PRN PRN Reason: Mild Pain or Fever > 100.5 Amiodarone HCl (Amiodarone 200 Mg Tab) 200 mg PO DAILY REPLACED BY [facility] Last Admin: 09/23/22 08:36 Dose: 200 mg Amlodipine Besylate (Amlodipine 5 Mg Tab) 5 mg PO DAILY REPLACED BY [facility] Last Admin: 09/23/22 08:36 Dose: 5 mg Atorvastatin Calcium (Atorvastatin 10 Mg Tab) 10 mg PO HS REPLACED BY [facility] Last Admin: 09/23/22 20:21 Dose: 10 mg Cyanocobalamin (Cyanocobalamin 500 Mcg Tab) 500 mcg PO PC-LUNCH REPLACED BY [facility] Last Admin: 09/23/22 17:15 Dose: 500 mcg Dextrose/Water (Dextrose 50% Syringe 50 Ml) 25 ml IVP PER PROTOCOL PRN; Protocol PRN Reason: Hypoglycemia Dextrose/Water (Dextrose 50% Syringe 50 Ml) 50 ml IVP PER PROTOCOL PRN; Protocol PRN Reason: Hypoglycemia Divalproex Sodium (Divalproex 250 Mg Tablet.Dr) 250 mg PO BID@0800,1600 REPLACED BY [facility] Last Admin: 09/23/22 17:15 Dose: 250 mg Furosemide (Furosemide 10 Mg/Ml 4 Ml Vial) 40 mg IV Q12HR REPLACED BY [facility] Last Admin: 09/23/22 20:22 Dose: 40 mg Insulin Aspart (Insulin Aspart (Novolog) 100 Unit/Ml Vial) 0 unit SQ ACHS REPLACED BY [facility]; Protocol Last Admin: 09/23/22 20:22 Dose: 2 unit Levothyroxine Sodium (Levothyroxine 100 Mcg Tab) 100 mcg PO DAILY@0630 REPLACED BY [facility] Last Admin: 09/23/22 06:39 Dose: 100 mcg Melatonin (Melatonin 5 Mg Tablet) 5 mg PO HS PRN PRN Reason: Insomnia Metformin HCl (Metformin 500 Mg Tab) 1,000 mg PO HS REPLACED BY [facility] Last Admin: 09/23/22 20:22 Dose: 1,000 mg Metformin HCl (Metformin 500 Mg Tab) 500 mg PO DAILY REPLACED BY [facility] Last Admin: 09/23/22 08:36 Dose: 500 mg Naloxone HCl (Naloxone 0.4 Mg/Ml 1 Ml Vial) 0.2 mg IV Q2M PRN PRN Reason: Opioid Reversal Liraglutide [Victoza 3-Ramírez] 0.6 Mg/0.1 Ml Pen.Injctr 1.8 mg SQ DAILY REPLACED BY [facility] Last Admin: 09/23/22 08:37 Dose: Not Given Potassium Chloride (Potassium Chloride Er 20 Meq Tab.Er) 20 meq PO DAILY REPLACED BY [facility] Last Admin: 09/23/22 08:36 Dose: 20 meq Rivaroxaban (Rivaroxaban 20 Mg Tab) 20 mg PO W/SUPPER REPLACED BY [facility]; Protocol Last Admin: 09/23/22 17:15 Dose: 20 mg Past medical history to include: Atrial fibrillation, asthma, diabetes, hypertension, hyperlipidemia obstructive sleep apnea, diabetic neuropathy, leukemia, gallstones, medically disabled, gout, peripheral neuropathy, as use a motorized scooter. DJD. Noncompliant with CPAP. Social history: Unable to get a history about smoking alcohol. Has a guardian. Does use a motor scooter Physical examination: VITAL SIGNS: 98.1, 67, 18, 1 22 x 59, 97% on 10 L high flow GENERAL: BMI 37.1, reclining bed high flow oxygen EYES: Pupils equal. Conjunctiva normal. HEENT: External appearance of nose and ears normal, oral cavity grossly normal. NECK: JVD unable to assess; masses not palpable. HEART: First and second heart sounds are normal; some edema present. LUNGS: Respiratory rate increased; decreased breath sound. ABDOMEN: Soft, nontender, liver spleen not palpable, no masses palpable. PSYCH: Able tonsil simple questionsl. MUSCULOSKELETAL:No Clubbing/cyanosis;muscles-grossly intact DERMATOLOGICAL: Dry skin and lower extremity with the knee down to the ankle. With scaling. INVESTIGATIONS, reviewed in the clinical context: September 23: White count 60 globin 10.4 platelets 229 potassium 4.4 BUN 24 creatinine 1.5 for Procalcitonin 0.31 2-D echocardiogram: EF 55-60% White count 8.6 hemoglobin 11.5 platelets 232 sodium 138 potassium 4.8 BUN 28 creatinine 1.40 Troponin I less than 0.012 ProBNP 611 TSH 4.3 Influenza type A, B, RSV, COVID-19: Not detected EKG tracing personally reviewed by me-normal sinus rhythm. Incomplete right bundle dagoberto block. Nonspecific T-wave changes. Chest x-ray film personally reviewed by me-effusion versus infiltrate Assessment plan: -Probable acute congestive heart exacerbation with pulmonary edema and x-ray. Diastolic dysfunction EF 55-60%: Slow to respond ProBNP only 611. IV Lasix 40 mg every 12 -Acute hypoxic respiratory failure secondary to CHF: Slow to respond On BiPAP initially. Currently on 10 L nasal cannula high flow. -Chronic insomnia Melatonin -Hyperlipidemia Lipitor 10 mg daily at bedtime -Diabetes mellitus type 2 Victoza. Metformin. Follow Accu-Cheks -Paroxysmal atrial fibrillation, currently sinus rhythm Amiodarone. IV Lasix. Home medications resumed. Follow Accu-Cheks. Discussed with patient. -Hypothyroid Synthroid 100 g a day -Obstructive sleep apnea patient does not use CPAP -Diabetic peripheral neuropathy -Essential hypertension Amlodipine 5 mg a day -Obesity BMI 37.1 Weight loss measures -Chronic medical debility uses a motorized wheelchair at baseline -Public legal guardian Continue with IV Lasix. Other medications. Follow with consultants.
[2022-09-24 06:01] LABS: Glucose,Whole Blood 125 mg/dL (70-110)
[2022-09-24] MEDS: INSULIN ASPART (NovoLOG) 100 UNIT/ML VIAL SQ SCH ×4 (06:13→21:16)
[2022-09-24] MEDS: LEVOTHYROXINE 100 MCG TAB PO SCH (06:43)
[2022-09-24 08:38] LABS: African American GFR (CKD) 56 (>60 ml/min/1.73 sqM); Blood Urea Nitrogen 25 mg/dL (9-20); Calcium 9.1 mg/dL (8.4-10.2); Chloride 96 mmol/L (98-107); Glucose 106 mg/dL (74-99); Non-African American GFR(CKD) 48 (>60 ml/min/1.73 sqM); Potassium 4.3 mmol/L (3.5-5.1); Sodium 140 mmol/L (137-145)
[2022-09-24 08:47] LABS: Anion Gap 8 mmol/L; Carbon Dioxide 36 mmol/L (22-30)
[2022-09-24] MEDS: AMIODARONE 200 MG TAB PO SCH (09:15)
[2022-09-24] MEDS: DIVALPROEX 250 MG TABLET.DR PO SCH ×2 (09:15→16:48)
[2022-09-24] MEDS: FUROSEMIDE 10 MG/ML 4 ML VIAL IV SCH (09:16)
[2022-09-24] MEDS: metFORMIN 500 MG TAB PO SCH ×2 (09:16→21:06)
[2022-09-24] MEDS: POTASSIUM CHLORIDE ER 20 MEQ TAB.ER PO SCH (09:16)
[2022-09-24] MEDS: CYANOCOBALAMIN 500 MCG TAB PO SCH (09:16)
[2022-09-24] MEDS: amLODIPine 5 MG TAB PO SCH (09:16)
[2022-09-24] MEDS: ACETAMINOPHEN TAB 325 MG TAB PO PRN (09:25)
[2022-09-24] MEDS: Liraglutide [Victoza 3-Pak] 0.6 MG/0.1 ML Pen.Injctr SQ SCH (11:42)
--- NOTE | 2022-09-24 11:44 | P.PN ---
Subjective Progress Note Date: 09/24/22 HISTORY OF PRESENT ILLNESS: This is a 71-year-old male with a past medical history significant for paroxysmal atrial fibrillation, asthma, diabetes, hypertension, hyperlipidemia, and hypothyroidism. 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 We have been asked to see the patient in consultation for congestive heart failure. Patient examined at the bedside in the emergency room. Patient states he presented to the hospital from [facility] with a chief complaint of shortness of breath. He states that his shortness of breath suddenly started yesterday. He reports having some mild chest pain yesterday but denies any chest pain at the time of examination. Patient denies any history of CAD or CHF. He denies dizziness or lightheadedness. The patient is currently on BiPAP at the time of examination. He has been started on IV Lasix. * EKG reveals sinus mechanism with no signs of acute ischemia * Chest xray mild to moderate vascular congestion. Possible trace right pleural effusion. * Laboratory data: WBC 8.6. Hemoglobin 11.5. Platelet count 232. Sodium 138. Sodium 4.8. BUN 28. Creatinine 1.40. Troponin negative 3. ProBNP 611. TSH 4.310. * Current home cardiac medications include amiodarone 200 mg daily, amlodipine 5 mg daily, Lipitor 10 mg at night, Lasix 40 mg daily * Echocardiogram completed reveals ejection fraction 55-60% with trace tricuspid regurgitation * Patient underwent ARABELLA in July 2020 revealing aortic valve is tricuspid and functioning normally. No aortic stenosis. Trace aortic insufficiency. Mitral valve appears to be normal with mild mitral regurgitation. Tricuspid valves appears to be normal without any vegetation. Limited views of the intra-atrial septum however is aneurysmal. LV function normal 55%. 09/23/2022 Patient examined this morning at the bedside. Patient denies chest pain or pressure. Patient states his shortness of breath is improving from yesterday. He remains on IV Lasix 40 mg every 12 hours. Creatinine today 1.54, up from 1.40 yesterday. Patient remains on 2 L nasal cannula. 09/24/2022 Patient examined this morning at the bedside. Patient denies chest pain or pressure. He denies shortness of breath. He remains on IV Lasix 40 mg every 12 hours. Patient's lower extremity edema has significantly improved. Patient's vital signs are stable. PHYSICAL EXAM: VITAL SIGNS: Reviewed. GENERAL: Well-developed in no acute distress. HEENT: Head is normocephalic. Pupils are equal, round. Sclerae anicteric. Mucous membranes of the mouth are moist. Neck supple. No JVD or thyromegaly LUNGS: Respirations even and unlabored. Lungs essentially clear to auscultation bilaterally, diminished. HEART: Regular rate and rhythm. S1 and S2 heard. ABDOMEN: Soft. Nondistended. Nontender. EXTREMITIES: Normal range of motion. No clubbing or cyanosis. Peripheral pulses intact. Trace bilateral lower extremity edema NEUROLOGIC: Awake and alert. Oriented x 3. ASSESSMENT: Shortness of breath Acute hypoxic respiratory failure requiring bipap Lower extremity edema, likely chronic, normal BNP at 611 with normal LV function History of pulmonary hypertension and moderate to severe tricuspid regurgitation, not evident on repeat echo this admission Acute kidney injury Paroxysmal atrial fibrillation Hypertension Hyperlipidemia Diabetes PLAN: Continue current cardiac medications Discontinue IV Lasix. Begin oral Lasix 40 mg twice a day Patient is currently stable for discharge from a cardiac standpoint We will follow on an as-needed basis. Please call with questions or concerns. Nurse practitioner note has been reviewed by physician. Signing provider agrees with the documented findings, assessment, and plan of care. Objective - Vital Signs Vital signs: Vital Signs Temp 98.6 F 09/24/22 08:00 Pulse 77 09/24/22 08:00 Resp 16 09/24/22 08:00 BP 132/55 09/24/22 08:00 Pulse Ox 96 09/24/22 09:50 FiO2 50 09/24/22 09:50 Intake & Output 09/23/22 09/24/22 09/24/22 18:59 06:59 18:59 Intake Total 354 180 Output Total 2200 1750 Balance -1846 -1750 180 Weight 77 kg Intake: Oral 354 180 Output: Urine 2200 1750 Other: Voiding Method External Catheter External Catheter # Bowel Movements 1 - Labs CBC & Chem 7: 09/23/22 06:45 09/24/22 07:06 Labs: Abnormal Lab Results - Last 24 Hours (Table) 09/23/22 09/24/22 09/24/22 Range/Units 19:58 06:00 07:06 Chloride 96 L (98-107) mmol/L Carbon Dioxide 36 H (22-30) mmol/L BUN 25 H (9-20) mg/dL Creatinine 1.45 H (0.66-1.25) mg/dL Glucose 106 H (74-99) mg/dL POC Glucose (mg/dL) 189 H 125 H (70-110) mg/dL
[2022-09-24 11:49] LABS: Glucose,Whole Blood 166 mg/dL (70-110)
--- NOTE | 2022-09-24 12:06 | P.PN ---
Subjective Progress Note Date: 09/24/22 I am seeing this patient in new consultation today 09/22/2022 for possible CHF exacerbation. Patient is a 71-year-old white male with past medical history significant for paroxysmal atrial fibrillation (on Xarelto), diabetes mellitus type 2, hypertension, hyperlipidemia, hypothyroidism, and mental disability. Patient presented to emergency room earlier this morning after being found to be short of breath and hypoxic at senior living. Patient resides at [facility]. Patient denies any fevers, chills, cough, chest pain. He does report orthopnea and increased lower extremity swelling. He normally sleeps with 2 pillows. Patient is currently sitting up in bed, on BiPAP with settings 12/6 and FiO2 of 35%, in no acute distress. He seems to be tolerating the BiPAP quite well. His respiratory rate is 22 and tidal volumes are around 500. Chest x-ray on arrival showed mild to moderate vascular congestion and possible right pleural effusion. NT proBNP was only 611. Patient was started on Lasix 40 mg twice a day. CBC on arrival was unremarkable. BMP shows sodium 138, potassium 4.8, chloride 99, serum bicarbonate 28, BUN 28, creatinine 1.4, glucose 178. Urinalysis shows moderate leukocyte esterase, patient denies any urinary symptoms. Troponins less than 0.012 2. ECG shows no obvious ischemic changes. Negative for influenza, RSV, COVID-19. Patient will be admitted to cardiac stepdown unit once bed available. Today's evaluation of 09/23/2022, the patient seems to be more comfortable compared to yesterday. He was taken off the BiPAP and he was placed on high flow oxygen at 13 L his pulse ox is around 95%. The patient has diuresed significantly and the patient responded nicely to Lasix 40 mg IV every 12 hours..Labs from today shows a white cell count of 6 with a hemoglobin of 10.4, BUN is at 24 with a creatinine of 1.5 and a sodium level is at 140. Denies having any specific complaints. Continues to have edema in his lower extremities bilaterally. The fluid balance over the past 24 hours has been at least 1.1 L negative. on today's evaluation of 09/24/2022, the patient is sitting up on a chair and the patient is calm and comfortable. Remains on diuretics and the patient has been switched to oral Lasix 40 mg by mouth twice a day. He remains on 50 L of oxygen by nasal cannula with a pulse ox of 96%. We'll going to gradually wean down FiO2. No aspiration. Tolerating his diet. No nausea or vomiting. No chest pain.the BUN is 25 with a creatinine of 1.4 and his sodium is 140 with a potassium level of 4.3. Blood sugars at 166. Objective - Vital Signs Vital signs: Vital Signs Temp 98.6 F 09/24/22 08:00 Pulse 77 09/24/22 08:00 Resp 16 09/24/22 08:00 BP 132/55 09/24/22 08:00 Pulse Ox 96 09/24/22 09:50 FiO2 50 09/24/22 09:50 Intake & Output 09/23/22 09/24/22 09/24/22 18:59 06:59 18:59 Intake Total 354 180 Output Total 2200 1750 Balance -1846 -1750 180 Weight 77 kg Intake: Oral 354 180 Output: Urine 2200 1750 Other: Voiding Method External Catheter External Catheter # Bowel Movements 1 - Exam GENERAL EXAM: Alert, 71-year-old white male on 13 L of oxygen nasal cannula fairly comfortable in no apparent distress. HEAD: Normocephalic and atraumatic EYES: Normal reaction of pupils, equal size. NOSE: Clear with pink turbinates. THROAT: No erythema or exudates. Enlarged tongue NECK: No masses, no JVD. CHEST: No chest wall deformity. LUNGS: Equal air entry with bibasilar inspiratory crackles. No wheeze, rhonchi or dullness. CVS: S1 and S2 normal with no audible murmur, regular rhythm. No extra heart sounds ABDOMEN: Obese abdomen, no hepatosplenomegaly, active bowel sounds, no guarding or rigidity. SPINE: No scoliosis or deformity SKIN: No rashes CENTRAL NERVOUS SYSTEM: No focal deficits, tone is normal in all 4 extremities. EXTREMITIES: There is bilateral 1+ pitting edema of the bilateral lower extremities. There are chronic venous stasis changes of the lower extremities. No clubbing, or cyanosis. Peripheral pulses are intact. - Labs CBC & Chem 7: 09/23/22 06:45 09/24/22 07:06 Labs: Abnormal Lab Results - Last 24 Hours (Table) 09/23/22 09/23/22 09/23/22 Range/Units 06:45 06:45 11:23 Chloride (98-107) mmol/L Carbon Dioxide (22-30) mmol/L BUN (9-20) mg/dL Creatinine (0.66-1.25) mg/dL Glucose (74-99) mg/dL POC Glucose (mg/dL) 143 H (70-110) mg/dL Hemoglobin A1c 6.2 H (<=6.0) % Procalcitonin 0.31 H (0.02-0.09) ng/mL 09/23/22 09/24/22 09/24/22 Range/Units 19:58 06:00 07:06 Chloride 96 L (98-107) mmol/L Carbon Dioxide 36 H (22-30) mmol/L BUN 25 H (9-20) mg/dL Creatinine 1.45 H (0.66-1.25) mg/dL Glucose 106 H (74-99) mg/dL POC Glucose (mg/dL) 189 H 125 H (70-110) mg/dL Hemoglobin A1c (<=6.0) % Procalcitonin (0.02-0.09) ng/mL Assessment and Plan Assessment: Acute hypoxemic respiratory failure, currently on BiPAP, possibly secondary to CHF exacerbation. Chest x-ray shows mild to moderate vascular congestion with possible right trace pleural effusion. NT proBNP only 611., The patient has been diuresing well and the patient is currently off the BiPAP and he was placed on high flow oxygen. Negative fluid balance for now.the patient is currently on 50 L of Oxymizer nasal cannula Acute kidney injury, creatinine is stable is at 1.3 History of paroxysmal atrial fibrillation, normally anticoagulated on Xarelto. Currently in normal sinus rhythm History of moderate to severe pulmonary hypertension and moderate to severe tricuspid regurgitation Previous history of massive pulmonary emboli based on the CAT scan of the chest was done January 2016 along with evidence of pulmonary arterial hypertension based on CAT scan criteria. Also, the patient had previous history of vent ilatory dependent respiratory failure and back then he required thrombolytics. This was back in 2015. He also DVT of the lower extremity on the right right. Diabetes mellitus type 2, [id number] Benign essential hypertension Hyperlipidemia Morbid obesity, [place] 37 Mental disability Plan: wean down FiO2 slowly to maintain a saturation above 90%, currently on 13L, wean FiO2 as tolerated to maintain a saturation above 90% Continue Lasix 40 mg IV every 12 hours He had an echocardiogram that showed an ejection fraction at this 55-60%. No significant valvular abnormalities have been noted. This is contrary to previous evaluation has shown significant pulmonary hypertension is patient with a PA pressure of 87 along with concentric LVH moderate in severity. I suspect the patient has a component of diastolic heart failure. On his chest x-ray, has chronic right-sided pleural effusion thickening. repeat chest x-ray echocardiogram shows a preserved LV function We will continue to follow
[2022-09-24 16:37] LABS: Glucose,Whole Blood 146 mg/dL (70-110)
[2022-09-24] MEDS: RIVAROXABAN 20 MG TAB PO SCH (16:48)
[2022-09-24] MEDS: FUROSEMIDE 40 MG TAB PO SCH (16:48)
--- NOTE | 2022-09-24 19:42 | P.PN ---
Progress Note - Text Progress Note Date: 09/24/22 Chief Complaint: Short of breath 71-year-old patient, resident of [facility], being followed by Dr. Brand.. By the EMS staff at the [facility] on the pulse ox to be 50% on room air. Patient normally wears 2 L of oxygen. Had removed it. They 0.6 L on and pulse ox is 93%. Patient is breathing more heavily. EKG at the site showed patient to be in sinus rhythm. And brought to the ER. Patient has a dry cough. No fever no chills. Appetite is fair. He can walk a few steps with a walker. Admitted with CHF exacerbation. IV Lasix. September 23: On IV Lasix. Breathing a bit better. Oral intake good. Shortness of breath. Tired. September 24: Up in a recliner. IV Lasix changed over to by mouth Lasix. On 15 L high flow nasal cannula. Breathing better. Oral intake good. Taper down FiO2. Active Medications Acetaminophen (Acetaminophen Tab 325 Mg Tab) 650 mg PO Q6HR PRN PRN Reason: Mild Pain or Fever > 100.5 Last Admin: 09/24/22 09:25 Dose: 650 mg Amiodarone HCl (Amiodarone 200 Mg Tab) 200 mg PO DAILY [facility] Last Admin: 09/24/22 09:15 Dose: 200 mg Amlodipine Besylate (Amlodipine 5 Mg Tab) 5 mg PO DAILY [facility] Last Admin: 09/24/22 09:16 Dose: 5 mg Atorvastatin Calcium (Atorvastatin 10 Mg Tab) 10 mg PO HS [facility] Last Admin: 09/23/22 20:21 Dose: 10 mg Cyanocobalamin (Cyanocobalamin 500 Mcg Tab) 500 mcg PO PC-LUNCH [facility] Last Admin: 09/24/22 09:16 Dose: 500 mcg Dextrose/Water (Dextrose 50% Syringe 50 Ml) 25 ml IVP PER PROTOCOL PRN; Protocol PRN Reason: Hypoglycemia Dextrose/Water (Dextrose 50% Syringe 50 Ml) 50 ml IVP PER PROTOCOL PRN; Protocol PRN Reason: Hypoglycemia Divalproex Sodium (Divalproex 250 Mg Tablet.) 250 mg PO BID@0800,1600 [facility] Last Admin: 09/24/22 16:48 Dose: 250 mg Furosemide (Furosemide 40 Mg Tab) 40 mg PO BID@0900,1600 [facility] Last Admin: 09/24/22 16:48 Dose: 40 mg Insulin Aspart (Insulin Aspart (Novolog) 100 Unit/Ml Vial) 0 unit SQ ACHS [facility]; Protocol Last Admin: 09/24/22 17:50 Dose: Not Given Levothyroxine Sodium (Levothyroxine 100 Mcg Tab) 100 mcg PO DAILY@0630 [facility] Last Admin: 09/24/22 06:43 Dose: 100 mcg Melatonin (Melatonin 5 Mg Tablet) 5 mg PO HS PRN PRN Reason: Insomnia Metformin HCl (Metformin 500 Mg Tab) 1,000 mg PO HS [facility] Last Admin: 09/23/22 20:22 Dose: 1,000 mg Metformin HCl (Metformin 500 Mg Tab) 500 mg PO DAILY [facility] Last Admin: 09/24/22 09:16 Dose: 500 mg Naloxone HCl (Naloxone 0.4 Mg/Ml 1 Ml Vial) 0.2 mg IV Q2M PRN PRN Reason: Opioid Reversal Liraglutide [Victoza 3-Ramírez] 0.6 Mg/0.1 Ml Pen.Injctr 1.8 mg SQ DAILY [facility] Last Admin: 09/24/22 11:42 Dose: Not Given Potassium Chloride (Potassium Chloride Er 20 Meq Tab.Er) 20 meq PO DAILY [facility] Last Admin: 09/24/22 09:16 Dose: 20 meq Rivaroxaban (Rivaroxaban 20 Mg Tab) 20 mg PO W/SUPPER [facility]; Protocol Last Admin: 09/24/22 16:48 Dose: 20 mg Past medical history to include: Atrial fibrillation, asthma, diabetes, hypertension, hyperlipidemia obstructive sleep apnea, diabetic neuropathy, leukemia, gallstones, medically disabled, gout, peripheral neuropathy, as use a motorized scooter. DJD. Noncompliant with CPAP. Social history: Unable to get a history about smoking alcohol. Has a guardian. Does use a motor scooter Physical examination: VITAL SIGNS: At 8.9, 66, 18, 151/73, 96% on 15 L GENERAL: The reclining in a recliner. EYES: Pupils equal. Conjunctiva normal. HEENT: External appearance of nose and ears normal, oral cavity grossly normal. NECK: JVD unable to assess; masses not palpable. HEART: First and second heart sounds are normal; decreased edema LUNGS: Respiratory rate increased; decreased breath sound. ABDOMEN: Soft, nontender, liver spleen not palpable, no masses palpable. PSYCH: He would answer simple questions. MUSCULOSKELETAL:No Clubbing/cyanosis;muscles-grossly intact DERMATOLOGICAL: Dry skin and lower extremity with the knee down to the ankle. With scaling. INVESTIGATIONS, reviewed in the clinical context: September 24: Sodium 140 potassium 4.3 BUN 25 creatinine 1.45 September 23: White count 60 globin 10.4 platelets 229 potassium 4.4 BUN 24 creatinine 1.5 for Procalcitonin 0.31 2-D echocardiogram: EF 55-60% White count 8.6 hemoglobin 11.5 platelets 232 sodium 138 potassium 4.8 BUN 28 creatinine 1.40 Troponin I less than 0.012 ProBNP 611 TSH 4.3 Influenza type A, B, RSV, COVID-19: Not detected EKG tracing personally reviewed by me-normal sinus rhythm. Incomplete right bundle dagoberto block. Nonspecific T-wave changes. Chest x-ray film personally reviewed by me-effusion versus infiltrate Assessment plan: -Probable acute congestive heart exacerbation with pulmonary edema and x-ray. Diastolic dysfunction EF 55-60%: Better ProBNP only 611. IV Lasix changed over to oral Lasix 40 mg twice a day -Acute hypoxic respiratory failure secondary to CHF: Slow to respond On BiPAP initially. Currently on 15 L nasal cannula high flow. -Chronic insomnia Melatonin -Hyperlipidemia Lipitor 10 mg daily at bedtime -Diabetes mellitus type 2 Victoza. Metformin. Follow Accu-Cheks -Paroxysmal atrial fibrillation, currently sinus rhythm Amiodarone. -Hypothyroid Synthroid 100 g a day -Obstructive sleep apnea patient does not use CPAP -Diabetic peripheral neuropathy -Essential hypertension Amlodipine 5 mg a day -Obesity BMI 37.1 Weight loss measures -Chronic medical debility uses a motorized wheelchair at baseline -Public legal guardian Changed to oral Lasix. Other medications to continue. Discussed with patient.
[2022-09-24 20:06] LABS: Glucose,Whole Blood 168 mg/dL (70-110)
[2022-09-24] MEDS: ATORVASTATIN 10 MG TAB PO SCH (21:17)
[2022-09-25 05:57] LABS: Glucose,Whole Blood 131 mg/dL (70-110)
[2022-09-25] MEDS: INSULIN ASPART (NovoLOG) 100 UNIT/ML VIAL SQ SCH ×4 (06:02→21:12)
[2022-09-25] MEDS: LEVOTHYROXINE 100 MCG TAB PO SCH (07:09)
[2022-09-25 08:12] LABS: African American GFR (CKD) 60 (>60 ml/min/1.73 sqM); Blood Urea Nitrogen 27 mg/dL (9-20); Calcium 9.1 mg/dL (8.4-10.2); Chloride 95 mmol/L (98-107); Glucose 119 mg/dL (74-99); Non-African American GFR(CKD) 52 (>60 ml/min/1.73 sqM); Potassium 4.4 mmol/L (3.5-5.1); Sodium 139 mmol/L (137-145)
[2022-09-25 08:19] LABS: Anion Gap 11 mmol/L; Carbon Dioxide 33 mmol/L (22-30)
--- NOTE | 2022-09-25 08:26 | XR ---
EXAMINATION TYPE: XR chest 1V DATE OF EXAM: 09/25/2022 COMPARISON: 09/22/2022 HISTORY: 71-year-old male CHF TECHNIQUE: Single frontal view of the chest is obtained. FINDINGS: Leftward patient rotation ultrasound or cardiomediastinal contours. Heart upper limits of normal in size. Underlying small left and trace right effusions with a patchy right midlung and left basilar opacities. IMPRESSION: Ongoing CHF with patchy pulmonary edema, relatively similar to prior. Small left and tra ce right effusions persist.
[2022-09-25] MEDS: metFORMIN 500 MG TAB PO SCH ×2 (09:03→21:11)
[2022-09-25] MEDS: FUROSEMIDE 40 MG TAB PO SCH ×2 (09:03→17:40)
[2022-09-25] MEDS: POTASSIUM CHLORIDE ER 20 MEQ TAB.ER PO SCH (09:03)
[2022-09-25] MEDS: amLODIPine 5 MG TAB PO SCH (09:04)
[2022-09-25] MEDS: DIVALPROEX 250 MG TABLET.DR PO SCH ×2 (09:04→17:40)
[2022-09-25] MEDS: AMIODARONE 200 MG TAB PO SCH (09:04)
[2022-09-25] MEDS: Liraglutide [Victoza 3-Pak] 0.6 MG/0.1 ML Pen.Injctr SQ SCH (09:05)
[2022-09-25 11:39] LABS: Glucose,Whole Blood 171 mg/dL (70-110)
[2022-09-25] MEDS: CYANOCOBALAMIN 500 MCG TAB PO SCH (12:16)
--- NOTE | 2022-09-25 14:05 | P.PN ---
Subjective Progress Note Date: 09/25/22 I am seeing this patient in new consultation today 09/22/2022 for possible CHF exacerbation. Patient is a 71-year-old white male with past medical history significant for paroxysmal atrial fibrillation (on Xarelto), diabetes mellitus type 2, hypertension, hyperlipidemia, hypothyroidism, and mental disability. Patient presented to emergency room earlier this morning after being found to be short of breath and hypoxic at [facility]. Patient resides at [facility]. Patient denies any fevers, chills, cough, chest pain. He does report orthopnea and increased lower extremity swelling. He normally sleeps with 2 pillows. Patient is currently sitting up in bed, on BiPAP with settings 12/6 and FiO2 of 35%, in no acute distress. He seems to be tolerating the BiPAP quite well. His respiratory rate is 22 and tidal volumes are around 500. Chest x-ray on arrival showed mild to moderate vascular congestion and possible right pleural effusion. NT proBNP was only 611. Patient was started on Lasix 40 mg twice a day. CBC on arrival was unremarkable. BMP shows sodium 138, potassium 4.8, chloride 99, serum bicarbonate 28, BUN 28, creatinine 1.4, glucose 178. Urinalysis shows moderate leukocyte esterase, patient denies any urinary symptoms. Troponins less than 0.012 2. ECG shows no obvious ischemic changes. Negative for influenza, RSV, COVID-19. Patient will be admitted to cardiac stepdown unit once bed available. Today's evaluation of 09/23/2022, the patient seems to be more comfortable compared to yesterday. He was taken off the BiPAP and he was placed on high flow oxygen at 13 L his pulse ox is around 95%. The patient has diuresed significantly and the patient responded nicely to Lasix 40 mg IV every 12 hours..Labs from today shows a white cell count of 6 with a hemoglobin of 10.4, BUN is at 24 with a creatinine of 1.5 and a sodium level is at 140. Denies having any specific complaints. Continues to have edema in his lower extremities bilaterally. The fluid balance over the past 24 hours has been at least 1.1 L negative. on today's evaluation of 09/24/2022, the patient is sitting up on a chair and the patient is calm and comfortable. Remains on diuretics and the patient has been switched to oral Lasix 40 mg by mouth twice a day. He remains on 50 L of oxygen by nasal cannula with a pulse ox of 96%. We'll going to gradually wean down FiO2. No aspiration. Tolerating his diet. No nausea or vomiting. No chest pain.the BUN is 25 with a creatinine of 1.4 and his sodium is 140 with a potassium level of 4.3. Blood sugars at 166. On today's evaluation of 09/25/2022, the patient is calm and comfortable, denies having any significant respiratory distress. The patient was on 13 L of oxygen by nasal cannula, and the pulse ox was in order of 96%. I weaned him down to 10 L. Repeat chest x-ray was done and the report came back as stable interstitial but the pulmonary infiltrates. Nevertheless, in my opinion, there is some improvement in volume status based on comparing it to the earlier chest x-ray. The patient is tolerating diet. The patient is hemodynamically stable. BUN is at 27 with a creatinine of 1.3. Sodium level is 139 with a potassium level of 4.4. The patient is afebrile. The patient is also on long-term and coagulation. The patient is on Xarelto. Objective - Vital Signs Vital signs: Vital Signs Temp 98.2 F 09/25/22 11:29 Pulse 66 09/25/22 11:29 Resp 20 09/25/22 11:29 BP 138/63 09/25/22 11:29 Pulse Ox 96 09/25/22 11:29 FiO2 50 09/24/22 09:50 Intake & Output 09/24/22 09/25/22 09/25/22 18:59 06:59 18:59 Intake Total 360 500 240 Output Total 2400 900 Balance -0 -400 240 Weight 74.5 kg Intake: Oral 360 500 240 Output: Urine 2400 900 Other: Voiding Method External Catheter External Catheter External Catheter # Bowel Movements 1 - Exam GENERAL EXAM: Alert, 71-year-old white male on 13 L of oxygen nasal cannula fairly comfortable in no apparent distress. HEAD: Normocephalic and atraumatic EYES: Normal reaction of pupils, equal size. NOSE: Clear with pink turbinates. THROAT: No erythema or exudates. Enlarged tongue NECK: No masses, no JVD. CHEST: No chest wall deformity. LUNGS: Equal air entry with bibasilar inspiratory crackles. No wheeze, rhonchi or dullness. CVS: S1 and S2 normal with no audible murmur, regular rhythm. No extra heart sounds ABDOMEN: Obese abdomen, no hepatosplenomegaly, active bowel sounds, no guarding or rigidity. SPINE: No scoliosis or deformity SKIN: No rashes CENTRAL NERVOUS SYSTEM: No focal deficits, tone is normal in all 4 extremities. EXTREMITIES: There is bilateral 1+ pitting edema of the bilateral lower extremities. There are chronic venous stasis changes of the lower extremities. No clubbing, or cyanosis. Peripheral pulses are intact. - Labs CBC & Chem 7: 09/23/22 06:45 09/25/22 06:37 Labs: Abnormal Lab Results - Last 24 Hours (Table) 09/24/22 09/24/22 09/25/22 Range/Units 16:33 20:04 05:54 Chloride (98-107) mmol/L Carbon Dioxide (22-30) mmol/L BUN (9-20) mg/dL Creatinine (0.66-1.25) mg/dL Glucose (74-99) mg/dL POC Glucose (mg/dL) 146 H 168 H 131 H (70-110) mg/dL 09/25/22 09/25/22 Range/Units 06:37 11:38 Chloride 95 L (98-107) mmol/L Carbon Dioxide 33 H (22-30) mmol/L BUN 27 H (9-20) mg/dL Creatinine 1.38 H (0.66-1.25) mg/dL Glucose 119 H (74-99) mg/dL POC Glucose (mg/dL) 171 H (70-110) mg/dL Assessment and Plan Assessment: Acute hypoxemic respiratory failure, currently on BiPAP, possibly secondary to CHF exacerbation. Chest x-ray shows mild to moderate vascular congestion with possible right trace pleural effusion. NT proBNP only 611., The patient has been diuresing well and the patient is currently off the BiPAP and he was placed on high flow oxygen. Negative fluid balance for now.the patient is currently on 15 L and I was able to wean down to 10 L, chest x-ray shows some slight improvement in interstitial bilateral pulmonary infiltrates. Acute kidney injury, creatinine is stable is at 1.3, creatinine remains stable History of paroxysmal atrial fibrillation, normally anticoagulated on Xarelto. Currently in normal sinus rhythm History of moderate to severe pulmonary hypertension and moderate to severe tricuspid regurgitation Previous history of massive pulmonary emboli based on the CAT scan of the chest was done January 2016 along with evidence of pulmonary arterial hypertension based on CAT scan criteria. Also, the patient had previous history of ventilatory dependent respiratory failure and back then he required thromb olytics. This was back in 2015. He also DVT of the lower extremity on the right right. Diabetes mellitus type 2, [id number] Benign essential hypertension Hyperlipidemia Morbid obesity, [place] 37 Mental disability Plan: wean down FiO2 slowly to maintain a saturation above 90%, currently on 13L, and I dropped him down to 10 L and we will going to work our way down % Continue Lasix 40 mg by mouth twice a day He had an echocardiogram that showed an ejection fraction at this 55-60%. No significant valvular abnormalities have been noted. This is contrary to previous evaluation has shown significant pulmonary hypertension is patient with a PA pressure of 87 along with concentric LVH moderate in severity. I suspect the patient has a component of diastolic heart failure. On his chest x-ray, has chronic right-sided pleural effusion thickening. repeat chest x-ray from today was noted Renal function remains stable We will continue to follow
[2022-09-25 17:00] LABS: Glucose,Whole Blood 115 mg/dL (70-110)
[2022-09-25] MEDS: RIVAROXABAN 20 MG TAB PO SCH (17:40)
--- NOTE | 2022-09-25 19:29 | P.PN ---
Progress Note - Text Progress Note Date: 09/25/22 Chief Complaint: Short of breath 71-year-old patient, resident of [facility], being followed by Dr. Brand.. By the [facility] on the pulse ox to be 50% on room air. Patient normally wears 2 L of oxygen. Had removed it. They 0.6 L on and pulse ox is 93%. Patient is breathing more heavily. EKG at the site showed patient to be in sinus rhythm. And brought to the ER. Patient has a dry cough. No fever no chills. Appetite is fair. He can walk a few steps with a walker. Admitted with CHF exacerbation. IV Lasix. September 23: On IV Lasix. Breathing a bit better. Oral intake good. Shortness of breath. Tired. September 24: Up in a recliner. IV Lasix changed over to by mouth Lasix. On 15 L high flow nasal cannula. Breathing better. Oral intake good. Taper down FiO2. September 25: Reclining. Mouth breathing. On 11 L high flow cannula. Eating good. On Lasix. Active Medications Acetaminophen (Acetaminophen Tab 325 Mg Tab) 650 mg PO Q6HR PRN PRN Reason: Mild Pain or Fever > 100.5 Last Admin: 09/24/22 09:25 Dose: 650 mg Amiodarone HCl (Amiodarone 200 Mg Tab) 200 mg PO DAILY [facility] Last Admin: 09/25/22 09:04 Dose: 200 mg Amlodipine Besylate (Amlodipine 5 Mg Tab) 5 mg PO DAILY [facility] Last Admin: 09/25/22 09:04 Dose: 5 mg Atorvastatin Calcium (Atorvastatin 10 Mg Tab) 10 mg PO HS [facility] Last Admin: 09/24/22 21:17 Dose: 10 mg Cyanocobalamin (Cyanocobalamin 500 Mcg Tab) 500 mcg PO PC-LUNCH [facility] Last Admin: 09/25/22 12:16 Dose: 500 mcg Dextrose/Water (Dextrose 50% Syringe 50 Ml) 25 ml IVP PER PROTOCOL PRN; Protocol PRN Reason: Hypoglycemia Dextrose/Water (Dextrose 50% Syringe 50 Ml) 50 ml IVP PER PROTOCOL PRN; Protocol PRN Reason: Hypoglycemia Divalproex Sodium (Divalproex 250 Mg Tablet.) 250 mg PO BID@0800,1600 [facility] Last Admin: 09/25/22 17:40 Dose: 250 mg Furosemide (Furosemide 40 Mg Tab) 40 mg PO BID@0900,1600 [facility] Last Admin: 09/25/22 17:40 Dose: 40 mg Insulin Aspart (Insulin Aspart (Novolog) 100 Unit/Ml Vial) 0 unit SQ ACHS [facility]; Protocol Last Admin: 09/25/22 17:16 Dose: Not Given Levothyroxine Sodium (Levothyroxine 100 Mcg Tab) 100 mcg PO DAILY@0630 [facility] Last Admin: 09/25/22 07:09 Dose: 100 mcg Melatonin (Melatonin 5 Mg Tablet) 5 mg PO HS PRN PRN Reason: Insomnia Metformin HCl (Metformin 500 Mg Tab) 1,000 mg PO HS [facility] Last Admin: 09/24/22 21:06 Dose: Not Given Metformin HCl (Metformin 500 Mg Tab) 500 mg PO DAILY [facility] Last Admin: 09/25/22 09:03 Dose: 500 mg Naloxone HCl (Naloxone 0.4 Mg/Ml 1 Ml Vial) 0.2 mg IV Q2M PRN PRN Reason: Opioid Reversal Liraglutide [Victoza 3-Ramírez] 0.6 Mg/0.1 Ml Pen.Injctr 1.8 mg SQ DAILY [facility] Last Admin: 09/25/22 09:05 Dose: Not Given Potassium Chloride (Potassium Chloride Er 20 Meq Tab.Er) 20 meq PO DAILY [facility] Last Admin: 09/25/22 09:03 Dose: 20 meq Rivaroxaban (Rivaroxaban 20 Mg Tab) 20 mg PO W/SUPPER [facility]; Protocol Last Admin: 09/25/22 17:40 Dose: 20 mg Past medical history to include: Atrial fibrillation, asthma, diabetes, hypertension, hyperlipidemia obstructive sleep apnea, diabetic neuropathy, leukemia, gallstones, medically disabled, gout, peripheral neuropathy, as use a motorized scooter. DJD. Noncompliant with CPAP. Social history: Unable to get a history about smoking alcohol. Has a guardian. Does use a motor scooter Physical examination: VITAL SIGNS: 98.4, 72, 20, 127/52, 40% on 11 L GENERAL: Reclining EYES: Pupils equal. Conjunctiva normal. HEENT: External appearance of nose and ears normal, oral cavity grossly normal. NECK: JVD unable to assess; masses not palpable. HEART: First and second heart sounds are normal; decreased edema LUNGS: Respiratory rate increased; decreased breath sound. ABDOMEN: Soft, nontender, liver spleen not palpable, no masses palpable. PSYCH: He would answer simple questions. MUSCULOSKELETAL:No Clubbing/cyanosis;muscles-grossly intact DERMATOLOGICAL: Dry skin and lower extremity with the knee down to the ankle. With scaling. INVESTIGATIONS, reviewed in the clinical context: September 25: Potassium 4.4 BUN 27 creatinine 1.38 September 24: Sodium 140 potassium 4.3 BUN 25 creatinine 1.45 September 23: White count 60 globin 10.4 platelets 229 potassium 4.4 BUN 24 creatinine 1.5 for Procalcitonin 0.31 2-D echocardiogram: EF 55-60% White count 8.6 hemoglobin 11.5 platelets 232 sodium 138 potassium 4.8 BUN 28 creatinine 1.40 Troponin I less than 0.012 ProBNP 611 TSH 4.3 Influenza type A, B, RSV, COVID-19: Not detected EKG tracing personally reviewed by me-normal sinus rhythm. Incomplete right bundle dagoberto block. Nonspecific T-wave changes. Chest x-ray film personally reviewed by me-effusion versus infiltrate Assessment plan: -Probable acute congestive heart exacerbation with pulmonary edema and x-ray. Diastolic dysfunction EF 55-60%: Better ProBNP only 611. l Lasix 40 mg twice a day -Acute hypoxic respiratory failure secondary to CHF: Slow to respond On BiPAP initially. Currently on 11 L nasal cannula high flow. -Chronic insomnia Melatonin -Hyperlipidemia Lipitor 10 mg daily at bedtime -Diabetes mellitus type 2 Victoza. Metformin. Follow Accu-Cheks -Paroxysmal atrial fibrillation, currently sinus rhythm Amiodarone. -Hypothyroid Synthroid 100 g a day -Obstructive sleep apnea patient does not use CPAP -Diabetic peripheral neuropathy -Essential hypertension Amlodipine 5 mg a day -Obesity BMI 37.1 Weight loss measures -Chronic medical debility uses a motorized wheelchair at baseline -Public legal guardian RTU current treatment plan. Follow with pulmonary.
[2022-09-25 20:13] LABS: Glucose,Whole Blood 207 mg/dL (70-110)
[2022-09-25] MEDS: ATORVASTATIN 10 MG TAB PO SCH (21:11)
[2022-09-26 06:25] LABS: Glucose,Whole Blood 100 mg/dL (70-110)
[2022-09-26] MEDS: INSULIN ASPART (NovoLOG) 100 UNIT/ML VIAL SQ SCH ×4 (06:28→20:20)
[2022-09-26] MEDS: LEVOTHYROXINE 100 MCG TAB PO SCH (06:46)
[2022-09-26 07:51] LABS: African American GFR (CKD) 71 (>60 ml/min/1.73 sqM); Anion Gap 6 mmol/L; Blood Urea Nitrogen 33 mg/dL (9-20); Calcium 8.9 mg/dL (8.4-10.2); Carbon Dioxide 38 mmol/L (22-30); Chloride 95 mmol/L (98-107); Glucose 103 mg/dL (74-99); Non-African American GFR(CKD) 61 (>60 ml/min/1.73 sqM); Potassium 4.4 mmol/L (3.5-5.1); Sodium 139 mmol/L (137-145)
[2022-09-26] MEDS: Liraglutide [Victoza 3-Pak] 0.6 MG/0.1 ML Pen.Injctr SQ SCH (08:02)
[2022-09-26] MEDS: FUROSEMIDE 40 MG TAB PO SCH (08:12)
[2022-09-26] MEDS: POTASSIUM CHLORIDE ER 20 MEQ TAB.ER PO SCH (08:12)
[2022-09-26] MEDS: metFORMIN 500 MG TAB PO SCH ×2 (08:12→20:19)
[2022-09-26] MEDS: AMIODARONE 200 MG TAB PO SCH (08:12)
[2022-09-26] MEDS: DIVALPROEX 250 MG TABLET.DR PO SCH ×2 (08:12→15:38)
[2022-09-26] MEDS: amLODIPine 5 MG TAB PO SCH (08:12)
[2022-09-26] MEDS: CYANOCOBALAMIN 500 MCG TAB PO SCH (11:16)
[2022-09-26] MEDS: FUROSEMIDE 10 MG/ML 4 ML VIAL IV SCH ×2 (11:16→20:20)
[2022-09-26] MEDS: metOLazone 5 MG TAB PO SCH (11:16)
[2022-09-26 11:37] LABS: Glucose,Whole Blood 207 mg/dL (70-110)
--- NOTE | 2022-09-26 12:04 | P.PN ---
Subjective Progress Note Date: 09/26/22 I am seeing this patient in new consultation today 09/22/2022 for possible CHF exacerbation. Patient is a 71-year-old white male with past medical history significant for paroxysmal atrial fibrillation (on Xarelto), diabetes mellitus type 2, hypertension, hyperlipidemia, hypothyroidism, and mental disability. Patient presented to emergency room earlier this morning after being found to be short of breath and hypoxic at longterm. Patient resides at [facility]. Patient denies any fevers, chills, cough, chest pain. He does report orthopnea and increased lower extremity swelling. He normally sleeps with 2 pillows. Patient is currently sitting up in bed, on BiPAP with settings 12/6 and FiO2 of 35%, in no acute distress. He seems to be tolerating the BiPAP quite well. His respiratory rate is 22 and tidal volumes are around 500. Chest x-ray on arrival showed mild to moderate vascular congestion and possible right pleural effusion. NT proBNP was only 611. Patient was started on Lasix 40 mg twice a day. CBC on arrival was unremarkable. BMP shows sodium 138, potassium 4.8, chloride 99, serum bicarbonate 28, BUN 28, creatinine 1.4, glucose 178. Urinalysis shows moderate leukocyte esterase, patient denies any urinary symptoms. Troponins less than 0.012 2. ECG shows no obvious ischemic changes. Negative for influenza, RSV, COVID-19. Patient will be admitted to cardiac stepdown unit once bed available. Today's evaluation of 09/23/2022, the patient seems to be more comfortable compared to yesterday. He was taken off the BiPAP and he was placed on high flow oxygen at 13 L his pulse ox is around 95%. The patient has diuresed significantly and the patient responded nicely to Lasix 40 mg IV every 12 hours..Labs from today shows a white cell count of 6 with a hemoglobin of 10.4, BUN is at 24 with a creatinine of 1.5 and a sodium level is at 140. Denies having any specific complaints. Continues to have edema in his lower extremities bilaterally. The fluid balance over the past 24 hours has been at least 1.1 L negative. on today's evaluation of 09/24/2022, the patient is sitting up on a chair and the patient is calm and comfortable. Remains on diuretics and the patient has been switched to oral Lasix 40 mg by mouth twice a day. He remains on 50 L of oxygen by nasal cannula with a pulse ox of 96%. We'll going to gradually wean down FiO2. No aspiration. Tolerating his diet. No nausea or vomiting. No chest pain.the BUN is 25 with a creatinine of 1.4 and his sodium is 140 with a potassium level of 4.3. Blood sugars at 166. On today's evaluation of 09/25/2022, the patient is calm and comfortable, denies having any significant respiratory distress. The patient was on 13 L of oxygen by nasal cannula, and the pulse ox was in order of 96%. I weaned him down to 10 L. Repeat chest x-ray was done and the report came back as stable interstitial but the pulmonary infiltrates. Nevertheless, in my opinion, there is some improvement in volume status based on comparing it to the earlier chest x-ray. The patient is tolerating diet. The patient is hemodynamically stable. BUN is at 27 with a creatinine of 1.3. Sodium level is 139 with a potassium level of 4.4. The patient is afebrile. The patient is also on long-term and coagulation. The patient is on Xarelto. On today's evaluation of 09/26/2022, the patient remains on 10 L of oxygen by nasal cannula. No new complaints. His condition is essentially the same as yesterday. No fever or chills. No aspiration. The BUN is at 33 with a creatinine of 1.2. Sodium is level is at 139 with a potassium level of 4.4. Objective - Vital Signs Vital signs: Vital Signs Temp 98.2 F 09/26/22 08:00 Pulse 73 09/26/22 08:00 Resp 20 09/26/22 08:00 BP 137/64 09/26/22 08:00 Pulse Ox 92 L 09/26/22 08:00 FiO2 50 09/25/22 21:08 Intake & Output 09/25/22 09/26/22 09/26/22 18:59 06:59 18:59 Intake Total 1020 240 Output Total 950 1300 300 Balance 70 -1300 -60 Weight 71 kg Intake: Oral 1020 240 Output: Urine 950 1300 300 Other: Voiding Method External Catheter External Catheter External Catheter - Exam GENERAL EXAM: Alert, 71-year-old white male on 13 L of oxygen nasal cannula fairly comfortable in no apparent distress. HEAD: Normocephalic and atraumatic EYES: Normal reaction of pupils, equal size. NOSE: Clear with pink turbinates. THROAT: No erythema or exudates. Enlarged tongue NECK: No masses, no JVD. CHEST: No chest wall deformity. LUNGS: Equal air entry with bibasilar inspiratory crackles. No wheeze, rhonchi or dullness. CVS: S1 and S2 normal with no audible murmur, regular rhythm. No extra heart leti nds ABDOMEN: Obese abdomen, no hepatosplenomegaly, active bowel sounds, no guarding or rigidity. SPINE: No scoliosis or deformity SKIN: No rashes CENTRAL NERVOUS SYSTEM: No focal deficits, tone is normal in all 4 extremities. EXTREMITIES: There is bilateral 1+ pitting edema of the bilateral lower e xtremities. There are chronic venous stasis changes of the lower extremities. No clubbing, or cyanosis. Peripheral pulses are intact. - Labs CBC & Chem 7: 09/23/22 06:45 09/26/22 07:18 Labs: Abnormal Lab Results - Last 24 Hours (Table) 09/25/22 09/25/22 09/25/22 Range/Units 11:38 16:49 20:12 Chloride (98-107) mmol/L Carbon Dioxide (22-30) mmol/L BUN (9-20) mg/dL Glucose (74-99) mg/dL POC Glucose (mg/dL) 171 H 115 H 207 H (70-110) mg/dL 09/26/22 Range/Units 07:18 Chloride 95 L (98-107) mmol/L Carbon Dioxide 38 H (22-30) mmol/L BUN 33 H (9-20) mg/dL Glucose 103 H (74-99) mg/dL POC Glucose (mg/dL) (70-110) mg/dL Assessment and Plan Assessment: Acute hypoxemic respiratory failure, currently on BiPAP, possibly secondary to CHF exacerbation. Chest x-ray shows mild to moderate vascular congestion with possible right trace pleural effusion. NT proBNP only 611., The patient has been diuresing well and the patient is currently off the BiPAP and he was placed on high flow oxygen. Negative fluid balance for now.the patient is currently on 15 L and I was able to wean down to 10 L, chest x-ray shows some slight improvement in interstitial bilateral pulmonary infiltrates. Acute kidney injury, creatinine is stable is at 1.3, creatinine remains stable History of paroxysmal atrial fibrillation, normally anticoagulated on Xarelto. Currently in normal sinus rhythm History of moderate to severe pulmonary hypertension and moderate to severe tricuspid regurgitation Previous history of massive pulmonary emboli based on the CAT scan of the chest was done January 2016 along with evidence of pulmonary arterial hypertension based on CAT scan criteria. Also, the patient had previous history of ventilatory dependent respiratory failure and back then he required thrombolytics. This was back in 2015. He also DVT of the lower extremity on the right right. Diabetes mellitus type 2, [id number] Benign essential hypertension Hyperlipidemia Morbid obesity, [place] 37 Mental disability Plan: Restart IV Lasix 40 mg every 12 hours Add Zaroxolyn 5 mg by mouth daily Currently on 10 L of oxygen by nasal cannula Monitor renal function fluid balance He had an echocardiogram that showed an ejection fraction at this 55-60%. No significant valvular abnormalities have been noted. This is contrary to previous evaluation has shown significant pulmonary hypertension is patient with a PA pressure of 87 along with concentric LVH moderate in severity. I suspect the patient has a component of diastolic heart failure. On his chest x-ray, has chronic right-sided pleural effusion thickening. repeat chest x-ray from from yesterday was noted Renal function remains stable We will continue to follow
[2022-09-26 16:13] LABS: Glucose,Whole Blood 111 mg/dL (70-110)
[2022-09-26] MEDS: RIVAROXABAN 20 MG TAB PO SCH (17:00)
--- NOTE | 2022-09-26 19:27 | P.PN ---
Progress Note - Text Progress Note Date: 09/26/22 Chief Complaint: Short of breath 71-year-old patient, resident of [facility], being followed by Dr. Brand.. By the EMS staff at the [facility] on the pulse ox to be 50% on room air. Patient normally wears 2 L of oxygen. Had removed it. They 0.6 L on and pulse ox is 93%. Patient is breathing more heavily. EKG at the site showed patient to be in sinus rhythm. And brought to the ER. Patient has a dry cough. No fever no chills. Appetite is fair. He can walk a few steps with a walker. Admitted with CHF exacerbation. IV Lasix. September 23: On IV Lasix. Breathing a bit better. Oral intake good. Shortness of breath. Tired. September 24: Up in a recliner. IV Lasix changed over to by mouth Lasix. On 15 L high flow nasal cannula. Breathing better. Oral intake good. Taper down FiO2. September 25: Reclining. Mouth breathing. On 11 L high flow cannula. Eating good. On Lasix. September 26: Breathing better. Down to 8 L high flow nasal cannula. Eating about 35%. Seen by Dr. Ivory earlier today. [place] he was in fluid overload. Put on IV Lasix and Zaroxolyn. We will check strict I's and O's. Active Medications Acetaminophen (Acetaminophen Tab 325 Mg Tab) 650 mg PO Q6HR PRN PRN Reason: Mild Pain or Fever > 100.5 Last Admin: 09/24/22 09:25 Dose: 650 mg Amiodarone HCl (Amiodarone 200 Mg Tab) 200 mg PO DAILY [facility] Last Admin: 09/26/22 08:12 Dose: 200 mg Amlodipine Besylate (Amlodipine 5 Mg Tab) 5 mg PO DAILY [facility] Last Admin: 09/26/22 08:12 Dose: 5 mg Atorvastatin Calcium (Atorvastatin 10 Mg Tab) 10 mg PO HS [facility] Last Admin: 09/25/22 21:11 Dose: 10 mg Cyanocobalamin (Cyanocobalamin 500 Mcg Tab) 500 mcg PO PC-LUNCH [facility] Last Admin: 09/26/22 11:16 Dose: 500 mcg Dextrose/Water (Dextrose 50% Syringe 50 Ml) 25 ml IVP PER PROTOCOL PRN; Protocol PRN Reason: Hypoglycemia Dextrose/Water (Dextrose 50% Syringe 50 Ml) 50 ml IVP PER PROTOCOL PRN; Protocol PRN Reason: Hypoglycemia Divalproex Sodium (Divalproex 250 Mg Tablet.Dr) 250 mg PO BID@0800,1600 [facility] Last Admin: 09/26/22 15:38 Dose: 250 mg Furosemide (Furosemide 10 Mg/Ml 4 Ml Vial) 40 mg IV Q12HR [facility] Last Admin: 09/26/22 11:16 Dose: 40 mg Insulin Aspart (Insulin Aspart (Novolog) 100 Unit/Ml Vial) 0 unit SQ ACHS [facility]; Protocol Last Admin: 09/26/22 16:26 Dose: Not Given Levothyroxine Sodium (Levothyroxine 100 Mcg Tab) 100 mcg PO DAILY@0630 [facility] Last Admin: 09/26/22 06:46 Dose: 100 mcg Melatonin (Melatonin 5 Mg Tablet) 5 mg PO HS PRN PRN Reason: Insomnia Metformin HCl (Metformin 500 Mg Tab) 1,000 mg PO HS [facility] Last Admin: 09/25/22 21:11 Dose: 1,000 mg Metformin HCl (Metformin 500 Mg Tab) 500 mg PO DAILY [facility] Last Admin: 09/26/22 08:12 Dose: 500 mg Metolazone (Metolazone 5 Mg Tab) 5 mg PO DAILY [facility] Last Admin: 09/26/22 11:16 Dose: 5 mg Naloxone HCl (Naloxone 0.4 Mg/Ml 1 Ml Vial) 0.2 mg IV Q2M PRN PRN Reason: Opioid Reversal Liraglutide [Victoza 3-Ramírez] 0.6 Mg/0.1 Ml Pen.Injctr 1.8 mg SQ DAILY [facility] Last Admin: 09/26/22 08:02 Dose: Not Given Potassium Chloride (Potassium Chloride Er 20 Meq Tab.Er) 20 meq PO DAILY [facility] Last Admin: 09/26/22 08:12 Dose: 20 meq Rivaroxaban (Rivaroxaban 20 Mg Tab) 20 mg PO W/SUPPER [facility]; Protocol Last Admin: 09/26/22 17:00 Dose: 20 mg Past medical history to include: Atrial fibrillation, asthma, diabetes, hypertension, hyperlipidemia obstructive sleep apnea, diabetic neuropathy, leukemia, gallstones, medically disabled, gout, peripheral neuropathy, as use a motorized scooter. DJD. Noncompliant with CPAP. Social history: Unable to get a history about smoking alcohol. Has a guardian. Does use a motor scooter Physical examination: VITAL SIGNS: 97.8, 71, 18, 141/64, 91% on 8 L GENERAL: Reclining, slightly short of breath EYES: Pupils equal. Conjunctiva normal. HEENT: External appearance of nose and ears normal, oral cavity grossly normal. NECK: JVD unable to assess; masses not palpable. HEART: First and second heart sounds are normal; decreased edema LUNGS: Respiratory rate increased; decreased breath sound. ABDOMEN: Soft, nontender, liver spleen not palpable, no masses palpable. PSYCH: He would answer simple questions. DERMATOLOGICAL: Dry skin and lower extremity with the knee down to the ankle. With scaling. INVESTIGATIONS, reviewed in the clinical context: September 26: Sodium 139 potassium 4.4 BUN 33 creatinine 1.20 September 25: Potassium 4.4 BUN 27 creatinine 1.38 September 24: Sodium 140 potassium 4.3 BUN 25 creatinine 1.45 September 23: White count 60 globin 10.4 platelets 229 potassium 4.4 BUN 24 creatinine 1.5 for Procalcitonin 0.31 2-D echocardiogram: EF 55-60% White count 8.6 hemoglobin 11.5 platelets 232 sodium 138 potassium 4.8 BUN 28 creatinine 1.40 Troponin I less than 0.012 ProBNP 611 TSH 4.3 Influenza type A, B, RSV, COVID-19: Not detected EKG tracing personally reviewed by me-normal sinus rhythm. Incomplete right bundle dagoberto block. Nonspecific T-wave changes. Chest x-ray film personally reviewed by me-effusion versus infiltrate Assessment plan: -Probable acute congestive heart exacerbation with pulmonary edema and x-ray. Diastolic dysfunction EF 55-60%: ProBNP only 611. Placed back on IV Lasix and Zaroxolyn by pulmonary. Strict I's and O's. -Acute hypoxic respiratory failure secondary to CHF: Slow to respond On BiPAP initially. Currently on 8 L nasal cannula high flow. -Chronic insomnia Melatonin -Hyperlipidemia Lipitor 10 mg daily at bedtime -Metabolic alkalosis from diuretics Add Diamox -Diabetes mellitus type 2 Victoza. Metformin. Follow Accu-Cheks -Paroxysmal atrial fibrillation, currently sinus rhythm Amiodarone. -Hypothyroid Synthroid 100 g a day -Obstructive sleep apnea patient does not use CPAP -Diabetic peripheral neuropathy -Essential hypertension Amlodipine 5 mg a day -Obesity BMI 37.1 Weight loss measures -Chronic medical debility uses a motorized wheelchair at baseline -Public legal guardian Patient placed back on IV Lasix and oxygen. Other medications to continue. Add Diamox for metabolic alkalosis. Strict I's and O's.
[2022-09-26 20:11] LABS: Glucose,Whole Blood 192 mg/dL (70-110)
[2022-09-26] MEDS: acetaZOLAMIDE 250 MG TAB PO SCH (20:19)
[2022-09-26] MEDS: ATORVASTATIN 10 MG TAB PO SCH (20:20)
[2022-09-27 06:17] LABS: Glucose,Whole Blood 135 mg/dL (70-110)
[2022-09-27] MEDS: INSULIN ASPART (NovoLOG) 100 UNIT/ML VIAL SQ SCH ×4 (06:17→21:43)
[2022-09-27] MEDS: LEVOTHYROXINE 100 MCG TAB PO SCH (06:31)
[2022-09-27 06:59] LABS: HCT 33.5 % (39.0-53.0); HGB 10.5 gm/dL (13.0-17.5); Hypochromasia Marked; MCH 33.2 pg (25.0-35.0); MCHC 31.4 g/dL (31.0-37.0); MCV 105.8 fL (80.0-100.0); Macrocytosis Moderate; Mean Platelet Volume 9.3; Platelet Count 234 k/uL (150-450); RBC 3.17 m/uL (4.30-5.90); RDW 15.5 % (11.5-15.5); WBC 6.2 k/uL (3.8-10.6)
[2022-09-27 07:26] LABS: African American GFR (CKD) 45 (>60 ml/min/1.73 sqM); Blood Urea Nitrogen 33 mg/dL (9-20); Calcium 9.2 mg/dL (8.4-10.2); Chloride 88 mmol/L (98-107); Glucose 132 mg/dL (74-99); Non-African American GFR(CKD) 39 (>60 ml/min/1.73 sqM); Potassium 3.5 mmol/L (3.5-5.1); Sodium 138 mmol/L (137-145)
[2022-09-27 07:34] LABS: Anion Gap 12 mmol/L; Carbon Dioxide 38 mmol/L (22-30); NT-Pro-B-Type Natriuretic Pept 261 pg/mL
[2022-09-27] MEDS: Liraglutide [Victoza 3-Pak] 0.6 MG/0.1 ML Pen.Injctr SQ SCH (07:57)
[2022-09-27] MEDS: acetaZOLAMIDE 250 MG TAB PO SCH ×2 (08:01→21:43)
[2022-09-27] MEDS: DIVALPROEX 250 MG TABLET.DR PO SCH ×2 (08:01→15:09)
[2022-09-27] MEDS: metFORMIN 500 MG TAB PO SCH ×2 (08:02→21:43)
[2022-09-27] MEDS: amLODIPine 5 MG TAB PO SCH (08:02)
[2022-09-27] MEDS: FUROSEMIDE 10 MG/ML 4 ML VIAL IV SCH ×2 (08:02→21:44)
[2022-09-27] MEDS: AMIODARONE 200 MG TAB PO SCH (08:02)
[2022-09-27] MEDS: POTASSIUM CHLORIDE ER 20 MEQ TAB.ER PO SCH (08:02)
[2022-09-27] MEDS: metOLazone 5 MG TAB PO SCH (08:02)
--- NOTE | 2022-09-27 08:04 | XR ---
EXAMINATION TYPE: XR chest 1V DATE OF EXAM: 09/27/2022 COMPARISON: 09/25/2022 HISTORY: Follow-up CHF TECHNIQUE: Single frontal view of the chest is obtained. FINDINGS: No change in the mild cardiomegaly, small bilateral pleural effusions, and pulmonary vascu lar congestion. There is no pneumothorax. The osseous structures are intact. IMPRESSION: Moderate acute cardiopulmonary disease with no interval change.
--- NOTE | 2022-09-27 10:59 | P.PN ---
Subjective Progress Note Date: 09/27/22 I am seeing this patient in new consultation today 09/22/2022 for possible CHF exacerbation. Patient is a 71-year-old white male with past medical history significant for paroxysmal atrial fibrillation (on Xarelto), diabetes mellitus type 2, hypertension, hyperlipidemia, hypothyroidism, and mental disability. Patient presented to emergency room earlier this morning after being found to be short of breath and hypoxic at intermediate. Patient resides at [facility]. Patient denies any fevers, chills, cough, chest pain. He does report orthopnea and increased lower extremity swelling. He normally sleeps with 2 pillows. Patient is currently sitting up in bed, on BiPAP with settings 12/6 and FiO2 of 35%, in no acute distress. He seems to be tolerating the BiPAP quite well. His respiratory rate is 22 and tidal volumes are around 500. Chest x-ray on arrival showed mild to moderate vascular congestion and possible right pleural effusion. NT proBNP was only 611. Patient was started on Lasix 40 mg twice a day. CBC on arrival was unremarkable. BMP shows sodium 138, potassium 4.8, chloride 99, serum bicarbonate 28, BUN 28, creatinine 1.4, glucose 178. Urinalysis shows moderate leukocyte esterase, patient denies any urinary symptoms. Troponins less than 0.012 2. ECG shows no obvious ischemic changes. Negative for influenza, RSV, COVID-19. Patient will be admitted to cardiac stepdown unit once bed available. Today's evaluation of 09/23/2022, the patient seems to be more comfortable compared to yesterday. He was taken off the BiPAP and he was placed on high flow oxygen at 13 L his pulse ox is around 95%. The patient has diuresed significantly and the patient responded nicely to Lasix 40 mg IV every 12 hours..Labs from today shows a white cell count of 6 with a hemoglobin of 10.4, BUN is at 24 with a creatinine of 1.5 and a sodium level is at 140. Denies having any specific complaints. Continues to have edema in his lower extremities bilaterally. The fluid balance over the past 24 hours has been at least 1.1 L negative. on today's evaluation of 09/24/2022, the patient is sitting up on a chair and the patient is calm and comfortable. Remains on diuretics and the patient has been switched to oral Lasix 40 mg by mouth twice a day. He remains on 50 L of oxygen by nasal cannula with a pulse ox of 96%. We'll going to gradually wean down FiO2. No aspiration. Tolerating his diet. No nausea or vomiting. No chest pain.the BUN is 25 with a creatinine of 1.4 and his sodium is 140 with a potassium level of 4.3. Blood sugars at 166. On today's evaluation of 09/25/2022, the patient is calm and comfortable, denies having any significant respiratory distress. The patient was on 13 L of oxygen by nasal cannula, and the pulse ox was in order of 96%. I weaned him down to 10 L. Repeat chest x-ray was done and the report came back as stable interstitial but the pulmonary infiltrates. Nevertheless, in my opinion, there is some improvement in volume status based on comparing it to the earlier chest x-ray. The patient is tolerating diet. The patient is hemodynamically stable. BUN is at 27 with a creatinine of 1.3. Sodium level is 139 with a potassium level of 4.4. The patient is afebrile. The patient is also on long-term and coagulation. The patient is on Xarelto. On today's evaluation of 09/26/2022, the patient remains on 10 L of oxygen by nasal cannula. No new complaints. His condition is essentially the same as yesterday. No fever or chills. No aspiration. The BUN is at 33 with a creatinine of 1.2. Sodium is level is at 139 with a potassium level of 4.4. 09/27/2022, the patient is down to 6 L of oxygen by nasal cannula. He started producing better urine output with IV Lasix and Zaroxolyn. Creatinine is up to 1.7. No major respiratory difficulties for now and the patient has a sodium level of 138, potassium of 3.5, BUN is at 33 and the creatinine is at 1.75. Hemoglobin is at 10.5. Objective - Vital Signs Vital signs: Vital Signs Temp 98.7 F 09/27/22 08:00 Pulse 64 09/27/22 08:00 Resp 20 09/27/22 08:00 BP 141/71 09/27/22 08:00 Pulse Ox 92 L 09/27/22 08:41 FiO2 50 09/25/22 21:08 Intake & Output 09/26/22 09/27/22 09/27/22 18:59 06:59 18:59 Intake Total 1020 780 Output Total 1999 3350 200 Balance -980 -3350 580 Weight 76 kg Intake: Oral 1020 780 Output: Urine 19990 200 Other: Voiding Method External Catheter External Catheter External Catheter - Exam GENERAL EXAM: Alert, 71-year-old white male on 6 L of oxygen nasal cannula fairly comfortable in no apparent distress. HEAD: Normocephalic and atraumatic EYES: Normal reaction of pupils, equal size. NOSE: Clear with pink turbinates. THROAT: No erythema or exudates. Enlarged tongue NECK: No masses, no JVD. CHEST: No chest wall deformity. LUNGS: Equal air entry with bibasilar inspiratory crackles. No wheeze, rhonchi or dullness. CVS: S1 and S2 normal with no audible murmur, regular rhythm. No extra heart sounds ABDOMEN: Obese abdomen, no hepatosplenomegaly, active bowel sounds, no guarding or rigidity. SPINE: No scoliosis or deformity SKIN: No rashes CENTRAL NERVOUS SYSTEM: No focal deficits, tone is normal in all 4 extremities. EXTREMITIES: There is bilateral 1+ pitting edema of the bilateral lower extremities. There are chronic venous stasis changes of the lower extremities. No clubbing, or cyanosis. Peripheral pulses are intact. - Labs CBC & Chem 7: 09/27/22 06:48 09/27/22 06:48 Labs: Abnormal Lab Results - Last 24 Hours (Table) 09/26/22 09/26/22 09/26/22 Range/Units 11:35 16:12 20:10 RBC (4.30-5.90) m/uL Hgb (13.0-17.5) gm/dL Hct (39.0-53.0) % MCV (80.0-100.0) fL Chloride (98-107) mmol/L Carbon Dioxide (22-30) mmol/L BUN (9-20) mg/dL Creatinine (0.66-1.25) mg/dL Glucose (74-99) mg/dL POC Glucose (mg/dL) 207 H 111 H 192 H (70-110) mg/dL 09/27/22 09/27/22 09/27/22 Range/Units 06:15 06:48 06:48 RBC 3.17 L (4.30-5.90) m/uL Hgb 10.5 L (13.0-17.5) gm/dL Hct 33.5 L (39.0-53.0) % MCV 105.8 H (80.0-100.0) fL Chloride 88 L (98-107) mmol/L Carbon Dioxide 38 H (22-30) mmol/L BUN 33 H (9-20) mg/dL Creatinine 1.75 H (0.66-1.25) mg/dL Glucose 132 H (74-99) mg/dL POC Glucose (mg/dL) 135 H (70-110) mg/dL Assessment and Plan Assessment: Acute hypoxemic respiratory failure, currently on BiPAP, possibly secondary to CHF exacerbation. Chest x-ray shows mild to moderate vascular congestion with possible right trace pleural effusion. NT proBNP only 611., The patient has been diuresing well and the patient is currently off the BiPAP and he was placed on high flow oxygen. Negative fluid balance for now.the patient is currently on 15 L and I was able to wean down to 10 L, chest x-ray shows some slight improvement in interstitial bilateral pulmonary infiltrates. Subsequently, today's evaluation, the patient has been weaned down to 6 L and he continues to diurese adequately. Acute kidney injury, creatinine is is up to 1.7 History of paroxysmal atrial fibrillation, normally anticoagulated on Xarelto. Currently in normal sinus rhythm History of moderate to severe pulmonary hypertension and moderate to severe tricuspid regurgitation Previous history of massive pulmonary emboli based on the CAT scan of the chest was done January 2016 along with evidence of pulmonary arterial hypertension based on CAT scan criteria. Also, the patient had previous history of clara tilatory dependent respiratory failure and back then he required thrombolytics. This was back in 2015. He also DVT of the lower extremity on the right right. Diabetes mellitus type 2, [id number] Benign essential hypertension Hyperlipidemia Morbid obesity, PA 37 Mental disability Plan: Continue IV Lasix 40 mg every 12 hours Continue Zaroxolyn 5 mg by mouth daily Fluid balance is negative at least 4 L over the past 24 hours Currently on 6 L of oxygen by nasal cannula, being gradually weaned off Monitor renal function fluid balance Monitor creatinine He had an echocardiogram that showed an ejection fraction at this 55-60%. No significant valvular abnormalities have been noted. This is contrary to previous evaluation has shown significant pulmonary hypertension is patient with a PA pressure of 87 along with concentric LVH moderate in severity. I suspect the patient has a component of diastolic heart failure. On his chest x-ray, has chronic right-sided pleural effusion thickening. repeat chest x-ray from from yesterday was noted Renal function remains stable We will continue to follow
[2022-09-27] MEDS: CYANOCOBALAMIN 500 MCG TAB PO SCH (11:09)
[2022-09-27 11:41] LABS: Glucose,Whole Blood 180 mg/dL (70-110)
--- NOTE | 2022-09-27 15:53 | P.PN ---
Progress Note - Text Progress Note Date: 09/27/22 Chief Complaint: Short of breath 71-year-old patient, resident of [facility], being followed by Dr. Brand.. By the EMS staff at the [facility] on the pulse ox to be 50% on room air. Patient normally wears 2 L of oxygen. Had removed it. They 0.6 L on and pulse ox is 93%. Patient is breathing more heavily. EKG at the site showed patient to be in sinus rhythm. And brought to the ER. Patient has a dry cough. No fever no chills. Appetite is fair. He can walk a few steps with a walker. Admitted with CHF exacerbation. IV Lasix. September 23: On IV Lasix. Breathing a bit better. Oral intake good. Shortness of breath. Tired. September 24: Up in a recliner. IV Lasix changed over to by mouth Lasix. On 15 L high flow nasal cannula. Breathing better. Oral intake good. Taper down FiO2. September 25: Reclining. Mouth breathing. On 11 L high flow cannula. Eating good. On Lasix. September 26: Breathing better. Down to 8 L high flow nasal cannula. Eating about 35%. Seen by Dr. Ivory earlier today. [place] he was in fluid overload. Put on IV Lasix and Zaroxolyn. We will check strict I's and O's. September 27: Reclining in bed. Down to 5 L nasal cannula. On IV Lasix and Zaroxolyn. About 13 L in negative fluid balance since admission. Taper down FiO2. Possibly discharge in 24 hours. Active Medications Acetaminophen (Acetaminophen Tab 325 Mg Tab) 650 mg PO Q6HR PRN PRN Reason: Mild Pain or Fever > 100.5 Last Admin: 09/24/22 09:25 Dose: 650 mg Acetazolamide (Acetazolamide 250 Mg Tab) 250 mg PO BID [facility] Last Admin: 09/27/22 08:01 Dose: 250 mg Amiodarone HCl (Amiodarone 200 Mg Tab) 200 mg PO DAILY [facility] Last Admin: 09/27/22 08:02 Dose: 200 mg Amlodipine Besylate (Amlodipine 5 Mg Tab) 5 mg PO DAILY [facility] Last Admin: 09/27/22 08:02 Dose: 5 mg Atorvastatin Calcium (Atorvastatin 10 Mg Tab) 10 mg PO HS [facility] Last Admin: 09/26/22 20:20 Dose: 10 mg Cyanocobalamin (Cyanocobalamin 500 Mcg Tab) 500 mcg PO PC-LUNCH [facility] Last Admin: 09/27/22 11:09 Dose: 500 mcg Dextrose/Water (Dextrose 50% Syringe 50 Ml) 25 ml IVP PER PROTOCOL PRN; Protocol PRN Reason: Hypoglycemia Dextrose/Water (Dextrose 50% Syringe 50 Ml) 50 ml IVP PER PROTOCOL PRN; Protocol PRN Reason: Hypoglycemia Divalproex Sodium (Divalproex 250 Mg Tablet.Dr) 250 mg PO BID@0800,1600 [facility] Last Admin: 09/27/22 15:09 Dose: 250 mg Furosemide (Furosemide 10 Mg/Ml 4 Ml Vial) 40 mg IV Q12HR [facility] Last Admin: 09/27/22 08:02 Dose: 40 mg Insulin Aspart (Insulin Aspart (Novolog) 100 Unit/Ml Vial) 0 unit SQ ACHS [facility]; Protocol Last Admin: 09/27/22 11:50 Dose: 2 unit Levothyroxine Sodium (Levothyroxine 100 Mcg Tab) 100 mcg PO DAILY@0630 [facility] Last Admin: 09/27/22 06:31 Dose: 100 mcg Melatonin (Melatonin 5 Mg Tablet) 5 mg PO HS PRN PRN Reason: Insomnia Metformin HCl (Metformin 500 Mg Tab) 1,000 mg PO HS [facility] Last Admin: 09/26/22 20:19 Dose: 1,000 mg Metformin HCl (Metformin 500 Mg Tab) 500 mg PO DAILY [facility] Last Admin: 09/27/22 08:02 Dose: 500 mg Metolazone (Metolazone 5 Mg Tab) 5 mg PO DAILY [facility] Last Admin: 09/27/22 08:02 Dose: 5 mg Naloxone HCl (Naloxone 0.4 Mg/Ml 1 Ml Vial) 0.2 mg IV Q2M PRN PRN Reason: Opioid Reversal Liraglutide [Victoza 3-Ramírez] 0.6 Mg/0.1 Ml Pen.Injctr 1.8 mg SQ DAILY [facility] Last Admin: 09/27/22 07:57 Dose: Not Given Potassium Chloride (Potassium Chloride Er 20 Meq Tab.Er) 20 meq PO DAILY [facility] Last Admin: 09/27/22 08:02 Dose: 20 meq Rivaroxaban (Rivaroxaban 20 Mg Tab) 20 mg PO W/SUPPER [facility]; Protocol Last Admin: 07/15/23 17:00 Dose: 20 mg Past medical history to include: Atrial fibrillation, asthma, diabetes, hypertension, hyperlipidemia obstructive sleep apnea, diabetic neuropathy, leukemia, gallstones, medically disabled, gout, peripheral neuropathy, as use a motorized scooter. DJD. Noncompliant with CPAP. Social history: Unable to get a history about smoking alcohol. Has a guardian. Does use a motor scooter Physical examination: VITAL SIGNS: 98.1, 60, 18, 135/56, 93% on 5 L GENERAL: Reclining, slightly short of breath, mouth breathing EYES: Pupils equal. Conjunctiva normal. HEENT: External appearance of nose and ears normal, oral cavity grossly normal. NECK: JVD unable to assess; masses not palpable. HEART: First and second heart sounds are normal; decreased edema LUNGS: Respiratory rate increased; decreased breath sound. ABDOMEN: Soft, nontender, liver spleen not palpable, no masses palpable. PSYCH: He would answer simple questions. DERMATOLOGICAL: Dry skin and lower extremity with the knee down to the ankle. With scaling. INVESTIGATIONS, reviewed in the clinical context: September 27: White count 6.2 hemoglobin 10.5 potassium 3.5 BUN 33 creatinine 1.75 September 26: Sodium 139 potassium 4.4 BUN 33 creatinine 1.20 September 25: Potassium 4.4 BUN 27 creatinine 1.38 September 24: Sodium 140 potassium 4.3 BUN 25 creatinine 1.45 September 23: White count 60 globin 10.4 platelets 229 potassium 4.4 BUN 24 creatinine 1.5 for Procalcitonin 0.31 2-D echocardiogram: EF 55-60% White count 8.6 hemoglobin 11.5 platelets 232 sodium 138 potassium 4.8 BUN 28 creatinine 1.40 Troponin I less than 0.012 ProBNP 611 TSH 4.3 Influenza type A, B, RSV, COVID-19: Not detected EKG tracing personally reviewed by me-normal sinus rhythm. Incomplete right bundle dagoberto block. Nonspecific T-wave changes. Chest x-ray film personally reviewed by me-effusion versus infiltrate Assessment plan: -Probable acute congestive heart exacerbation with pulmonary edema and x-ray. Diastolic dysfunction EF 55-60%: ProBNP only 611. IV Lasix and Zaroxolyn by pulmonary. Strict I's and O's. -Acute hypoxic respiratory failure secondary to CHF: Some improvement On BiPAP initially. Currently on 5 L nasal cannula high flow. -Acute kidney injury likely ATN from cardiorenal syndrome. Follow creatinine closely -Chronic kidney disease stage III. Creatinine 1.63 in July 2022 -Chronic insomnia Melatonin -Hyperlipidemia Lipitor 10 mg daily at bedtime -Metabolic alkalosis from diuretics Diamox -Diabetes mellitus type 2 Victoza. Metformin. Follow Accu-Cheks -Paroxysmal atrial fibrillation, currently sinus rhythm Amiodarone. -Hypothyroid Synthroid 100 g a day -Obstructive sleep apnea patient does not use CPAP -Diabetic peripheral neuropathy -Essential hypertension Amlodipine 5 mg a day -Obesity BMI 37.1 Weight loss measures -Chronic medical debility uses a motorized wheelchair at baseline -Public legal guardian Continue diuretics. Follow labs closely. Hopefully discharge in next 24-48 hours.
[2022-09-27 16:25] LABS: Glucose,Whole Blood 138 mg/dL (70-110)
[2022-09-27] MEDS: RIVAROXABAN 20 MG TAB PO SCH (16:54)
[2022-09-27 19:58] LABS: Glucose,Whole Blood 251 mg/dL (70-110)
[2022-09-27] MEDS: ATORVASTATIN 10 MG TAB PO SCH (21:43)
[2022-09-28] MEDS: ACETAMINOPHEN TAB 325 MG TAB PO PRN (05:55)
[2022-09-28 05:58] LABS: Glucose,Whole Blood 129 mg/dL (70-110)
[2022-09-28] MEDS: INSULIN ASPART (NovoLOG) 100 UNIT/ML VIAL SQ SCH ×4 (05:58→20:41)
[2022-09-28] MEDS: LEVOTHYROXINE 100 MCG TAB PO SCH (06:31)
[2022-09-28] MEDS: amLODIPine 5 MG TAB PO SCH (09:18)
[2022-09-28] MEDS: metOLazone 5 MG TAB PO SCH (09:18)
[2022-09-28] MEDS: AMIODARONE 200 MG TAB PO SCH (09:18)
[2022-09-28] MEDS: acetaZOLAMIDE 250 MG TAB PO SCH ×2 (09:18→20:39)
[2022-09-28] MEDS: POTASSIUM CHLORIDE ER 20 MEQ TAB.ER PO SCH (09:18)
[2022-09-28] MEDS: FUROSEMIDE 10 MG/ML 4 ML VIAL IV SCH ×2 (09:19→20:39)
[2022-09-28] MEDS: DIVALPROEX 250 MG TABLET.DR PO SCH ×2 (09:19→17:18)
[2022-09-28] MEDS: metFORMIN 500 MG TAB PO SCH ×2 (09:21→20:39)
[2022-09-28] MEDS: Liraglutide [Victoza 3-Pak] 0.6 MG/0.1 ML Pen.Injctr SQ SCH (09:21)
[2022-09-28 11:26] LABS: Glucose,Whole Blood 278 mg/dL (70-110)
[2022-09-28 11:37] LABS: African American GFR (CKD) 37 (>60 ml/min/1.73 sqM); Anion Gap 14 mmol/L; Blood Urea Nitrogen 48 mg/dL (9-20); Calcium 9.7 mg/dL (8.4-10.2); Carbon Dioxide 37 mmol/L (22-30); Chloride 84 mmol/L (98-107); Glucose 243 mg/dL (74-99); Non-African American GFR(CKD) 32 (>60 ml/min/1.73 sqM); Potassium 2.9 mmol/L (3.5-5.1); Sodium 135 mmol/L (137-145)
--- NOTE | 2022-09-28 11:49 | P.NPCON ---
History of Present Illness - Reason for Consult acute renal failure - History of Present Illness Patient is a 71-year-old male with history of type 2 diabetes, hypertension, mental disability and paroxysmal A. fib. He is admitted to the hospital from [facility] with complaints of increasing shortness of breath. He was initially maintained on BiPAP. Chest x-ray showed evidence of pulmonary vascular congestion and patient was diuresed for volume overload. Volume status is much improved. Serum creatinine was 1.4 on admission and decreased to 1.2 on 09/26/2022. Increased to 2.04 today. Previous creatinine 1.2 on 09/05/2021. Blood pressure has not been low. Currently maintained on IV Lasix 40 mg every 12 hours and metolazone which was added 2 days ago. Patient has had good urine output with 5.3 L noted on 09/27/2022. Currently with external catheter. UA is completely benign. No history of NSAIDs. Not maintained on DARWIN inhibitor's or angiotensin receptor blockers. Review of Systems As per HPI Past Medical History Past Medical History: Atrial Fibrillation, Asthma, Diabetes Mellitus, Hyperlipidemia, Hypertension, Sleep Apnea/CPAP/BIPAP, Thyroid Disorder Additional Past Medical History / Comment(s): Diabetic oculopathy, obesity, leukopenia, gallstone, diarrhea, mentally disabled, gout, peripheral neuropothy, gait dysfunction- uses motorized scooter, degenerative joint disorder, supposed to wear cpap at home but is non compliant History of Any Multi-Drug Resistant Organisms: Unobtainable Past Surgical History: Cholecystectomy, Hernia Repair Additional Past Surgical History / Comment(s): L inguinal hernia repair, last colonoscopy 2002 Past Anesthesia/Blood Transfusion Reactions: Unable to Obtain Past Psychological History: No Psychological Hx Reported Smoking Status: Unknown if ever smoked Past Alcohol Use History: Unable to Obtain Past Drug Use History: Unable to Obtain - Past Family History Mother Family Medical History: Unable to Obtain Father Family Medical History: Diabetes Mellitus Medications and Allergies Home Medications Medication Instructions Recorded Confirmed Type Amiodarone [Cordarone] 200 mg PO DAILY 08/02/20 09/22/22 History Cyanocobalamin [Vitamin B-12] 500 mcg PO PC-LUNCH 08/02/20 09/22/22 History Levothyroxine Sodium [Synthroid] 100 mcg PO DAILY 08/02/20 09/22/22 History Liraglutide [Victoza 3-Ramírez] 1.8 mg SQ DAILY 08/02/20 09/22/22 History Melatonin 5 mg PO HS PRN 08/02/20 09/22/22 History Acetaminophen Tab [Tylenol] 650 mg PO Q6HR PRN tab 08/17/20 09/22/22 Rx Atorvastatin [Lipitor] 10 mg PO HS 07/26/22 09/22/22 History Divalproex [Depakote] 250 mg PO BID@0800,1600 07/26/22 09/22/22 History metFORMIN HCL 1,000 mg PO HS 07/26/22 09/22/22 History metFORMIN HCL 500 mg PO DAILY 07/26/22 09/22/22 History Furosemide [Lasix] 40 mg PO DAILY 09/22/22 09/22/22 History Meclizine [Antivert] 12.5 mg PO Q8HR PRN 09/22/22 09/22/22 History Potassium Chloride [Klor-Con M20] 20 meq PO DAILY 09/22/22 09/22/22 History Sodium Chloride [Saline Mist] 1 spray EA NOSTRIL Q2H PRN 09/22/22 09/22/22 His tory amLODIPine [Norvasc] 5 mg PO DAILY 09/22/22 09/22/22 History Allergies Allergy/AdvReac Type Severity Reaction Status Date / Time No Known Allergies Allergy Verified 09/22/22 06:55 Physical Exam Vitals: Vital Signs Temp Pulse Resp BP Pulse Ox 09/28/22 10:38 18 09/28/22 09:12 18 91 L 09/28/22 09:09 18 138/62 09/28/22 08:23 94 L 09/28/22 04:00 97.9 F 63 16 136/63 09/28/22 00:10 98.5 F 64 16 124/61 96 09/27/22 20:45 98.9 F 66 16 133/56 96 09/27/22 15:43 97.8 F 65 18 144/67 92 L Intake and Output 09/27/22 09/28/22 09/28/22 22:59 06:59 14:59 Intake Total 540 118 Output Total 700 1300 500 Balance -160 -1300 -382 Intake: Oral 540 118 Output: Urine 700 1300 500 Other: Voiding Method External Catheter External Catheter External Catheter Weight 78 kg Awake, comfortable, no acute distress Examination of the heart S1 and S2 Examination of the lungs bilateral breath sounds are heard with decreased breath sounds at the bases Abdomen is soft nontender Examination of lower extremities shows edema 1+ bilaterally [employer] exam grossly intact Results - Lab Results Most recent lab results Calcium 9.7 mg/dL (8.4-10.2) 09/28/22 10:33 Magnesium 1.9 mg/dL (1.6-2.3) 09/22/22 00:43 09/27/22 06:48 09/28/22 10:33 Assessment and Plan Assessment: 1. Acute kidney injury associated with recent diuresis. Blood pressure is not low. UA is completely benign. Check ultrasound of the kidney 2. Chronic kidney disease with baseline creatinine about 1.1-1.2 mg/dL secondary to nephrosclerosis. NKF stage IIIa. 3. Hypokalemia secondary to diuresis 4. Metabolic alkalosis secondary to diuresis maintained on Diamox 4. Hypertension with CK D currently controlled 5. Acute hypoxic respiratory failure secondary to CHF exacerbation and volume overload, currently improved 6. Acute diastolic CHF. Ejection fraction 55-60%. Plan: Decrease Zaroxolyn to 2.5 mg every other day Continue with current dose of IV Lasix Continue with Diamox Repeat labs in a.m. If renal function deteriorates we may need to hold the Glucophage. Check ultrasound of the kidneys next Thank you for the consultation. We will continue to follow the patient with you during his hospitalization.
[2022-09-28] MEDS ORDERED: POTASSIUM CHLORIDE ER 20 MEQ TAB.ER PO STA (11:55)
[2022-09-28] MEDS: CYANOCOBALAMIN 500 MCG TAB PO SCH (12:22)
--- NOTE | 2022-09-28 13:27 | P.PN ---
Subjective Progress Note Date: 09/28/22 71-year-old patient, resident of [facility], being followed by Dr. Brand.. By the EMS staff at the [facility] on the pulse ox to be 50% on room air. Patient normally wears 2 L of oxygen. Had removed it. They 0.6 L on and pulse ox is 93%. Patient is breathing more heavily. EKG at the site showed patient to be in sinus rhythm. And brought to the ER. Patient has a dry cough. No fever no chills. Appetite is fair. He can walk a few steps with a walker. Admitted with CHF exacerbation. IV Lasix. September 23: On IV Lasix. Breathing a bit better. Oral intake good. Shortness of breath. Tired. September 24: Up in a recliner. IV Lasix changed over to by mouth Lasix. On 15 L high flow nasal cannula. Breathing better. Oral intake good. Taper down FiO2. September 25: Reclining. Mouth breathing. On 11 L high flow cannula. Eating good. On Lasix. September 26: Breathing better. Down to 8 L high flow nasal cannula. Eating about 35%. Seen by Dr. Ivory earlier today. [place] he was in fluid overload. Put on IV Lasix and Zaroxolyn. We will check strict I's and O's. September 27: Reclining in bed. Down to 5 L nasal cannula. On IV Lasix and Zaroxolyn. About 13 L in negative fluid balance since admission. Taper down FiO2. Possibly discharge in [address] Byrne took over care. No acute issues overnight. Still complaining of shortness of breath on exertion REVIEW OF SYSTEMS: CONSTITUTIONAL: No fever, no malaise,. CARDIOVASCULAR: No chest pain, no palpitations, no syncope. PULMONARY: As above GASTROINTESTINAL: No diarrhea, no nausea, no vomiting, no abdominal pain. NEUROLOGICAL: No headaches, no weakness, PHYSICAL EXAMINATION: GENERAL: The patient is alert and oriented x3, not in any acute distress. Well developed, well nourished. HEENT: Pupils are round and equally reacting to light. EOMI. No scleral icterus. No conjunctival pallor. Normocephalic, atraumatic. No pharyngeal erythema. No thyromegaly. CARDIOVASCULAR: S1 and S2 present. No murmurs, rubs, or gallops. PULMONARY: Coarse Breath sounds bilaterally ABDOMEN: Soft, nontender, nondistended, normoactive bowel sounds. No palpable organomegaly. MUSCULOSKELETAL: No joint swelling or deformity. EXTREMITIES: 1+ pitting edema lower extremities bilaterally NEUROLOGICAL: Gross neurological examination did not reveal any focal deficits. SKIN: No rashes. Assessment and plan -Probable acute congestive heart exacerbation with pulmonary edema and x-ray. Diastolic dysfunction EF 55-60%: Strict I's and O's Daily weights Continue IV Lasix Decrease Zaroxolyn to 2.5 mg every other day Follow-up on pulmonary recommendations -Acute hypoxic respiratory failure secondary to CHF: Some improvement On BiPAP initially. Currently on 5 L nasal cannula high flow. -Acute kidney injury likely ATN from cardiorenal syndrome. Sick I's and O's next and daily weights Nephrology consulted -Chronic kidney disease stage III. Creatinine 1.63 in July 2022 -Chronic insomnia Melatonin -Hyperlipidemia Lipitor 10 mg daily at bedtime -Metabolic alkalosis from diuretics Diamox -Diabetes mellitus type 2 Victoza. Metformin. Follow Accu-Cheks -Paroxysmal atrial fibrillation, currently sinus rhythm Amiodarone. -Hypothyroid Synthroid 100 g a day -Obstructive sleep apnea patient does not use CPAP -Diabetic peripheral neuropathy -Essential hypertension Amlodipine 5 mg a day -Obesity BMI 37.1 Weight loss measures -Chronic medical debility uses a motorized wheelchair at baseline Labs and medication were reviewed.. Continue same treatment. Continue with symptomatic treatment. Resume home medication. Monitor labs and vitals. DVT and GI prophylaxis. Further recommendations as per clinical course of the patient Objective - Vital Signs Vital signs: Vital Signs Temp 97.9 F 09/28/22 04:00 Pulse 63 09/28/22 04:00 Resp 18 09/28/22 09:12 BP 138/62 09/28/22 09:09 Pulse Ox 91 L 09/28/22 09:12 FiO2 50 09/25/22 21:08 Intake & Output 09/27/22 09/28/22 09/28/22 18:59 06:59 18:59 Intake Total 1320 118 Output Total 1700 1500 Balance -380 -1500 118 Weight 78 kg Intake: Oral 1320 118 Output: Urine 1700 1500 Other: Voiding Method External Catheter External Catheter - Labs CBC & Chem 7: 09/27/22 06:48 09/28/22 10:33 Labs: Abnormal Lab Results - Last 24 Hours (Table) 09/27/22 09/27/22 09/27/22 Range/Units 11:40 16:23 19:56 POC Glucose (mg/dL) 180 H 138 H 251 H (70-110) mg/dL 09/28/22 Range/Units 05:57 POC Glucose (mg/dL) 129 H (70-110) mg/dL
[2022-09-28 13:31] VITALS: BMI 27.7
--- NOTE | 2022-09-28 14:14 | P.PN ---
Subjective Progress Note Date: 09/28/22 Principal diagnosis: Acute hypoxic respiratory failure secondary to acute diastolic congestive heart failure I am seeing this patient in new consultation today 09/22/2022 for possible CHF exacerbation. Patient is a 71-year-old white male with past medical history significant for paroxysmal atrial fibrillation (on Xarelto), diabetes mellitus type 2, hypertension, hyperlipidemia, hypothyroidism, and mental disability. Patient presented to emergency room earlier this morning after being found to be short of breath and hypoxic at correction. Patient resides at [facility]. Patient denies any fevers, chills, cough, chest pain. He does report orthopnea and increased lower extremity swelling. He normally sleeps with 2 pillows. Patient is currently sitting up in bed, on BiPAP with settings 12/6 and FiO2 of 35%, in no acute distress. He seems to be tolerating the BiPAP quite well. His respiratory rate is 22 and tidal volumes are around 500. Chest x-ray on arrival showed mild to moderate vascular congestion and possible right pleural effusion. NT proBNP was only 611. Patient was started on Lasix 40 mg twice a day. CBC on arrival was unremarkable. BMP shows sodium 138, potassium 4.8, chloride 99, serum bicarbonate 28, BUN 28, creatinine 1.4, glucose 178. Urinalysis shows moderate leukocyte esterase, patient denies any urinary symptoms. Troponins less than 0.012 2. ECG shows no obvious ischemic changes. Negative for influenza, RSV, COVID-19. Patient will be admitted to cardiac stepdown unit once bed available. Today's evaluation of 09/23/2022, the patient seems to be more comfortable compared to yesterday. He was taken off the BiPAP and he was placed on high flow oxygen at 13 L his pulse ox is around 95%. The patient has diuresed significantly and the patient responded nicely to Lasix 40 mg IV every 12 hours..Labs from today shows a white cell count of 6 with a hemoglobin of 10.4, BUN is at 24 with a creatinine of 1.5 and a sodium level is at 140. Denies having any specific complaints. Continues to have edema in his lower extremi ties bilaterally. The fluid balance over the past 24 hours has been at least 1.1 L negative. on today's evaluation of 09/24/2022, the patient is sitting up on a chair and the patient is calm and comfortable. Remains on diuretics and the patient has been switched to oral Lasix 40 mg by mouth twice a day. He remains on 50 L of oxygen by nasal cannula with a pulse ox of 96%. We'll going to gradually wean down FiO2. No aspiration. Tolerating his diet. No nausea or vomiting. No chest pain.the BUN is 25 with a creatinine of 1.4 and his sodium is 140 with a potassium level of 4.3. Blood sugars at 166. On today's evaluation of 09/25/2022, the patient is calm and comfortable, denies having any significant respiratory distress. The patient was on 13 L of oxygen by nasal cannula, and the pulse ox was in order of 96%. I weaned him down to 10 L. Repeat chest x-ray was done and the report came back as stable interstitial but the pulmonary infiltrates. Nevertheless, in my opinion, there is some improvement in volume status based on comparing it to the earlier chest x-ray. The patient is tolerating diet. The patient is hemodynamically stable. BUN is at 27 with a creatinine of 1.3. Sodium level is 139 with a potassium level of 4.4. The patient is afebrile. The patient is also on long-term and coagulation. The patient is on Xarelto. On today's evaluation of 09/26/2022, the patient remains on 10 L of oxygen by nasal cannula. No new complaints. His condition is essentially the same as yesterday. No fever or chills. No aspiration. The BUN is at 33 with a creatinine of 1.2. Sodium is level is at 139 with a potassium level of 4.4. 09/27/2022, the patient is down to 6 L of oxygen by nasal cannula. He started producing better urine output with IV Lasix and Zaroxolyn. Creatinine is up to 1.7. No major respiratory difficulties for now and the patient has a sodium level of 138, potassium of 3.5, BUN is at 33 and the creatinine is at 1.75. Hemoglobin is at 10.5. Reevaluated today on 09/28/2022, patient is doing better, breathing easier, down to 4 L nasal cannula with O2 sat showed 95%. Remains on diuretics including Lasix and Zaroxolyn, creatinine seems to be climbing up, and nephrology was consulted. Creatinine today is 2.04 potassium 2.9 bicarb is 37, nephrology is recommending cutting down Zaroxolyn to 2.5 mg every other day and continue IV Lasix for now. Also recommending renal ultrasound nonetheless clinically the patient is feeling better. Objective - Vital Signs Vital signs: Vital Signs Temp 97.9 F 09/28/22 04:00 Pulse 63 09/28/22 13:55 Resp 18 09/28/22 13:55 BP 122/70 09/28/22 12:20 Pulse Ox 95 09/28/22 12:20 FiO2 50 09/25/22 21:08 Intake & Output 09/27/22 09/28/22 09/28/22 18:59 06:59 18:59 Intake Total 1320 456 Output Total 1700 1500 1000 Balance -380 1500 -544 Weight 78 kg 78 kg Intake: Oral 1320 456 Output: Urine 1700 1500 1000 Other: Voiding Method External Catheter External Catheter External Catheter - Exam Physical Exam: Revealed 71-year-old white male in no distress on 4 L nasal cannula Head: Atraumatic, normocephalic HEENT:[Neck is supple.] [No neck masses.] [No thyromegaly.] [No JVD.] Chest: Fine crackles at the bases no rhonchi and no wheezes Cardiac Exam: [Normal S1 and S2, no S3 gallop, no murmur.] Abdomen: [Obese, Soft, nontender, no megaly, no rebound, no guarding, normal bowel sounds.] Extremities: [No clubbing, 1+ bipedal edema, no cyanosis.], Chronic venous stasis changes noted bilaterally in both lower extremities. Neurological Exam: [No focal neurologic deficit.] Alert oriented 3 Psychiatric: Normal mood affect and normal mental status examination. Skin: No rashes but definite chronic venous stasis changes noted in both lower extremities. - Labs CBC & Chem 7: 09/27/22 06:48 09/28/22 10:33 Labs: Abnormal Lab Results - Last 24 Hours (Table) 09/27/22 09/27/22 09/28/22 Range/Units 16:23 19:56 05:57 Sodium (137-145) mmol/L Potassium (3.5-5.1) mmol/L Chloride (98-107) mmol/L Carbon Dioxide (22-30) mmol/L BUN (9-20) mg/dL Creatinine (0.66-1.25) mg/dL Glucose (74-99) mg/dL POC Glucose (mg/dL) 138 H 251 H 129 H (70-110) mg/dL 09/28/22 09/28/22 Range/Units 10:33 11:23 Sodium 135 L (137-145) mmol/L Potassium 2.9 L (3.5-5.1) mmol/L Chloride 84 L (98-107) mmol/L Carbon Dioxide 37 H (22-30) mmol/L BUN 48 H (9-20) mg/dL Creatinine 2.04 H (0.66-1.25) mg/dL Glucose 243 H (74-99) mg/dL POC Glucose (mg/dL) 278 H (70-110) mg/dL Assessment and Plan Assessment: Impression: Acute hypoxic respiratory failure secondary to acute diastolic congestive heart failure, improving with diuresis including Lasix and Zaroxolyn. Paroxysmal atrial fibrillation Acute kidney injury likely secondary to aggressive diuretics and Zaroxolyn was cut down to every other day. severe pulmonary hypertension Type 2 diabetes without complications Benign essential hypertension Morbid obesity Dyslipidemia Chronic right-sided pleural effusion Recommendation: Continue diuretics but cut down on Zaroxolyn Continue to monitor electrolytes and renal profile daily Reviewed the results of the echocardiogram showing good LV function but the definite severe pulmonary Continue oxygen and titrate accordingly Continue to monitor x-rays of the chest every other day for now We'll continue to follow Time with Patient: Less than 30
--- NOTE | 2022-09-28 15:42 | US ---
EXAMINATION TYPE: US kidneys/renal and bladder DATE OF EXAM: 09/28/2022 COMPARISON: CT 2015 CLINICAL INDICATION: Male, 71 years old with history of lea; LEA EXAM MEASUREMENTS: Right Kidney: 11.0 x 5.6 x 5.4 cm Left Kidney: 12.1 x 6.6 x 6.4 cm Limited due to patient body habitus. Right Kidney: No hydronephrosis or masses seen Left Kidney: No hydronephrosis or masses seen Bladder: Appears wnl Bilateral Jets seen: No IMPRESSION: Negative
[2022-09-28 16:37] LABS: Glucose,Whole Blood 113 mg/dL (70-110)
[2022-09-28] MEDS: RIVAROXABAN 20 MG TAB PO SCH (17:18)
[2022-09-28 20:09] LABS: Glucose,Whole Blood 206 mg/dL (70-110)
[2022-09-28] MEDS: ATORVASTATIN 10 MG TAB PO SCH (20:39)
[2022-09-29 06:17] LABS: Glucose,Whole Blood 151 mg/dL (70-110)
[2022-09-29] MEDS: INSULIN ASPART (NovoLOG) 100 UNIT/ML VIAL SQ SCH ×4 (06:17→20:11)
[2022-09-29] MEDS: LEVOTHYROXINE 100 MCG TAB PO SCH (06:19)
[2022-09-29] MEDS: DIVALPROEX 250 MG TABLET.DR PO SCH ×2 (09:25→16:57)
[2022-09-29] MEDS: CYANOCOBALAMIN 500 MCG TAB PO SCH (09:25)
[2022-09-29] MEDS: AMIODARONE 200 MG TAB PO SCH (09:25)
[2022-09-29] MEDS: acetaZOLAMIDE 250 MG TAB PO SCH ×2 (09:25→20:16)
[2022-09-29] MEDS: POTASSIUM CHLORIDE ER 20 MEQ TAB.ER PO SCH (09:25)
[2022-09-29] MEDS: FUROSEMIDE 10 MG/ML 4 ML VIAL IV SCH ×2 (09:25→20:16)
[2022-09-29] MEDS: metFORMIN 500 MG TAB PO SCH (09:25)
[2022-09-29] MEDS: amLODIPine 5 MG TAB PO SCH (09:25)
--- NOTE | 2022-09-29 11:38 | P.PN ---
Subjective Progress Note Date: 09/29/22 Principal diagnosis: Acute hypoxic respiratory failure secondary to acute diastolic congestive heart failure I am seeing this patient in new consultation today 09/22/2022 for possible CHF exacerbation. Patient is a 71-year-old white male with past medical history significant for paroxysmal atrial fibrillation (on Xarelto), diabetes mellitus type 2, hypertension, hyperlipidemia, hypothyroidism, and mental disability. Patient presented to emergency room earlier this morning after being found to be short of breath and hypoxic at correction. Patient resides at [facility]. Patient denies any fevers, chills, cough, chest pain. He does report orthopnea and increased lower extremity swelling. He normally sleeps with 2 pillows. Patient is currently sitting up in bed, on BiPAP with settings 12/6 and FiO2 of 35%, in no acute distress. He seems to be tolerating the BiPAP quite well. His respiratory rate is 22 and tidal volumes are around 500. Chest x-ray on arrival showed mild to moderate vascular congestion and possible right pleural effusion. NT proBNP was only 611. Patient was started on Lasix 40 mg twice a day. CBC on arrival was unremarkable. BMP shows sodium 138, potassium 4.8, chloride 99, serum bicarbonate 28, BUN 28, creatinine 1.4, glucose 178. Urinalysis shows moderate leukocyte esterase, patient denies any urinary symptoms. Troponins less than 0.012 2. ECG shows no obvious ischemic changes. Negative for influenza, RSV, COVID-19. Patient will be admitted to cardiac stepdown unit once bed available. Today's evaluation of 09/23/2022, the patient seems to be more comfortable compared to yesterday. He was taken off the BiPAP and he was placed on high flow oxygen at 13 L his pulse ox is around 95%. The patient has diuresed significantly and the patient responded nicely to Lasix 40 mg IV every 12 hours..Labs from today shows a white cell count of 6 with a hemoglobin of 10.4, BUN is at 24 with a creatinine of 1.5 and a sodium level is at 140. Denies having any specific complaints. Continues to have edema in his lower extremi ties bilaterally. The fluid balance over the past 24 hours has been at least 1.1 L negative. on today's evaluation of 09/24/2022, the patient is sitting up on a chair and the patient is calm and comfortable. Remains on diuretics and the patient has been switched to oral Lasix 40 mg by mouth twice a day. He remains on 50 L of oxygen by nasal cannula with a pulse ox of 96%. We'll going to gradually wean down FiO2. No aspiration. Tolerating his diet. No nausea or vomiting. No chest pain.the BUN is 25 with a creatinine of 1.4 and his sodium is 140 with a potassium level of 4.3. Blood sugars at 166. On today's evaluation of 09/25/2022, the patient is calm and comfortable, denies having any significant respiratory distress. The patient was on 13 L of oxygen by nasal cannula, and the pulse ox was in order of 96%. I weaned him down to 10 L. Repeat chest x-ray was done and the report came back as stable interstitial but the pulmonary infiltrates. Nevertheless, in my opinion, there is some improvement in volume status based on comparing it to the earlier chest x-ray. The patient is tolerating diet. The patient is hemodynamically stable. BUN is at 27 with a creatinine of 1.3. Sodium level is 139 with a potassium level of 4.4. The patient is afebrile. The patient is also on long-term and coagulation. The patient is on Xarelto. On today's evaluation of 09/26/2022, the patient remains on 10 L of oxygen by nasal cannula. No new complaints. His condition is essentially the same as yesterday. No fever or chills. No aspiration. The BUN is at 33 with a creatinine of 1.2. Sodium is level is at 139 with a potassium level of 4.4. 09/27/2022, the patient is down to 6 L of oxygen by nasal cannula. He started producing better urine output with IV Lasix and Zaroxolyn. Creatinine is up to 1.7. No major respiratory difficulties for now and the patient has a sodium level of 138, potassium of 3.5, BUN is at 33 and the creatinine is at 1.75. Hemoglobin is at 10.5. Reevaluated today on 09/28/2022, patient is doing better, breathing easier, down to 4 L nasal cannula with O2 sat showed 95%. Remains on diuretics including Lasix and Zaroxolyn, creatinine seems to be climbing up, and nephrology was consulted. Creatinine today is 2.04 potassium 2.9 bicarb is 37, nephrology is recommending cutting down Zaroxolyn to 2.5 mg every other day and continue IV Lasix for now. Also recommending renal ultrasound nonetheless clinically the patient is feeling better. Reevaluated today on 09/29/2022, patient continues to do well, remains on 4 L nasal cannula, not in distress, asking when he will be discharged home, and moderately answer was once he is cleared by cardiology and other consultants could be considered for discharge planning. His BUN today is 48 creatinine 2.04. Patient remains on diuretics, and his Zaroxolyn dose was decreased yesterday to every other day 2.5 mg daily and he continues on Lasix .clinically the patient is feeling better. Objective - Vital Signs Vital signs: Vital Signs Temp 98.2 F 09/29/22 08:00 Pulse 60 09/29/22 08:00 Resp 16 09/29/22 08:00 BP 123/59 09/29/22 08:00 Pulse Ox 95 09/29/22 08:00 FiO2 50 09/25/22 21:08 Intake & Output 09/28/22 09/29/22 09/29/22 18:59 06:59 18:59 Intake Total 574 240 460 Output Total 1250 800 400 Balance -676 -560 60 Weight 78 kg 76.5 kg Intake: Oral 574 240 460 Output: Urine 1250 800 400 Other: Voiding Method External Catheter External Catheter External Catheter - Exam Physical Exam: Revealed 71-year-old white male in no distress on 4 L nasal cannula Head: Atraumatic, normocephalic HEENT:[Neck is supple.] [No neck masses.] [No thyromegaly.] [No JVD.] Chest: Fine crackles at the bases no rhonchi and no wheezes Cardiac Exam: [Normal S1 and S2, no S3 gallop, no murmur.] Abdomen: [Obese, Soft, nontender, no megaly, no rebound, no guarding, normal bowel sounds.] Extremities: [No clubbing, 1+ bipedal edema, no cyanosis.], Chronic venous stasis changes noted bilaterally in both lower extremities. Neurological Exam: [No focal neurologic deficit.] Alert oriented 3 Psychiatric: Normal mood affect and normal mental status examination. Skin: No rashes but definite chronic venous stasis changes noted in both lower extremities. - Labs CBC & Chem 7: 09/27/22 06:48 09/28/22 10:33 Labs: Abnormal Lab Results - Last 24 Hours (Table) 09/28/22 09/28/22 09/28/22 Range/Units 10:33 16:36 20:07 Sodium 135 L (137-145) mmol/L Potassium 2.9 L (3.5-5.1) mmol/L Chloride 84 L (98-107) mmol/L Carbon Dioxide 37 H (22-30) mmol/L BUN 48 H (9-20) mg/dL Creatinine 2.04 H (0.66-1.25) mg/dL Glucose 243 H (74-99) mg/dL POC Glucose (mg/dL) 113 H 206 H (70-110) mg/dL 09/29/22 Range/Units 06:12 Sodium (137-145) mmol/L Potassium (3.5-5.1) mmol/L Chloride (98-107) mmol/L Carbon Dioxide (22-30) mmol/L BUN (9-20) mg/dL Creatinine (0.66-1.25) mg/dL Glucose (74-99) mg/dL POC Glucose (mg/dL) 151 H (70-110) mg/dL Assessment and Plan Assessment: Impression: Acute hypoxic respiratory failure secondary to acute diastolic congestive heart failure, improving with diuresis including Lasix and Zaroxolyn. Paroxysmal atrial fibrillation Acute kidney injury likely secondary to aggressive diuretics and Zaroxolyn was cut down to every other day. severe pulmonary hypertension Type 2 diabetes without complications Benign essential hypertension Morbid obesity Dyslipidemia Chronic right-sided pleural effusion Recommendation: Continue diuretics including Zaroxolyn and Lasix Continue to monitor electrolytes and renal profile daily Continue oxygen and titrate accordingly Consider discharge planning if cleared by other consultants including cardiology and nephrology We'll continue to follow Time with Patient: Less than 30
--- NOTE | 2022-09-29 11:44 | P.PN ---
Subjective Patient is seen for follow-up for acute kidney injury on top of chronic kidney disease. Patient was admitted with CHF and volume overload. He has been diuresed. Patient did respond well with IV Lasix and Zaroxolyn. Serum creatinine had increased to 2.0 mg/dL from 1.4 on initial admission. Zaroxolyn was held yesterday. Blood pressure is not significantly low. Ultrasound shows no evidence of obstructive uropathy. Objective - Vital Signs Vital signs: Vital Signs Temp 98.2 F 09/29/22 08:00 Pulse 60 09/29/22 08:00 Resp 16 09/29/22 08:00 BP 123/59 09/29/22 08:00 Pulse Ox 95 09/29/22 08:00 FiO2 50 09/25/22 21:08 Intake & Output 09/28/22 09/29/22 09/29/22 18:59 06:59 18:59 Intake Total 574 240 460 Output Total 1250 800 400 Balance -676 -560 60 Weight 78 kg 76.5 kg Intake: Oral 574 240 460 Output: Urine 1250 800 400 Other: Voiding Method External Catheter External Catheter External Catheter - Exam Awake, comfortable, no acute distress Examination of the heart S1 and S2 Examination of the lungs bilateral breath sounds are heard with decreased breath sounds at the bases Abdomen is soft nontender Examination of lower extremities shows edema 1+ 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 Acute kidney injury associated with recent diuresis. Blood pressure is not low. UA is completely benign. No obstruction noted on ultrasound 2. Chronic kidney disease with baseline creatinine about 1.1-1.2 mg/dL secondary to nephrosclerosis. NKF stage IIIa. 3. Hypokalemia secondary to diuresis 4. Metabolic alkalosis secondary to diuresis maintained on Diamox 4. Hypertension with CK D currently controlled 5. Acute hypoxic respiratory failure secondary to CHF exacerbation and volume overload, currently improved 6. Acute diastolic CHF. Ejection fraction 55-60%. Plan: Decrease Zaroxolyn to 2.5 mg every other day Continue with current dose of IV Lasix Follow-up on labs from today Continue with Diamox Repeat labs in a.m. If renal function deteriorates we may need to hold the Glucophage.
[2022-09-29 11:49] LABS: African American GFR (CKD) 32 (>60 ml/min/1.73 sqM); Anion Gap 12 mmol/L; Blood Urea Nitrogen 64 mg/dL (9-20); Calcium 9.7 mg/dL (8.4-10.2); Carbon Dioxide 38 mmol/L (22-30); Chloride 87 mmol/L (98-107); Glucose 150 mg/dL (74-99); Non-African American GFR(CKD) 28 (>60 ml/min/1.73 sqM); Potassium 3.3 mmol/L (3.5-5.1); Sodium 137 mmol/L (137-145)
[2022-09-29 11:52] LABS: Glucose,Whole Blood 139 mg/dL (70-110)
--- NOTE | 2022-09-29 13:05 | P.PN ---
Subjective Progress Note Date: 09/29/22 71-year-old patient, resident of [facility], being followed by Dr. Brand.. By the EMS staff at the [facility] on the pulse ox to be 50% on room air. Patient normally wears 2 L of oxygen. Had removed it. They 0.6 L on and pulse ox is 93%. Patient is breathing more heavily. EKG at the site showed patient to be in sinus rhythm. And brought to the ER. Patient has a dry cough. No fever no chills. Appetite is fair. He can walk a few steps with a walker. Admitted with CHF exacerbation. IV Lasix. September 23: On IV Lasix. Breathing a bit better. Oral intake good. Shortness of breath. Tired. September 24: Up in a recliner. IV Lasix changed over to by mouth Lasix. On 15 L high flow nasal cannula. Breathing better. Oral intake good. Taper down FiO2. September 25: Reclining. Mouth breathing. On 11 L high flow cannula. Eating good. On Lasix. September 26: Breathing better. Down to 8 L high flow nasal cannula. Eating about 35%. Seen by Dr. Ivory earlier today. Drake he was in fluid overload. Put on IV Lasix and Zaroxolyn. We will check strict I's and O's. September 27: Reclining in bed. Down to 5 L nasal cannula. On IV Lasix and Zaroxolyn. About 13 L in negative fluid balance since admission. Taper down FiO2. Possibly discharge in [address] Byrne took over care. No acute issues overnight. Still complaining of shortness of breath on exertion 09/29. Patient seen and examined. Continues to be on 4 L of oxygen. States he feels better. Swelling of legs is improving REVIEW OF SYSTEMS: CONSTITUTIONAL: No fever, no malaise,. CARDIOVASCULAR: No chest pain, no palpitations, no syncope. PULMONARY: As above GASTROINTESTINAL: No diarrhea, no nausea, no vomiting, no abdominal pain. NEUROLOGICAL: No headaches, no weakness, PHYSICAL EXAMINATION: GENERAL: The patient is alert , not in any acute distress. Well developed, well nourished. HEENT: Pupils are round and equally reacting to light. EOMI. No scleral icterus. No conjunctival pallor. Normocephalic, atraumatic. No pharyngeal erythema. No thyromegaly. CARDIOVASCULAR: S1 and S2 present. No murmurs, rubs, or gallops. PULMONARY: Coarse Breath sounds bilaterally ABDOMEN: Soft, nontender, nondistended, normoactive bowel sounds. No palpable organomegaly. MUSCULOSKELETAL: No joint swelling or deformity. EXTREMITIES: 1+ pitting edema lower extremities bilaterally NEUROLOGICAL: Gross neurological examination did not reveal any focal deficits. SKIN: No rashes. Assessment and plan -Probable acute congestive heart exacerbation with pulmonary edema and x-ray. D iastolic dysfunction EF 55-60%: Strict I's and O's Daily weights Continue IV Lasix Continue Zaroxolyn 2.5 mg every other day Follow-up on pulmonary recommendations I'll up in nephrology recommendations -Acute hypoxic respiratory failure secondary to CHF: Improving -Acute kidney injury likely ATN from cardiorenal syndrome. Sick I's and O's next and daily weights Follow-up on nephrology recommendations -Chronic kidney disease stage III. Creatinine 1.63 in July 2022 -Chronic insomnia Melatonin -Hyperlipidemia Lipitor 10 mg daily at bedtime -Metabolic alkalosis from diuretics Diamox -Diabetes mellitus type 2 Victoza. Metformin. Follow Accu-Cheks -Paroxysmal atrial fibrillation, currently sinus rhythm Amiodarone. -Hypothyroid Synthroid 100 g a day -Obstructive sleep apnea patient does not use CPAP -Diabetic peripheral neuropathy -Essential hypertension Amlodipine 5 mg a day -Obesity BMI 37.1 Weight loss measures -Chronic medical debility uses a motorized wheelchair at baseline Labs and medication were reviewed.. Continue same treatment. Continue with symptomatic treatment. Resume home medication. Monitor labs and vitals. DVT and GI prophylaxis. Further recommendations as per clinical course of the patient Objective - Vital Signs Vital signs: Vital Signs Temp 98.2 F 09/29/22 08:00 Pulse 60 09/29/22 08:00 Resp 16 09/29/22 08:00 BP 123/59 09/29/22 08:00 Pulse Ox 96 09/29/22 12:16 FiO2 50 09/25/22 21:08 Intake & Output 09/28/22 09/29/22 09/29/22 18:59 06:59 18:59 Intake Total 574 240 580 Output Total 1250 800 400 Balance -676 -560 180 Weight 78 kg 76.5 kg Intake: Oral 574 240 580 Output: Urine 1250 800 400 Other: Voiding Method External Catheter External Catheter External Catheter - Labs CBC & Chem 7: 09/27/22 06:48 09/29/22 11:00 Labs: Abnormal Lab Results - Last 24 Hours (Table) 09/28/22 09/28/22 09/29/22 Range/Units 16:36 20:07 06:12 Potassium (3.5-5.1) mmol/L Chloride (98-107) mmol/L Carbon Dioxide (22-30) mmol/L BUN (9-20) mg/dL Creatinine (0.66-1.25) mg/dL Glucose (74-99) mg/dL POC Glucose (mg/dL) 113 H 206 H 151 H (70-110) mg/dL 09/29/22 09/29/22 Range/Units 11:00 11:49 Potassium 3.3 L (3.5-5.1) mmol/L Chloride 87 L (98-107) mmol/L Carbon Dioxide 38 H (22-30) mmol/L BUN 64 H (9-20) mg/dL Creatinine 2.32 H (0.66-1.25) mg/dL Glucose 150 H (74-99) mg/dL POC Glucose (mg/dL) 139 H (70-110) mg/dL
[2022-09-29] MEDS: Liraglutide [Victoza 3-Pak] 0.6 MG/0.1 ML Pen.Injctr SQ SCH (13:45)
[2022-09-29 16:35] LABS: Glucose,Whole Blood 162 mg/dL (70-110)
[2022-09-29] MEDS: RIVAROXABAN 20 MG TAB PO SCH (16:57)
[2022-09-29 20:06] LABS: Glucose,Whole Blood 125 mg/dL (70-110)
[2022-09-29] MEDS: ATORVASTATIN 10 MG TAB PO SCH (20:16)
[2022-09-29] MEDS ORDERED: MAG HYDROX/AL HYDROX/SIMETH 30 ML CUP PO PRN (23:56)
[2022-09-30 06:03] LABS: Glucose,Whole Blood 143 mg/dL (70-110)
[2022-09-30] MEDS: INSULIN ASPART (NovoLOG) 100 UNIT/ML VIAL SQ SCH ×4 (06:05→20:12)
[2022-09-30] MEDS: LEVOTHYROXINE 100 MCG TAB PO SCH (06:29)
[2022-09-30 07:39] LABS: African American GFR (CKD) 33 (>60 ml/min/1.73 sqM); Anion Gap 9 mmol/L; Blood Urea Nitrogen 70 mg/dL (9-20); Calcium 9.4 mg/dL (8.4-10.2); Carbon Dioxide 40 mmol/L (22-30); Chloride 86 mmol/L (98-107); Glucose 145 mg/dL (74-99); Non-African American GFR(CKD) 28 (>60 ml/min/1.73 sqM); Sodium 135 mmol/L (137-145)
[2022-09-30 07:48] LABS: Potassium 2.7 mmol/L (3.5-5.1)
[2022-09-30 08:05] LABS: HCT 33.8 % (39.0-53.0); HGB 10.9 gm/dL (13.0-17.5); Hypochromasia Slight; MCH 32.9 pg (25.0-35.0); MCHC 32.3 g/dL (31.0-37.0); Macrocytosis Slight; Mean Platelet Volume 9.3; Platelet Count 270 k/uL (150-450); RBC 3.31 m/uL (4.30-5.90)
[2022-09-30] MEDS: CYANOCOBALAMIN 500 MCG TAB PO SCH (09:23)
[2022-09-30] MEDS: FUROSEMIDE 10 MG/ML 4 ML VIAL IV SCH (09:23)
[2022-09-30] MEDS: POTASSIUM CHLORIDE ER 20 MEQ TAB.ER PO SCH ×4 (09:23→15:25)
[2022-09-30] MEDS: amLODIPine 5 MG TAB PO SCH (09:23)
[2022-09-30] MEDS: AMIODARONE 200 MG TAB PO SCH (09:23)
[2022-09-30] MEDS: acetaZOLAMIDE 250 MG TAB PO SCH ×2 (09:24→20:14)
[2022-09-30 09:25] LABS: Eosinophils # (M) 0.05 k/uL (0-0.7); Neutrophils # (M) 3.45 k/uL (1.3-7.7); Neutrophils % (M) 69 %; Nucleated Red Blood Cells 0 /100 WBC (0-0); Total Cells Counted 100
[2022-09-30 09:26] LABS: Rouleaux Present
[2022-09-30] MEDS: DIVALPROEX 250 MG TABLET.DR PO SCH ×2 (09:26→15:25)
[2022-09-30] MEDS: Liraglutide [Victoza 3-Pak] 0.6 MG/0.1 ML Pen.Injctr SQ SCH (10:38)
--- NOTE | 2022-09-30 11:27 | P.PN ---
Subjective Patient is seen for follow-up for acute kidney injury on top of chronic kidney disease. Patient was admitted with CHF and volume overload. He has been diuresed. Patient did respond well with IV Lasix and Zaroxolyn. Serum creatinine had increased to 2.0 mg/dL from 1.4 on initial admission. Zaroxolyn is on hold. Blood pressure is not significantly low. Ultrasound shows no evidence of obstructive uropathy. Serum creatinine at 2.25 today. No complaints of shortness of breath. Patient is laying flat in bed. Objective - Vital Signs Vital signs: Vital Signs Temp 98.0 F 09/30/22 08:00 Pulse 56 L 09/30/22 08:00 Resp 16 09/30/22 08:00 BP 122/63 09/30/22 08:00 Pulse Ox 93 L 09/30/22 08:00 FiO2 50 09/25/22 21:08 Intake & Output 09/29/22 09/30/22 09/30/22 18:59 06:59 18:59 Intake Total 820 240 500 Output Total 400 1700 800 Balance 420 -1460 -300 Intake: Oral 820 240 500 Output: Urine 400 1700 800 Other: Voiding Method External Catheter External Catheter External Catheter # Voids 0 # Bowel Movements 0 - Exam Awake, comfortable, no acute distress Examination of the heart S1 and S2 Examination of the lungs bilateral breath sounds are heard with decreased breath sounds at the bases Abdomen is soft nontender Examination of lower extremities shows edema trace bilaterally 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 - Labs CBC & Chem 7: 09/30/22 06:54 09/30/22 06:54 Labs: Abnormal Lab Results - Last 24 Hours (Table) 09/29/22 09/29/22 09/29/22 Range/Units 11:00 11:49 16:34 RBC (4.30-5.90) m/uL Hgb (13.0-17.5) gm/dL Hct (39.0-53.0) % MCV (80.0-100.0) fL Sodium (137-145) mmol/L Potassium 3.3 L (3.5-5.1) mmol/L Chloride 87 L (98-107) mmol/L Carbon Dioxide 38 H (22-30) mmol/L BUN 64 H (9-20) mg/dL Creatinine 2.32 H (0.66-1.25) mg/dL Glucose 150 H (74-99) mg/dL POC Glucose (mg/dL) 139 H 162 H (70-110) mg/dL 09/29/22 09/30/22 09/30/22 Range/Units 20:04 05:57 06:54 RBC 3.31 L (4.30-5.90) m/uL Hgb 10.9 L (13.0-17.5) gm/dL Hct 33.8 L (39.0-53.0) % MCV 102.0 H (80.0-100.0) fL Sodium (137-145) mmol/L Potassium (3.5-5.1) mmol/L Chloride (98-107) mmol/L Carbon Dioxide (22-30) mmol/L BUN (9-20) mg/dL Creatinine (0.66-1.25) mg/dL Glucose (74-99) mg/dL POC Glucose (mg/dL) 125 H 143 H (70-110) mg/dL 09/30/22 Range/Units 06:54 RBC (4.30-5.90) m/uL Hgb (13.0-17.5) gm/dL Hct (39.0-53.0) % MCV (80.0-100.0) fL Sodium 135 L (137-145) mmol/L Potassium 2.7 L* (3.5-5.1) mmol/L Chloride 86 L (98-107) mmol/L Carbon Dioxide 40 H (22-30) mmol/L BUN 70 H (9-20) mg/dL Creatinine 2.25 H (0.66-1.25) mg/dL Glucose 145 H (74-99) mg/dL POC Glucose (mg/dL) (70-110) mg/dL Assessment and Plan Assessment: 1. Acute kidney injury associated with recent diuresis. Blood pressure is not low. UA is completely benign. No obstruction noted on ultrasound. Decrease diuretics 2. Chronic kidney disease with baseline creatinine about 1.1-1.2 mg/dL secondary to nephrosclerosis. NKF stage IIIa. 3. Hypokalemia secondary to diuresis 4. Metabolic alkalosis secondary to diuresis maintained on Diamox 4. Hypertension with CK D currently controlled 5. Acute hypoxic respiratory failure secondary to CHF exacerbation and volume o verload, currently improved 6. Acute diastolic CHF. Ejection fraction 55-60%. Plan: Switch to oral Lasix Replace potassium Add parameters for amlodipine as blood pressure is slightly on the lower side. Repeat labs in a.m.
[2022-09-30 11:48] LABS: Glucose,Whole Blood 151 mg/dL (70-110)
--- NOTE | 2022-09-30 13:18 | P.PN ---
Subjective Progress Note Date: 09/30/22 Principal diagnosis: Acute hypoxic respiratory failure secondary to acute diastolic congestive heart failure I am seeing this patient in new consultation today 09/22/2022 for possible CHF exacerbation. Patient is a 71-year-old white male with past medical history significant for paroxysmal atrial fibrillation (on Xarelto), diabetes mellitus type 2, hypertension, hyperlipidemia, hypothyroidism, and mental disability. Patient presented to emergency room earlier this morning after [facility] Patient [facility] at [facility]. Patient denies any fevers, chills, cough, chest pain. He does report orthopnea and increased lower extremity swelling. He normally sleeps with 2 pillows. Patient is currently sitting up in bed, on BiPAP with settings 12/6 and FiO2 of 35%, in no acute distress. He seems to be tolerating the BiPAP quite well. His respiratory rate is 22 and tidal volumes are around 500. Chest x-ray on arrival showed mild to moderate vascular congestion and possible right pleural effusion. NT proBNP was only 611. Patient was started on Lasix 40 mg twice a day. CBC on arrival was unremarkable. BMP shows sodium 138, potassium 4.8, chloride 99, serum bicarbonate 28, BUN 28, creatinine 1.4, glucose 178. Urinalysis shows moderate leukocyte esterase, patient denies any urinary symptoms. Troponins less than 0.012 2. ECG shows no obvious ischemic changes. Negative for influenza, RSV, COVID-19. Patient will be admitted to cardiac stepdown unit once bed available. Today's evaluation of 09/23/2022, the patient seems to be more comfortable compared to yesterday. He was taken off the BiPAP and he was placed on high flow oxygen at 13 L his pulse ox is around 95%. The patient has diuresed significantly and the patient responded nicely to Lasix 40 mg IV every 12 hours..Labs from today shows a white cell count of 6 with a hemoglobin of 10.4, BUN is at 24 with a creatinine of 1.5 and a sodium level is at 140. Denies having any specific complaints. Continues to have edema in his lower extremi ties bilaterally. The fluid balance over the past 24 hours has been at least 1.1 L negative. on today's evaluation of 09/24/2022, the patient is sitting up on a chair and the patient is calm and comfortable. Remains on diuretics and the patient has been switched to oral Lasix 40 mg by mouth twice a day. He remains on 50 L of oxygen by nasal cannula with a pulse ox of 96%. We'll going to gradually wean down FiO2. No aspiration. Tolerating his diet. No nausea or vomiting. No chest pain.the BUN is 25 with a creatinine of 1.4 and his sodium is 140 with a potassium level of 4.3. Blood sugars at 166. On today's evaluation of 09/25/2022, the patient is calm and comfortable, denies having any significant respiratory distress. The patient was on 13 L of oxygen by nasal cannula, and the pulse ox was in order of 96%. I weaned him down to 10 L. Repeat chest x-ray was done and the report came back as stable interstitial but the pulmonary infiltrates. Nevertheless, in my opinion, there is some improvement in volume status based on comparing it to the earlier chest x-ray. The patient is tolerating diet. The patient is hemodynamically stable. BUN is at 27 with a creatinine of 1.3. Sodium level is 139 with a potassium level of 4.4. The patient is afebrile. The patient is also on long-term and coagulation. The patient is on Xarelto. On today's evaluation of 09/26/2022, the patient remains on 10 L of oxygen by nasal cannula. No new complaints. His condition is essentially the same as yesterday. No fever or chills. No aspiration. The BUN is at 33 with a creatinine of 1.2. Sodium is level is at 139 with a potassium level of 4.4. 09/27/2022, the patient is down to 6 L of oxygen by nasal cannula. He started producing better urine output with IV Lasix and Zaroxolyn. Creatinine is up to 1.7. No major respiratory difficulties for now and the patient has a sodium level of 138, potassium of 3.5, BUN is at 33 and the creatinine is at 1.75. Hemoglobin is at 10.5. Reevaluated today on 09/28/2022, patient is doing better, breathing easier, down to 4 L nasal cannula with O2 sat showed 95%. Remains on diuretics including Lasix and Zaroxolyn, creatinine seems to be climbing up, and nephrology was consulted. Creatinine today is 2.04 potassium 2.9 bicarb is 37, nephrology is recommending cutting down Zaroxolyn to 2.5 mg every other day and continue IV Lasix for now. Also recommending renal ultrasound nonetheless clinically the patient is feeling better. Reevaluated today on 09/29/2022, patient continues to do well, remains on 4 L nasal cannula, not in distress, asking when he will be discharged home, and moderately answer was once he is cleared by cardiology and other consultants could be considered for discharge planning. His BUN today is 48 creatinine 2.04. Patient remains on diuretics, and his Zaroxolyn dose was decreased yesterday to every other day 2.5 mg daily and he continues on Lasix .clinically the patient is feeling better. Reevaluated today on 09/30/2022, patient is basically about the same, continues to steadily improve,remains on 4 L nasal cannula, although his room air O2 sat is 93-97% as documented on the chart.patient is asking to be discharged home, however it was explained to the patient that he has to be cleared by other consultants. Potassium today is 2.7 and that being addressed accordingly.creatinine is a bit down today from 2.3 to it is 2.5 today.CBC is basically unremarkable, bicarb is 40. Potassium is 2.7 Objective - Vital Signs Vital signs: Vital Signs Temp 98.0 F 09/30/22 08:00 Pulse 56 L 09/30/22 08:00 Resp 16 09/30/22 08:00 BP 122/63 09/30/22 08:00 Pulse Ox 93 L 09/30/22 08:00 FiO2 50 09/25/22 21:08 Intake & Output 09/29/22 09/30/22 09/30/22 18:59 06:59 18:59 Intake Total 820 240 500 Output Total 400 1700 800 Balance 420 -1460 -300 Intake: Oral 820 240 500 Output: Urine 400 1700 800 Other: Voiding Method External Catheter External Catheter External Catheter # Voids 0 # Bowel Movements 0 - Exam Physical Exam: Revealed 71-year-old white male in no distress on 4 L nasal cannula Head: Atraumatic, normocephalic HEENT:[Neck is supple.] [No neck masses.] [No thyromegaly.] [No JVD.] Chest: Fine crackles at the bases no rhonchi and no wheezes Cardiac Exam: [Normal S1 and S2, no S3 gallop, no murmur.] Abdomen: [Obese, Soft, nontender, no megaly, no rebound, no guarding, normal bowel sounds.] Extremities: [No clubbing, 1+ bipedal edema, no cyanosis.], Chronic venous stasis changes noted bilaterally in both lower extremities. Neurological Exam: [No focal neurologic deficit.] Alert oriented 3 Psychiatric: Normal mood affect and normal mental status examination. Skin: No rashes but definite chronic venous stasis changes noted in both lower extremities. - Labs CBC & Chem 7: 09/30/22 06:54 09/30/22 06:54 Labs: Abnormal Lab Results - Last 24 Hours (Table) 09/29/22 09/29/22 09/30/22 Range/Units 16:34 20:04 05:57 RBC (4.30-5.90) m/uL Hgb (13.0-17.5) gm/dL Hct (39.0-53.0) % MCV (80.0-100.0) fL Sodium (137-145) mmol/L Potassium (3.5-5.1) mmol/L Chloride (98-107) mmol/L Carbon Dioxide (22-30) mmol/L BUN (9-20) mg/dL Creatinine (0.66-1.25) mg/dL Glucose (74-99) mg/dL POC Glucose (mg/dL) 162 H 125 H 143 H (70-110) mg/dL 09/30/22 09/30/22 09/30/22 Range/Units 06:54 06:54 11:46 RBC 3.31 L (4.30-5.90) m/uL Hgb 10.9 L (13.0-17.5) gm/dL Hct 33.8 L (39.0-53.0) % MCV 102.0 H (80.0-100.0) fL Sodium 135 L (137-145) mmol/L Potassium 2.7 L* (3.5-5.1) mmol/L Chloride 86 L (98-107) mmol/L Carbon Dioxide 40 H (22-30) mmol/L BUN 70 H (9-20) mg/dL Creatinine 2.25 H (0.66-1.25) mg/dL Glucose 145 H (74-99) mg/dL POC Glucose (mg/dL) 151 H (70-110) mg/dL Assessment and Plan Assessment: Impression: Acute hypoxic respiratory failure secondary to acute diastolic congestive heart failure, improving with diuresis including Lasix and Zaroxolyn. Paroxysmal atrial fibrillation Acute kidney injury likely secondary to aggressive diuretics and Zaroxolyn was cut down to every other day. severe pulmonary hypertension Type 2 diabetes without complications Benign essential hypertension Morbid obesity Dyslipidemia Chronic right-sided pleural effusion Recommendation: Continue diuretics/Diamox,250 mg by mouth twice a day. Continue to monitor electrolytes and renal profile daily Continue oxygen and titrate accordingly Will clear for discharge if cleared by other consultants We'll continue to follow Time with Patient: Less than 30
--- NOTE | 2022-09-30 13:28 | P.PN ---
Subjective Progress Note Date: 09/30/22 71-year-old patient, resident of [facility], being followed by Dr. Brand.. By the EMS staff at the [facility] on the pulse ox to be 50% on room air. Patient normally wears 2 L of oxygen. Had removed it. They 0.6 L on and pulse ox is 93%. Patient is breathing more heavily. EKG at the site showed patient to be in sinus rhythm. And brought to the ER. Patient has a dry cough. No fever no chills. Appetite is fair. He can walk a few steps with a walker. Admitted with CHF exacerbation. IV Lasix. September 23: On IV Lasix. Breathing a bit better. Oral intake good. Shortness of breath. Tired. September 24: Up in a recliner. IV Lasix changed over to by mouth Lasix. On 15 L high flow nasal cannula. Breathing better. Oral intake good. Taper down FiO2. September 25: Reclining. Mouth breathing. On 11 L high flow cannula. Eating good. On Lasix. September 26: Breathing better. Down to 8 L high flow nasal cannula. Eating about 35%. Seen by Dr. Ivory earlier today. [place] he was in fluid overload. Put on IV Lasix and Zaroxolyn. We will check strict I's and O's. September 27: Reclining in bed. Down to 5 L nasal cannula. On IV Lasix and Zaroxolyn. About 13 L in negative fluid balance since admission. Taper down FiO2. Possibly discharge in [address] Byrne took over care. No acute issues overnight. Still complaining of shortness of breath on exertion 09/29. Patient seen and examined. Continues to be on 4 L of oxygen. States he feels better. Swelling of legs is improving 09/30. Patient seen and examined. Potassium this morning is 2.7, replacement ordered, BUN is 70, creatinine 2.25 REVIEW OF SYSTEMS: CONSTITUTIONAL: No fever, no malaise,. CARDIOVASCULAR: No chest pain, no palpitations, no syncope. PULMONARY: As above GASTROINTESTINAL: No diarrhea, no nausea, no vomiting, no abdominal pain. NEUROLOGICAL: No headaches, no weakness, PHYSICAL EXAMINATION: GENERAL: The patient is alert , not in any acute distress. Well developed, well nourished. HEENT: Pupils are round and equally reacting to light. EOMI. No scleral icterus. No conjunctival pallor. Normocephalic, atraumatic. No pharyngeal erythema. No thyromegaly. CARDIOVASCULAR: S1 and S2 present. No murmurs, rubs, or gallops. PULMONARY: Coarse Breath sounds bilaterally ABDOMEN: Soft, nontender, nondistended, normoactive bowel sounds. No palpable organomegaly. MUSCULOSKELETAL: No joint swelling or deformity. EXTREMITIES: 1+ pitting edema lower extremities bilaterally NEUROLOGICAL: Gross neurological examination did not reveal any focal deficits. SKIN: No rashes. Assessment and plan -Acute hypoxic respiratory failure secondary to CHF: -Acute on chronic diastolic heart failure Strict I's and O's Daily weights Continue IV Lasix Continue Zaroxolyn 2.5 mg every other day Potassium replacement ordered Follow-up on pulmonary recommendations I'll up in nephrology recommendations -Acute kidney injury likely ATN from cardiorenal syndrome. -Chronic kidney disease stage III. Creatinine 1.63 in July 2022 -Metabolic alkalosis Strict I's and O's next and daily weights Follow-up on nephrology recommendations -Chronic insomnia Melatonin -Hyperlipidemia Lipitor 10 mg daily at bedtime -Diabetes mellitus type 2 Victoza. Metformin. Follow Accu-Cheks -Paroxysmal atrial fibrillation, currently sinus rhythm Amiodarone. -Hypothyroid Synthroid 100 g a day -Obstructive sleep apnea patient does not use CPAP -Diabetic peripheral neuropathy -Essential hypertension Amlodipine 5 mg a day -Obesity BMI 37.1 Weight loss measures -Chronic medical debility uses a motorized wheelchair at baseline Labs and medication were reviewed.. Continue same treatment. Continue with symptomatic treatment. Resume home medication. Monitor labs and vitals. DVT and GI prophylaxis. Further recommendations as per clinical course of the patient Objective - Vital Signs Vital signs: Vital Signs Temp 97.9 F 09/30/22 04:00 Pulse 68 09/30/22 04:00 Resp 19 09/30/22 04:00 BP 109/60 09/30/22 04:00 Pulse Ox 97 09/30/22 04:00 FiO2 50 09/25/22 21:08 Intake & Output 09/29/22 09/30/22 09/30/22 18:59 06:59 18:59 Intake Total 820 240 500 Output Total 400 1700 Balance 420 -1460 500 Intake: Oral 820 240 500 Output: Urine 400 1700 Other: Voiding Method External Catheter External Catheter # Voids 0 # Bowel Movements 0 - Labs CBC & Chem 7: 09/30/22 06:54 09/30/22 06:54 Labs: Abnormal Lab Results - Last 24 Hours (Table) 09/29/22 09/29/22 09/29/22 Range/Units 11:00 11:49 16:34 RBC (4.30-5.90) m/uL Hgb (13.0-17.5) gm/dL Hct (39.0-53.0) % MCV (80.0-100.0) fL Sodium (137-145) mmol/L Potassium 3.3 L (3.5-5.1) mmol/L Chloride 87 L (98-107) mmol/L Carbon Dioxide 38 H (22-30) mmol/L BUN 64 H (9-20) mg/dL Creatinine 2.32 H (0.66-1.25) mg/dL Glucose 150 H (74-99) mg/dL POC Glucose (mg/dL) 139 H 162 H (70-110) mg/dL 09/29/22 09/30/22 09/30/22 Range/Units 20:04 05:57 06:54 RBC 3.31 L (4.30-5.90) m/uL Hgb 10.9 L (13.0-17.5) gm/dL Hct 33.8 L (39.0-53.0) % MCV 102.0 H (80.0-100.0) fL Sodium (137-145) mmol/L Potassium (3.5-5.1) mmol/L Chloride (98-107) mmol/L Carbon Dioxide (22-30) mmol/L BUN (9-20) mg/dL Creatinine (0.66-1.25) mg/dL Glucose (74-99) mg/dL POC Glucose (mg/dL) 125 H 143 H (70-110) mg/dL 09/30/22 Range/Units 06:54 RBC (4.30-5.90) m/uL Hgb (13.0-17.5) gm/dL Hct (39.0-53.0) % MCV (80.0-100.0) fL Sodium 135 L (137-145) mmol/L Potassium 2.7 L* (3.5-5.1) mmol/L Chloride 86 L (98-107) mmol/L Carbon Dioxide 40 H (22-30) mmol/L BUN 70 H (9-20) mg/dL Creatinine 2.25 H (0.66-1.25) mg/dL Glucose 145 H (74-99) mg/dL POC Glucose (mg/dL) (70-110) mg/dL
[2022-09-30] MEDS: RIVAROXABAN 20 MG TAB PO SCH (15:26)
[2022-09-30 16:46] LABS: Glucose,Whole Blood 156 mg/dL (70-110)
[2022-09-30 20:04] LABS: Glucose,Whole Blood 146 mg/dL (70-110)
[2022-09-30] MEDS: ATORVASTATIN 10 MG TAB PO SCH (20:14)
[2022-10-01 06:12] LABS: Glucose,Whole Blood 149 mg/dL (70-110)
[2022-10-01] MEDS: INSULIN ASPART (NovoLOG) 100 UNIT/ML VIAL SQ SCH ×2 (06:15→11:56)
[2022-10-01] MEDS: LEVOTHYROXINE 100 MCG TAB PO SCH (06:19)
[2022-10-01] MEDS: Liraglutide [Victoza 3-Pak] 0.6 MG/0.1 ML Pen.Injctr SQ SCH (07:34)
[2022-10-01] MEDS: acetaZOLAMIDE 250 MG TAB PO SCH (07:39)
[2022-10-01] MEDS: POTASSIUM CHLORIDE ER 20 MEQ TAB.ER PO SCH ×4 (07:39→11:56)
[2022-10-01] MEDS: AMIODARONE 200 MG TAB PO SCH (07:39)
[2022-10-01] MEDS: DIVALPROEX 250 MG TABLET.DR PO SCH (07:39)
[2022-10-01] MEDS: amLODIPine 5 MG TAB PO SCH (07:39)
[2022-10-01 07:44] VITALS: PULSE 57; RESP 20; TEMP 97.9
[2022-10-01 09:48] LABS: African American GFR (CKD) 30 (>60 ml/min/1.73 sqM); Anion Gap 13 mmol/L; Blood Urea Nitrogen 77 mg/dL (9-20); Calcium 9.5 mg/dL (8.4-10.2); Carbon Dioxide 35 mmol/L (22-30); Chloride 87 mmol/L (98-107); Glucose 174 mg/dL (74-99); Non-African American GFR(CKD) 26 (>60 ml/min/1.73 sqM); Potassium 2.9 mmol/L (3.5-5.1); Sodium 135 mmol/L (137-145)
[2022-10-01] MEDS ORDERED: Potassium Replacement Protocol 1 EACH MISC MISCELLANE PRN (10:00)
[2022-10-01 11:04] VITALS: BP 117/57
[2022-10-01 11:42] LABS: Glucose,Whole Blood 159 mg/dL (70-110)
[2022-10-01] MEDS: CYANOCOBALAMIN 500 MCG TAB PO SCH (11:57)
--- NOTE | 2022-10-01 12:01 | P.PN ---
Subjective Patient is seen for follow-up for acute kidney injury on top of chronic kidney disease. Patient was admitted with CHF and volume overload. He has been diuresed. Patient did respond well with IV Lasix and Zaroxolyn. Serum creatinine had increased to 2.4 mg/dL from 1.4 on initial admission. Zaroxolyn is on hold. IV Lasix was discontinued yesterday. Blood pressure is not significantly low. Ultrasound shows no evidence of obstructive uropathy. Serum creatinine at 2.25 today. No complaints of shortness of breath. Patient is laying flat in bed. Objective - Vital Signs Vital signs: Vital Signs Temp 97.9 F 10/01/22 07:36 Pulse 57 L 10/01/22 11:04 Resp 20 10/01/22 11:04 BP 117/57 10/01/22 11:04 Pulse Ox 95 10/01/22 11:04 FiO2 50 09/25/22 21:08 Intake & Output 09/30/22 10/01/22 10/01/22 18:59 06:59 18:59 Intake Total 618 240 Output Total 800 800 150 Balance -182 -800 90 Weight 73 kg Intake: Oral 618 240 Output: Urine 800 800 150 Other: Voiding Method External Catheter External Catheter External Catheter - Exam Awake, comfortable, no acute distress Examination of the heart S1 and S2 Examination of the lungs bilateral breath sounds are heard with decreased breath sounds at the bases Abdomen is soft nontender Examination of lower extremities shows edema trace bilaterally MEDICAL ASSISTANT FLOAT exam grossly intact - Labs CBC & Chem 7: 09/30/22 06:54 10/01/22 08:16 Labs: Abnormal Lab Results - Last 24 Hours (Table) 09/30/22 09/30/22 09/30/22 Range/Units 16:36 17:14 20:00 Sodium (137-145) mmol/L Potassium 3.3 L (3.5-5.1) mmol/L Chloride (98-107) mmol/L Carbon Dioxide (22-30) mmol/L BUN (9-20) mg/dL Creatinine (0.66-1.25) mg/dL Glucose (74-99) mg/dL POC Glucose (mg/dL) 156 H 146 H (70-110) mg/dL 10/01/22 10/01/22 10/01/22 Range/Units 06:09 08:16 11:41 Sodium 135 L (137-145) mmol/L Potassium 2.9 L (3.5-5.1) mmol/L Chloride 87 L (98-107) mmol/L Carbon Dioxide 35 H (22-30) mmol/L BUN 77 H (9-20) mg/dL Creatinine 2.46 H (0.66-1.25) mg/dL Glucose 174 H (74-99) mg/dL POC Glucose (mg/dL) 149 H 159 H (70-110) mg/dL Assessment and Plan Assessment: 1. Acute kidney injury associated with recent diuresis. Blood pressure is not low. UA is completely benign. No obstruction noted on ultrasound. Decreased diuretics 2. Chronic kidney disease with baseline creatinine about 1.1-1.2 mg/dL secondary to nephrosclerosis. NKF stage IIIa. 3. Hypokalemia secondary to diuresis 4. Metabolic alkalosis secondary to diuresis maintained on Diamox 4. Hypertension with CK D currently controlled 5. Acute hypoxic respiratory failure secondary to CHF exacerbation and volume overload, currently improved 6. Acute diastolic CHF. Ejection fraction 55-60%. Plan: Switch to oral Demadex Replace potassium Okay to discharge from nephrology standpoint. Follow-up as outpatient in 1-2 weeks.
--- NOTE | 2022-10-01 13:04 | P.DS ---
Providers Date of admission: 09/22/22 02:49 Expected date of discharge: 10/01/22 Attending physician: Suraj Hoffmann Consults: 09/22/22 02:49 Consult Physician Routine Consulting Provider: Ranjeet Ivory Consult Reason/Comments: hypoxic respiratory failure req bipap, likely from chf Do you want consulting provider notified?: Yes 09/27/22 15:55 Consult Physician Routine Consulting Provider: Neo Cruz Consult Reason/Comments: Renal failure Do you want consulting provider notified?: Yes Primary care physician: Gerardo Brand [place] [facility] Course: Discharge diagnoses; -Acute hypoxic respiratory failure secondary to CHF: -Acute on chronic diastolic heart failure Being discharged on oral torsemide Outpatient follow-up with cardiology -Acute kidney injury likely ATN from cardiorenal syndrome. Being discharged on oral torsemide Patient follow-up in nephrology -Chronic insomnia Melatonin -Hyperlipidemia Lipitor 10 mg daily at bedtime -Diabetes mellitus type 2 Victoza. Metformin. Follow Accu-Cheks -Paroxysmal atrial fibrillation, currently sinus rhythm Amiodarone. Continues xarelto -Hypothyroid Synthroid 100 g a day -Obstructive sleep apnea patient does not use CPAP -Diabetic peripheral neuropathy -Essential hypertension Amlodipine 5 mg a day -Obesity BMI 37.1 Weight loss measures Hospital course; 71-year-old patient, resident of [facility], being followed by Dr. Brand.. By the EMS staff at the [facility] on the pulse ox to be 50% on room air. Patient normally wears 2 L of oxygen. Had removed it. They 0.6 L on and pulse ox is 93%. Patient is breathing more heavily. EKG at the site showed patient to be in sinus rhythm. And brought to the ER. Patient has a dry cough. No fever no chills. Appetite is fair. He can walk a few steps with a walker. Admitted with CHF exacerbation. IV Lasix. September 23: On IV Lasix. Breathing a bit better. Oral intake good. Shortness of breath. Tired. September 24: Up in a recliner. IV Lasix changed over to by mouth Lasix. On 15 L high flow nasal cannula. Breathing better. Oral intake good. Taper down FiO2. September 25: Reclining. Mouth breathing. On 11 L high flow cannula. Eating good. On Lasix. September 26: Breathing better. Down to 8 L high flow nasal cannula. Eating about 35%. Seen by Dr. Ivory earlier today. [place] he was in fluid overload. Put on IV Lasix and Zaroxolyn. We will check strict I's and O's. September 27: Reclining in bed. Down to 5 L nasal cannula. On IV Lasix and Zaroxolyn. About 13 L in negative fluid balance since admission. Taper down FiO2. Possibly discharge in [address] Byrne took over care. No acute issues overnight. Still complaining of shortness of breath on exertion 09/29. Patient seen and examined. Continues to be on 4 L of oxygen. States he feels better. Swelling of legs is improving 09/30. Patient seen and examined. Potassium this morning is 2.7, replacement ordered, BUN is 70, creatinine 2.25 10/01. Patient seen and examined. Nephrology recommended discharging patient on oral torsemide. Outpatient follow-up with nephrology and cardiology PHYSICAL EXAMINATION: GENERAL: The patient is alert , not in any acute distress. Well developed, well nourished. HEENT: Pupils are round and equally reacting to light. EOMI. No scleral icterus. No conjunctival pallor. Normocephalic, atraumatic. No pharyngeal erythema. No thyromegaly. CARDIOVASCULAR: S1 and S2 present. No murmurs, rubs, or gallops. PULMONARY: Coarse Breath sounds bilaterally ABDOMEN: Soft, nontender, nondistended, normoactive bowel sounds. No palpable organomegaly. MUSCULOSKELETAL: No joint swelling or deformity. EXTREMITIES: 1+ pitting edema lower extremities bilaterally NEUROLOGICAL: Gross neurological examination did not reveal any focal deficits. SKIN: No rashes. Dictation was produced using [email or web address] dictation software. please excuse any grammatical, word or spelling errors. Patient Condition at Discharge: Stable Plan - Discharge Summary New Discharge Prescriptions: New Torsemide [Demadex] 20 mg PO DAILY #30 tab Rivaroxaban [Xarelto] 20 mg PO W/SUPPER #30 tab Continue Liraglutide [Victoza 3-Ramírez] 1.8 mg SQ DAILY Cyanocobalamin [Vitamin B-12] 500 mcg PO PC-LUNCH Melatonin 5 mg PO HS PRN PRN Reason: Insomnia Levothyroxine Sodium [Synthroid] 100 mcg PO DAILY Atorvastatin [Lipitor] 10 mg PO HS Divalproex [Depakote] 250 mg PO BID@0800,1600 metFORMIN HCL 500 mg PO DAILY metFORMIN HCL 1,000 mg PO HS Meclizine [Antivert] 12.5 mg PO Q8HR PRN PRN Reason: Vertigo Potassium Chloride [Klor-Con M20] 20 meq PO DAILY amLODIPine [Norvasc] 5 mg PO DAILY Sodium Chloride [Saline Mist] 1 spray EA NOSTRIL Q2H PRN PRN Reason: dryness Amiodarone [Cordarone] 200 mg PO DAILY Acetaminophen Tab [Tylenol] 650 mg PO Q6HR PRN tab PRN Reason: Mild Pain Or Fever > 100.5 Discontinued Furosemide [Lasix] 40 mg PO DAILY Discharge Medication List Amiodarone [Cordarone] 200 mg PO DAILY 08/02/20 [History] Cyanocobalamin [Vitamin B-12] 500 mcg PO PC-LUNCH 08/02/20 [History] Levothyroxine Sodium [Synthroid] 100 mcg PO DAILY 08/02/20 [History] Liraglutide [Victoza 3-Ramírez] 1.8 mg SQ DAILY 08/02/20 [History] Melatonin 5 mg PO HS PRN 08/02/20 [History] Acetaminophen Tab [Tylenol] 650 mg PO Q6HR PRN tab 08/17/20 [Rx] Atorvastatin [Lipitor] 10 mg PO HS 07/26/22 [History] Divalproex [Depakote] 250 mg PO BID@0800,1600 07/26/22 [History] metFORMIN HCL 1,000 mg PO HS 07/26/22 [History] metFORMIN HCL 500 mg PO DAILY 07/26/22 [History] Meclizine [Antivert] 12.5 mg PO Q8HR PRN 09/22/22 [History] Potassium Chloride [Klor-Con M20] 20 meq PO DAILY 09/22/22 [History] Sodium Chloride [Saline Mist] 1 spray EA NOSTRIL Q2H PRN 09/22/22 [History] amLODIPine [Norvasc] 5 mg PO DAILY 09/22/22 [History] Rivaroxaban [Xarelto] 20 mg PO W/SUPPER #30 tab 10/01/22 [Rx] Torsemide [Demadex] 20 mg PO DAILY #30 tab 10/01/22 [Rx] Follow up Appointment(s)/Referral(s): Gerardo Brand DO [Primary Care Provider] - 1-2 days Discharge Disposition: TRANSFER TO SNF/ECF
--- NOTE | 2022-10-01 13:18 | P.PN ---
Subjective Progress Note Date: 10/01/22 Principal diagnosis: Acute hypoxic respiratory failure secondary to acute diastolic congestive heart failure I am seeing this patient in new consultation today 09/22/2022 for possible CHF exacerbation. Patient is a 71-year-old white male with past medical history significant for paroxysmal atrial fibrillation (on Xarelto), diabetes mellitus type 2, hypertension, hyperlipidemia, hypothyroidism, and mental disability. Patient presented to emergency room earlier this morning after being found to be short of breath and hypoxic at long-term. Patient resides at [facility]. Patient denies any fevers, chills, cough, chest pain. He does report orthopnea and increased lower extremity swelling. He normally sleeps with 2 pillows. Patient is currently sitting up in bed, on BiPAP with settings 12/6 and FiO2 of 35%, in no acute distress. He seems to be tolerating the BiPAP quite well. His respiratory rate is 22 and tidal volumes are around 500. Chest x-ray on arrival showed mild to moderate vascular congestion and possible right pleural effusion. NT proBNP was only 611. Patient was started on Lasix 40 mg twice a day. CBC on arrival was unremarkable. BMP shows sodium 138, potassium 4.8, chloride 99, serum bicarbonate 28, BUN 28, creatinine 1.4, glucose 178. Urinalysis shows moderate leukocyte esterase, patient denies any urinary symptoms. Troponins less than 0.012 2. ECG shows no obvious ischemic changes. Negative for influenza, RSV, COVID-19. Patient will be admitted to cardiac stepdown unit once bed available. Today's evaluation of 09/23/2022, the patient seems to be more comfortable compared to yesterday. He was taken off the BiPAP and he was placed on high flow oxygen at 13 L his pulse ox is around 95%. The patient has diuresed significantly and the patient responded nicely to Lasix 40 mg IV every 12 hours..Labs from today shows a white cell count of 6 with a hemoglobin of 10.4, BUN is at 24 with a creatinine of 1.5 and a sodium level is at 140. Denies having any specific complaints. Continues to have edema in his lower extremi ties bilaterally. The fluid balance over the past 24 hours has been at least 1.1 L negative. on today's evaluation of 09/24/2022, the patient is sitting up on a chair and the patient is calm and comfortable. Remains on diuretics and the patient has been switched to oral Lasix 40 mg by mouth twice a day. He remains on 50 L of oxygen by nasal cannula with a pulse ox of 96%. We'll going to gradually wean down FiO2. No aspiration. Tolerating his diet. No nausea or vomiting. No chest pain.the BUN is 25 with a creatinine of 1.4 and his sodium is 140 with a potassium level of 4.3. Blood sugars at 166. On today's evaluation of 09/25/2022, the patient is calm and comfortable, denies having any significant respiratory distress. The patient was on 13 L of oxygen by nasal cannula, and the pulse ox was in order of 96%. I weaned him down to 10 L. Repeat chest x-ray was done and the report came back as stable interstitial but the pulmonary infiltrates. Nevertheless, in my opinion, there is some improvement in volume status based on comparing it to the earlier chest x-ray. The patient is tolerating diet. The patient is hemodynamically stable. BUN is at 27 with a creatinine of 1.3. Sodium level is 139 with a potassium level of 4.4. The patient is afebrile. The patient is also on long-term and coagulation. The patient is on Xarelto. On today's evaluation of 09/26/2022, the patient remains on 10 L of oxygen by nasal cannula. No new complaints. His condition is essentially the same as yesterday. No fever or chills. No aspiration. The BUN is at 33 with a creatinine of 1.2. Sodium is level is at 139 with a potassium level of 4.4. 09/27/2022, the patient is down to 6 L of oxygen by nasal cannula. He started producing better urine output with IV Lasix and Zaroxolyn. Creatinine is up to 1.7. No major respiratory difficulties for now and the patient has a sodium level of 138, potassium of 3.5, BUN is at 33 and the creatinine is at 1.75. Hemoglobin is at 10.5. Reevaluated today on 09/28/2022, patient is doing better, breathing easier, down to 4 L nasal cannula with O2 sat showed 95%. Remains on diuretics including Lasix and Zaroxolyn, creatinine seems to be climbing up, and nephrology was consulted. Creatinine today is 2.04 potassium 2.9 bicarb is 37, nephrology is recommending cutting down Zaroxolyn to 2.5 mg every other day and continue IV Lasix for now. Also recommending renal ultrasound nonetheless clinically the patient is feeling better. Reevaluated today on 09/29/2022, patient continues to do well, remains on 4 L nasal cannula, not in distress, asking when he will be discharged home, and moderately answer was once he is cleared by cardiology and other consultants could be considered for discharge planning. His BUN today is 48 creatinine 2.04. Patient remains on diuretics, and his Zaroxolyn dose was decreased yesterday to every other day 2.5 mg daily and he continues on Lasix .clinically the patient is feeling better. Reevaluated today on 09/30/2022, patient is basically about the same, continues to steadily improve,remains on 4 L nasal cannula, although his room air O2 sat is 93-97% as documented on the chart.patient is asking to be discharged home, however it was explained to the patient that he has to be cleared by other consultants. Potassium today is 2.7 and that being addressed accordingly.creatinine is a bit down today from 2.3 to it is 2.5 today.CBC is basically unremarkable, bicarb is 40. Potassium is 2.7 Reevaluated today on 10/01/2022, patient continues to do fairly well, does not seem to be in any distress, remains on 4 L nasal cannula with O2 sat showed 95%. Patient is asking to be discharged home, I have cleared the patient to be discharged if cleared by other consultants. Objective - Vital Signs Vital signs: Vital Signs Temp 97.9 F 10/01/22 07:36 Pulse 57 L 10/01/22 13:04 Resp 20 10/01/22 11:04 BP 117/57 10/01/22 11:04 Pulse Ox 95 10/01/22 11:04 FiO2 50 09/25/22 21:08 Intake & Output 09/30/22 10/01/22 10/01/22 18:59 06:59 18:59 Intake Total 618 360 Output Total 800 800 400 Balance -182 -800 -40 Weight 73 kg Intake: Oral 618 360 Output: Urine 800 800 400 Other: Voiding Method External Catheter External Catheter External Catheter - Exam Physical Exam: Revealed 71-year-old white male in no distress on 4 L nasal cannula Head: Atraumatic, normocephalic HEENT:[Neck is supple.] [No neck masses.] [No thyromegaly.] [No JVD.] Chest: Fine crackles at the bases no rhonchi and no wheezes Cardiac Exam: [Normal S1 and S2, no S3 gallop, no murmur.] Abdomen: [Obese, Soft, nontender, no megaly, no rebound, no guarding, normal bowel sounds.] Extremities: [No clubbing, 1+ bipedal edema, no cyanosis.], Chronic venous stasis changes noted bilaterally in both lower extremities. Neurological Exam: [No focal neurologic deficit.] Alert oriented 3 Psychiatric: Normal mood affect and normal mental status examination. Skin: No rashes but definite chronic venous stasis changes noted in both lower extremities. - Labs CBC & Chem 7: 09/30/22 06:54 10/01/22 08:16 Labs: Abnormal Lab Results - Last 24 Hours (Table) 09/30/22 09/30/22 09/30/22 Range/Units 16:36 17:14 20:00 Sodium (137-145) mmol/L Potassium 3.3 L (3.5-5.1) mmol/L Chloride (98-107) mmol/L Carbon Dioxide (22-30) mmol/L BUN (9-20) mg/dL Creatinine (0.66-1.25) mg/dL Glucose (74-99) mg/dL POC Glucose (mg/dL) 156 H 146 H (70-110) mg/dL 10/01/22 10/01/22 10/01/22 Range/Units 06:09 08:16 11:41 Sodium 135 L (137-145) mmol/L Potassium 2.9 L (3.5-5.1) mmol/L Chloride 87 L (98-107) mmol/L Carbon Dioxide 35 H (22-30) mmol/L BUN 77 H (9-20) mg/dL Creatinine 2.46 H (0.66-1.25) mg/dL Glucose 174 H (74-99) mg/dL POC Glucose (mg/dL) 149 H 159 H (70-110) mg/dL Assessment and Plan Assessment: Impression:Acute hypoxic respiratory failure secondary to acute diastolic congestive heart failure, improving with diuresis including Lasix and Zaroxolyn. Paroxysmal atrial fibrillation Acute kidney injury likely secondary to aggressive diuretics and Zaroxolyn was cut down to every other day. severe pulmonary hypertension Type 2 diabetes without complications Benign essential hypertension Morbid obesity Dyslipidemia Chronic right-sided pleural effusion Recommendation: Continue diuretics/Diamox,250 mg by mouth twice a day. Continue to monitor electrolytes and renal profile daily Continue oxygen and titrate accordingly Will clear for discharge if cleared by other consultants Time with Patient: Less than 30
[2022-10-01] MEDS ORDERED: POTASSIUM CHLORIDE ER 10 MEQ TAB.ER.PRT PO STA ×2 (13:44)
[2022-10-02] MEDS ORDERED: TORSEMIDE 20 MG TAB PO SCH (09:00)
== END 2022-10-01 15:23 | DRG 291 ==
LOC: EC 00:15 → 3SCARD 02:49
PROVIDERS: ADMIT Hospitalist; ATTEND Hospitalist
PROC: 5A09357 Assistance with Respiratory Ventilation, Less than 24 Consecutive Hours, Continuous Positive Airway Pressure (ICD-10-PCS; principal; 2022-09-22)
DX: I13.0 Hypertensive heart and chronic kidney disease with heart failure and stage 1 through stage 4 chronic kidney disease, or unspecified chronic kidney disease (principal); I50.33 Acute on chronic diastolic (congestive) heart failure; N17.0 Acute kidney failure with tubular necrosis; J96.21 Acute and chronic respiratory failure with hypoxia; E87.3 Alkalosis; F79 Unspecified intellectual disabilities; M10.9 Gout, unspecified; I07.1 Rheumatic tricuspid insufficiency; I27.21 Secondary pulmonary arterial hypertension; I48.0 Paroxysmal atrial fibrillation; Z85.6 Personal history of leukemia; E03.9 Hypothyroidism, unspecified; Z71.3 Dietary counseling and surveillance; E11.22 Type 2 diabetes mellitus with diabetic chronic kidney disease; E11.39 Type 2 diabetes mellitus with other diabetic ophthalmic complication; E11.42 Type 2 diabetes mellitus with diabetic polyneuropathy; E11.649 Type 2 diabetes mellitus with hypoglycemia without coma; E66.01 Morbid (severe) obesity due to excess calories; Z68.37 Body mass index [BMI] 37.0-37.9, adult; Z79.01 Long term (current) use of anticoagulants; E78.5 Hyperlipidemia, unspecified; I45.10 Unspecified right bundle-branch block; E87.6 Hypokalemia; F51.04 Psychophysiologic insomnia; G47.33 Obstructive sleep apnea (adult) (pediatric); Z20.822 Contact with and (suspected) exposure to COVID-19; Z86.718 Personal history of other venous thrombosis and embolism; R26.9 Unspecified abnormalities of gait and mobility; M19.90 Unspecified osteoarthritis, unspecified site; N18.31 Chronic kidney disease, stage 3a; T50.2X5A Adverse effect of carbonic-anhydrase inhibitors, benzothiadiazides and other diuretics, initial encounter; Z79.84 Long term (current) use of oral hypoglycemic drugs; Z79.890 Hormone replacement therapy; Z79.899 Other long term (current) drug therapy; Z83.3 Family history of diabetes mellitus; Z86.711 Personal history of pulmonary embolism; Z91.199 Patient's noncompliance with other medical treatment and regimen due to unspecified reason
CPT/HCPCS: 36415; 71045; 76770; 80048; 80053; 81001; 82803; 83036; 83735; 83880; 84132; 84145; 84443; 84484; 85025; 85027; 85610; 85730; 87636; 93005; 93306; 94660; 94760; 96374; 96375; 99291

== ENCOUNTER 2022-10-06 15:43 | Inpatient (IN) | payer MEDICARE, OTHER ==
[2022-10-06] MEDS ORDERED: SODIUM CHLORIDE 0.9% 500 ML 500 ML IV ONE (16:52)
--- NOTE | 2022-10-06 17:05 | ED ---
General Adult HPI - General Chief complaint: Weakness Stated complaint: COVID + Time Seen by Provider: 10/06/22 16:00 Source: patient, EMS, RN notes reviewed, old records reviewed Mode of arrival: EMS Limitations: no limitations - History of Present Illness Initial comments: This is a 71-year-old male who presents emergency Department complaining of gen eralized weakness. Patient was in the hospital a week and half ago for COPD he was discharged back to the group home and was doing quite well according to staff is able to get up and walk around on his own he is usually alert and oriented 3 but he wasn't moving around as well as much more fatigued so they tested for him for COVID was COVID positive. patient has been on 4 L at the group home and on 4 L here he sat 100%. There is No history of any fevers. - Related Data Home Medications Medication Instructions Recorded Confirmed Amiodarone [Cordarone] 200 mg PO DAILY 08/02/20 09/22/22 Cyanocobalamin [Vitamin B-12] 500 mcg PO PC-LUNCH 08/02/20 09/22/22 Levothyroxine Sodium [Synthroid] 100 mcg PO DAILY 08/02/20 09/22/22 Liraglutide [Victoza 3-Ramírez] 1.8 mg SQ DAILY 08/02/20 09/22/22 Melatonin 5 mg PO HS PRN 08/02/20 09/22/22 Atorvastatin [Lipitor] 10 mg PO HS 07/26/22 09/22/22 Divalproex [Depakote] 250 mg PO BID@0800,1600 07/26/22 09/22/22 metFORMIN HCL 1,000 mg PO HS 07/26/22 09/22/22 metFORMIN HCL 500 mg PO DAILY 07/26/22 09/22/22 Meclizine [Antivert] 12.5 mg PO Q8HR PRN 09/22/22 09/22/22 Potassium Chloride [Klor-Con M20] 20 meq PO DAILY 09/22/22 09/22/22 Sodium Chloride [Saline Mist] 1 spray EA NOSTRIL Q2H PRN 09/22/22 09/22/22 amLODIPine [Norvasc] 5 mg PO DAILY 09/22/22 09/22/22 Previous Rx's Medication Instructions Recorded Acetaminophen Tab [Tylenol] 650 mg PO Q6HR PRN tab 08/17/20 Rivaroxaban [Xarelto] 20 mg PO W/SUPPER #30 tab 10/01/22 Torsemide [Demadex] 20 mg PO DAILY #30 tab 10/01/22 Allergies Allergy/AdvReac Type Severity Reaction Status Date / Time No Known Allergies Allergy Verified 10/06/22 15:49 Review of Systems ROS Statement: Those systems with pertinent positive or pertinent negative responses have been documented in the HPI. ROS Other: All systems not noted in ROS Statement are negative. Past Medical History Past Medical History: Atrial Fibrillation, Asthma, Diabetes Mellitus, Hyperlipidemia, Hypertension, Sleep Apnea/CPAP/BIPAP, Thyroid Disorder Additional Past Medical History / Comment(s): Diabetic oculopathy, obesity, leukopenia, gallstone, diarrhea, mentally disabled, gout, peripheral neuropothy, gait dysfunction- uses motorized scooter, degenerative joint disorder, supposed to wear cpap at home but is non compliant History of Any Multi-Drug Resistant Organisms: Unobtainable Past Surgical History: Cholecystectomy, Hernia Repair Additional Past Surgical History / Comment(s): L inguinal hernia repair, last colonoscopy 2002 Past Anesthesia/Blood Transfusion Reactions: Unable to Obtain Past Psychological History: No Psychological Hx Reported Smoking Status: Unknown if ever smoked Past Alcohol Use History: Unable to Obtain Past Drug Use History: Unable to Obtain - Past Family History Mother Family Medical History: Unable to Obtain Father Family Medical History: Diabetes Mellitus General Exam - General Exam Comments Initial Comments: GENERAL: Patient is well-developed and well-nourished. Patient is nontoxic and well- hydrated and is in no acute distress. ENT: Neck is soft and supple. No significant lymphadenopathy is noted. Oropharynx is clear. Moist mucous membranes. Neck has full range of motion without eliciting any pain. EYES: The sclera were anicteric and conjunctiva were pink and moist. Extraocular movements were intact and pupils were equal round and reactive to light. Eyeli ds were unremarkable. PULMONARY: Unlabored respirations. Good breath sounds bilaterally. No audible rales rhonchi or wheezing was noted. CARDIOVASCULAR: There is a regular rate and rhythm without any murmurs gallops or rubs. ABDOMEN: Soft and nontender with normal bowel sounds. SKIN: Skin is clear with no lesions or rashes and otherwise unremarkable. NEUROLOGIC: Patient is alert and oriented 2. Cranial nerves II through XII are grossly intact. Motor and sensory are also intact. Normal speech, volume and content. Symmetrical smile. MUSCULOSKELETAL: Normal extremities with adequate strength and full range of motion. LYMPHATICS: No significant lymphadenopathy is noted PSYCHIATRIC: Normal psychiatric evaluation. Limitations: no limitations Course Vital Signs 10/06/22 10/06/22 10/06/22 15:44 15:51 16:00 Temperature 99.8 F H Pulse Rate 63 58 L Respiratory 22 22 23 Rate Blood Pressure 106/69 106/69 O2 Sat by Pulse 100 99 Oximetry 10/06/22 10/06/22 10/06/22 16:30 17:00 17:30 Temperature Pulse Rate 57 L 59 L 60 Respiratory 21 26 H 24 Rate Blood Pressure 113/58 107/62 125/63 O2 Sat by Pulse 99 100 Oximetry 10/06/22 10/06/22 10/06/22 18:00 18:30 19:00 Temperature Pulse Rate 59 L 57 L 63 Respiratory 21 17 18 Rate Blood Pressure 137/61 129/61 125/60 O2 Sat by Pulse 100 99 100 Oximetry Medical Decision Making - Medical Decision Making EKG is interpreted by myself shows a sinus rate of cardiac at 57 bpm MN interval is 236 QRS is 125 Q-T intervals 448 QTC is 441. Was pt. sent in by a medical professional or institution (, PA, MEDICAL CSR, urgent care, hospital, or group home...) When possible be specific @ -Patient was sent into the emergency department via the group home Did you speak to anyone other than the patient for history (EMS, parent, family, police, friend...)? What history was obtained from this source @ -No Did you review nursing and triage notes (agree or disagree)? Why? @ -I reviewed and agree with nursing and triage notes Were old charts reviewed (outside hosp., previous admission, EMS record, old EKG, old radiological studies, urgent care reports/EKG's, group home records)? Report findings @ -Prior charts lab work and radiological studies were reviewed Differential Diagnosis (chest pain, altered mental status, abdominal pain women, abdominal pain men, vaginal bleeding, weakness, fever, dyspnea, syncope, headache, dizziness, GI bleed, back pain, seizure, CVA, palpatations, mental health, musculoskeletal)? @ -Differential Weakness: Hypoglycemia, shock, sepsis, hyponatremia, anemia, infection, NC, ETOH, adverse medicine reaction, overdose, stroke, this is not meant to be an all-inclusive list. EKG interpreted by me (3pts min.). @ -As above X-rays interpreted by me (1pt min.). @ -X-ray showed no acute abnormality CT interpreted by me (1pt min.). @ -None done U/S interpreted by me (1pt. min.). @ -None done What testing was considered but not performed or refused? (CT, X-rays, U/S, labs)? Why? @ -None What meds were considered but not given or refused? Why? @ -None Did you discuss the management of the patient with other professionals (professionals i.e. , PA, MEDICAL CSR, lab, RT, psych nurse, rn social work, editor trade journal, teacher, correction officer head, immigration case worker)? Give summary @ -I spoke with Dr. Griffin he agreed to admit the patient Was smoking cessation discussed for >3mins.? @ -No Was critical care preformed (if so, how long)? @ -No Were there social determinants of health that impacted care today? How? (Homelessness, low income, unemployed, alcoholism, drug addiction, transportation, low edu. Level, literacy, decrease access to med. care, halfway, rehab)? @ -No Was there de-escalation of care discussed even if they declined (Discuss DNR or withdrawal of care, Hospice)? DNR status @ -No What co-morbidities impacted this encounter? (DM, HTN, Smoking, COPD, CAD, Cancer, CVA, ARF, Chemo, Hep., AIDS, mental health diagnosis, sleep apnea, morbid obesity)? @ -None Was patient admitted / discharged? Hospital course, mention meds given and route, prescriptions, significant lab abnormalities, going to OR and other pertinent info. @ -I went back and after labs were back to speak to the patient he had no complaints at this time. I spoke with Dr. Brooks he agreed to admit the patient admitted the patient. Undiagnosed new problem with uncertain prognosis? @ -No Drug Therapy requiring intensive monitoring for toxicity (Heparin, Nitro, Insulin, Cardizem)? @ -No Were any procedures done? @ -No Diagnosis/symptom? @ -COVID Acute, or Chronic, or Acute on Chronic? @ -Acute Uncomplicated (without systemic symptoms) or Complicated (systemic symptoms)? @ -, Located Side effects of treatment? @ -No Exacerbation, Progression, or Severe Exacerbation? @ -No Poses a threat to life or bodily function? How? (Chest pain, USA, NC, pneumonia, PE, COPD, DKA, ARF, appy, cholecystitis, CVA, Diverticulitis, Homicidal, Suicidal, threat to staff... and all critical care pts) @ -No Diagnosis/symptom? @ -Generalized weakness Acute, or Chronic, or Acute on Chronic? @ -Acute Uncomplicated (without systemic symptoms) or Complicated (systemic symptoms)? @ -Uncomplicated Side effects of treatment? @ -none Exacerbation, Progression, or Severe Exacerbation] @ -no Poses a threat to life or bodily function? @ -no - Lab Data Result diagrams: 10/06/22 17:07 10/06/22 17:07 Lab Results 10/06/22 10/06/22 10/06/22 Range/Units 17:07 17:07 17:07 WBC 6.7 (3.8-10.6) k/uL RBC 3.22 L (4.30-5.90) m/uL Hgb 11.0 L (13.0-17.5) gm/dL Hct 32.5 L (39.0-53.0) % MCV 101.0 H (80.0-100.0) fL MCH 34.3 (25.0-35.0) pg MCHC 33.9 (31.0-37.0) g/dL RDW 15.2 (11.5-15.5) % Plt Count 301 (150-450) k/uL MPV 8.9 Neutrophils % (Manual) 74 % Band Neuts % (Manual) 5 % Lymphocytes % (Manual) 12 % Monocytes % (Manual) 9 % Neutrophils # (Manual) 5.20 (1.3-7.7) k/uL Lymphocytes # (Manual) 0.80 L (1.0-4.8) k/uL Monocytes # (Manual) 0.60 (0-1.0) k/uL Nucleated RBCs 0 (0-0) /100 WBC Manual Slide Review Performed Macrocytosis Slight PT 11.2 (9.0-12.0) sec INR 1.1 (<1.2) APTT 27.9 (22.0-30.0) sec Sodium (137-145) mmol/L Potassium (3.5-5.1) mmol/L Chloride (98-107) mmol/L Carbon Dioxide (22-30) mmol/L Anion Gap mmol/L BUN (9-20) mg/dL Creatinine (0.66-1.25) mg/dL Est GFR (CKD-EPI)AfAm (>60 ml/min/1.73 sqM) Est GFR (CKD-EPI)NonAf (>60 ml/min/1.73 sqM) Glucose (74-99) mg/dL Plasma Lactic Acid Zachariah (0.7-2.0) mmol/L Calcium (8.4-10.2) mg/dL Magnesium (1.6-2.3) mg/dL Total Bilirubin (0.2-1.3) mg/dL AST (17-59) U/L ALT (4-49) U/L Alkaline Phosphatase (38-126) U/L Troponin I (0.000-0.034) ng/mL Total Protein (6.3-8.2) g/dL Albumin (3.5-5.0) g/dL Urine Color Yellow Urine Appearance Clear (Clear) Urine pH 5.0 (5.0-8.0) Ur Specific [place] 1.010 (1.001-1.035) Urine Protein Negative (Negative) Urine Glucose (UA) Negative (Negative) Urine Ketones Negative (Negative) Urine Blood Negative (Negative) Urine Nitrite Negative (Negative) Urine Bilirubin Negative (Negative) Urine Urobilinogen <2.0 (<2.0) mg/dL Ur Leukocyte Esterase Negative (Negative) 10/06/22 10/06/22 10/06/22 Range/Units 17:07 17:07 17:07 WBC (3.8-10.6) k/uL RBC (4.30-5.90) m/uL Hgb (13.0-17.5) gm/dL Hct (39.0-53.0) % MCV (80.0-100.0) fL MCH (25.0-35.0) pg MCHC (31.0-37.0) g/dL RDW (11.5-15.5) % Plt Count (150-450) k/uL MPV Neutrophils % (Manual) % Band Neuts % (Manual) % Lymphocytes % (Manual) % Monocytes % (Manual) % Neutrophils # (Manual) (1.3-7.7) k/uL Lymphocytes # (Manual) (1.0-4.8) k/uL Monocytes # (Manual) (0-1.0) k/uL Nucleated RBCs (0-0) /100 WBC Manual Slide Review Macrocytosis PT (9.0-12.0) sec INR (<1.2) APTT (22.0-30.0) sec Sodium 138 (137-145) mmol/L Potassium 3.1 L (3.5-5.1) mmol/L Chloride 92 L (98-107) mmol/L Carbon Dioxide 36 H (22-30) mmol/L Anion Gap 10 mmol/L BUN 58 H (9-20) mg/dL Creatinine 2.03 H (0.66-1.25) mg/dL Est GFR (CKD-EPI)AfAm 37 (>60 ml/min/1.73 sqM) Est GFR (CKD-EPI)NonAf 32 (>60 ml/min/1.73 sqM) Glucose 110 H (74-99) mg/dL Plasma Lactic Acid Zachariah 1.0 (0.7-2.0) mmol/L Calcium 9.6 (8.4-10.2) mg/dL Magnesium 2.1 (1.6-2.3) mg/dL Total Bilirubin 0.7 (0.2-1.3) mg/dL AST 59 (17-59) U/L ALT 44 (4-49) U/L Alkaline Phosphatase 74 (38-126) U/L Troponin I 0.015 (0.000-0.034) ng/mL Total Protein 7.8 (6.3-8.2) g/dL Albumin 3.7 (3.5-5.0) g/dL Urine Color Urine Appearance (Clear) Urine pH (5.0-8.0) Ur Specific [place] (1.001-1.035) Urine Protein (Negative) Urine Glucose (UA) (Negative) Urine Ketones (Negative) Urine Blood (Negative) Urine Nitrite (Negative) Urine Bilirubin (Negative) Urine Urobilinogen (<2.0) mg/dL Ur Leukocyte Esterase (Negative) Disposition Clinical Impression: COVID, Generalized weakness Disposition: ADMITTED IP TO THIS HOSP Referrals: Gerardo Brand DO [Primary Care Provider] - 1-2 days Time of Disposition: 20:44
[2022-10-06 17:18] LABS: HCT 32.5 % (39.0-53.0); MCH 34.3 pg (25.0-35.0); MCHC 33.9 g/dL (31.0-37.0); Macrocytosis Slight; Mean Platelet Volume 8.9; Platelet Count 301 k/uL (150-450); RBC 3.22 m/uL (4.30-5.90); RDW 15.2 % (11.5-15.5); WBC 6.7 k/uL (3.8-10.6)
[2022-10-06 17:33] LABS: INR 1.1 (<1.2); Partial Thromboplastin Time 27.9 sec (22.0-30.0); Prothrombin Time 11.2 sec (9.0-12.0)
--- NOTE | 2022-10-06 17:34 | XR ---
EXAMINATION TYPE: XR chest 2V DATE OF EXAM: 10/06/2022 COMPARISON: 1623 HISTORY: Shortness of breath TECHNIQUE: Frontal and lateral views of the chest are obtained. FINDINGS: Scattered senescent parenchymal changes noted. No evidence for infiltrate. No evidence for atelectasis. Persistent cardiomegaly with pulmonary venous congestion and scattered infiltrates felt to reflect ch anges of congestive failure with minimal improvement suggested. Correlate clinically. Mediastinal structures are stable and grossly unremarkable. No evidence for hilar prominence. Degenerative changes dorsal spine. IMPRESSION: 1. Persistent cardiomegaly with pulmonary venous congestion and scattered infiltrates felt to reflect changes of congestive failure with minimal improvement suggested. Correlate clinically.
[2022-10-06 18:06] LABS: ALT 44 U/L (4-49); AST 59 U/L (17-59); African American GFR (CKD) 37 (>60 ml/min/1.73 sqM); Albumin 3.7 g/dL (3.5-5.0); Alkaline Phosphatase 74 U/L (38-126); Anion Gap 10 mmol/L; Blood Urea Nitrogen 58 mg/dL (9-20); Calcium 9.6 mg/dL (8.4-10.2); Carbon Dioxide 36 mmol/L (22-30); Chloride 92 mmol/L (98-107); Glucose 110 mg/dL (74-99); Magnesium 2.1 mg/dL (1.6-2.3); Non-African American GFR(CKD) 32 (>60 ml/min/1.73 sqM); Potassium 3.1 mmol/L (3.5-5.1); Sodium 138 mmol/L (137-145); Total Bilirubin 0.7 mg/dL (0.2-1.3); Total Protein 7.8 g/dL (6.3-8.2)
[2022-10-06 18:29] LABS: Band Neutrophils % 5 %; Neutrophils % (M) 74 %; Nucleated Red Blood Cells 0 /100 WBC (0-0); Total Cells Counted 100
[2022-10-06 19:27] LABS: Appearance,Urine Clear (Clear); Bilirubin,Urine Negative (Negative); Blood,Urine Negative (Negative); Color,Urine Yellow; Glucose,Urine (UA) Negative (Negative); Ketones,Urine Negative (Negative); Leukocyte Esterase,Urine Negative (Negative); Nitrite,Urine Negative (Negative); Protein,Urine Negative (Negative); Urobilinogen,Urine <2.0 mg/dL (<2.0)
[2022-10-06] MEDS ORDERED: SODIUM CHLORIDE 0.9% 1,000 ML IV ONE (20:44)
[2022-10-06] MEDS ORDERED: ACETAMINOPHEN TAB 325 MG TAB PO PRN (20:45)
[2022-10-07 06:26] LABS: Glucose,Whole Blood 89 mg/dL (70-110)
[2022-10-07] MEDS ORDERED: SODIUM CHLORIDE 0.65% NASAL SPRAY 44 ML BTL NASAL PRN (09:44)
[2022-10-07] MEDS ORDERED: MECLIZINE 12.5 MG TAB PO PRN (09:44)
[2022-10-07] MEDS ORDERED: ONDANSETRON 4 MG/2 ML VIAL IVP PRN (09:46)
[2022-10-07] MEDS ORDERED: DEXTROSE 50% SYRINGE 50 ML IVP PRN ×2 (09:52)
[2022-10-07 10:40] LABS: African American GFR (CKD) 57 (>60 ml/min/1.73 sqM); Anion Gap 7 mmol/L; Blood Urea Nitrogen 48 mg/dL (9-20); Calcium 9.5 mg/dL (8.4-10.2); Carbon Dioxide 36 mmol/L (22-30); Chloride 98 mmol/L (98-107); Glucose 92 mg/dL (74-99); LDH 274 U/L (120-246); Non-African American GFR(CKD) 50 (>60 ml/min/1.73 sqM); Potassium 3.2 mmol/L (3.5-5.1); Sodium 141 mmol/L (137-145)
[2022-10-07 10:49] LABS: NT-Pro-B-Type Natriuretic Pept 160 pg/mL
[2022-10-07] MEDS: DIVALPROEX 250 MG TABLET.DR PO SCH ×2 (11:06→17:43)
[2022-10-07] MEDS: CYANOCOBALAMIN 500 MCG TAB PO SCH (11:06)
[2022-10-07] MEDS: CHOLECALCIFEROL 25 MCG (1000 IU) TABLET PO SCH (11:06)
[2022-10-07] MEDS ORDERED: FUROSEMIDE 10 MG/ML 4 ML VIAL IV SCH (11:30)
[2022-10-07 12:19] LABS: Glucose,Whole Blood 98 mg/dL (70-110)
[2022-10-07] MEDS: INSULIN ASPART (NovoLOG) 100 UNIT/ML VIAL SQ SCH ×3 (13:01→20:39)
[2022-10-07] MEDS ORDERED: Potassium Replacement Protocol 1 EACH MISC MISCELLANE PRN (14:03)
--- NOTE | 2022-10-07 14:16 | P.HPIM ---
History of Present Illness H&P Date: 10/07/22 This is a 71 year old male with medical history of atrial fibrillation, asthma, diabetes, hypertension, sleep apnea with CPAP use, mentally disabled. Patient was recently admitted to the hospital with CHF exacerbation discharged to [facility] 5 days ago. Patient returns to the with complaints of generalized weakness and fatigue was found to be positive covid from the intermediate. He was discharged on 4L of nasal cannula which he continues on. He is brought back in for evaluation. Chest xray on admission reveals persistent cardiomegaly with pulmonary venous congestion, and scattered infiltrates felt to reflect changes of CHF with minimal improvement. EKG reveals bradycardia with heart rate 50s pa tient has first degree AV block. White count is normal, hemoglobin 11.0, sodium 138, potassium 3.1, BUN 58, creatinine 2.03. UA negative. Patient will be gently hydrated and receive supportive care and PT evaluation. REVIEW OF SYSTEMS: CONSTITUTIONAL: No fever, no malaise, no fatigue. HEENT: No recent visual problems or hearing problems. Denied any sore throat. CARDIOVASCULAR: No chest pain, orthopnea, PND, no palpitations, no syncope. PULMONARY: No shortness of breath, no cough, no hemoptysis. GASTROINTESTINAL: No diarrhea, no nausea, no vomiting, no abdominal pain. NEUROLOGICAL: No headaches, no weakness, no numbness. HEMATOLOGICAL: Denies any bleeding or petechiae. GENITOURINARY: Denies any burning micturition, frequency, or urgency. MUSCULOSKELETAL/RHEUMATOLOGICAL: Denies any joint pain, swelling, or any muscle pain. ENDOCRINE: Denies any polyuria or polydipsia. The rest of the 14-point review of systems is negative. PHYSICAL EXAMINATION: GENERAL: The patient is alert and oriented x2, not in any acute distress. Well developed, well nourished. Fatigued. HEENT: Pupils are round and equally reacting to light. EOMI. No scleral icterus. No conjunctival pallor. Normocephalic, atraumatic. No pharyngeal erythema. No thyromegaly. Tongue has a thick yellow/white coating. Poor dentition. CARDIOVASCULAR: S1 and S2 present. No murmurs, rubs, or gallops. PULMONARY: Scattered ronchi throughout with faint basilar crackles ABDOMEN: Soft, nontender, nondistended, normoactive bowel sounds. No palpable organomegaly. MUSCULOSKELETAL: No joint swelling or deformity. EXTREMITIES: No cyanosis, clubbing, or pedal edema. NEUROLOGICAL: Gross neurological examination did not reveal any focal deficits. Generalized weakness SKIN: No rashes. Assessment and Plan -Generalized weakness due to the acute covid infection patient appears dehydrated will be gently hydrated and PT/OT are consulted. -Acute covid infection possibly hospital acquired recent admission for CHF, -Elevated inflammatory markers and D-Dimer due to the acute covid infection patient will be started on inhaled steroids and vitamin support -Acute hypoxic respiratory failure recently discharged from hospital on 4L nasal cannula and remains on 4L of oxygen oxygen saturations in 97%. Patient was treated for CHF exacerbation however is now found to be covid positive likely attributing to the respiratory failure. -Chronic diastolic dysfunction normal EF 55-60% patient has some mild vascular prominence on chest xray BNP is normal, renal function improved with hydration we will continue off diuretics and repeat labs in the AM. -Acute kidney injury likely prerenal, kidney function had worsening prior a dmission with aggressive diuresis now improving with IV fluids which will continue overnight. -Oral Thrush nystatin swish and swallow added -Diabetes Mellitus type 2 recommending holding off on metformin due to the renal dysfunction patient will be started on novolog sliding scale insulin and accuc hecks. Blood glucose is controlled. -Paroxysmal atrial fibrillation anticoagulated with xarelto which is continued currently rate controlled -Hypothyroidism -Obstructive sleep apnea with CPAP use, noncompliant -Diabetic neuropathy -Hypertension currently normotensive hold off on losartan due to the LEA -Obesity GI prophylaxis DVT prophylaxis anticoagulated with xarelto The impression and plan of care has been dictated by Annita Luis, Nurse Practitioner as directed. Dr. Mireya MD I have performed a history and physical examination and medical decision making of this patient, discussed the same with the dictator, and agree with the dictators assessment and plan as written, documented as a scribe. Based on total visit time, I have performed more than 50% of this visit. Past Medical History Past Medical History: Atrial Fibrillation, Asthma, Diabetes Mellitus, Hyperlipidemia, Hypertension, Sleep Apnea/CPAP/BIPAP, Thyroid Disorder Additional Past Medical History / Comment(s): Diabetic oculopathy, obesity, leukopenia, gallstone, diarrhea, mentally disabled, gout, peripheral neuropothy, gait dysfunction- uses motorized scooter, degenerative joint disorder, supposed to wear cpap at home but is non compliant History of Any Multi-Drug Resistant Organisms: Unobtainable Past Surgical History: Cholecystectomy, Hernia Repair Additional Past Surgical History / Comment(s): L inguinal hernia repair, last colonoscopy 2002 Past Anesthesia/Blood Transfusion Reactions: Unable to Obtain Past Psychological History: No Psychological Hx Reported Smoking Status: Unknown if ever smoked Past Alcohol Use History: Unable to Obtain Past Drug Use History: Unable to Obtain - Past Family History Mother Family Medical History: Unable to Obtain Father Family Medical History: Diabetes Mellitus Medications and Allergies Home Medications Medication Instructions Recorded Confirmed Type Amiodarone [Cordarone] 200 mg PO DAILY@0800 08/02/20 10/06/22 History Cyanocobalamin [Vitamin B-12] 500 mcg PO DAILY@1100 08/02/20 10/06/22 History Levothyroxine Sodium [Synthroid] 100 mcg PO DAILY@0800 08/02/20 10/06/22 History Liraglutide [Victoza 3-Ramírez] 1.8 mg SQ DAILY@79908/02/20 10/06/22 History Melatonin 5 mg PO HS@199908/02/20 10/06/22 History Atorvastatin [Lipitor] 10 mg PO HS@199907/26/22 10/06/22 History Divalproex [Depakote] 250 mg PO BID@0800,1600 07/26/22 10/06/22 History metFORMIN HCL 1,000 mg PO HS@199907/26/22 10/06/22 History metFORMIN HCL 500 mg PO DAILY@0800 07/26/22 10/06/22 History Meclizine [Antivert] 12.5 mg PO TID@0800,1200,1800 09/22/22 10/06/22 History Potassium Chloride [Klor-Con M20] 20 meq PO DAILY@00 09/22/22 10/06/22 History Sodium Chloride [Saline Mist] 1 spray EA NOSTRIL Q2H PRN 09/22/22 10/06/22 History amLODIPine [Norvasc] 5 mg PO DAILY@00 09/22/22 10/06/22 History Rivaroxaban [Xarelto] 20 mg PO W/SUPPER #30 tab 10/01/22 10/06/22 Rx Acetaminophen [Tylenol 8 Hour] 650 mg PO Q6H PRN 10/06/22 10/06/22 History Ascorbic Acid [Vitamin C] 1,000 mg PO HS 10/06/22 10/06/22 History Cholecalciferol [Vitamin D3 (25 50 mcg PO DAILY 10/06/22 10/06/22 History Mcg = 1000 Iu)] Torsemide [Demadex] 20 mg PO DAILY@0800 10/06/22 10/06/22 History Zinc Gluconate [Zinc] 200 mg PO HS 10/06/22 10/06/22 History Allergies Allergy/AdvReac Type Severity Reaction Status Date / Time No Known Allergies Allergy Verified 10/06/22 15:49 Physical Exam Vitals: Vital Signs Temp Pulse Pulse Resp BP BP BP 10/07/22 07:00 99 F 67 18 129/62 10/07/22 03:01 99.2 F 55 L 18 124/62 10/07/22 00:43 71 18 10/06/22 22:39 99.7 F H 71 19 134/65 10/06/22 20:00 99.1 F 63 18 132/61 10/06/22 19:00 63 18 125/60 10/06/22 18:30 57 L 17 129/61 10/06/22 18:00 59 L 21 137/61 10/06/22 17:30 60 24 125/63 10/06/22 17:00 59 L 26 H 107/62 10/06/22 16:30 57 L 21 113/58 10/06/22 16:00 58 L 23 106/69 10/06/22 15:51 22 10/06/22 15:44 99.8 F H 63 22 106/69 Pulse Ox 10/07/22 07:00 97 10/07/22 03:01 97 10/07/22 00:43 10/06/22 22:39 90 L 10/06/22 20:00 100 10/06/22 19:00 100 10/06/22 18:30 99 10/06/22 18:00 100 10/06/22 17:30 10/06/22 17:00 100 10/06/22 16:30 99 10/06/22 16:00 99 10/06/22 15:51 10/06/22 15:44 100 Intake and Output 10/06/22 10/07/22 10/07/22 22:59 06:59 14:59 Output Total 500 Balance -500 Output: Urine 500 Other: Voiding Method Diaper # Voids 1 Weight 81.647 kg Results CBC & Chem 7: 10/06/22 17:07 10/07/22 09:54 Labs: Abnormal Lab Results - Last 24 Hours (Table) 10/06/22 10/06/22 Range/Units 17:07 17:07 RBC 3.22 L (4.30-5.90) m/uL Hgb 11.0 L (13.0-17.5) gm/dL Hct 32.5 L (39.0-53.0) % MCV 101.0 H (80.0-100.0) fL Lymphocytes # (Manual) 0.80 L (1.0-4.8) k/uL Potassium 3.1 L (3.5-5.1) mmol/L Chloride 92 L (98-107) mmol/L Carbon Dioxide 36 H (22-30) mmol/L BUN 58 H (9-20) mg/dL Creatinine 2.03 H (0.66-1.25) mg/dL Glucose 110 H (74-99) mg/dL Thrombosis Risk Factor Assmnt - Choose All That Apply Any of the Below Risk Factors Present?: Yes Each Factor Represents 1 point: Obesity (BMI >25) Other Risk Factors: Yes Each Risk Factor Represents 2 Points: Age 61-74 years Other congenital or acquired thrombophilia - If yes, enter type in comment: No Thrombosis Risk Factor Assessment Total Risk Factor Score: 3 Thrombosis Risk Factor Assessment Level: Moderate Risk Assessment and Plan Time with Patient: Greater than 30
[2022-10-07] MEDS: POTASSIUM CHLORIDE 10 MEQ in WATER FOR INJECTION 1 100ML.BAG IVPB SCH ×4 (14:47→20:17)
[2022-10-07] MEDS: SODIUM CHLORIDE 0.9% 1,000 ML IV SCH (14:51)
[2022-10-07] MEDS: NYSTATIN 100,000 UNIT/ML SUSP 500,000 UNIT/5 ML CUP PO SCH ×3 (16:00→22:53)
[2022-10-07 17:24] LABS: Glucose,Whole Blood 91 mg/dL (70-110)
[2022-10-07] MEDS: RIVAROXABAN 20 MG TAB PO SCH (17:43)
[2022-10-07] MEDS: FLUTICASONE 110 MCG INHALER INHALATION SCH (18:32)
[2022-10-07] MEDS ORDERED: BUDESONIDE 0.5 MG/2 ML NEBU INHALATION SCH (20:00)
[2022-10-07] MEDS: MELATONIN 5 MG TABLET PO SCH (20:16)
[2022-10-07] MEDS: ATORVASTATIN 10 MG TAB PO SCH (20:16)
[2022-10-07] MEDS: ASCORBIC ACID 500 MG TAB PO SCH (20:16)
[2022-10-07] MEDS: ZINC SULFATE 220 MG CAP PO SCH (20:16)
[2022-10-07 20:23] LABS: Glucose,Whole Blood 83 mg/dL (70-110)
[2022-10-08 06:17] LABS: Glucose,Whole Blood 158 mg/dL (70-110)
[2022-10-08] MEDS: INSULIN ASPART (NovoLOG) 100 UNIT/ML VIAL SQ SCH ×4 (06:36→19:39)
[2022-10-08] MEDS: FLUTICASONE 110 MCG INHALER INHALATION SCH ×2 (07:58→20:10)
[2022-10-08 08:34] LABS: Basophils # (A) 0.01 X 10*3/uL (0.00-0.10); Basophils % (A) 0.2 %; Eosinophils # (A) 0.02 X 10*3/uL (0.04-0.35); Eosinophils % (A) 0.4 %; HCT 32.8 % (39.6-50.0); HGB 10.1 d/dL (13.0-17.0); Lymphocytes # (A) 0.76 X 10*3/uL (0.90-5.00); Lymphocytes % (A) 13.5 %; MCH 32.1 pg (27.0-32.0); MCHC 30.8 d/dL (32.0-37.0); MCV 104.1 FL (80.0-97.0); Mean Platelet Volume 10.2 FL (9.5-12.2); Monocytes # (A) 0.56 X 10*3/uL (0.20-1.00); Monocytes % (A) 9.9 %; NRBC Per 100 WBC 0 X 10*3/uL (0.00-0.01); Neutrophils # (A) 4.28 X 10*3/uL (1.80-7.70); Neutrophils % (A) 75.6 %; Platelet Count 267 X 10*3/uL (140-440); RBC 3.15 X 10*6/uL (4.40-5.60); RDW 14.8 % (11.5-14.5); WBC 5.65 X 10*3/uL (4.50-10.00)
[2022-10-08] MEDS: DIVALPROEX 250 MG TABLET.DR PO SCH ×2 (08:38→17:29)
[2022-10-08] MEDS: LEVOTHYROXINE 100 MCG TAB PO SCH (08:38)
[2022-10-08] MEDS: AMIODARONE 200 MG TAB PO SCH (08:38)
[2022-10-08] MEDS: NYSTATIN 100,000 UNIT/ML SUSP 500,000 UNIT/5 ML CUP PO SCH ×4 (08:38→20:58)
[2022-10-08] MEDS: CHOLECALCIFEROL 25 MCG (1000 IU) TABLET PO SCH (08:38)
[2022-10-08 08:59] LABS: BUN/Creat Ratio 31.29 Ratio (12.00-20.00); Blood Urea Nitrogen 43.8 mg/dL (9.0-27.0); Calcium 9.1 mg/dL (8.7-10.3); Carbon Dioxide 29.7 mmol/L (21.6-31.8); Chloride 96 mmol/L (96-109); Glucose 156 mg/dL (70-110); Magnesium 1.8 mg/dL (1.5-2.4); Potassium 3.2 mmol/L (3.5-5.5); Sodium 139 mmol/L (135-145)
[2022-10-08] MEDS ORDERED: BENZOCAINE/MENTHOL LOZENG 1 EACH LOZENGE MUCOUS MEM PRN (09:37)
[2022-10-08] MEDS ORDERED: MAGNESIUM SULFATE-D5W PMX 1 GM in DEXTROSE/WATER 1 100ML.BAG IVPB ONE (10:00)
--- NOTE | 2022-10-08 10:10 | XR ---
EXAMINATION TYPE: XR chest 1V DATE OF EXAM: 10/08/2022 7:03 AM COMPARISON: Chest radiographs from 10/06/2022 TECHNIQUE: XR chest 1V Frontal view of the chest. CLINICAL INDICATION:Male, 71 years old with history of hypoxia; FINDINGS: Lungs/Pleura: There is no evidence of pleural effusion, focal consolidation, or pneumothorax. Pulmonary vascularity: Unremarkable. Heart/mediastinum: Cardiomediastinal silhouette is partially obscured due to overlying and adjacent o pacities. Musculoskeletal: No acute osseous pathology. IMPRESSION: Low lung volumes with a generalized hazy appearance which could represent atelectasis versus pulmonar y edema correlate with serum BNP.
[2022-10-08] MEDS: POTASSIUM CHLORIDE ER 20 MEQ TAB.ER PO SCH ×2 (10:50→13:01)
[2022-10-08] MEDS: CYANOCOBALAMIN 500 MCG TAB PO SCH (10:50)
[2022-10-08] MEDS: SODIUM CHLORIDE 0.9% 1,000 ML IV SCH (10:52)
[2022-10-08 11:51] LABS: Glucose,Whole Blood 195 mg/dL (70-110)
[2022-10-08 12:08] VITALS: BMI 35.2
--- NOTE | 2022-10-08 16:20 | P.PN ---
Subjective Progress Note Date: 10/08/22 This is a 71 year old male with medical history of atrial fibrillation, asthma, diabetes, hypertension, sleep apnea with CPAP use, mentally disabled. Patient was recently admitted to the hospital with CHF exacerbation discharged to [facility] 5 days ago. Patient returns to the with complaints of generalized weakness and fatigue was found to be positive covid from the correction. He was discharged on 4L of nasal cannula which he continues on. He is brought back in for evaluation. Chest xray on admission reveals persistent cardiomegaly with pulmonary venous congestion, and scattered infiltrates felt to reflect changes of CHF with minimal improvement. EKG reveals bradycardia with heart rate 50s patient has first degree AV block. White count is normal, hemoglobin 11.0, sodium 138, potassium 3.1, BUN 58, creatinine 2.03. UA negative. Patient will be gently hydrated and receive supportive care and PT evaluation. 10/08/2022 Patient is evaluated today resting in bed. He reports feeling better than ye day. He is started on oral nystatin swish and swallow for the oral thrush she does report improvement in his sore throat. He was tolerating diet without difficulty. Patient is being hydrated gently and his creatinine has improved and is currently down to 1.4 and nephrotoxic agents are currently on hold. A follow-up chest x-ray today shows low lung volumes with a generalized hazy appearance and could represent atelectasis versus pulmonary edema correlate with serum BNP. Patient has been weaned to 2L of oxygen with saturations of 96%. He is afebrile. On supportive care. Patient can return to [place] tomorrow. PHYSICAL EXAMINATION: GENERAL: The patient is alert and oriented x2, not in any acute distress. Well developed, well nourished. Fatigued. HEENT: Pupils are round and equally reacting to light. EOMI. No scleral icterus. No conjunctival pallor. Normocephalic, atraumatic. No pharyngeal erythema. No thyromegaly. Tongue has a thick yellow/white coating. Poor dentition. CARDIOVASCULAR: S1 and S2 present. No murmurs, rubs, or gallops. PULMONARY: Diminished lung sounds are clearing. ABDOMEN: Soft, nontender, nondistended, normoactive bowel sounds. No palpable organomegaly. MUSCULOSKELETAL: No joint swelling or deformity. EXTREMITIES: No cyanosis, clubbing, or pedal edema. NEUROLOGICAL: Gross neurological examination did not reveal any focal deficits. Generalized weakness SKIN: No rashes. Assessment and Plan -Generalized weakness due to the acute covid infection patient appears dehydrated will be gently hydrated and PT/OT are consulted. -Acute covid infection possibly hospital acquired recent admission for CHF -Elevated inflammatory markers and D-Dimer due to the acute covid infection patient will be started on inhaled steroids and vitamin support -Acute hypoxic respiratory failure recently discharged from hospital on 4L nasal cannula, Patient was treated for CHF exacerbation however is now found to be covid positive likely attributing to the respiratory failure. Currently weaned to 2L of nasal cannula and continue to wean as tolerated. -Chronic diastolic dysfunction normal EF 55-60% patient has some mild vascular prominence on chest xray BNP is normal, renal function improved with hydration we will continue off diuretics and repeat labs in the AM. -Acute kidney injury likely prerenal, creatinine has normalized IV fluids will be discontinued this evening. -Oral Thrush nystatin swish and swallow added -Diabetes Mellitus type 2 recommending holding off on metformin due to the renal dysfunction patient will be started on novolog sliding scale insulin and accuchecks. Blood glucose is controlled. -Paroxysmal atrial fibrillation anticoagulated with xarelto which is continued currently rate controlled -Hypothyroidism -Obstructive sleep apnea with CPAP use, noncompliant -Diabetic neuropathy -Hypertension currently normotensive hold off on losartan due to the LEA -Obesity GI prophylaxis DVT prophylaxis anticoagulated with xarelto Plan Patient can return to [place] tomorrow. The impression and plan of care has been dictated by Annita Luis, Nurse Practitioner as directed. Dr. Mireya MD I have performed a history and physical examination and medical decision making of this patient, discussed the same with the dictator, and agree with the dictators assessment and plan as written, documented as a scribe. Based on total visit time, I have performed more than 50% of this visit. Objective - Vital Signs Vital signs: Vital Signs Temp 97.9 F 10/08/22 14:26 Pulse 54 L 10/08/22 14:26 Resp 16 10/08/22 14:26 BP 111/54 10/08/22 14:26 Pulse Ox 96 10/08/22 14:26 FiO2 Intake & Output 10/07/22 10/08/22 10/08/22 18:59 06:59 18:59 Output Total 800 250 725 Balance -800 -250 -725 Weight 81.647 kg 81.647 kg Output: Urine 800 250 725 Other: Voiding Method Diaper Diaper Diaper External Catheter External Catheter # Bowel Movements 1 - Labs CBC & Chem 7: 10/08/22 04:08 10/08/22 04:08 Labs: Abnormal Lab Results - Last 24 Hours (Table) 10/07/22 10/07/22 10/08/22 Range/Units 09:54 12:01 04:08 RBC (4.40-5.60) X 10*6/uL Hgb (13.0-17.0) d/dL Hct (39.6-50.0) % MCV (80.0-97.0) FL MCH (27.0-32.0) pg MCHC (32.0-37.0) d/dL RDW (11.5-14.5) % Lymphocytes # (0.90-5.00) X 10*3/uL Eosinophils # (0.04-0.35) X 10*3/uL Potassium (3.5-5.5) mmol/L Anion Gap (4.00-12.00) mmol/L BUN (9.0-27.0) mg/dL Est GFR (CKD-EPI) (>=60) BUN/Creatinine Ratio (12.00-20.00) Ratio Glucose (70-110) mg/dL POC Glucose (mg/dL) (70-110) mg/dL Hemoglobin A1c 6.3 H (<=6.0) % Vitamin B12 1564.0 H (200.0-944.0) pg/mL Procalcitonin 0.24 H (0.02-0.09) ng/mL 10/08/22 10/08/22 10/08/22 Range/Units 04:08 04:08 06:16 RBC 3.15 L (4.40-5.60) X 10*6/uL Hgb 10.1 L (13.0-17.0) d/dL Hct 32.8 L (39.6-50.0) % MCV 104.1 H (80.0-97.0) FL MCH 32.1 H (27.0-32.0) pg MCHC 30.8 L (32.0-37.0) d/dL RDW 14.8 H (11.5-14.5) % Lymphocytes # 0.76 L (0.90-5.00) X 10*3/uL Eosinophils # 0.02 L (0.04-0.35) X 10*3/uL Potassium 3.2 L (3.5-5.5) mmol/L Anion Gap 13.30 H (4.00-12.00) mmol/L BUN 43.8 H (9.0-27.0) mg/dL Est GFR (CKD-EPI) 54 L (>=60) BUN/Creatinine Ratio 31.29 H (12.00-20.00) Ratio Glucose 156 H (70-110) mg/dL POC Glucose (mg/dL) 158 H (70-110) mg/dL Hemoglobin A1c (<=6.0) % Vitamin B12 (200.0-944.0) pg/mL Procalcitonin (0.02-0.09) ng/mL 10/08/22 Range/Units 11:50 RBC (4.40-5.60) X 10*6/uL Hgb (13.0-17.0) d/dL Hct (39.6-50.0) % MCV (80.0-97.0) FL MCH (27.0-32.0) pg MCHC (32.0-37.0) d/dL RDW (11.5-14.5) % Lymphocytes # (0.90-5.00) X 10*3/uL Eosinophils # (0.04-0.35) X 10*3/uL Potassium (3.5-5.5) mmol/L Anion Gap (4.00-12.00) mmol/L BUN (9.0-27.0) mg/dL Est GFR (CKD-EPI) (>=60) BUN/Creatinine Ratio (12.00-20.00) Ratio Glucose (70-110) mg/dL POC Glucose (mg/dL) 195 H (70-110) mg/dL Hemoglobin A1c (<=6.0) % Vitamin B12 (200.0-944.0) pg/mL Procalcitonin (0.02-0.09) ng/mL
[2022-10-08 17:18] LABS: Glucose,Whole Blood 167 mg/dL (70-110)
[2022-10-08] MEDS: RIVAROXABAN 20 MG TAB PO SCH (17:29)
[2022-10-08 19:31] LABS: Glucose,Whole Blood 103 mg/dL (70-110)
[2022-10-08] MEDS: ZINC SULFATE 220 MG CAP PO SCH (20:58)
[2022-10-08] MEDS: ATORVASTATIN 10 MG TAB PO SCH (20:58)
[2022-10-08] MEDS: MELATONIN 5 MG TABLET PO SCH (20:58)
[2022-10-08] MEDS: ASCORBIC ACID 500 MG TAB PO SCH (20:59)
[2022-10-09 06:06] LABS: Glucose,Whole Blood 94 mg/dL (70-110)
[2022-10-09] MEDS: INSULIN ASPART (NovoLOG) 100 UNIT/ML VIAL SQ SCH ×3 (06:15→18:19)
[2022-10-09] MEDS: DIVALPROEX 250 MG TABLET.DR PO SCH ×2 (08:35→16:01)
[2022-10-09] MEDS: CHOLECALCIFEROL 25 MCG (1000 IU) TABLET PO SCH (08:36)
[2022-10-09] MEDS: CYANOCOBALAMIN 500 MCG TAB PO SCH (08:36)
[2022-10-09] MEDS: AMIODARONE 200 MG TAB PO SCH (08:36)
[2022-10-09] MEDS: LEVOTHYROXINE 100 MCG TAB PO SCH (08:36)
[2022-10-09] MEDS: NYSTATIN 100,000 UNIT/ML SUSP 500,000 UNIT/5 ML CUP PO SCH ×2 (08:36→13:39)
[2022-10-09] MEDS: FLUTICASONE 110 MCG INHALER INHALATION SCH (09:02)
[2022-10-09 09:52] LABS: BUN/Creat Ratio 25.18 Ratio (12.00-20.00); Blood Urea Nitrogen 27.7 mg/dL (9.0-27.0); Calcium 8.7 mg/dL (8.7-10.3); Chloride 100 mmol/L (96-109); Glucose 77 mg/dL (70-110); Magnesium 2.1 mg/dL (1.5-2.4); Potassium 3.4 mmol/L (3.5-5.5); Sodium 139 mmol/L (135-145)
--- NOTE | 2022-10-09 11:39 | P.DS ---
Providers Date of admission: 10/06/22 20:45 Attending physician: Dimple Griffin Primary care physician: [facility] Course: Final Diagnosis -Generalized weakness due to the acute covid infection patient appears dehydrated -Acute covid infection possibly hospital acquired recent admission for CHF -Elevated inflammatory markers and D-Dimer due to the acute covid infection -Acute hypoxic respiratory failure recently discharged from hospital on 4L nasal cannula, Patient was treated for CHF exacerbation however is now found to be covid positive likely attributing to the respiratory failure. Currently weaned to 2L of nasal cannula and continue to wean as tolerated. -Chronic diastolic dysfunction normal EF 55-60% patient has some mild vascular prominence on chest xray BNP is normal, renal function improved with hydration -Acute kidney injury likely prerenal, creatinine has normalized -Oral Thrush nystatin swish and swallow added -Diabetes Mellitus type 2 recommending holding off on metformin due to the renal dysfunction patient will be started on novolog sliding scale insulin and accuchecks. Blood glucose is controlled. -Paroxysmal atrial fibrillation anticoagulated with xarelto which is continued currently rate controlled -Hypothyroidism -Obstructive sleep apnea with CPAP use, noncompliant -Diabetic neuropathy -Hypertension currently normotensive hold off on losartan due to the LEA -Obesity Discharge disposition Patient is stable for discharge to return to [facility] where patient is a current resident. Recommended to hold torsemide and can resume on Wednesday. Repeat labs in 2-3 days. Patient's creatinine is currently normalized down to 1.1. Recommending to discontinue metformin at this time, glucose is well- controlled we'll recommend just sliding scale insulin for coverage. Nystatin swish and swallows added recommending a 7 day course of therapy. Follow up evaluation for clearance of the oral thrush and may need to continue nystatin at discretion PCP. 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 Patient to be seen by his PCP 1-2 days. Hospital course This is a 71 year old male with medical history of atrial fibrillation, asthma, diabetes, hypertension, sleep apnea with CPAP use, mentally disabled. Patient was recently admitted to the hospital with CHF exacerbation discharged to [facility] 5 days ago. Patient returns to the with complaints of generalized weakness and fatigue was found to be positive covid from the [facility]. He was discharged on 4L of nasal cannula which he continues on. He is brought back in for evaluation. Chest xray on admission reveals persistent cardiomegaly with pulmonary venous congestion, and scattered infiltrates felt to reflect changes of CHF with minimal improvement. EKG reveals bradycardia with heart rate 50s patient has first degree AV block. White count is normal, hemoglobin 11.0, sodium 138, potassium 3.1, BUN 58, creatinine 2.03. UA negative. Patient was hydrated and his creatinine has normalized down to 1.1. Diuretics were also pl aced on hold. We are recommending that torsemide can be resumed on Wednesday. Patient also evidence of oral thrush with yellow coating on the tongue and was started on nystatin swish and swallow for a seven-day course of therapy and patient does report improvement in his sore throat, he can also have cepacol lozenges. Patient is currently denying shortness of breath and lungs are clear at this time he continues on 3L of oxygen via nasal cannula. Metformin has been held and blood glucose is wnl at this time patient continues on accuchecks and sliding scale will recommend this continues on discharge. Patient receiving supportive care for the acute covid, his white count remains normal. Denying shortness of breath, denying chest pain. Urinating without difficulty. Lungs are clear S1 S2 auscultated abdomen is soft and nontender. Focal neurological exam negative mentation at baseline patient does have generalized weakness able to get up and ambulate to chair recommending to continue with physical therapy services at rehab. He is cleared for discharge with the above mentioned recommendations. Please see medication reconciliation for a list of current medication. Thank you for allowing us to participate in the care of this patient. The impression and plan of care has been dictated by Annita Luis, Nurse Practitioner as directed. Dr. Mireya MD I have performed a history and physical examination and medical decision making of this patient, discussed the same with the dictator, and agree with the dictators assessment and plan as written, documented as a scribe. Based on total visit time, I have performed more than 50% of this visit. Patient Condition at Discharge: Stable Plan - Discharge Summary New Discharge Prescriptions: New Benzocaine/Menthol Lozeng [Cepacol lozenge] 1 each MUCOUS MEM Q4HR PRN lozenge PRN Reason: Sore Throat Nystatin 100,000 Unit/ml Susp [Mycostatin Oral Susp] 500,000 unit PO QID 7 Days ml INSULIN ASPART (NovoLOG) [NovoLOG (formulary)] 0 unit SQ ACHS each Continue Liraglutide [Victoza 3-Ramírez] 1.8 mg SQ DAILY@0800 Cyanocobalamin [Vitamin B-12] 500 mcg PO DAILY@1100 Melatonin 5 mg PO HS@1999 Levothyroxine Sodium [Synthroid] 100 mcg PO DAILY@0800 Atorvastatin [Lipitor] 10 mg PO HS@1999 Divalproex [Depakote] 250 mg PO BID@0800,1600 Meclizine [Antivert] 12.5 mg PO TID@0800,1200,1800 Potassium Chloride [Klor-Con M20] 20 meq PO DAILY@0800 amLODIPine [Norvasc] 5 mg PO DAILY@0800 Sodium Chloride [Saline Mist] 1 spray EA NOSTRIL Q2H PRN PRN Reason: dryness Acetaminophen [Tylenol 8 Hour] 650 mg PO Q6H PRN PRN Reason: Pain Ascorbic Acid [Vitamin C] 1,000 mg PO HS Cholecalciferol [Vitamin D3 (25 Mcg = 1000 Iu)] 50 mcg PO DAILY Torsemide [Demadex] 20 mg PO DAILY@0800 Zinc Gluconate [Zinc] 200 mg PO HS Amiodarone [Cordarone] 200 mg PO DAILY@0800 Rivaroxaban [Xarelto] 20 mg PO W/SUPPER #30 tab Discontinued metFORMIN HCL 500 mg PO DAILY@0800 metFORMIN HCL 1,000 mg PO HS@1999 Discharge Medication List Amiodarone [Cordarone] 200 mg PO DAILY@0800 08/02/20 [History] Cyanocobalamin [Vitamin B-12] 500 mcg PO DAILY@1100 08/02/20 [History] Levothyroxine Sodium [Synthroid] 100 mcg PO DAILY@0800 08/02/20 [History] Liraglutide [Victoza 3-Ramírez] 1.8 mg SQ DAILY@0800 08/02/20 [History] Melatonin 5 mg PO HS@199908/02/20 [History] Atorvastatin [Lipitor] 10 mg PO HS@199907/26/22 [History] Divalproex [Depakote] 250 mg PO BID@0800,1600 07/26/22 [History] Meclizine [Antivert] 12.5 mg PO TID@0800,1200,1800 09/22/22 [History] Potassium Chloride [Klor-Con M20] 20 meq PO DAILY@0800 09/22/22 [History] Sodium Chloride [Saline Mist] 1 spray EA NOSTRIL Q2H PRN 09/22/22 [History] amLODIPine [Norvasc] 5 mg PO DAILY@0800 09/22/22 [History] Rivaroxaban [Xarelto] 20 mg PO W/SUPPER #30 tab 10/01/22 [Rx] Acetaminophen [Tylenol 8 Hour] 650 mg PO Q6H PRN 10/06/22 [History] Ascorbic Acid [Vitamin C] 1,000 mg PO HS 10/06/22 [History] Cholecalciferol [Vitamin D3 (25 Mcg = 1000 Iu)] 50 mcg PO DAILY 10/06/22 [History] Torsemide [Demadex] 20 mg PO DAILY@0800 10/06/22 [History] Zinc Gluconate [Zinc] 200 mg PO HS 10/06/22 [History] Benzocaine/Menthol Lozeng [Cepacol lozenge] 1 each MUCOUS MEM Q4HR PRN lozenge 10/09/22 [Rx] INSULIN ASPART (NovoLOG) [NovoLOG (formulary)] 0 unit SQ ACHS each 10/09/22 [Rx] Nystatin 100,000 Unit/ml Susp [Mycostatin Oral Susp] 500,000 unit PO QID 7 Days ml 10/09/22 [Rx] Follow up Appointment(s)/Referral(s): Gerardo Brand DO [Primary Care Provider] - 1-2 days Candace Jacobsen MD [STAFF PHYSICIAN] - 1 Week Ranjeet Ivory MD [STAFF PHYSICIAN] - 1 Week Ambulatory/Diagnostic Orders: Basic Metabolic Panel [LAB.AMB] Time Frame: 3 Days, Location: None Selected Complete Blood Count w/diff [LAB.AMB] Time Frame: 3 Days, Location: None Selected Activity/Diet/Wound Care/Special Instructions: Cleared for discharge back to [facility] Repeat labs in 2 to 3 days Recommend to follow up with pulmonary, cardiology as previously recommended Recommend to hold diuretics for an additional day and resume on Wednesday
[2022-10-09 12:21] LABS: Glucose,Whole Blood 94 mg/dL (70-110)
[2022-10-09] MEDS: POTASSIUM CHLORIDE ER 10 MEQ TAB.ER.PRT PO SCH ×2 (12:50→13:40)
[2022-10-09 13:44] VITALS: BP 118/63; PULSE 58; RESP 16; TEMP 98.1
[2022-10-09] MEDS: RIVAROXABAN 20 MG TAB PO SCH (18:19)
== END 2022-10-09 17:51 | DRG 177 ==
LOC: EC 15:43 → 6NMEDSUR 20:45 → OBSVTOIN 10-08 16:12
PROVIDERS: ADMIT Hospitalist; ATTEND Hospitalist
DX: U07.1 COVID-19 (principal); J12.82 Pneumonia due to coronavirus disease 2019; J96.01 Acute respiratory failure with hypoxia; J98.11 Atelectasis; N17.9 Acute kidney failure, unspecified; B37.0 Candidal stomatitis; I50.32 Chronic diastolic (congestive) heart failure; J44.0 Chronic obstructive pulmonary disease with (acute) lower respiratory infection; I48.0 Paroxysmal atrial fibrillation; I44.0 Atrioventricular block, first degree; I12.9 Hypertensive chronic kidney disease with stage 1 through stage 4 chronic kidney disease, or unspecified chronic kidney disease; E03.9 Hypothyroidism, unspecified; R00.1 Bradycardia, unspecified; M10.9 Gout, unspecified; E11.39 Type 2 diabetes mellitus with other diabetic ophthalmic complication; E86.0 Dehydration; E78.5 Hyperlipidemia, unspecified; F79 Unspecified intellectual disabilities; I11.0 Hypertensive heart disease with heart failure; G47.33 Obstructive sleep apnea (adult) (pediatric); Z68.35 Body mass index [BMI] 35.0-35.9, adult; E66.9 Obesity, unspecified; M19.90 Unspecified osteoarthritis, unspecified site; E11.42 Type 2 diabetes mellitus with diabetic polyneuropathy; Z79.890 Hormone replacement therapy; Z79.01 Long term (current) use of anticoagulants; Z79.84 Long term (current) use of oral hypoglycemic drugs; Z79.899 Other long term (current) drug therapy; J45.909 Unspecified asthma, uncomplicated; Z90.49 Acquired absence of other specified parts of digestive tract; Z87.19 Personal history of other diseases of the digestive system; Z91.199 Patient's noncompliance with other medical treatment and regimen due to unspecified reason
CPT/HCPCS: 36415; 71045; 71046; 80048; 80053; 81003; 82607; 82746; 82747; 83036; 83605; 83615; 83735; 83880; 84145; 84484; 85025; 85379; 85610; 85730; 86140; 93005; 94760; 96360; 99285

== ENCOUNTER 2023-04-16 11:54 | Observation (INO) | payer MEDICARE, OTHER ==
[2023-04-16 12:05] LABS: Glucose,Whole Blood 172 mg/dL (70-110)
--- NOTE | 2023-04-16 12:30 | ED ---
General Adult HPI - General Chief complaint: Syncope Stated complaint: Syncope Time Seen by Provider: 04/16/23 12:12 Source: patient, EMS, RN notes reviewed Mode of arrival: EMS Limitations: no limitations - History of Present Illness Initial comments: Patient is a pleasant 72-year-old male presenting to the emergency department with syncopal episode. Episode occurred prior to arrival. Patient does not recall the episode. Patient is symptom-free. No chest pain or dyspnea. No back or abdominal pain. No weakness or confusion. Patient was reportedly on the toilet during the event. - Related Data Home Medications Medication Instructions Recorded Confirmed Amiodarone [Cordarone] 200 mg PO DAILY 08/02/20 04/16/23 Cyanocobalamin [Vitamin B-12] 500 mcg PO DAILY@0800 08/02/20 04/16/23 Levothyroxine Sodium [Synthroid] 100 mcg PO DAILY 08/02/20 04/16/23 Liraglutide [Victoza 3-Ramírez] 1.8 mg SQ DAILY@0800 08/02/20 04/16/23 Melatonin 5 mg PO HS 08/02/20 04/16/23 Atorvastatin [Lipitor] 10 mg PO HS 07/26/22 04/16/23 Meclizine [Antivert] 12.5 mg PO TID@0800,1200,1800 09/22/22 04/16/23 Potassium Chloride [Klor-Con M20] 20 meq PO DAILY 09/22/22 04/16/23 Acetaminophen [Tylenol 8 Hour] 650 mg PO Q6H PRN 10/06/22 04/16/23 Amoxic-Pot Clav 875-125Mg 1 tab PO BID@0800,2000 04/16/23 04/16/23 [Augmentin 875-125] Divalproex Sprinkle [Depakote 250 mg PO BID@0800,1600 04/16/23 04/16/23 Sprinkle] Ipratropium-Albuterol Nebulize 3 ml INHALATION RT-Q4H PRN 04/16/23 04/16/23 [Duoneb 0.5 mg-3 mg/3 ml Soln] Rivaroxaban [Xarelto] 20 mg PO HS 04/16/23 04/16/23 Torsemide [Demadex] 20 mg PO Q2D 04/16/23 04/16/23 lisinopriL [Zestril] 5 mg PO BID 04/16/23 04/16/23 traMADol HCL 50 mg PO Q12H PRN 04/16/23 04/16/23 Allergies Allergy/AdvReac Type Severity Reaction Status Date / Time No Known Allergies Allergy Verified 04/16/23 13:36 Review of Systems ROS Statement: Those systems with pertinent positive or pertinent negative responses have been documented in the HPI. ROS Other: All systems not noted in ROS Statement are negative. Constitutional: Denies: fever Eyes: Denies: eye pain ENT: Denies: ear pain Cardiovascular: Denies: chest pain Gastrointestinal: Denies: abdominal pain Musculoskeletal: Denies: back pain Past Medical History Past Medical History: Atrial Fibrillation, Asthma, Diabetes Mellitus, Hyperlipidemia, Hypertension, Sleep Apnea/CPAP/BIPAP, Thyroid Disorder Additional Past Medical History / Comment(s): Diabetic oculopathy, obesity, leukopenia, gallstone, diarrhea, mentally disabled, gout, peripheral neuropothy, gait dysfunction- uses motorized scooter, degenerative joint disorder, supposed to wear cpap at home but is non compliant History of Any Multi-Drug Resistant Organisms: Unobtainable Past Surgical History: Cholecystectomy, Hernia Repair Additional Past Surgical History / Comment(s): L inguinal hernia repair, last colonoscopy 2002 Past Anesthesia/Blood Transfusion Reactions: Unable to Obtain Past Psychological History: No Psychological Hx Reported Smoking Status: Unknown if ever smoked Past Alcohol Use History: Unable to Obtain Past Drug Use History: Unable to Obtain - Past Family History Mother Family Medical History: Unable to Obtain Father Family Medical History: Diabetes Mellitus General Exam Limitations: no limitations General appearance: alert, in no apparent distress Head exam: Present: atraumatic Eye exam: Present: normal appearance ENT exam: Present: normal oropharynx Neck exam: Present: normal inspection. Absent: tenderness Respiratory exam: Present: normal lung sounds bilaterally Cardiovascular Exam: Present: regular rate, normal rhythm GI/Abdominal exam: Present: soft. Absent: tenderness, pulsatile mass Extremities exam: Present: normal inspection. Absent: pedal edema, calf tenderness Neurological exam: Present: alert, CN II-XII intact Expanded Neurological exam: Present: protecting the airway Patient oriented to: Present: person, place. Absent: time Motor strength exam: RUE: 5, LUE: 5, RLE: 4, LLE: 4 Eye Response: (4) open spontaneously Motor Response: (6) obeys commands Verbal Response: (4) confused conversation Psychiatric exam: Present: normal affect, normal mood Course Vital Signs 04/16/23 04/16/23 04/16/23 11:56 12:02 12:30 Temperature 97.8 F Pulse Rate 69 Respiratory 22 Rate Blood Pressure 95/79 69/41 O2 Sat by Pulse 87 L 90 L Oximetry 04/16/23 04/16/23 13:39 14:00 Temperature Pulse Rate 69 67 Respiratory 18 18 Rate Blood Pressure 119/55 98/48 O2 Sat by Pulse 98 97 Oximetry EKG Findings - EKG Results: EKG: interpreted by ERMD, sinus rhythm (First-degree AV block. Right axis. Poor R wave progression. Anterior T wave inversion.) Medical Decision Making - Medical Decision Making Was pt. sent in by a medical professional or institution (, [facility]ERRANCE, ENVIRONMENTAL ENGINEERING MANAGER, urgent care, hospital, or care home...) When possible be specific @ -Patient was sent by nursing facility Did you speak to anyone other than the patient for history (EMS, parent, family, police, friend...)? What history was obtained from this source @ -No Did you review nursing and triage notes (agree or disagree)? Why? @ -I reviewed and agree with nursing and triage notes Were old charts reviewed (outside hosp., previous admission, EMS record, old EKG, old radiological studies, urgent care reports/EKG's, care home records)? Report findings @ -care home chart reviewed Differential Diagnosis (chest pain, altered mental status, abdominal pain women, abdominal pain men, vaginal bleeding, weakness, fever, dyspnea, syncope, headache, dizziness, GI bleed, back pain, seizure, CVA, palpatations, mental health, musculoskeletal)? @ -Differential Syncope: Valvular disease, hypertrophic cardiomyopathy, pulmonary embolism, tamponade, tachycardia, bradycardia, NM, hypovolemia, hemorrhage, dissection, anemia, intracranial hemorrhage, seizure, hypoglycemia, carbon monoxide poisoning, this is not meant to be an all-inclusive list. EKG interpreted by me (3pts min.). @ -As above X-rays interpreted by me (1pt min.). @ -Chest x-ray shows no acute process, limited exam. CT interpreted by me (1pt min.). @ -CT scan of the abdomen without obvious acute abnormality. U/S interpreted by me (1pt. min.). @ -None done What testing was considered but not performed or refused? (CT, X-rays, U/S, labs)? Why? @ -VQ scan ordered. What meds were considered but not given or refused? Why? @ -None Did you discuss the management of the patient with other professionals (professionals i.e. DrDarlene, PA, ENVIRONMENTAL ENGINEERING MANAGER, lab, RT, psych nurse, licensed social worker, electronics maintenance technician, teacher, chief information officer, test case developer)? Give summary @ -Case was discussed with Dr. Hoffmann, who will admit covering Dr. Brand Was smoking cessation discussed for >3mins.? @ -No Was critical care preformed (if so, how long)? @ -No Were there social determinants of health that impacted care today? How? (Homelessness, low income, unemployed, alcoholism, drug addiction, fried sportation, low edu. Level, literacy, decrease access to med. care, prison, rehab)? @ -No Was there de-escalation of care discussed even if they declined (Discuss DNR or withdrawal of care, Hospice)? DNR status @ -No What co-morbidities impacted this encounter? (DM, HTN, Smoking, COPD, CAD, Cancer, CVA, ARF, Chemo, Hep., AIDS, mental health diagnosis, sleep apnea, morbid obesity)? @ -None Was patient admitted / discharged? Hospital course, mention meds given and route, prescriptions, significant lab abnormalities, going to OR and other pertinent info. @ -Patient reevaluated and updated. Patient will be admitted. VQ scan ordered. Admission orders written. Consult placed with cardiology. Undiagnosed new problem with uncertain prognosis? @ -No Drug Therapy requiring intensive monitoring for toxicity (Heparin, Nitro, Insulin, Cardizem)? @ -No Were any procedures done? @ -No Diagnosis/symptom? @ -Syncope Acute, or Chronic, or Acute on Chronic? @ -Acute Uncomplicated (without systemic symptoms) or Complicated (systemic symptoms)? @ -Default Side effects of treatment? @ -No Exacerbation, Progression, or Severe Exacerbation? @ -No Poses a threat to life or bodily function? How? (Chest pain, USA, NM, pneumonia, PE, COPD, DKA, ARF, appy, cholecystitis, CVA, Diverticulitis, Homicidal, Suicidal, threat to staff... and all critical care pts) @ -No - Lab Data Result diagrams: 04/16/23 12:31 04/16/23 12:31 Lab Results 04/16/23 04/16/23 04/16/23 Range/Units 12:04 12:31 12:31 WBC 8.0 (3.8-10.6) k/uL RBC 4.28 L (4.30-5.90) m/uL Hgb 13.0 (13.0-17.5) gm/dL Hct 41.2 (39.0-53.0) % MCV 96.1 (80.0-100.0) fL MCH 30.2 (25.0-35.0) pg MCHC 31.5 (31.0-37.0) g/dL RDW 17.0 H (11.5-15.5) % Plt Count 281 (150-450) k/uL MPV 8.9 Neutrophils % 85 % Lymphocytes % 8 % Monocytes % 5 % Eosinophils % 0 % Basophils % 0 % Neutrophils # 6.8 (1.3-7.7) k/uL Lymphocytes # 0.6 L (1.0-4.8) k/uL Monocytes # 0.4 (0-1.0) k/uL Eosinophils # 0.0 (0-0.7) k/uL Basophils # 0.0 (0-0.2) k/uL Hypochromasia Marked Anisocytosis Slight PT 13.2 H (10.0-12.5) sec INR 1.2 H (<1.2) APTT 26.2 (22.0-30.0) sec D-Dimer 7.59 H (<0.60) mg/L FEU Sodium (137-145) mmol/L Potassium (3.5-5.1) mmol/L Chloride (98-107) mmol/L Carbon Dioxide (22-30) mmol/L Anion Gap mmol/L BUN (9-20) mg/dL Creatinine (0.66-1.25) mg/dL Est GFR (CKD-EPI)AfAm (>60 ml/min/1.73 sqM) Est GFR (CKD-EPI)NonAf (>60 ml/min/1.73 sqM) Glucose (74-99) mg/dL POC Glucose (mg/dL) 172 H (70-110) mg/dL POC Glu Irish Moss Gatherer ID Juanjose Campa Calcium (8.4-10.2) mg/dL Magnesium (1.6-2.3) mg/dL Total Bilirubin (0.2-1.3) mg/dL AST (17-59) U/L ALT (4-49) U/L Alkaline Phosphatase (38-126) U/L Troponin I (0.000-0.034) ng/mL Total Protein (6.3-8.2) g/dL Albumin (3.5-5.0) g/dL 04/16/23 04/16/23 Range/Units 12:31 12:31 WBC (3.8-10.6) k/uL RBC (4.30-5.90) m/uL Hgb (13.0-17.5) gm/dL Hct (39.0-53.0) % MCV (80.0-100.0) fL MCH (25.0-35.0) pg MCHC (31.0-37.0) g/dL RDW (11.5-15.5) % Plt Count (150-450) k/uL MPV Neutrophils % % Lymphocytes % % Monocytes % % Eosinophils % % Basophils % % Neutrophils # (1.3-7.7) k/uL Lymphocytes # (1.0-4.8) k/uL Monocytes # (0-1.0) k/uL Eosinophils # (0-0.7) k/uL Basophils # (0-0.2) k/uL Hypochromasia Anisocytosis PT (10.0-12.5) sec INR (<1.2) APTT (22.0-30.0) sec D-Dimer (<0.60) mg/L FEU Sodium 137 (137-145) mmol/L Potassium 4.9 (3.5-5.1) mmol/L Chloride 103 (98-107) mmol/L Carbon Dioxide 19 L (22-30) mmol/L Anion Gap 15 mmol/L BUN 43 H (9-20) mg/dL Creatinine 2.73 H (0.66-1.25) mg/dL Est GFR (CKD-EPI)AfAm 26 (>60 ml/min/1.73 sqM) Est GFR (CKD-EPI)NonAf 22 (>60 ml/min/1.73 sqM) Glucose 173 H (74-99) mg/dL POC Glucose (mg/dL) (70-110) mg/dL POC Glu [employer] Gatherer ID Calcium 8.8 (8.4-10.2) mg/dL Magnesium 1.9 (1.6-2.3) mg/dL Total Bilirubin 1.1 (0.2-1.3) mg/dL AST 67 H (17-59) U/L ALT 31 (4-49) U/L Alkaline Phosphatase 72 (38-126) U/L Troponin I 0.061 H* (0.000-0.034) ng/mL Total Protein 7.3 (6.3-8.2) g/dL Albumin 3.8 (3.5-5.0) g/dL Disposition Clinical Impression: Syncope Disposition: ADMITTED IP TO THIS HOSP Is patient prescribed a controlled substance at d/c from ED?: No Referrals: Gerardo Brand DO [Primary Care Provider] - 1-2 days Time of Disposition: 14:45
[2023-04-16] MEDS ORDERED: SODIUM CHLORIDE 0.9% 1,000 ML IV STA ×2 (12:34)
[2023-04-16 12:56] LABS: Anisocytosis Slight; Basophils % (A) 0 %; Eosinophils % (A) 0 %; HCT 41.2 % (39.0-53.0); Hypochromasia Marked; Lymphocytes # (A) 0.6 k/uL (1.0-4.8); Lymphocytes % (A) 8 %; MCH 30.2 pg (25.0-35.0); MCHC 31.5 g/dL (31.0-37.0); MCV 96.1 fL (80.0-100.0); Mean Platelet Volume 8.9; Monocytes # (A) 0.4 k/uL (0-1.0); Monocytes % (A) 5 %; Neutrophils # (A) 6.8 k/uL (1.3-7.7); Neutrophils % (A) 85 %; Platelet Count 281 k/uL (150-450); RBC 4.28 m/uL (4.30-5.90)
[2023-04-16 13:03] LABS: INR 1.2 (<1.2); Partial Thromboplastin Time 26.2 sec (22.0-30.0); Prothrombin Time 13.2 sec (10.0-12.5)
[2023-04-16 13:12] LABS: ALT 31 U/L (4-49); AST 67 U/L (17-59); African American GFR (CKD) 26 (>60 ml/min/1.73 sqM); Albumin 3.8 g/dL (3.5-5.0); Alkaline Phosphatase 72 U/L (38-126); Anion Gap 15 mmol/L; Blood Urea Nitrogen 43 mg/dL (9-20); Calcium 8.8 mg/dL (8.4-10.2); Carbon Dioxide 19 mmol/L (22-30); Chloride 103 mmol/L (98-107); Glucose 173 mg/dL (74-99); Magnesium 1.9 mg/dL (1.6-2.3); Non-African American GFR(CKD) 22 (>60 ml/min/1.73 sqM); Sodium 137 mmol/L (137-145); Total Bilirubin 1.1 mg/dL (0.2-1.3); Total Protein 7.3 g/dL (6.3-8.2)
--- NOTE | 2023-04-16 13:12 | XR ---
EXAMINATION TYPE: XR chest 2V DATE OF EXAM: 04/16/2023 COMPARISON: 10/08/2022 HISTORY: 72-year-old male syncope, difficulty breathing TECHNIQUE: AP and lateral views FINDINGS: Patient's chin obscures the medial upper lungs. Heart mildly enlarged. Left base underpenetrated and not well assessed. No sizable pleural effusion identified. Possible mild vascular prominence. Heart b orderline to mildly enlarged. IMPRESSION: Portable exam further limited by large body habitus and patient's chin obscuring parts of the upper l ungs. Correlate to exclude mild pulmonary vascular congestion. No austin airspace disease or sizable p leural effusion.
[2023-04-16 13:23] LABS: Potassium 4.9 mmol/L (3.5-5.1)
--- NOTE | 2023-04-16 13:30 | CT ---
EXAMINATION TYPE: CT brain wo con DATE OF EXAM: 04/16/2023 COMPARISON: HISTORY: syncope CT DLP: 1095.[address] of the brain was performed. The ventricles, basal cisterns and sulci overlying the cerebral convexities demonstrate mild enlargem ent. There is no evidence for intracranial hemorrhage or sulcal effacement. There is decreased attenuation about the periventricular white matter and deep white matter of both c erebral hemispheres, compatible with chronic small vessel ischemia. Differential diagnosis does inclu de demyelination. No mass effects are seen.No midline shift. Osseous calvarium is intact. If symptoms persist consider MRI. IMPRESSION: 1. Age related atrophic and chronic small vessel ischemic change without acute intracranial process s een at this time.
[2023-04-16] MEDS ORDERED: NALOXONE 0.4 MG/ML 1 ML VIAL IV PRN (14:45)
[2023-04-16] MEDS: SODIUM CHLORIDE 0.9% 1,000 ML IV SCH ×2 (14:58→23:23)
[2023-04-16] MEDS ORDERED: ACETAMINOPHEN TAB 325 MG TAB PO PRN (16:32)
[2023-04-16] MEDS ORDERED: traMADol 50 MG TAB PO PRN (16:32)
[2023-04-16] MEDS ORDERED: IPRATROPIUM-ALBUTEROL 3 ML NEB INHALATION PRN (16:32)
--- NOTE | 2023-04-16 17:20 | P.HPIM ---
History of Present Illness H&P Date: 04/16/23 Chief Complaint: Decreased mentation 72-year-old patient, resident of [facility], being followed by Dr. Brand.. He can walk a few steps with a walker. Patient was sent in from the [facility] to the ER. Per the EMS staff they were told that patient had syncopal episode while having a bowel movement. And he was hypotensive after that. Blood sugar was 205. Twelve-lead EKG showed first- degree block. Here in the ER patient feels a bit lethargic. Though is able to answer simple questions. Does feel hungry. Diet. Patient renal function is noted to be off. Review of systems: GEN.: Tired EYES: None HEENT: None NECK: None RESPIRATORY: None CARDIOVASCULAR: No chest pain GASTROINTESTINAL: None GENITOURINARY: None MUSCULOSKELETAL: Joint pains LYMPHATICS: None HEMATOLOGICAL: None PSYCHIATRY: None NEUROLOGICAL: Sluggish speech Past medical history to include: Atrial fibrillation, asthma, diabetes, hypertension, hyperlipidemia obstructive sleep apnea, diabetic neuropathy, leukemia, gallstones, medically disabled, gout, peripheral neuropathy, as use a motorized scooter. DJD. Noncompliant with CPAP. Social history: At [facility]. Has a legal guardian. Physical examination: VITAL SIGNS: 97.8, 69, 22, 95/79, 90% on 5 L upon presentation GENERAL: BMI 30.1, reclining in bed tired but able to answer simple questions EYES: Pupils equal. Conjunctiva normal. HEENT: External appearance of nose and ears normal, oral cavity grossly normal. NECK: JVD unable to assess; masses not palpable. HEART: First and second heart sounds are normal; some edema present. LUNGS: Respiratory rate normal; decreased breath sound. ABDOMEN: Soft, nontender, liver spleen not palpable, no masses palpable. PSYCH: Able to answer simple questions MUSCULOSKELETAL:No Clubbing/cyanosis;muscles-grossly intact DERMATOLOGICAL: Dry skin and lower extremity with the knee down to the ankle. With scaling. NEUROLOGICAL: Cranial nerves grossly intact; speech is a bit slow. Macroglossia. Weakness lower extremity. LYMPHATICS: No lymph nodes palpable in the axilla and neck INVESTIGATIONS, reviewed in the clinical context: April 16, 2023: White count 8 hemoglobin 13 platelets 281 sodium 137 potassium 4.9 BUN 43 creatinine 2.73 Troponin I 0.061, 0.108 Previous labs: Creatinine was 1.1 in September 2022. March 04 creatinine was 2.0 Assessment plan: -Syncope likely due to vasovagal from hypotension from acute kidney injury likely volume loss Telemetry. IV fluids. -Chronic congestive heart failure from diastolic dysfunction EF 55-60%: Hold diuretics for now. -Acute kidney injury likely ATN from cardiorenal syndrome. Follow creatinine closely -Chronic kidney disease stage III. Creatinine 1.63 in July 2022 -Chronic insomnia Melatonin -Hyperlipidemia Lipitor 10 mg daily at bedtime -Metabolic alkalosis from diuretics Diamox -Diabetes mellitus type 2 Victoza. Metformin. Follow Accu-Cheks -Paroxysmal atrial fibrillation, currently sinus rhythm Amiodarone. -Hypothyroid Synthroid 100 g a day -Obstructive sleep apnea patient does not use CPAP -Diabetic peripheral neuropathy -Essential hypertension Amlodipine 5 mg a day -Obesity BMI 37.1 Weight loss measures -Chronic medical debility uses a motorized wheelchair at baseline -Public legal guardian IV fluids. Repeat labs. Follow Accu-Cheks. Past Medical History Past Medical History: Atrial Fibrillation, Asthma, Diabetes Mellitus, Hyperlipidemia, Hypertension, Sleep Apnea/CPAP/BIPAP, Thyroid Disorder Additional Past Medical History / Comment(s): Diabetic oculopathy, obesity, leukopenia, gallstone, diarrhea, mentally disabled, gout, peripheral neuropothy, gait dysfunction- uses motorized scooter, degenerative joint disorder, supposed to wear cpap at home but is non compliant History of Any Multi-Drug Resistant Organisms: Unobtainable Past Surgical History: Cholecystectomy, Hernia Repair Additional Past Surgical History / Comment(s): L inguinal hernia repair, last colonoscopy 2002 Past Anesthesia/Blood Transfusion Reactions: Unable to Obtain Past Psychological History: No Psychological Hx Reported Smoking Status: Unknown if ever smoked Past Alcohol Use History: Unable to Obtain Past Drug Use History: Unable to Obtain - Past Family History Mother Family Medical History: Unable to Obtain Father Family Medical History: Diabetes Mellitus Medications and Allergies Home Medications Medication Instructions Recorded Confirmed Type Amiodarone [Cordarone] 200 mg PO DAILY 08/02/20 04/16/23 History Cyanocobalamin [Vitamin B-12] 500 mcg PO DAILY@0800 08/02/20 04/16/23 History Levothyroxine Sodium [Synthroid] 100 mcg PO DAILY 08/02/20 04/16/23 History Liraglutide [Victoza 3-Ramírez] 1.8 mg SQ DAILY@0800 08/02/20 04/16/23 History Melatonin 5 mg PO HS 08/02/20 04/16/23 History Atorvastatin [Lipitor] 10 mg PO HS 07/26/22 04/16/23 History Meclizine [Antivert] 12.5 mg PO TID@0800,1200,1800 09/22/22 04/16/23 History Potassium Chloride [Klor-Con M20] 20 meq PO DAILY 09/22/22 04/16/23 History Acetaminophen [Tylenol 8 Hour] 650 mg PO Q6H PRN 10/06/22 04/16/23 History Amoxic-Pot Clav 875-125Mg 1 tab PO BID@0800,2000 04/16/23 04/16/23 History [Augmentin 875-125] Divalproex Sprinkle [Depakote 250 mg PO BID@0800,1600 04/16/23 04/16/23 History Sprinkle] Ipratropium-Albuterol Nebulize 3 ml INHALATION RT-Q4H PRN 04/16/23 04/16/23 History [Duoneb 0.5 mg-3 mg/3 ml Soln] Rivaroxaban [Xarelto] 20 mg PO HS 04/16/23 04/16/23 History Torsemide [Demadex] 20 mg PO Q2D 04/16/23 04/16/23 History lisinopriL [Zestril] 5 mg PO BID 04/16/23 04/16/23 History traMADol HCL 50 mg PO Q12H PRN 04/16/23 04/16/23 History Allergies Allergy/AdvReac Type Severity Reaction Status Date / Time No Known Allergies Allergy Verified 04/16/23 13:36 Physical Exam Vitals: Vital Signs Temp Pulse Resp BP Pulse Ox 04/16/23 16:00 63 18 102/45 96 04/16/23 14:00 67 18 98/48 97 04/16/23 13:39 69 18 119/55 98 04/16/23 12:30 69/41 04/16/23 12:02 90 L 04/16/23 11:56 97.8 F 69 22 95/79 87 L Intake and Output 04/16/23 04/16/23 04/16/23 06:59 14:59 22:59 Other: Weight 95.254 kg Results CBC & Chem 7: 04/16/23 12:31 04/16/23 12:31 Labs: Abnormal Lab Results - Last 24 Hours (Table) 04/16/23 04/16/23 04/16/23 Range/Units 12:04 12:31 12:31 RBC 4.28 L (4.30-5.90) m/uL RDW 17.0 H (11.5-15.5) % Lymphocytes # 0.6 L (1.0-4.8) k/uL PT 13.2 H (10.0-12.5) sec INR 1.2 H (<1.2) D-Dimer 7.59 H (<0.60) mg/L FEU Carbon Dioxide (22-30) mmol/L BUN (9-20) mg/dL Creatinine (0.66-1.25) mg/dL Glucose (74-99) mg/dL POC Glucose (mg/dL) 172 H (70-110) mg/dL AST (17-59) U/L Troponin I (0.000-0.034) ng/mL 04/16/23 04/16/23 04/16/23 Range/Units 12:31 12:31 15:07 RBC (4.30-5.90) m/uL RDW (11.5-15.5) % Lymphocytes # (1.0-4.8) k/uL PT (10.0-12.5) sec INR (<1.2) D-Dimer (<0.60) mg/L FEU Carbon Dioxide 19 L (22-30) mmol/L BUN 43 H (9-20) mg/dL Creatinine 2.73 H (0.66-1.25) mg/dL Glucose 173 H (74-99) mg/dL POC Glucose (mg/dL) (70-110) mg/dL AST 67 H (17-59) U/L Troponin I 0.061 H* 0.108 H* (0.000-0.034) ng/mL
--- NOTE | 2023-04-16 18:33 | NM ---
EXAMINATION TYPE: NM pul vent and perfuse DATE OF EXAM: 04/16/2023 CLINICAL INDICATION: Male, 72 years old with history of syncope; HISTORY: Shortness of breath TECHNIQUE: Utilizing inhalation of 65.0 mCi Tc 99m DTPA aerosol and intravenous injection of 5.3 mCi of Tc 99m MAA, ventilation and perfusion images are acquired post injection in multiple projections. FINDINGS: Normal radiotracer distribution is noted in the lungs. There is no evidence of mismatched defects. IMPRESSION: Very low probability for pulmonary embolism
[2023-04-16] MEDS: ATORVASTATIN 10 MG TAB PO SCH (21:33)
[2023-04-16] MEDS: MELATONIN 5 MG TABLET PO SCH (21:33)
[2023-04-16] MEDS: RIVAROXABAN 15 MG TAB PO SCH (21:33)
[2023-04-17] MEDS: LEVOTHYROXINE 100 MCG TAB PO SCH (05:40)
[2023-04-17] MEDS: AMIODARONE 200 MG TAB PO SCH (08:01)
[2023-04-17] MEDS: DIVALPROEX SPRINKLE 125 MG CAP.SPRINK PO SCH ×2 (08:01→17:10)
[2023-04-17] MEDS: CYANOCOBALAMIN 500 MCG TAB PO SCH (08:01)
[2023-04-17] MEDS: NON FORMULARY DRUG (Liraglutide [Victoza 3-Pak] 0.6 MG/0.1 ML Pen.Injctr) SQ SCH (08:02)
[2023-04-17] MEDS ORDERED: PANTOPRAZOLE 40 MG/10 ML VIAL IV SCH (09:00)
[2023-04-17 09:48] LABS: Anisocytosis Slight; HCT 32.2 % (39.0-53.0); HGB 10.4 gm/dL (13.0-17.5); Hypochromasia Marked; MCH 31.3 pg (25.0-35.0); MCHC 32.4 g/dL (31.0-37.0); MCV 96.5 fL (80.0-100.0); Mean Platelet Volume 9.3; Platelet Count 167 k/uL (150-450); RBC 3.34 m/uL (4.30-5.90); RDW 17.1 % (11.5-15.5); WBC 9.2 k/uL (3.8-10.6)
[2023-04-17 09:52] LABS: ALT 34 U/L (4-49); AST 76 U/L (17-59); African American GFR (CKD) 39 (>60 ml/min/1.73 sqM); Alkaline Phosphatase 37 U/L (38-126); Anion Gap 8 mmol/L; Blood Urea Nitrogen 38 mg/dL (9-20); Carbon Dioxide 19 mmol/L (22-30); Chloride 110 mmol/L (98-107); Glucose 109 mg/dL (74-99); Non-African American GFR(CKD) 33 (>60 ml/min/1.73 sqM); Sodium 137 mmol/L (137-145); Total Bilirubin 1.2 mg/dL (0.2-1.3); Total Protein 6.3 g/dL (6.3-8.2)
[2023-04-17 10:07] LABS: Potassium 5.6 mmol/L (3.5-5.1)
[2023-04-17 10:10] LABS: Band Neutrophils % 12 %; Lymphocytes # (M) 0.46 k/uL (1.0-4.8); Monocytes # (M) 1.29 k/uL (0-1.0); Neutrophils % (M) 69 %; Nucleated Red Blood Cells 0 /100 WBC (0-0); Total Cells Counted 100
[2023-04-17] MEDS ORDERED: SODIUM POLYSTYRENE SULFONATE 15 GM/60 ML BOTTLE PO STA (12:45)
--- NOTE | 2023-04-17 15:16 | P.PN ---
Progress Note - Text Progress Note Date: 04/17/23 Chief Complaint: Decreased mentation 72-year-old patient, resident of [facility], being followed by Dr. Brand.. He can walk a few steps with a walker. Patient was sent in from the [facility] to the ER. Per the EMS staff they were told that patient had syncopal episode while having a bowel movement. And he was hypotensive after that. Blood sugar was 205. Twelve-lead EKG showed first- degree block. Here in the ER patient feels a bit lethargic. Though is able to answer simple questions. Does feel hungry. Diet. Patient renal function is noted to be off. April 17: Laying in bed. Feels better. Diet. Getting IV fluids. Some improvement in creatinine. Did tolerate some diet. Active Medications Acetaminophen (Acetaminophen Tab 325 Mg Tab) 650 mg PO Q6H PRN PRN Reason: Pain Last Admin: 04/17/23 09:02 Dose: 650 mg Albuterol/Ipratropium (Ipratropium-Albuterol 3 Ml Neb) 3 ml INHALATION RT-Q4H PRN PRN Reason: Shortness Of Breath Or Wheezing Amiodarone HCl (Amiodarone 200 Mg Tab) 200 mg PO DAILY [facility] Last Admin: 04/17/23 08:01 Dose: 200 mg Atorvastatin Calcium (Atorvastatin 10 Mg Tab) 10 mg PO [facility] Last Admin: 04/16/23 21:33 Dose: 10 mg Cyanocobalamin (Cyanocobalamin 500 Mcg Tab) 500 mcg PO DAILY@0800 [facility] Last Admin: 04/17/23 08:01 Dose: 500 mcg Divalproex Sodium (Divalproex Sprinkle 125 Mg Cap.Sprink) 250 mg PO BID@0800,1600 [facility] Last Admin: 04/17/23 08:01 Dose: 250 mg Sodium Chloride (Saline 0.9%) 1,000 mls @ 100 mls/hr IV .Q10H [facility] Last Admin: 04/16/23 23:23 Dose: Not Given Levothyroxine Sodium (Levothyroxine 100 Mcg Tab) 100 mcg PO 0630 [facility] Last Admin: 04/17/23 05:40 Dose: 100 mcg Melatonin (Melatonin 5 Mg Tablet) 5 mg PO [facility] Last Admin: 04/16/23 21:33 Dose: 5 mg Naloxone HCl (Naloxone 0.4 Mg/Ml 1 Ml Vial) 0.2 mg IV Q2M PRN PRN Reason: Opioid Reversal Non-Formulary Medication (Liraglutide [Victoza 3-Ramírez]) 1.8 mg SQ DAILY@0800 [facility] Last Admin: 04/17/23 08:02 Dose: Not Given Rivaroxaban (Rivaroxaban 15 Mg Tab) 15 mg PO HS [facility]; Protocol Last Admin: 04/16/23 21:33 Dose: 15 mg Tramadol HCl (Tramadol 50 Mg Tab) 50 mg PO Q12H PRN PRN Reason: Pain Past medical history to include: Atrial fibrillation, asthma, diabetes, hypertension, hyperlipidemia obstructive sleep apnea, diabetic neuropathy, leukemia, gallstones, medically disabled, gout, peripheral neuropathy, as use a motorized scooter. DJD. Noncompliant with CPAP. Social history: At [facility]. Has a legal guardian. Physical examination: VITAL SIGNS: 98.7, 63, 18, 109/51, 96% on 4 L GENERAL: Reclined in bed, tired EYES: Pupils equal. Conjunctiva normal. HEENT: External appearance of nose and ears normal, oral cavity grossly normal. NECK: JVD unable to assess; masses not palpable. HEART: First and second heart sounds are normal; some edema present. LUNGS: Respiratory rate normal; decreased breath sound. ABDOMEN: Soft, nontender, liver spleen not palpable, no masses palpable. PSYCH: Able to answer simple questions MUSCULOSKELETAL:No Clubbing/cyanosis;muscles-grossly intact DERMATOLOGICAL: Dry skin and lower extremity with the knee down to the ankle. With scaling. NEUROLOGICAL: Cranial nerves grossly intact; speech is a bit slow. Macroglos jackie. Weakness lower extremity. INVESTIGATIONS, reviewed in the clinical context: April 17: White count 9.2 hemoglobin 10.4 platelets 167 potassium 5.6 BUN 38 creatinine 1.97. April 16, 2023: White count 8 hemoglobin 13 platelets 281 sodium 137 potassium 4.9 BUN 43 creatinine 2.73 Troponin I 0.061, 0.108 Previous labs: Creatinine was 1.1 in September 2022. March 04 creatinine was 2.0 Assessment plan: -Syncope likely due to vasovagal from hypotension from acute kidney injury likely volume loss Telemetry. IV fluids. -Chronic congestive heart failure from diastolic dysfunction EF 55-60%: Hold diuretics for now. -Troponinemia in the presence of CKD. No ACS -Acute kidney injury likely ATN from cardiorenal syndrome. Follow creatinine closely. IV fluids -Chronic kidney disease stage III. Creatinine 1.63 in July 2022 -Chronic insomnia Melatonin -Hyperlipidemia Lipitor 10 mg daily at bedtime -Metabolic alkalosis from diuretics Diamox -Diabetes mellitus type 2 Victoza. Metformin. Follow Accu-Cheks -Paroxysmal atrial fibrillation, currently sinus rhythm Amiodarone. -Hypothyroid Synthroid 100 g a day -Obstructive sleep apnea patient does not use CPAP -Diabetic peripheral neuropathy -Essential hypertension Amlodipine 5 mg a day -Obesity BMI 37.1 Weight loss measures -Chronic medical debility uses a motorized wheelchair at baseline -Public legal guardian Continue IV fluids. Repeat labs. For hyperkalemia give 1 dose of Kayexalate. Add renal diet. Past Medical History Past Medical History: Atrial Fibrillation, Asthma, Diabetes Mellitus, Hyperlipidemia, Hypertension, Sleep Apnea/CPAP/BIPAP, Thyroid Disorder Additional Past Medical History / Comment(s): Diabetic oculopathy, obesity, leukopenia, gallstone, diarrhea, mentally disabled, gout, peripheral neuropothy, gait dysfunction- uses motorized scooter, degenerative joint disorder, supposed to wear cpap at home but is non compliant History of Any Multi-Drug Resistant Organisms: Unobtainable Past Surgical History: Cholecystectomy, Hernia Repair Additional Past Surgical History / Comment(s): L inguinal hernia repair, last colonoscopy 2002 Past Anesthesia/Blood Transfusion Reactions: Unable to Obtain Past Psychological History: No Psychological Hx Reported Smoking Status: Unknown if ever smoked Past Alcohol Use History: Unable to Obtain Past Drug Use History: Unable to Obtain
--- NOTE | 2023-04-17 16:34 | P.CRDCN ---
History of Present Illness Consult date: 04/17/23 Consult reason: sycope Chief complaint: sycope History of present illness: History of present illness: Patient is a pleasant 72-year-old male with significant past medical history of atrial fibrillation, asthma, diabetes, mentally disabled, hypertension, hyperlipidemia, obstructive sleep apnea, leukemia, peripheral neuropathy presented with syncope. Patient is a poor historian and does not recall why he is in the emergency department. Per records patient was sent from his extended care facility for syncopal episode while he was having a bowel movement, he was hypotensive after that with blood pressure 58/40. Head CT was negative for any acute findings. VQ scan with very low probability for PE. EKG shows sinus rhythm first-degree AV block, 68 bpm. Reviewed hemoglobin 10.4, potassium 5.6, creatinine 1.97, troponin 0.061, 0.108, 0.107. Did have prior echocardiogram 09/2022 with a EF 55-60%, no significant valve issues. REVIEW OF SYSTEMS: No fever or chills. No cough or expectoration. No diaphoresis. Patient denies headache, dizziness, blurred vision, double vision. Patient denies any stomach discomfort. No nausea, vomiting. No hematochezia. No hematemesis. Denies any black stools or blood in his stools. Denies dysuria or hematuria. No muscle weakness or numbness. No chest pain or pressure. PHYSICAL EXAMINATION: This is a 72-year-old male in no apparent distress at the time of my examination. HEENT: Head is atraumatic, normocephalic. Pupils are equal, round. Sclerae anicteric. Conjunctivae are clear. Mucous membranes of the mouth are moist. Neck is supple. There is no jugular venous distention. No carotid bruit is heard. CHEST EXAMINATION: Lungs are clear to auscultation. No chest wall tenderness is noted on palpation or with deep breathing. HEART EXAMINATION: Heart regular rate and rhythm. S1, S2 heard. No murmurs, gallops or rub. ABDOMEN: Soft, nontender. Bowel sounds are heard. EXTREMITIES: 2+ peripheral pulses with trace peripheral edema and no calf tenderness noted. NEUROLOGIC EXAMINATION: Patient is awake, alert and some confusion. IMPRESSION AND PLAN: Syncope Atrial fibrillation, paroxysmal Diabetes Hypertension Hyperlipidemia JOSSIE Elevated troponin Anemia PLAN: We will stop lisinopril given low blood pressures. Monitor CBC given anemia. Will check echocardiogram to evaluate heart function and structure. We will follow. I am dictating on behalf of Dr. Desmond Ingram's history/physical and assessment/plan. Past Medical History Past Medical History: Atrial Fibrillation, Asthma, Diabetes Mellitus, Hyperlipidemia, Hypertension, Sleep Apnea/CPAP/BIPAP, Thyroid Disorder Additional Past Medical History / Comment(s): Diabetic oculopathy, obesity, leukopenia, gallstone, diarrhea, mentally disabled, gout, peripheral neuropothy, gait dysfunction- uses motorized scooter, degenerative joint disorder, supposed to wear cpap at home but is non compliant History of Any Multi-Drug Resistant Organisms: Unobtainable Past Surgical History: Cholecystectomy, Hernia Repair Additional Past Surgical History / Comment(s): L inguinal hernia repair, last colonoscopy 2002 Past Anesthesia/Blood Transfusion Reactions: Unable to Obtain Past Psychological History: No Psychological Hx Reported Smoking Status: Unknown if ever smoked Past Alcohol Use History: Unable to Obtain Past Drug Use History: Unable to Obtain - Past Family History Mother Family Medical History: Unable to Obtain Father Family Medical History: Diabetes Mellitus Medications and Allergies Home Medications Medication Instructions Recorded Confirmed Type Amiodarone [Cordarone] 200 mg PO DAILY 08/02/20 04/16/23 History Cyanocobalamin [Vitamin B-12] 500 mcg PO DAILY@0800 08/02/20 04/16/23 History Levothyroxine Sodium [Synthroid] 100 mcg PO DAILY 08/02/20 04/16/23 History Liraglutide [Victoza 3-Ramírez] 1.8 mg SQ DAILY@0800 08/02/20 04/16/23 History Melatonin 5 mg PO HS 08/02/20 04/16/23 History Atorvastatin [Lipitor] 10 mg PO HS 07/26/22 04/16/23 History Meclizine [Antivert] 12.5 mg PO TID@0800,1200,1800 09/22/22 04/16/23 History Potassium Chloride [Klor-Con M20] 20 meq PO DAILY 09/22/22 04/16/23 History Acetaminophen [Tylenol 8 Hour] 650 mg PO Q6H PRN 10/06/22 04/16/23 History Amoxic-Pot Clav 875-125Mg 1 tab PO BID@0800,199904/16/23 04/16/23 History [Augmentin 875-125] Divalproex Sprinkle [Depakote 250 mg PO BID@0800,1600 04/16/23 04/16/23 History Sprinkle] Ipratropium-Albuterol Nebulize 3 ml INHALATION RT-Q4H PRN 04/16/23 04/16/23 History [Duoneb 0.5 mg-3 mg/3 ml Soln] Rivaroxaban [Xarelto] 20 mg PO HS 04/16/23 04/16/23 History Torsemide [Demadex] 20 mg PO Q2D 04/16/23 04/16/23 History lisinopriL [Zestril] 5 mg PO BID 04/16/23 04/16/23 History traMADol HCL 50 mg PO Q12H PRN 04/16/23 04/16/23 History Allergies Allergy/AdvReac Type Severity Reaction Status Date / Time No Known Allergies Allergy Verified 04/16/23 13:36 Physical Exam Vitals: Vital Signs Temp Pulse Resp BP Pulse Ox 04/17/23 08:12 99.9 F H 73 18 101/65 97 04/17/23 08:11 99 04/17/23 06:56 73 17 108/58 97 04/17/23 06:05 72 18 93/57 94 L 04/17/23 04:11 76 17 118/55 96 04/17/23 03:05 75 17 129/54 96 04/17/23 01:08 71 17 95/79 93 L 04/16/23 23:22 60 18 111/49 98 04/16/23 22:26 66 16 88/42 93 L 04/16/23 21:19 67 17 100/54 94 L 04/16/23 20:00 64 17 81/48 94 L 04/16/23 19:50 68 17 98/46 93 L 04/16/23 18:19 68 18 110/54 95 04/16/23 16:00 63 18 102/45 96 04/16/23 14:00 67 18 98/48 97 04/16/23 13:39 69 18 119/55 98 04/16/23 12:30 69/41 04/16/23 12:02 90 L 04/16/23 11:56 97.8 F 69 22 95/79 87 L Results 04/17/23 07:37 04/17/23 07:37 Cardiac Enzymes 04/16/23 04/16/23 04/16/23 Range/Units 12:31 12:31 15:07 AST 67 H (17-59) U/L Troponin I 0.061 H* 0.108 H* (0.000-0.034) ng/mL 04/16/23 04/17/23 Range/Units 18:16 07:37 AST 76 H (17-59) U/L Troponin I 0.107 H* (0.000-0.034) ng/mL Coagulation 04/16/23 Range/Units 12:31 PT 13.2 H (10.0-12.5) sec APTT 26.2 (22.0-30.0) sec CBC 04/16/23 04/17/23 Range/Units 12:31 07:37 WBC 8.0 9.2 (3.8-10.6) k/uL RBC 4.28 L 3.34 L (4.30-5.90) m/uL Hgb 13.0 10.4 L (13.0-17.5) gm/dL Hct 41.2 32.2 L (39.0-53.0) % Plt Count 281 167 (150-450) k/uL Comprehensive Metabolic Panel 04/16/23 04/17/23 Range/Units 12:31 07:37 Sodium 137 137 (137-145) mmol/L Potassium 4.9 5.6 H (3.5-5.1) mmol/L Chloride 103 110 H (98-107) mmol/L Carbon Dioxide 19 L 19 L (22-30) mmol/L BUN 43 H 38 H (9-20) mg/dL Creatinine 2.73 H 1.97 H (0.66-1.25) mg/dL Glucose 173 H 109 H (74-99) mg/dL Calcium 8.8 8.0 L (8.4-10.2) mg/dL AST 67 H 76 H (17-59) U/L ALT 31 34 (4-49) U/L Alkaline Phosphatase 72 37 L (38-126) U/L Total Protein 7.3 6.3 (6.3-8.2) g/dL Albumin 3.8 3.0 L (3.5-5.0) g/dL Current Medications Generic Name Dose Route Start Last Admin Trade Name Freq PRN Reason Stop Dose Admin Acetaminophen 650 mg 04/16/23 16:32 04/17/23 09:02 Acetaminophen Tab 325 Mg Tab PO 650 mg Q6H PRN Administration Pain Albuterol/Ipratropium 3 ml 04/16/23 16:32 Ipratropium-Albuterol 3 Ml Neb INHALATION RT-Q4H PRN Shortness Of Breath Or Wheezing Amiodarone HCl 200 mg 04/17/23 09:00 04/17/23 08:01 Amiodarone 200 Mg Tab PO 200 mg DAILY [facility] Administration Atorvastatin Calcium 10 mg 04/16/23 21:00 04/16/23 21:33 Atorvastatin 10 Mg Tab PO 10 mg HS [facility] Administration Cyanocobalamin 500 mcg 04/17/23 08:00 04/17/23 08:01 Cyanocobalamin 500 Mcg Tab PO 500 mcg DAILY@0800 [facility] Administration Divalproex Sodium 250 mg 04/17/23 08:00 04/17/23 08:01 Divalproex Sprinkle 125 Mg Cap.Sprink PO 250 mg BID@0800,1600 [facility] Administration Sodium Chloride 1,000 mls @ 100 mls/hr 04/16/23 14:45 04/16/23 23:23 Saline 0.9% IV Not Given .Q10H [facility] Levothyroxine Sodium 100 mcg 04/17/23 06:30 04/17/23 05:40 Levothyroxine 100 Mcg Tab PO 100 mcg 0630 [facility] Administration Melatonin 5 mg 04/16/23 21:00 04/16/23 21:33 Melatonin 5 Mg Tablet PO 5 mg HS [facility] Administration Naloxone HCl 0.2 mg 04/16/23 14:45 Naloxone 0.4 Mg/Ml 1 Ml Vial IV Q2M PRN Opioid Reversal Non-Formulary Medication 1.8 mg 04/17/23 08:00 04/17/23 08:02 Liraglutide [Victoza 3-Ramírez] SQ Not Given DAILY@0800 [facility] Rivaroxaban 15 mg 04/16/23 21:00 04/16/23 21:33 Rivaroxaban 15 Mg Tab PO 15 mg HS [facility] Administration Protocol Tramadol HCl 50 mg 04/16/23 16:32 Tramadol 50 Mg Tab PO Q12H PRN Pain 04/17/23 07:37 04/17/23 07:37
[2023-04-17] MEDS: SODIUM CHLORIDE 0.9% 1,000 ML IV SCH ×2 (17:00→21:16)
[2023-04-17 17:02] LABS: Anisocytosis Slight; Basophils % (A) 0 %; Eosinophils % (A) 0 %; HCT 33.5 % (39.0-53.0); HGB 10.4 gm/dL (13.0-17.5); Hypochromasia Marked; Lymphocytes # (A) 0.7 k/uL (1.0-4.8); Lymphocytes % (A) 7 %; MCH 30.1 pg (25.0-35.0); MCV 97.2 fL (80.0-100.0); Macrocytosis Slight; Mean Platelet Volume 8.3; Monocytes # (A) 0.8 k/uL (0-1.0); Monocytes % (A) 7 %; Neutrophils # (A) 8.5 k/uL (1.3-7.7); Neutrophils % (A) 83 %; Platelet Count 201 k/uL (150-450); RBC 3.45 m/uL (4.30-5.90); WBC 10.2 k/uL (3.8-10.6)
[2023-04-17] MEDS: ATORVASTATIN 10 MG TAB PO SCH (21:16)
[2023-04-17] MEDS: RIVAROXABAN 15 MG TAB PO SCH (21:16)
[2023-04-17] MEDS: MELATONIN 5 MG TABLET PO SCH (21:16)
[2023-04-18] MEDS: SODIUM CHLORIDE 0.9% 1,000 ML IV SCH ×2 (06:29→16:17)
[2023-04-18] MEDS: LEVOTHYROXINE 100 MCG TAB PO SCH (06:42)
[2023-04-18] MEDS ORDERED: SODIUM POLYSTYRENE SULFONATE 15 GM/60 ML BOTTLE PO STA (06:48)
[2023-04-18] MEDS: CYANOCOBALAMIN 500 MCG TAB PO SCH (08:39)
[2023-04-18] MEDS: AMIODARONE 200 MG TAB PO SCH (08:40)
[2023-04-18] MEDS: NON FORMULARY DRUG (Liraglutide [Victoza 3-Pak] 0.6 MG/0.1 ML Pen.Injctr) SQ SCH (08:40)
[2023-04-18] MEDS: DIVALPROEX SPRINKLE 125 MG CAP.SPRINK PO SCH ×2 (08:40→16:17)
--- NOTE | 2023-04-18 08:51 | CA ---
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 Procedure CPT: Indications: SYNCOPE, ELEVATED TROP, HYPOTENSION Cardiac Hx: Technical Quality: Fair Contrast 1: Total Dose (mL): Contrast 2: Total Dose (mL): MEASUREMENTS (Male / Female) Normal Values 2D ECHO LV Diastolic Diameter PLAX 4.5 cm 4.2 - 5.9 / 3.9 - 5.3 cm LV Systolic Diameter PLAX 2.7 cm IVS Diastolic Thickness 1.3 cm 0.6 - 1.0 / 0.6 - 0.9 cm LVPW Diastolic Thickness 1.4 cm 0.6 - 1.0 / 0.6 - 0.9 cm LV Relative Wall Thickness 0.6 RV Internal Dim ED PLAX 3.1 cm M-MODE Aortic Root Diameter MM 2.7 cm LA Systolic Diameter MM 3.9 cm LA Ao Ratio MM 1.4 AV Cusp Separation MM 1.9 cm DOPPLER AV Peak Velocity 172.0 cm/s AV Peak Gradient 11.8 mmHg AV Mean Velocity 139.5 cm/s AV Mean Gradient 8.0 mmHg AV Velocity Time Integral 45.1 cm LVOT Peak Velocity 113.9 cm/s LVOT Peak Gradient 5.2 mmHg LVOT Velocity Time Integral 24.0 cm MV Area PHT 3.3 cm??? Mitral E Point Velocity 127.4 cm/s Mitral A Point Velocity 119.5 cm/s Mitral E to A Ratio 1.1 MV Deceleration Time 232.6 ms MV E' Velocity 7.1 cm/s Mitral E to MV E' Ratio 17.9 FINDINGS Left Ventricle Mildly increased left ventricular wall thickness. Left ventricular cavity size normal. No obvious regional wall motion abnormalities. Left ventricular ejection fraction is estimated at 55-60 %. Right Ventricle Mildly dilated right ventricle Right Atrium Normal right atrial size. Left Atrium Mildly increased left atrial area. Mitral Valve Structurally normal mitral valve. Mitral annular calcification. Trace to mild mitral regurgitation. Aortic Valve No aortic valve stenosis or regurgitation. Tricuspid Valve Structurally normal tricuspid valve. Mild tricuspid regurgitation. Pulmonic Valve Pulmonic valve not well visualized. Pericardium No pericardial effusion. Aorta Normal size aortic root and proximal ascending aorta. CONCLUSIONS Mildly increased left ventricular wall thickness Left ventricular ejection fraction 55-60% Mildly dilated right ventricle Trace to mild mitral regurgitation Mild tricuspid regurgitation No pericardial effusion Previewed by: Dr. Desmond Ingram DO (Electronically Signed) Final Date: 18 April 2023 08:50
[2023-04-18 12:23] LABS: African American GFR (CKD) 63 (>60 ml/min/1.73 sqM); Anion Gap 7 mmol/L; Blood Urea Nitrogen 25 mg/dL (9-20); Calcium 8.5 mg/dL (8.4-10.2); Carbon Dioxide 24 mmol/L (22-30); Chloride 109 mmol/L (98-107); Glucose 137 mg/dL (74-99); Non-African American GFR(CKD) 54 (>60 ml/min/1.73 sqM); Potassium 4.4 mmol/L (3.5-5.1); Sodium 140 mmol/L (137-145)
--- NOTE | 2023-04-18 13:28 | P.PN ---
Subjective Progress Note Date: 04/18/23 Consult reason: sycope Chief complaint: sycope History of present illness: History of present illness: Patient is a pleasant 72-year-old male with significant past medical history of atrial fibrillation, asthma, diabetes, mentally disabled, hypertension, hyperlipidemia, obstructive sleep apnea, leukemia, peripheral neuropathy p resented with syncope. Patient is a poor historian and does not recall why he is in the emergency department. Per records patient was sent from his extended care facility for syncopal episode while he was having a bowel movement, he was hypotensive after that with blood pressure 58/40. Head CT was negative for any acute findings. VQ scan with very low probability for PE. EKG shows sinus rhythm first-degree AV block, 68 bpm. Reviewed hemoglobin 10.4, potassium 5.6, creatinine 1.97, troponin 0.061, 0.108, 0.107. Did have prior echocardiogram 09/2022 with a EF 55-60%, no significant valve issues. 04/18 Echocardiogram reveals EF of 55 to 60%, trace to mild mitral regurgitation, mild tricuspid regurgitation. No pericardial effusion. Results reviewed with the patient. Unsure if patient has true understanding. Patient denies having any chest pain. Blood pressure 121/83, heart rate is in the 70s. Pulse ox 96% on room air. Repeat blood work reveals improvement of kidney function with BUN 25 creatinine 1.32. PHYSICAL EXAMINATION: This is a 72-year-old male in no apparent distress at the time of my examination. HEENT: Head is atraumatic, normocephalic. Pupils are equal, round. Sclerae anicteric. Conjunctivae are clear. Mucous membranes of the mouth are moist. Neck is supple. There is no jugular venous distention. No carotid bruit is heard. CHEST EXAMINATION: Lungs are clear to auscultation. No chest wall tenderness is noted on palpation or with deep breathing. HEART EXAMINATION: Heart regular rate and rhythm. S1, S2 heard. No murmurs, gallops or rub. ABDOMEN: Soft, nontender. Bowel sounds are heard. EXTREMITIES: 2+ peripheral pulses with trace peripheral edema and no calf tenderness noted. NEUROLOGIC EXAMINATION: Patient is awake, alert and some confusion. IMPRESSION AND PLAN: Syncope Atrial fibrillation, paroxysmal Diabetes Hypertension Hyperlipidemia JOSSIE Elevated troponin most likely due to atrial fibrillation Anemia PLAN: We will stop lisinopril given low blood pressures. Plan for event monitor which can be set up through the office Patient is cleared for discharge from cardiology. Nurse practitioner note has been reviewed, I agree with documented findings and plan of care. Patient was seen and examined. Objective - Vital Signs Vital signs: Vital Signs Temp 98.1 F 04/18/23 04:00 Pulse 76 04/18/23 04:00 Resp 18 04/18/23 04:00 BP 121/83 04/18/23 04:00 Pulse Ox 96 04/18/23 04:00 FiO2 Intake & Output 04/17/23 04/18/23 04/18/23 18:59 06:59 18:59 Intake Total 500 118 Output Total 930 Balance -430 118 Intake: Oral 500 118 Output: Urine 930 Other: Voiding Method Urinal Incontinent # Bowel Movements 0 - Labs CBC & Chem 7: 04/17/23 16:42 04/18/23 10:49 Labs: Abnormal Lab Results - Last 24 Hours (Table) 04/17/23 04/18/23 Range/Units 16:42 10:49 RBC 3.45 L (4.30-5.90) m/uL Hgb 10.4 L (13.0-17.5) gm/dL Hct 33.5 L (39.0-53.0) % RDW 17.0 H (11.5-15.5) % Neutrophils # 8.5 H (1.3-7.7) k/uL Lymphocytes # 0.7 L (1.0-4.8) k/uL Chloride 109 H (98-107) mmol/L BUN 25 H (9-20) mg/dL Creatinine 1.32 H (0.66-1.25) mg/dL Glucose 137 H (74-99) mg/dL
--- NOTE | 2023-04-18 14:46 | P.PN ---
Progress Note - Text Progress Note Date: 04/18/23 Chief Complaint: Decreased mentation 72-year-old patient, resident of [facility], being followed by Dr. Brand.. He can walk a few steps with a walker. Patient was sent in from the [facility] to the ER. Per the EMS staff they were told that patient had syncopal episode while having a bowel movement. And he was hypotensive after that. Blood sugar was 205. Twelve-lead EKG showed first- degree block. Here in the ER patient feels a bit lethargic. Though is able to answer simple questions. Does feel hungry. Diet. Patient renal function is noted to be off. April 17: Laying in bed. Feels better. Diet. Getting IV fluids. Some improvement in creatinine. Did tolerate some diet. April 18: Doing much better. More awake. Tolerating diet. Feels much better. Creatinine down to 1.32. Cut back IV fluids. Plan for discharge tomorrow. Active Medications Acetaminophen (Acetaminophen Tab 325 Mg Tab) 650 mg PO Q6H PRN PRN Reason: Pain Last Admin: 04/17/23 09:02 Dose: 650 mg Albuterol/Ipratropium (Ipratropium-Albuterol 3 Ml Neb) 3 ml INHALATION RT-Q4H PRN PRN Reason: Shortness Of Breath Or Wheezing Amiodarone HCl (Amiodarone 200 Mg Tab) 200 mg PO DAILY [facility] Last Admin: 04/18/23 08:40 Dose: 200 mg Atorvastatin Calcium (Atorvastatin 10 Mg Tab) 10 mg PO HS [facility] Last Admin: 04/17/23 21:16 Dose: 10 mg Cyanocobalamin (Cyanocobalamin 500 Mcg Tab) 500 mcg PO DAILY@0800 [facility] Last Admin: 04/18/23 08:39 Dose: 500 mcg Divalproex Sodium (Divalproex Sprinkle 125 Mg Cap.Sprink) 250 mg PO BID@0800,1600 [facility] Last Admin: 04/18/23 08:40 Dose: 250 mg Sodium Chloride (Saline 0.9%) 1,000 mls @ 75 mls/hr IV .[id number] [facility] Last Admin: 04/18/23 06:29 Dose: Not Given Levothyroxine Sodium (Levothyroxine 100 Mcg Tab) 100 mcg PO 0630 [facility] Last Admin: 04/18/23 06:42 Dose: 100 mcg Melatonin (Melatonin 5 Mg Tablet) 5 mg PO [facility] Last Admin: 04/17/23 21:16 Dose: 5 mg Naloxone HCl (Naloxone 0.4 Mg/Ml 1 Ml Vial) 0.2 mg IV Q2M PRN PRN Reason: Opioid Reversal Non-Formulary Medication (Liraglutide [Victoza 3-Ramírez]) 1.8 mg SQ DAILY@0800 [facility] Last Admin: 04/18/23 08:40 Dose: Not Given Rivaroxaban (Rivaroxaban 15 Mg Tab) 15 mg PO [facility]; Protocol Last Admin: 04/17/23 21:16 Dose: 15 mg Tramadol HCl (Tramadol 50 Mg Tab) 50 mg PO Q12H PRN PRN Reason: Pain Past medical history to include: Atrial fibrillation, asthma, diabetes, hypertension, hyperlipidemia obstructive sleep apnea, diabetic neuropathy, leukemia, gallstones, medically disabled, gout, peripheral neuropathy, as use a motorized scooter. DJD. Noncompliant with CPAP. Social history: At [facility]. Has a legal guardian. Physical examination: VITAL SIGNS: 98.1, 76, 18, 121/83, 96% room air GENERAL: Reclined in bed, looking better EYES: Pupils equal. Conjunctiva normal. HEENT: External appearance of nose and ears normal, oral cavity grossly normal. NECK: JVD unable to assess; masses not palpable. HEART: First and second heart sounds are normal; some edema present. LUNGS: Respiratory rate normal; decreased breath sound. ABDOMEN: Soft, nontender, liver spleen not palpable, no masses palpable. PSYCH: Able to answer simple questions MUSCULOSKELETAL:No Clubbing/cyanosis;muscles-grossly intact DERMATOLOGICAL: Dry skin and lower extremity with the knee down to the ankle. With scaling. NEUROLOGICAL: Cranial nerves grossly intact; speech is a bit slow. Macroglossia. Weakness lower extremity. INVESTIGATIONS, reviewed in the clinical context: April 18: Potassium 4.4 creatinine 1.32 BUN 25 April 17: White count 9.2 hemoglobin 10.4 platelets 167 potassium 5.6 BUN 38 creatinine 1.97. April 16, 2023: White count 8 hemoglobin 13 platelets 281 sodium 137 potassium 4.9 BUN 43 creatinine 2.73 Troponin I 0.061, 0.108 Previous labs: Creatinine was 1.1 in September 2022. March 04 creatinine was 2.0 Assessment plan: -Syncope likely due to vasovagal from hypotension from acute kidney injury likely volume loss Telemetry. IV fluids. -Chronic congestive heart failure from diastolic dysfunction EF 55-60%: Hold diuretics for now. -Troponinemia in the presence of CKD. No ACS -Acute kidney injury likely ATN from cardiorenal syndrome.: Improving Follow creatinine closely. IV fluids -Chronic kidney disease stage III. Creatinine 1.63 in July 2022 -Chronic insomnia Melatonin -Hyperlipidemia Lipitor 10 mg daily at bedtime -Metabolic alkalosis from diuretics Diamox -Diabetes mellitus type 2 Victoza. Metformin. Follow Accu-Cheks -Paroxysmal atrial fibrillation, currently sinus rhythm Amiodarone. -Hypothyroid Synthroid 100 g a day -Obstructive sleep apnea patient does not use CPAP -Diabetic peripheral neuropathy -Essential hypertension Amlodipine 5 mg a day -Obesity BMI 37.1 Weight loss measures -Chronic medical debility uses a motorized wheelchair at baseline -Public legal guardian Get back IV fluids. Creatinine improving. Hopefully discharge tomorrow. Past Medical History Past Medical History: Atrial Fibrillation, Asthma, Diabetes Mellitus, Hyperlipidemia, Hypertension, Sleep Apnea/CPAP/BIPAP, Thyroid Disorder Additional Past Medical History / Comment(s): Diabetic oculopathy, obesity, leukopenia, gallstone, diarrhea, mentally disabled, gout, peripheral neuropothy, gait dysfunction- uses motorized scooter, degenerative joint disorder, supposed to wear cpap at home but is non compliant History of Any Multi-Drug Resistant Organisms: Unobtainable Past Surgical History: Cholecystectomy, Hernia Repair Additional Past Surgical History / Comment(s): L inguinal hernia repair, last colonoscopy 2002 Past Anesthesia/Blood Transfusion Reactions: Unable to Obtain Past Psychological History: No Psychological Hx Reported Smoking Status: Unknown if ever smoked Past Alcohol Use History: Unable to Obtain Past Drug Use History: Unable to Obtain
[2023-04-18] MEDS: RIVAROXABAN 15 MG TAB PO SCH (21:11)
[2023-04-18] MEDS: ATORVASTATIN 10 MG TAB PO SCH (21:11)
[2023-04-18] MEDS: MELATONIN 5 MG TABLET PO SCH (21:11)
[2023-04-18] MEDS: lisinopriL 5 MG TAB PO SCH (21:11)
[2023-04-19] MEDS: SODIUM CHLORIDE 0.9% 1,000 ML IV SCH (05:42)
[2023-04-19] MEDS: LEVOTHYROXINE 100 MCG TAB PO SCH (05:46)
[2023-04-19 07:23] LABS: African American GFR (CKD) 73 (>60 ml/min/1.73 sqM); Anion Gap 7 mmol/L; Blood Urea Nitrogen 18 mg/dL (9-20); Calcium 8.7 mg/dL (8.4-10.2); Carbon Dioxide 25 mmol/L (22-30); Chloride 108 mmol/L (98-107); Glucose 102 mg/dL (74-99); Non-African American GFR(CKD) 64 (>60 ml/min/1.73 sqM); Potassium 4.1 mmol/L (3.5-5.1); Sodium 140 mmol/L (137-145)
[2023-04-19] MEDS: NON FORMULARY DRUG (Liraglutide [Victoza 3-Pak] 0.6 MG/0.1 ML Pen.Injctr) SQ SCH (07:58)
[2023-04-19] MEDS: lisinopriL 5 MG TAB PO SCH (08:51)
[2023-04-19] MEDS: AMIODARONE 200 MG TAB PO SCH (08:52)
[2023-04-19] MEDS: CYANOCOBALAMIN 500 MCG TAB PO SCH (08:52)
[2023-04-19] MEDS: DIVALPROEX SPRINKLE 125 MG CAP.SPRINK PO SCH (08:52)
[2023-04-19 12:42] VITALS: BP 101/50; PULSE 75; RESP 16; TEMP 98
--- NOTE | 2023-04-19 13:37 | P.DS ---
Providers Date of admission: 04/16/23 14:48 Expected date of discharge: 04/19/23 Attending physician: Suraj Hoffmann Consults: 04/16/23 14:45 Consult Physician Urgent Consulting Provider: Desmond Ingram Consult Reason/Comments: syncope Do you want consulting provider notified?: Yes Primary care physician: Gerardo [facility] Course: Chief Complaint: Decreased mentation 72-year-old patient, resident of [facility], being followed by Dr. Brand.. He can walk a few steps with a walker. Patient was sent in from the [facility] to the ER. Per the EMS staff they were told that patient had syncopal episode while having a bowel movement. And he was hypotensive after that. Blood sugar was 205. Twelve-lead EKG showed first- degree block. Here in the ER patient feels a bit lethargic. Though is able to answer simple questions. Does feel hungry. Diet. Patient renal function is noted to be off. April 17: Laying in bed. Feels better. Diet. Getting IV fluids. Some improvement in creatinine. Did tolerate some diet. April 18: Doing much better. More awake. Tolerating diet. Feels much better. Creatinine down to 1.32. Cut back IV fluids. Plan for discharge tomorrow. April 19: Comfortable. Eating well. Creatinine down to 1.16. Diuretics have been discontinued. Will discharge the patient on fluid restriction of 1800 cc a day. Past medical history to include: Atrial fibrillation, asthma, diabetes, hypertension, hyperlipidemia obstructive sleep apnea, diabetic neuropathy, leukemia, gallstones, medically disabled, gout, peripheral neuropathy, as use a motorized scooter. DJD. Noncompliant with CPAP. Social history: At [facility]. Has a legal guardian. Physical examination: VITAL SIGNS: 98, 75, 16, 101/50, 95% on 3 L GENERAL: Comfortable EYES: Pupils equal. Conjunctiva normal. HEENT: External appearance of nose and ears normal, oral cavity grossly normal. NECK: JVD unable to assess; masses not palpable. HEART: First and second heart sounds are normal; some edema present. LUNGS: Respiratory rate normal; decreased breath sound. ABDOMEN: Soft, nontender, liver spleen not palpable, no masses palpable. PSYCH: Able to answer simple questions MUSCULOSKELETAL:No Clubbing/cyanosis;muscles-grossly intact DERMATOLOGICAL: Dry skin and lower extremity with the knee down to the ankle. With scaling. NEUROLOGICAL: Cranial nerves grossly intact; speech is a bit slow. Macroglossia. Weakness lower extremity. INVESTIGATIONS, reviewed in the clinical context: April 19: Potassium 4.1 creatinine 1.16 April 16, 2023: White count 8 hemoglobin 13 platelets 281 sodium 137 potassium 4.9 BUN 43 creatinine 2.73 Troponin I 0.061, 0.108 Previous labs: Creatinine was 1.1 in September 2022. March 04 creatinine was 2.0 Assessment plan: -Syncope likely due to vasovagal from hypotension from acute kidney injury from volume loss Telemetry. IV fluids. -Chronic congestive heart failure from diastolic dysfunction EF 55-60%: Diuretics discontinued. Fluid restriction 1800 cc a day. -Troponinemia in the presence of CKD. No ACS -Acute kidney injury likely ATN from cardiorenal syndrome.: Better Follow creatinine closely. IV fluids -Chronic kidney disease stage 2 likely nephrosclerosis. -Chronic insomnia Melatonin -Hyperlipidemia Lipitor 10 mg daily at bedtime -Metabolic alkalosis from diuretics Diamox -Diabetes mellitus type 2 Victoza. Metformin. Follow Accu-Cheks -Paroxysmal atrial fibrillation, currently sinus rhythm Amiodarone. -Hypothyroid Synthroid 100 g a day -Obstructive sleep apnea patient does not use CPAP -Diabetic peripheral neuropathy -Essential hypertension Amlodipine 5 mg nightly. Losartan -Obesity BMI 37.1 Weight loss measures -Chronic medical debility uses a motorized wheelchair at baseline -Public legal guardian [facility] Past Medical History Past Medical History: Atrial Fibrillation, Asthma, Diabetes Mellitus, Hyperlipidemia, Hypertension, Sleep Apnea/CPAP/BIPAP, Thyroid Disorder Additional Past Medical History / Comment(s): Diabetic oculopathy, obesity, leukopenia, gallstone, diarrhea, mentally disabled, gout, peripheral neuropothy, gait dysfunction- uses motorized scooter, degenerative joint disorder, supposed to wear cpap at home but is non compliant History of Any Multi-Drug Resistant Organisms: Unobtainable Past Surgical History: Cholecystectomy, Hernia Repair Additional Past Surgical History / Comment(s): L inguinal hernia repair, last colonoscopy 2002 Past Anesthesia/Blood Transfusion Reactions: Unable to Obtain Past Psychological History: No Psychological Hx Reported Smoking Status: Unknown if ever smoked Past Alcohol Use History: Unable to Obtain Past Drug Use History: Unable to Obtain Plan - Discharge Summary New Discharge Prescriptions: Continue Liraglutide [Victoza 3-Ramírez] 1.8 mg SQ DAILY@0800 Cyanocobalamin [Vitamin B-12] 500 mcg PO DAILY@0800 Melatonin 5 mg PO HS Levothyroxine Sodium [Synthroid] 100 mcg PO DAILY Atorvastatin [Lipitor] 10 mg PO HS Acetaminophen [Tylenol 8 Hour] 650 mg PO Q6H PRN PRN Reason: Pain lisinopriL [Zestril] 5 mg PO BID Divalproex Sprinkle [Depakote Sprinkle] 250 mg PO BID@0800,1600 Rivaroxaban [Xarelto] 20 mg PO HS Amiodarone [Cordarone] 200 mg PO DAILY Ipratropium-Albuterol Nebulize [Duoneb 0.5 mg-3 mg/3 ml Soln] 3 ml INHALATION RT-Q4H PRN PRN Reason: Shortness Of Breath Or Wheezing traMADol HCL 50 mg PO Q12H PRN #6 tab PRN Reason: Pain Discontinued Meclizine [Antivert] 12.5 mg PO TID@0800,1200,1800 Potassium Chloride [Klor-Con M20] 20 meq PO DAILY Amoxic-Pot Clav 875-125Mg [Augmentin 875-125] 1 tab PO BID@0800,2000 Torsemide [Demadex] 20 mg PO Q2D Discharge Medication List Amiodarone [Cordarone] 200 mg PO DAILY 08/02/20 [History] Cyanocobalamin [Vitamin B-12] 500 mcg PO DAILY@0800 08/02/20 [History] Levothyroxine Sodium [Synthroid] 100 mcg PO DAILY 08/02/20 [History] Liraglutide [Victoza 3-Ramírez] 1.8 mg SQ DAILY@0800 08/02/20 [History] Melatonin 5 mg PO HS 08/02/20 [History] Atorvastatin [Lipitor] 10 mg PO HS 07/26/22 [History] Acetaminophen [Tylenol 8 Hour] 650 mg PO Q6H PRN 10/06/22 [History] Divalproex Sprinkle [Depakote Sprinkle] 250 mg PO BID@0800,1600 04/16/23 [History] Ipratropium-Albuterol Nebulize [Duoneb 0.5 mg-3 mg/3 ml Soln] 3 ml INHALATION RT-Q4H PRN 04/16/23 [History] Rivaroxaban [Xarelto] 20 mg PO HS 04/16/23 [History] lisinopriL [Zestril] 5 mg PO BID 04/16/23 [History] traMADol HCL 50 mg PO Q12H PRN #6 tab 04/19/23 [Rx] Follow up Appointment(s)/Referral(s): [facility] [Provider Group] - 1 Week Gerardo Brand DO [Primary Care Provider] - 1-2 days Activity/Diet/Wound Care/Special Instructions: fluid restrict 1800 cc/day
== END 2023-04-19 16:56 ==
LOC: EC 11:54 → 6NMEDSUR 14:48 → 3SCARD 17:03
PROVIDERS: ADMIT Hospitalist; ATTEND Hospitalist
DX: R55 Syncope and collapse (principal); G93.41 Metabolic encephalopathy; N17.9 Acute kidney failure, unspecified; I48.0 Paroxysmal atrial fibrillation; E78.5 Hyperlipidemia, unspecified; I13.0 Hypertensive heart and chronic kidney disease with heart failure and stage 1 through stage 4 chronic kidney disease, or unspecified chronic kidney disease; N18.30 Chronic kidney disease, stage 3 unspecified; I50.32 Chronic diastolic (congestive) heart failure; E11.42 Type 2 diabetes mellitus with diabetic polyneuropathy; G47.33 Obstructive sleep apnea (adult) (pediatric); J45.909 Unspecified asthma, uncomplicated; R79.89 Other specified abnormal findings of blood chemistry; E11.22 Type 2 diabetes mellitus with diabetic chronic kidney disease; D63.1 Anemia in chronic kidney disease; F51.04 Psychophysiologic insomnia; E87.3 Alkalosis; E03.9 Hypothyroidism, unspecified; R54 Age-related physical debility; E66.9 Obesity, unspecified; Z68.37 Body mass index [BMI] 37.0-37.9, adult; Z85.6 Personal history of leukemia; Z79.01 Long term (current) use of anticoagulants; Z79.85 Long-term (current) use of injectable non-insulin antidiabetic drugs; Z79.890 Hormone replacement therapy; Z79.899 Other long term (current) drug therapy
CPT/HCPCS: 96360; 96361; 99285; 36415; 94760 ×2; 93005; 93306; 97163; 97166; 85379; 80053 ×2; 80048 ×2; 83735; 84484; 85025 ×2; 85610; 85730; 71046; 70450; 78582; G0378 ×5; A9540; A9567